=== PATIENT | female | born 1950 | race Caucasian/White ===

== ENCOUNTER 2017-07-28 16:04 | Emergency (ER) | payer MEDICARE, SELFPAY ==
[2017-07-28 16:05] VITALS: BP 119/74; PULSE 89; RESP 16; TEMP 36.1; O2SAT 98; BMI 23.3
--- NOTE | 2017-07-28 16:35 | RAD_ITS ---
STUDY: X-RAY - RIGHT SHOULDER REASON FOR EXAM: Female, 66 years old. Right shoulder pain. TECHNIQUE: 2 view(s) of the shoulder. COMPARISON: None. FINDINGS: Fracture of the humeral neck, partially extending into the base of the greater tubercle. No significant impaction or displacement. No dislocation. RAD/Shoulder min 2 Views IMPRESSION: Humeral neck fracture. Electronically Signed: Fernando Matute, at 16:55 EDT Tel , Service support ,
--- NOTE | 2017-07-28 17:36 | ED.VISSUMM ---
- ER Visit Summary Date of Service: 07/28/17 Chief Complaint: Right shoulder pain History of Present Illness: The patient is a 66 F who presents with right shoulder pain that began today after a fall. Patient states she was playing pickle ball when she dove for the ball and landed on her right upper extremity. Patient states her pain is worse with any movement. Patient admits to some abrasions over her right wrist and right elbow. Patient states the pain is worse over the right shoulder. Patient denies any paresthesias or weakness. Patient denies any head injury or loss of consciousness. Patient denies any other injuries. Physical Examination: Vital signs are stable. Patient is afebrile. Patient is in no acute distress. Musculoskeletal exam reveals tenderness over the right proximal humerus and right shoulder area. Range of motion was limited in all motions of the right shoulder secondary to pain. There are superficial abrasions over the right wrist and right elbow. There is no active bleeding. There is good range of motion of the elbow and wrist. Strength is 5/5 bilaterally. There are no sensory deficits noted. The remaining physical exam is within normal limits. Test Results: X-rays of the right shoulder were obtained. There is a nondisplaced right proximal humerus fracture. Emergency Department Course and Treatment: Patient was given a dose of [place] here. Patient was placed in a sling and swath. Patient was given a prescription for [place]. Patient made an appointment with Dr. Berry for tomorrow. Patient was instructed to follow-up with Dr. Berry tomorrow as scheduled. Patient understood and was agreeable with the plan. All questions were answered. Disposition: Discharge home Impression: Right proximal humerus fracture This note was generated with [employer] dictation software. It may contain incorrect words, spelling, and punctuation that were not noted in review of the chart prior to signing ED Disposition - Plan for ED Patient: Disposition: Home or Assisted Living Chief Complaint: Upper Extremity Injury Diagnosis: Closed fracture of right proximal humerus Instructions: ED Fx Shoulder Prescriptions: Hydrocodone/Acetaminophen [[place] 5-325 Tablet] 1 ea PO Q6H PRN PRN 5 Days #20 tab PRN Reason: Pain Referrals: Alfredito Engel DO [Primary Care Provider] -
--- NOTE | 2017-07-28 17:42 | ED.DCSUM_ITS ---
- ER Visit Summary Date of Service: 07/28/17 Chief Complaint: Right shoulder pain History of Present Illness: The patient is a 66 F who presents with right shoulder pain that began today after a fall. Patient states she was playing pickle ball when she dove for the ball and landed on her right upper extremity. Patient states her pain is worse with any movement. Patient admits to some abrasions over her right wrist and right elbow. Patient states the pain is worse over the right shoulder. Patient denies any paresthesias or weakness. Patient denies any head injury or loss of consciousness. Patient denies any other injuries. Physical Examination: Vital signs are stable. Patient is afebrile. Patient is in no acute distress. Musculoskeletal exam reveals tenderness over the right proximal humerus and right shoulder area. Range of motion was limited in all motions of the right shoulder secondary to pain. There are superficial abrasions over the right wrist and right elbow. There is no active bleeding. There is good range of motion of the elbow and wrist. Strength is 5/5 bilaterally. There are no sensory deficits noted. The remaining physical exam is within normal limits. Test Results: X-rays of the right shoulder were obtained. There is a nondisplaced right proximal humerus fracture. Emergency Department Course and Treatment: Patient was given a dose of [place] here. Patient was placed in a sling and swath. Patient was given a prescription for [place]. Patient made an appointment with Dr. eBrry for tomorrow. Patient was instructed to follow-up with Dr. Berry tomorrow as scheduled. Patient understood and was agreeable with the plan. All questions were answered. Disposition: Discharge home Impression: Right proximal humerus fracture This note was generated with [employer] dictation software. It may contain incorrect words, spelling, and punctuation that were not noted in review of the chart prior to signing ED Disposition - Plan for ED Patient: Disposition: Home or Assisted Living Chief Complaint: Upper Extremity Injury Diagnosis: Closed fracture of right proximal humerus Instructions: ED Fx Shoulder Prescriptions: Hydrocodone/Acetaminophen [[place] 5-325 Tablet] 1 ea PO Q6H PRN PRN 5 Days #20 tab PRN Reason: Pain Referrals: Alfredito Engel DO [Primary Care Provider] -
[2017-07-28] MEDS: HYDROcodone Bitartrate/Apap 5/325 Tablet PO (17:50)
[2017-07-28 17:51] VITALS: RESP 18
== END 2017-07-28 17:54 | disposition home or self-care (01) ==
PROVIDERS: Emergency Provider Emergency Medicine; Family Provider Student in an Organized Health Care Education/Training Program; PCP Student in an Organized Health Care Education/Training Program
DX: S42.201A Unspecified fracture of upper end of right humerus, initial encounter for closed fracture (principal); W18.39XA Other fall on same level, initial encounter; Y93.69 Activity, other involving other sports and athletics played as a team or group; Y92.9 Unspecified place or not applicable; Y99.9 Unspecified external cause status; Z85.3 Personal history of malignant neoplasm of breast
CPT/HCPCS: 73030; 99283

== ENCOUNTER → 2017-12-05 15:54 | Outpatient (CLI) | payer MEDICARE, SELFPAY | PROVIDERS: Family Provider Student in an Organized Health Care Education/Training Program; PCP Student in an Organized Health Care Education/Training Program | DX: J02.9 Acute pharyngitis, unspecified (principal) | CPT/HCPCS: 87070; 87077; 87186 ==

== ENCOUNTER → 2018-02-14 07:26 | Outpatient (CLI) | payer MEDICARE, SELFPAY ==
[2018-02-14 11:38] LABS: Hematocrit 42.2 % (37-47); Hemoglobin 14.3 g/dl (12.0-15.0); Mean Corp Hgb Conc 33.9 g/gl (32-36); Mean Corpuscular Hgb 31.8 pg (27.0-32.0); Mean Corpuscular Volume 93.8 fL (81-99); Mean Platelet Vol. 10.6 fl (6.2-12.0); Platelet Count 259 K/mm3 (150-450); RBC Distribution Width CV 13.5 % (11.6-14.6); RBC Distribution Width SD 44.8 fl (35.1-43.9); White Blood Count 4.4 K/mm3 (4.4-11.0)
[2018-02-14 11:40] LABS: Scan Indicated on CBC? Y/N NO
[2018-02-14 11:56] LABS: AST(SGOT) 22 U/L (15-37); Alanine Aminotransfer ALT/SGPT 32 U/L (13-56); Albumin, Serum 3.8 g/dL (3.2-5.0); Alkaline Phosphatase 83 U/L (45-117); Anion Gap 5 (5-15); BUN 14 mg/dL (7-18); BUN/Creat Ratio 15.4 RATIO (10-20); Calcium,Total 8.7 mg/dL (8.5-10.1); Chloride 103 mmol/L (98-107); Cholesterol 181 mg/dL (200); Creatinine, Serum 0.91 mg/dL (0.55-1.02); EST Glomerular Filtration Rate 65 mL/min (>60); Est Glom Filt Rate - Afr Amer 79 mL/min (>60); Globulin 3.7 g/dL (2.2-4.2); Glucose 79 mg/dL (74-106); High Density Lipoprotein 69 mg/dL; Protein, Total 7.5 g/dL (6.4-8.2); Sodium Level 140 mmol/L (136-145); Thyroid Stim Hormone (TSH) 2.94 uIU/mL (0.358-3.74); Triglycerides 49 mg/dL; Very Low Density Lipoprotein 10 mg/dL (5-40)
--- OUTSIDE RECORDS SUMMARY | 2018-04-02 11:53 | XMS RPT_ITS ---
:1950 Author Organization OH[facility] Care Team Providers Name Role Phone Alfredito Granados Attending Unavailable Granados, Alfredito Referring Unavailable Granados, Alfredito Primary Care Unavailable Granados, Alfredito Primary Care Unavailable Shahzad Martinez Attending Unavailable DEAN WANG Attending Unavailable Granados, Alfredito Primary Care Unavailable GRANADOS, ALFREDITO L Attending Unavailable GRANADOS, ALFREDITO L Referring Unavailable GRANADOS, ALFREDITO L Attending Unavailable GRANADOS, ALFREDITO L Referring Unavailable GRANADOS, ALFREDITO L Referring Unavailable GRANADOS, ALFREDITO L Attending Unavailable AISLINN MAYES Attending Unavailable PROBLEMS PROBLEMS DATE TYPE CONDITION / CODE ATTENDING STATUS SOURCE 02/13/2018 Active Encounter for NA Active [facility] medical Repository examination without abnormal findings / Z00.00(ICD-10) 02/14/2018 Unknown Z00.00 - Granados, Active [place] Encounter for [facility] medical Repository examination without abnormal findings / Z00.00(ICD-10) 12/05/2017 Unknown J02.9 - Acute DEAN WANG Active [facility] pharyngitis, Community unspecified / Hospital J02.9(ICD-10) Repository 07/28/2017 Unknown S42.201A - Shahzad Martinez Active [place] Unspecified Community fracture of upper Hospital end of right Repository humerus, initial encounter for closed fracture / S42.201A(ICD-10) PROCEDURES PROCEDURES No Procedure Records FoundRESULTS RESULTS CBC-COMPLETE BLOOD CNT Collected: 02/14/2018 Status: F Source: RADHA NO DIFF 7:36 AM [facility] REPOSITORY TYPE CODE TESTS RESULT OUT OF RANGE REFERENCE UNITS LAB L100.1000 4.4-11.0 K/mm3 Normal WBC 4.4 LAB L100.1200 4.2-5.4 M/mm3 Normal RBC 4.50 LAB L100.1300 12.0-15.0 g/dl Normal HGB 14.3 LAB L100.1400 37-47 % Normal HCT 42.2 LAB L100.1500 81-99 fL Normal MCV 93.8 LAB L100.1600 27.0-32.0 pg Normal MCH 31.8 LAB L100.1700 32-36 g/gl Normal MCHC 33.9 LAB L100.1810 11.6-14.6 % Normal RDW CV 13.5 LAB L100.1820 35.1-43.9 fl High RDW SD 44.8 LAB L100.1900 150-450 K/mm3 Normal PLT 259 LAB L100.2000 6.2-12.0 fl Normal MPV 10.6 Performed By: #### L100.0500 #### [facility] [address] [place], [address] COMPREHENSIVE METABOLIC Collected: 02/14/2018 Status: F Source: RADHA GAITAN 7:36 AM [facility] REPOSITORY TYPE CODE TESTS RESULT OUT OF RANGE REFERENCE UNITS LAB L501.0100 74-106 mg/dL Normal GLU 79 Result Comment: Please note revised GLUCOSE reference range effective 2017. LAB L501.1000 7-18 mg/dL Normal BUN 14 LAB L501.1100 0.55-1.02 mg/dL Normal CREAT,SERUM 0.91 Result Comment: The validity of the calculated GFR AND GFRAA in patients over 70 years has not been determined. Clinical correlation is essential. LAB L501.1110 >60 mL/min Normal EST GFR 65 Result Comment: Non- GFR Calc LAB L501.1115 >60 mL/min Normal EST GFR - AA 79 Result Comment: GFR Calc LAB L501.1300 10-20 RATIO Normal BUN/CRE 15.4 LAB L501.1500 6.4-8.2 g/dL T Normal PROT 7.5 LAB L501.1800 3.2-5.0 g/dL Normal ALB 3.8 LAB L501.1950 2.2-4.2 g/dL Normal GLOB 3.7 LAB L501.2000 0.9-2.4 RATIO Normal A/G 1.0 LAB L501.2200 8.5-10.1 mg/dL CA Normal 8.7 LAB L501.4100 15-37 U/L Normal AST 22 LAB L501.4305 45-117 U/L Normal ALK P 83 LAB L501.4405 13-56 U/L Normal ALT 32 LAB L501.4600 0.20-1.00 mg/dL T Normal BILI 0.40 LAB L501.5300 136-145 mmol/L NA Normal 140 LAB L501.5600 3.5-5.1 mmol/L K Normal 4.0 LAB L501.5900 98-107 mmol/L CL Normal 103 LAB L501.6100 21.0-32.0 mmol/L Normal CO2 32.0 LAB L501.6200 5-15 Normal GAP 5 Performed By: #### L500.4050, L500.4100, L501.9520, L506.0400 #### [facility] [address] [place], [address] LIPID PROFILE Collected: 02/14/2018 Status: F Source: [place] 7:36 AM [facility] REPOSITORY TYPE CODE TESTS RESULT OUT OF RANGE REFERENCE UNITS LAB L501.4900 200 mg/dL Normal CHOL 181 Result Comment: <200 mg/dL Desirable 200-240 mg/dL Borderline >240 mg/dL High Risk LAB L501.5000 mg/dL Normal TRIG 49 Result Comment: The drugs N-Acetylcysteine and Metamizole may falsely depress this assay. Serum Triglycerides Reference Interval Normal <150 mg/dL Borderline high 150 - 199 mg/dL High 200 - 499 mg/dL Very High > or = 500 mg/dL LAB L501.6400 mg/dL Normal HDL 69 Result Comment: The drugs N-Acetylcysteine and Metamizole may falsely depress this assay. Reference Range HDL <40 mg/dL Low HDL Cholesterol HDL >or= 60 mg/dL High HDL Cholesterol LAB L501.6500 0-130 mg/dL Normal LDL 102 LAB L501.6600 5-40 mg/dL Normal VLDL 10 Performed By: #### L500.4050, L500.4100, L501.9520, L506.0400 #### [facility] [address] [place], [address] THYROID STIM HORMONE Collected: 02/14/2018 Status: F Source: [place] (TSH) 7:36 AM [facility] REPOSITORY TYPE CODE TESTS RESULT OUT OF RANGE REFERENCE UNITS LAB L501.9520 0.358-3.74 uIU/mL Normal TSH 2.94 Performed By: #### L500.4050, L500.4100, L501.9520, L506.0400 #### [facility] [address] [facility] [address] [place], [place], [address] T4 FREE DIRECT Collected: 02/14/2018 Status: F Source: [place] 7:36 AM [facility] REPOSITORY TYPE CODE TESTS RESULT OUT OF RANGE REFERENCE UNITS LAB L506.0400 0.76-1.46 ng/dL Normal T4 FREE 0.90 DIRECT Performed By: #### L500.4050, L500.4100, L501.9520, L506.0400 #### [facility] [address] [facility] [address] [place], [place], [address] CBC Collected: 02/14/2018 Status: F Source: [place] 7:[address] [facility] REPOSITORY TYPE CODE TESTS RESULT OUT OF REFERENCE UNITS RANGE LAB WBC 3.70-11.00 k/uL Test WBC sent to [facility]. Result Comment: Account Credited [facility] RBC 3.90-5.20 m/uL Test sent RBC to [facility]. Result Comment: Account Credited [facility] HGB 11.5-15.5 g/dL Hemoglobin Test sent to [facility]. Result Comment: Account Credited [facility] HCT 36.0-46.0 % Hematocrit Test sent to [facility]. Result Comment: Account Credited [facility] MCV 80.0-100.0 fL Test sent MCV to [facility]. Result Comment: Account Credited [facility] MCH 26.0-34.0 pG Test sent MCH to [facility]. Result Comment: Account Credited [facility] MCHC 30.5-36.0 g/dL Test MCHC sent to [facility]. Result Comment: Account Credited [facility] RDWCV 11.5-15.0 % Test RDW-CV sent to [facility]. Result Comment: Account Credited [facility] PLTCT 150-400 k/uL Test Platelet Count sent to [facility]. Result Comment: Account Credited [facility] MPV 9.0-12.7 fL Test sent MPV to [facility]. Result Comment: Account Credited [facility] MADDY Recheck Test sent to [facility]. Result Comment: Account Credited [facility] REVW Test sent to [facility]. Result Comment: Account Credited [facility] CBCCOM Comment Test sent to [facility]. Result Comment: Account Credited [facility] ABSNUC <0.01 k/uL Test Absolute nRBC sent to [facility]. Result Comment: Account Credited [facility] COMP METABOLIC PANEL Collected: 02/14/2018 Status: F Source: [place] 7:36 AM [facility] REPOSITORY TYPE CODE TESTS RESULT OUT OF REFERENCE UNITS RANGE LAB TP 6.3-8.0 g/dL Test sent to [facility]. Result Comment: Account Credited [facility] ALB 3.9-4.9 g/dL Test Albumin sent to [facility]. Result Comment: Account Credited [facility] CA 8.5-10.2 mg/dL Test Calcium, Total sent to [facility]. Result Comment: Account Credited [facility] TBIL 0.2-1.3 mg/dL Bilirubin, Test Total sent to [facility]. Result Comment: Account Credited [facility] ALKP 34-123 U/L Alkaline Test Phosphatase sent to [facility]. Result Comment: Account Credited [facility] AST 13-35 U/L Test sent AST to [facility]. Result Comment: Account Credited [facility] GLU 74-99 mg/dL Test sent Glucose to [facility]. Result Comment: Account Credited [facility] BUN 7-21 mg/dL Test sent BUN to [facility]. Result Comment: Account Credited [facility] CRET 0.58-0.96 mg/dL Creatinine Test sent to [facility]. Result Comment: Account Credited [facility] NA 136-144 mmol/L Test Sodium sent to [facility]. Result Comment: Account Credited [facility] K 3.7-5.1 mmol/L Test Potassium sent to [facility]. Result Comment: Account Credited [facility] CL 97-105 mmol/L Test Chloride sent to [facility]. Result Comment: Account Credited [facility] CO2 22-30 mmol/L Test sent CO2 to [facility]. Result Comment: Account Credited [facility] AGAP 9-18 mmol/L Test sent Anion Gap to [facility]. Result Comment: Account Credited [facility] ALT 7-38 U/L Test sent to ALT [facility]. Result Comment: Account Credited [facility] GFRAA eGFR- Amer. Test sent to [facility]. Result Comment: Account Credited [facility] GFRNAA . eGFR-All Test sent Other Races to [facility]. Result Comment: Account Credited [facility] GFRPED eGFR-Ped. Test sent Factor to [facility]. Result Comment: Account Credited [facility] FREE T4 Collected: 02/14/2018 Status: F Source: [place] 7:36 AM [facility] REPOSITORY TYPE CODE TESTS RESULT OUT OF REFERENCE UNITS RANGE LAB FT4 0.9-1.7 ng/dL Test Free sent to [address] Result Comment: Account Credited [facility] LIPID PANEL, BASIC Collected: 02/14/2018 Status: F Source: [place] 7:36 AM [facility] REPOSITORY TYPE CODE TESTS RESULT OUT OF REFERENCE UNITS RANGE LAB CHOL <200 mg/dL Cholesterol Test sent to [facility]. Result Comment: Account Credited [facility] TRIGLY <150 mg/dL Triglyceride Test sent to [facility]. Result Comment: Account Credited [facility] HDL >39 mg/dL HDL-Cholesterol Test sent to [facility]. Result Comment: Account Credited [facility] LDL <100 mg/dL LDL-Cholesterol Test sent to [facility]. Result Comment: Account Credited [facility] NONHDL 90-159 mg/dL Non HDL Test Cholesterol sent to [facility]. Result Comment: Account Credited [facility] FT hrs Fasting Time 12 LAB VLDL <30 mg/dL VLDL Cholesterol Test sent to [facility]. Result Comment: Account Credited [facility] TCHDL <5.10 Test sent TC:HDL Ratio to [facility]. Result Comment: Account Credited [facility] LDLHDL <2.54 Test sent LDL:HDL Ratio to [facility]. Result Comment: Account Credited [facility] TSH Collected: 02/14/2018 Status: F Source: [place] 7:[address] [facility] [place] REPOSITORY TYPE CODE TESTS RESULT OUT OF REFERENCE UNITS RANGE LAB TSH 0.400-5.500 uU/mL Test TSH sent to [facility]. Result Comment: Account Credited [facility] PROGRESS Observed: 02/13/2018 Status: COMPLETED Source: [place] 12:47 PM [facility] REPOSITORY HNO ID: [id number] Author: Alfredito Granados Service: (none) Author Type: Physician Type: Progress Notes Filed: 02/13/2018 1:50 PM Note Text: CC:Corry Gonzalez is a 67 year old female who presents to the office for 6 months follow up HPI: At Last OV Urinary incontinence, overall stable, use of Vesicare as prescribed without significant SE ? Osteopenia, use of calcium and vitamin D supplements, regular exercise ? Recently suffered fall, was attempting to play/learn pickle ball and tripped and landed with right arm extended, had a right humeral neck fracture, seen at [facility] day of injury on 07/28 and treated by [employer] specialist Dr. Berry, She is in a sling, immobilized for another 3-5 weeks, has an upcoming follow up. Pain is stable, no concerns. ? Hx of breast cancer. Currently Right humeral fracture, has been to PHYSICAL THERAPY and gone to different ones for opinions, has regained ROM but is still not feeling as strong with shoudler strength as prior to fracture, continues to do exercise Skin lesion right base of foot, sore when walking, present for months Hx of breast cancer, recently had her left breast mammogram and then diagnostic mammo and US completed, asking for clinical breast exam, no new changes she has noticed- denies any nipple d/c or skin changes or new lumps. Urinary incontinence, stable with Vesicare. PAST MEDICAL HISTORY Diagnosis Date - Allergic rhinitis - Antibiotic reaction allergy- Amoxicillin, Ampicillin - Ductal carcinoma in situ (DCIS) of right breast 1997 - Lobular carcinoma of breast, stage 1 (HCC) 1997 right sided - Osteopenia stable in past - PMH - PAST MEDICAL HISTORY OF hot flashes on Tamoxifen secondary to breast cancer - Urge incontinence PAST SURGICAL HISTORY Procedure Laterality Date - CATARACT EXTRACTION HX ? 2009 bilateral - COLONOSCOP W/ OR W/O [facility] SPEC 03/29/13 Colonoscopy - DANSILVA, DIAG AND/OR THERAPEUTIC 2014 due to pelvic pain- as on Tamoxifen - PAST SURGICAL HISTORY OF 1997 mastectomy right breast Current Outpatient Prescriptions: solifenacin (VESICARE) 5 mg tablet Take 1 tablet by mouth once daily. venlafaxine (EFFEXOR) 50 mg tablet Take 3 tablets by mouth as directed. TAKE 2 TABLETS BY MOUTH IN THE MORNING, AND 1 TABLET IN THE EVENING mupirocin (BACTROBAN) 2 % ointment Apply 1 application to affected area twice daily as needed. cetirizine 10 mg tablet Take 10 mg by mouth once daily. aspirin 81 mg chewable tablet Take 81 mg by mouth once daily. zoster vaccine, recombinant, adjuvanted, (SHINGRIX) 50 mcg/0.5 mL injection Inject 0.5 mL intramuscularly one time only for 1 dose. No current facility-administered medications for this visit. ALLERGIES Allergen Reactions - Ampicillin Hives - [place] Fruits Intolerance - Dairy [Homeopathic * Intolerance - Dust Mites Intolerance - Molds [Other] Hives - Penicillins Hives - Wheat Bran Intolerance congestion Social History Marital status: Spouse name: Years of education: Number of children: Social History Main Topics Smoking status: Never Smoker Smokeless tobacco: Never Used Alcohol use: No ROS: See HPI PE: BP 100/56 Pulse 68 Temp (Src) 97.5 (Left Tympanic) Resp 16 Wt 152 lb (68.9kg) Gen: AANDOX3, NAD, non-toxic appearing HEENT: PERRLA, EOMs intact b/l, nares without drainage, pharynx without erythema, exudate, lesions, or drainage. Uvula midline. Neck: No LAD, no thyromegaly, no meningismus. CV: RRR, no murmur Lungs: CTA b/l, no wheezing Skin: No rashes, lesions, or wounds on exposed skin. Wart on right lateral foot plantar surface Breast exam- right breast with surgical removal and implant present, Left breast with dense lumps without obvious concerns, skin without changes, no nipple d/c, no axillary LAD No edema legs Normal pulses ASSESSMENT/PLAN: 1. Medicare annual wellness visit, subsequent - ICD9: V70.0, ICD10: Z00.00 (primary diagnosis) - Encouraged monthly Breast Self Exam - Recommended calcium intake with supplements or by diet (goal of 3922-9087 mg/day - Follow up for annual exam in one year. - COMP METABOLIC PANEL - CBC - LIPID PANEL BASIC - TSH BLD - T4 FREE/FREE THYROX 2. Need for vaccination - ICD9: V05.9, ICD10: Z23 - INFLUENZA SEASONAL HIGH DOSE AGE 65+ 3. Need for shingles vaccine - ICD9: V04.89, ICD10: Z23 - VARICELLA-ZOSTER GLYCOE VACC-AS01B ADJ(PF) 50 MCG/0.5 ML IM SUSP, KIT 4. Urge incontinence - ICD9: 788.31, ICD10: N39.41 - SOLIFENACIN 5 MG TABLET 5. Osteopenia, senile - ICD9: 733.90, ICD10: M85.80 - Reviewed the need for Calcium and Vitamin D supplements and weight bearing exercise as tolerated 6. Plantar wart, right foot - ICD9: 078.12, ICD10: B07.0 - treated in office today with cryotherapy, tolerated well Alfredito Granados DO Return if no improvement. Follow up with Alfredito Granados DO. Discussed risks, benefits, alternatives, and potential side effects of medications. Patient/Guardian expressed understanding and agreed with the plan. See patient instructions. Alfredito Granados DO [address] [place] [address] PROGRESS Observed: 02/13/2018 Status: COMPLETED Source: [place] 10:[address] [facility] [place] REPOSITORY HNO ID: [id number] Author: Elyssa Pickett LPN Service: (none) Author Type: (none) Type: Progress Notes Filed: 02/13/2018 1:50 PM Note Text: 67 year old female here for INACTIVATED INFLUENZA VACCINE. 6184-8535 Season Patient is identified by name and date of : Yes [] CONTRAINDICATIONS color enhanced section Age less than 6 months? No Allergy to eggs, chicken, chicken feathers, or chicken dander? No Allergy to thimerosal (a preservative) or formaldehyde, gelatin? No History of severe reaction to any vaccine component or a previous dose of influenza vaccination? No History of Guillain-Hudson Syndrome within 6 weeks after a previous influenza vaccine? No Patient is not moderately or severely ill? No Current temperature greater or equal to 100.4F? No History of Bone Marrow Transplant prior 6 months or solid organ transplant in the past 3 months ? No History of fainting after a prior injection or medical procedure? No- ? If patient has fainted in the past, the CDC recommends sitting or lying down for 15 minutes after the vaccination. [] VERIFICATION color enhanced section Was the answer Yes for any of the above contraindications? No contraindications present. Acceptable to proceed with vaccine. Patient/guardian agrees the above answers are true to the best of their knowledge? Yes Flu vaccine information sheet given? Yes See immunization activity in [facility] for details of immunizations adminstered today. Patient age: [age] year old For The 1685-8871 Flu Season 6-35 months old: Fluzone 0.25 ml - IM (Preservative Free) 3 years of age: Fluzone 0.5 ml - IM (Preservative Free) 3 years and older: Fluzone 0.5 ml- IM-(with Preservatives) 65+ years old: 2-49 years old Fluzone High-Dose 0.5 ml - IM (Preservative Free) FLUMIST- intranasal REMEMBER: If patient is less than 9 years of age and this is the first vaccine of Influenza to be received in any flu season, they should receive a second dose in one months time. CNOV Observed: 02/13/2018 Status: COMPLETED Source: [place] 10:40 AM [facility] REPOSITORY [facility] CORRY GONZALEZ ([id number]) 1950 F Date Time Provider Department 02/13/18 10:40 AM ALFREDITO GRANADOS During your visit today, we recorded the following information about you: Temperature Pulse Respiration Blood pressure 97.5 degrees 68/minute 16/minute 100/56 Weight 68.9 kg Elyssa Madhu FINCH 02/13/2018 1:50 PM Signed 67 year old female here for INACTIVATED INFLUENZA VACCINE. 5491-8771 Season Patient is identified by name and date of : Yes [] CONTRAINDICATIONS color enhanced section Age less than 6 months? No Allergy to eggs, chicken, chicken feathers, or chicken dander? No Allergy to thimerosal (a preservative) or formaldehyde, gelatin? No History of severe reaction to any vaccine component or a previous dose of influenza vaccination? No History of Guillain-Hudson Syndrome within 6 weeks after a previous influenza vaccine? No Patient is not moderately or severely ill? No Current temperature greater or equal to 100.4F? No History of Bone Marrow Transplant prior 6 months or solid organ transplant in the past 3 months ? No History of fainting after a prior injection or medical procedure? No- ? If patient has fainted in the past, the CDC recommends sitting or lying down for 15 minutes after the vaccination. [] VERIFICATION color enhanced section Was the answer Yes for any of the above contraindications? No contraindications present. Acceptable to proceed with vaccine. Patient/guardian agrees the above answers are true to the best of their knowledge? Yes Flu vaccine information sheet given? Yes See immunization activity in [facility] for details of immunizations adminstered today. Patient age: [age] year old For The 6162-3219 Flu Season 6-35 months old: Fluzone 0.25 ml - IM (Preservative Free) 3 years of age: Fluzone 0.5 ml - IM (Preservative Free) 3 years and older: Fluzone 0.5 ml- IM-(with Preservatives) 65+ years old: 2-49 years old Fluzone High-Dose 0.5 ml - IM (Preservative Free) FLUMIST- intranasal REMEMBER: If patient is less than 9 years of age and this is the first vaccine of Influenza to be received in any flu season, they should receive a second dose in one months time. Alfredito Granados DO 02/13/2018 1:50 PM Signed CC:Corry Gonzalez is a 67 year old female who presents to the office for 6 months follow up HPI: At Last OV Urinary incontinence, overall stable, use of Vesicare as prescribed without significant SE ? Osteopenia, use of calcium and vitamin D supplements, regular exercise ? Recently suffered fall, was attempting to play/learn pickle ball and tripped and landed with right arm extended, had a right humeral neck fracture, seen at [facility] day of injury on 07/28 and treated by [employer] specialist Dr. Berry, She is in a sling, immobilized for another 3-5 weeks, has an upcoming follow up. Pain is stable, no concerns. ? Hx of breast cancer. Currently Right humeral fracture, has been to PHYSICAL THERAPY and gone to different ones for opinions, has regained ROM but is still not feeling as strong with shoudler strength as prior to fracture, continues to do exercise Skin lesion right base of foot, sore when walking, present for months Hx of breast cancer, recently had her left breast mammogram and then diagnostic mammo and US completed, asking for clinical breast exam, no new changes she has noticed- denies any nipple d/c or skin changes or new lumps. Urinary incontinence, stable with Vesicare. PAST MEDICAL HISTORY Diagnosis Date - Allergic rhinitis - Antibiotic reaction allergy- Amoxicillin, Ampicillin - Ductal carcinoma in situ (DCIS) of right breast 1997 - Lobular carcinoma of breast, stage 1 (HCC) 1997 right sided - Osteopenia stable in past - PMH - PAST MEDICAL HISTORY OF hot flashes on Tamoxifen secondary to breast cancer - Urge incontinence PAST SURGICAL HISTORY Procedure Laterality Date - CATARACT EXTRACTION HX ? 2009 bilateral - COLONOSCOP W/ OR W/O [facility] SPEC 03/29/13 Colonoscopy - AMAIRANI, DIAG AND/OR THERAPEUTIC 2014 due to pelvic pain- as on Tamoxifen - PAST SURGICAL HISTORY OF 1997 mastectomy right breast Current Outpatient Prescriptions: solifenacin (VESICARE) 5 mg tablet Take 1 tablet by mouth once daily. venlafaxine (EFFEXOR) 50 mg tablet Take 3 tablets by mouth as directed. TAKE 2 TABLETS BY MOUTH IN THE MORNING, AND 1 TABLET IN THE EVENING mupirocin (BACTROBAN) 2 % ointment Apply 1 application to affected area twice daily as needed. cetirizine 10 mg tablet Take 10 mg by mouth once daily. aspirin 81 mg chewable tablet Take 81 mg by mouth once daily. zoster vaccine, recombinant, adjuvanted, (SHINGRIX) 50 mcg/0.5 mL injection Inject 0.5 mL intramuscularly one time only for 1 dose. No current facility-administered medications for this visit. ALLERGIES Allergen Reactions - Ampicillin Hives - [place] Fruits Intolerance - Dairy [Homeopathic * Intolerance - Dust Mites Intolerance - Molds [Other] Hives - Penicillins Hives - Wheat Bran Intolerance congestion Social History Marital status: Spouse name: Years of education: Number of children: Social History Main Topics Smoking status: Never Smoker Smokeless tobacco: Never Used Alcohol use: No ROS: See HPI PE: BP 100/56 Pulse 68 Temp (Src) 97.5 (Left Tympanic) Resp 16 Wt 152 lb (68.9kg) Gen: AANDOX3, NAD, non-toxic appearing HEENT: PERRLA, EOMs intact b/l, nares without drainage, pharynx without erythema, exudate, lesions, or drainage. Uvula midline. Neck: No LAD, no thyromegaly, no meningismus. CV: RRR, no murmur Lungs: CTA b/l, no wheezing Skin: No rashes, lesions, or wounds on exposed skin. Wart on right lateral foot plantar surface Breast exam- right breast with surgical removal and implant present, Left breast with dense lumps without obvious concerns, skin without changes, no nipple d/c, no axillary LAD No edema legs Normal pulses ASSESSMENT/PLAN: 1. Medicare annual wellness visit, subsequent - ICD9: V70.0, ICD10: Z00.00 (primary diagnosis) - Encouraged monthly Breast Self Exam - Recommended calcium intake with supplements or by diet (goal of 7539-1441 mg/day - Follow up for annual exam in one year. - COMP METABOLIC PANEL - CBC - LIPID PANEL BASIC - TSH BLD - T4 FREE/FREE THYROX 2. Need for vaccination - ICD9: V05.9, ICD10: Z23 - INFLUENZA SEASONAL HIGH DOSE AGE 65+ 3. Need for shingles vaccine - ICD9: V04.89, ICD10: Z23 - VARICELLA-ZOSTER GLYCOE VACC-AS01B ADJ(PF) 50 MCG/0.5 ML IM SUSP, KIT 4. Urge incontinence - ICD9: 788.31, ICD10: N39.41 - SOLIFENACIN 5 MG TABLET 5. Osteopenia, senile - ICD9: 733.90, ICD10: M85.80 - Reviewed the need for Calcium and Vitamin D supplements and weight bearing exercise as tolerated 6. Plantar wart, right foot - ICD9: 078.12, ICD10: B07.0 - treated in office today with cryotherapy, tolerated well Alfredito Granados DO Return if no improvement. Follow up with Alfredito Granados DO. Discussed risks, benefits, alternatives, and potential side effects of medications. Patient/Guardian expressed understanding and agreed with the plan. See patient instructions. Alfredito Granados DO [address] [place] [address] Referring Provider: ALFREDITO GRANADOS [[id number]] Allergies As of Date: 02/13/2018 Noted Allergy Reaction AMPICILLIN 05/09/2006 4 - Hives CITRUS FRUITS 05/09/2006 5 - Intolerance DAIRY (HOMEOPATHIC PRODUCTS) 05/09/2006 5 - Intolerance DUST MITES 05/09/2006 5 - Intolerance molds [Other] 05/09/2006 4 - Hives PENICILLINS 05/09/2006 4 - Hives WHEAT BRAN 05/09/2006 5 - Intolerance Comments: congestion Date Reviewed: 12/05/2017 Reviewed by: Martha Merritt LPN - Fully Assessed Reason for Visit: Follow Up [171] Cmt: 6 months Imm/Inj [58] Cmt: Flu Vaccine Reason For Visit History Recorded Primary Visit Diagnosis:Medicare annual wellness visit, subsequent [Z00.00] Other Visit Diagnoses:Need for vaccination [Z23] Need for shingles vaccine [Z23] Urge incontinence [N39.41] Osteopenia, senile [M85.80] Plantar wart, right foot [B07.0] Order(s):INFLUENZA SEASONAL HIGH DOSE AGE 65+ [55204SNA] Order #: [id number] zoster vaccine, recombinant, adjuvanted, (SHINGRIX) 50 mcg/0.5 mL injectionInject 0.5 mL intramuscularly one time only for 1 dose.Disp: 0.5 mLRfl: 0 solifenacin (VESICARE) 5 mg tabletTake 1 tablet by mouth once daily.Disp: 90 tabletRfl: 3 COMP METABOLIC PANEL [SQCMP] Order #: [id number] FUTURE CBC [SQCBC] Order #: [id number] FUTURE LIPID PANEL BASIC [SQLIPB] Order #: [id number] FUTURE TSH BLD [SQTSH] Order #: [id number] FUTURE T4 FREE/FREE THYROX [SQFT4] Order #: [id number] FUTURE Prescriptions as of 02/13/2018 Sig: SOLIFENACIN 5 MG TABLET Take 1 tablet by mouth once d* VENLAFAXINE 50 MG TABLET Take 3 tablets by mouth as di* MUPIROCIN 2 % TOPICAL OINTMENT Apply 1 application to affect* CETIRIZINE 10 MG TABLET Take 10 mg by mouth once tanisha* ASPIRIN 81 MG CHEWABLE TABLET Take 81 mg by mouth once tanisha* VARICELLA-ZOSTER GLYCOE VACC-* Inject 0.5 mL intramuscularly* Problem List As Of Date 02/13/2018 Noted Resolved ACTINIC KERATOSIS [L57.0] INVALID FOR* SEBORRHEIC KERATOSIS INFLAMED [L82.0] INVALID FOR* BENIGN DANUTA SKIN FACE NEC [D23.30] INVALID FOR* BENIGN DANUTA SKIN TRUNK [D23.5] INVALID FOR* BENIGN DANUTA SCALP/SKIN NECK [D23.4] INVALID FOR* NAIL DYSTROPHY///DISEASES OF NAIL NEC [L60.8] INVALID FOR* XEROSIS///SEBACEOUS GLAND DIS NEC [L73.8] INVALID FOR* CHR SOLAR SKIN DAMAGE NOS [L57.8] INVALID FOR* SEBORRHEIC KERATOSIS NOS [L82.1] INVALID FOR* Fx humeral neck, right, closed, initial encount*INVALID FOR* Acute pain of right shoulder [M25.511] INVALID FOR* Dysthymia [F34.1] INVALID FOR* Osteopenia, senile [M85.80] INVALID FOR* Celiac disease [K90.0] INVALID FOR* Urge incontinence [N39.41] INVALID FOR* Medicare annual wellness visit, subsequent [Z00*INVALID FOR* Prescriptions ordered this encounter Disp Refills Start End VARICELLA-ZOSTER GLYCOE VACC-AS01B A* 0.5 * 0 02/13/2018 02/13/2018 Class: Print RX Route: INTRAMUSCULA Sig: Inject 0.5 mL intramuscularly one time only for 1 dose. SOLIFENACIN 5 MG TABLET 90 t* 3 02/13/2018 Class: Print RX Route: ORAL Sig: Take 1 tablet by mouth once daily. Medications Discontinued During This Encounter VESICARE 5 mg tablet 30 t* 11 10/03/2017 02/13/2018 Cmt: This prescription was filled on 09/29/2017. Any refills authorized will be placed on file. Route: ORAL Sig: Take 1 tablet by mouth once daily. Disc: Reason for discontinue is not on file. Encounter Status:Closed by ALFREDITO GRANADOS DO on 02/13/18 MAMM DIG DIAG UNI Observed: 01/27/2018 Status: F Source: [facility] 2:30 PM [facility] REPOSITORY BILATERAL DIGITAL DIAGNOSTIC MAMMOGRAM TECHNIQUE: Bilateral CC and MLO views of the breasts were obtained with digital mammography. INDICATION: History of breast carcinoma, left FINDINGS: Compared to 02/22/2017, 02/16/2016 and 02/12/2015. Scattered fibroglandular densities in both breasts. Benign postoperative and posttherapeutic findings left breast. Benign biopsy clip left breast. No mass lesion, architectural distortion or suspicious calcifications. IMPRESSION: BI-RADS 2 - BENIGN FINDINGS. No mammographic evidence of malignancy. Annual mammogram is recommended. False negative rate of mammography is approximately 10 to 20%. Management of a palpable abnormality must be based upon clinical grounds. Technologist: CG Dictated By: DEYANIRA ROSS MD Signed By: DEYANIRA ROSS MD Signed Out: 01/27/18 14:30:26 US BREAST LEFT Observed: 01/27/2018 Status: F Source: [facility] 2:17 PM [facility] REPOSITORY LEFT DIGITAL DIAGNOSTIC MAMMOGRAM TECHNIQUE: Additional views of the left breast were obtained with digital mammography. INDICATION: History of breast carcinoma, abnormal mammogram FINDINGS: Compared to 01/14/2018 and 01/13/2017. The left breast is heterogeneously dense. Benign calcifications left breast. The new area of architectural distortion in the upper outer quadrant of the left breast significantly improves with compression images but is not completely resolved. Subsequent ultrasound demonstrates no significant abnormality. IMPRESSION: BI-RADS 3 - PROBABLE BENIGN FINDINGS. Recommend a follow-up diagnostic left mammogram in 6 months as the mammographic abnormality does not completely resolve on the compression images. False negative rate of mammography is approximately 10 to 20%. Management of a palpable abnormality must be based upon clinical grounds. YOUR MAMMOGRAM DEMONSTRATES THAT YOU HAVE DENSE BREAST TISSUE, WHICH COULD HIDE ABNORMALITIES. DENSE BREAST TISSUE, IN AND OF ITSELF, IS A RELATIVELY COMMON CONDITION. THEREFORE, THIS INFORMATION IS NOT PROVIDED TO CAUSE UNDUE CONCERN; RATHER, IT IS TO RAISE YOUR AWARENESS AND PROMOTE DISCUSSION WITH YOUR HEALTHCARE PROVIDER REGARDING THE PRESENCE OF DENSE BREAST TISSUE IN ADDITION TO OTHER RISK FACTORS. LEFT BREAST ULTRASOUND INDICATION: Abnormal screening mammogram, history of breast carcinoma TECHNIQUE: Targeted high-resolution sonographic evaluation of the upper outer quadrant and retroareolar area of the left breast performed. FINDINGS: Normal dense fibroglandular tissue is seen throughout. No mass lesion or fluid collection. IMPRESSION: BI-RADS 3 - PROBABLE BENIGN FINDINGS. Recommend a follow-up diagnostic left mammogram in 6 months as the mammographic abnormality does not completely resolve on the compression images. Technologist: ALBA Dictated By: DEYANIRA ROSS MD Signed By: DEYANIRA ROSS MD Signed Out: 01/27/18 14:14:56 MAMM DIG SCRN UNI Observed: 01/18/2018 Status: F Source: [facility] 1:30 PM [facility] REPOSITORY SCREENING LEFT DIGITAL MAMMOGRAM WITH TOMOSYNTHESIS. Clinical Data: Screening. Right mastectomy. Comparison: 01/13/2017. Mammographic findings: Standard 2D and tomosynthesis images were reviewed at 1 mm slice thickness. The left breast is heterogeneously dense, which may obscure small masses. There is a focal asymmetry and/or subtle possible architectural distortion the upper-outer quadrant at posterior depth. The digital mammogram has been reviewed with the aid of CAD. IMPRESSION AND RECOMMENDATION: Left breast focal asymmetry. Additional spot compression, XCCL, and true lateral views and targeted ultrasound are recommended. Category 0 : Need Additional Imaging Evaluation and/or Prior Mammograms For Comparison YOUR MAMMOGRAM DEMONSTRATES THAT YOU HAVE DENSE BREAST TISSUE, WHICH COULD HIDE ABNORMALITIES. DENSE BREAST TISSUE, IN AND OF ITSELF, IS A RELATIVELY COMMON CONDITION. THEREFORE, THIS INFORMATION IS NOT PROVIDED TO CAUSE UNDUE CONCERN; RATHER, IT IS TO RAISE YOUR AWARENESS AND PROMOTE DISCUSSION WITH YOUR HEALTHCARE PROVIDER REGARDING THE PRESENCE OF DENSE BREAST TISSUE IN ADDITION TO OTHER RISK FACTORS. False negative rate of mammography is approximately 10 to 20%. Management of a palpable abnormality must be based upon clinical grounds. Technologist: DERRICK Dictated By: MARCIO MCKEON MD Signed By: MARCIO MCKEON MD Signed Out: 01/18/18 13:28:45 Observed: 12/05/2017 Status: F Source: [facility] THROAT 11:30 AM [facility] REPOSITORY Culture, Throat Copy of report sent to Infection Control Printer [id number] 12/07/17 0809 [address]UC[address]. No Haemophilus, Streptococcus pneumoniae, beta-hemolytic Streptococcus isolated. ORGANISM 1: Meth. resistant Staph. aureus Amount Growth 3+ Meth. resistant Staph. aureus: REACTION Benzylpenicillin NF >=0.5 R Cefoxitin *NF + Clindamycin $$ <=0.25 S Inducable Clindamycin Resistan - Erythromycin $ 0.5 S Gentamicin $ <=0.5 S Levofloxacin $ <=0.12 S Linezolid $$$$ 2 S Oxacillin NF 0.5 R Tigecycline $$$$ <=0.12 S Rifampin $$ <=0.5 S Tetracycline NF <=1 S Trimethoprim/Sulfametho $ <=10 S Vancomycin $ 1 S (NF) indicates non-formulary drug at [facility]. Approval by Infectious Disease Specialist required before non-formulary drugs may be ordered and/or dispensed. * CLSI guidelines does not recommend testing of cephalosporins. This interpretation is deduced from Beta-lactam/penicillin results. Performed By: #### M100.1000 #### [facility] [address] 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 She has been using Ricola drops and tea with honey which seemed to be helping minimally. No fever or chills. She denies significant nasal congestion or cough. No sick contacts. No nvd or abdominal pain. Review of Systems Constitutional: Negative. Negative for fever. HENT: Positive for sore throat. Negative for congestion and ear pain. Eyes: Negative. Respiratory: Negative for cough. Cardiovascular: Negative. Gastrointestinal: Negative. Genitourinary: Negative. Skin: Negative. All other systems reviewed and are negative. PAST MEDICAL HISTORY Diagnosis Date - Allergic rhinitis - Antibiotic reaction allergy- Amoxicillin, Ampicillin - Ductal carcinoma in situ (DCIS) of right breast 1997 - Lobular carcinoma of breast, stage 1 (HCC) 1997 right sided - Osteopenia stable in past - PMH - PAST MEDICAL HISTORY OF hot flashes on Tamoxifen secondary to breast cancer - Urge incontinence Current Outpatient Prescriptions: VESICARE 5 mg tablet Take 1 tablet by mouth once daily. Disp: 30 tablet Rfl: 11 venlafaxine (EFFEXOR) 50 mg tablet Take 3 tablets by mouth as directed. TAKE 2 TABLETS BY MOUTH IN THE MORNING, AND 1 TABLET IN THE EVENING Disp: 90 tablet Rfl: 5 mupirocin (BACTROBAN) 2 % ointment Apply 1 application to affected area twice daily as needed. Disp: 15 g Rfl: 1 cetirizine 10 mg tablet Take 10 mg by mouth once daily. Disp: Rfl: aspirin 81 mg chewable tablet Take 81 mg by mouth once daily. Disp: Rfl: No current facility-administered medications for this visit. PAST SURGICAL HISTORY Procedure Laterality Date - CATARACT EXTRACTION HX ? 2009 bilateral - COLONOSCOP W/ OR W/O [facility] SPEC 03/29/13 Colonoscopy - DANDC, DIAG AND/OR THERAPEUTIC 2014 due to pelvic pain- as on Tamoxifen - PAST SURGICAL HISTORY OF 1997 mastectomy right breast FAMILY HISTORY Problem Relation Age of Onset - Heart Mother CHF, 86 - Breast Cancer Mother 72 - Heart Father CAD, [place] - Cancer Father Lung 53 - Diabetes Sister - Diabetes Brother - other (Liver Cirhosis [Other]) Maternal Grandfather Alcoholic - Alcohol/Drug Paternal Grandfather - Stroke Paternal Grandmother - Heart Paternal Aunt - Heart Paternal Grandfather Social History Substance Use Topics - Smoking status: Never Smoker - Smokeless tobacco: Never Used - Alcohol use No BP 118/74 Pulse 96 Temp 36.7 ?C (98.1 ?F) (Tympanic) Resp 16 Wt 68.5 kg (151 lb) SpO2 97% BMI 22.96 kg/m? Objective Physical Exam Constitutional: She is oriented to person, place, and time and well-developed, well-nourished, and in no distress. HENT: Head: Normocephalic and atraumatic. Right Ear: Tympanic membrane, external ear and ear canal normal. Left Ear: Tympanic membrane, external ear and ear canal normal. Nose: Nose normal. Mouth/Throat: Uvula is midline and mucous membranes are normal. Posterior oropharyngeal edema and posterior oropharyngeal erythema present. No oropharyngeal exudate or tonsillar abscesses. Neck: Normal range of motion. Neck supple. No tracheal deviation present. No thyromegaly present. Cardiovascular: Normal rate, regular rhythm and normal heart sounds. Pulmonary/Chest: Effort normal and breath sounds normal. Lymphadenopathy: She has no cervical adenopathy. Neurological: She is alert and oriented to person, place, and time. Skin: Skin is warm and dry. No rash noted. Psychiatric: Affect and judgment normal. Nursing note and vitals reviewed. ASSESSMENT/PLAN: 1. Sore throat - ICD9: 462, ICD10: J02.9 - Rapid Strep negative in the office today and Throat culture pending - Discussed supportive care treatment with fluids, rest and analgesia. - RAPID STREP TEST B/O - GROUP A STREPTOCOCCUS BY PCR TABBY Rahman Observed: 12/05/2017 Status: COMPLETED Source: [place] 10:15 AM [facility] REPOSITORY [facility] CORRY GONZALEZ ([id number]) 1950 F Date Time Provider Department 12/05/17 10:15 AM TAMICA VALE (ML) [facility] During your visit today, we recorded the following information about you: Temperature Pulse Respiration Blood pressure 98.1 degrees 96/minute 16/minute 118/74 Weight 68.5 kg Tamica Vale PA-C 12/05/2017 11:04 AM Signed Subjective HPI Pt presents with sore throat x 4 days. She has been using Ricola drops and tea with honey which seemed to be helping minimally. No fever or chills. She denies significant nasal congestion or cough. No sick contacts. No nvd or abdominal pain. Review of Systems Constitutional: Negative. Negative for fever. HENT: Positive for sore throat. Negative for congestion and ear pain. Eyes: Negative. Respiratory: Negative for cough. Cardiovascular: Negative. Gastrointestinal: Negative. Genitourinary: Negative. Skin: Negative. All other systems reviewed and are negative. PAST MEDICAL HISTORY Diagnosis Date - Allergic rhinitis - Antibiotic reaction allergy- Amoxicillin, Ampicillin - Ductal carcinoma in situ (DCIS) of right breast 1997 - Lobular carcinoma of breast, stage 1 (HCC) 1997 right sided - Osteopenia stable in past - PMH - PAST MEDICAL HISTORY OF hot flashes on Tamoxifen secondary to breast cancer - Urge incontinence Current Outpatient Prescriptions: VESICARE 5 mg tablet Take 1 tablet by mouth once daily. Disp: 30 tablet Rfl: 11 venlafaxine (EFFEXOR) 50 mg tablet Take 3 tablets by mouth as directed. TAKE 2 TABLETS BY MOUTH IN THE MORNING, AND 1 TABLET IN THE EVENING Disp: 90 tablet Rfl: 5 mupirocin (BACTROBAN) 2 % ointment Apply 1 application to affected area twice daily as needed. Disp: 15 g Rfl: 1 cetirizine 10 mg tablet Take 10 mg by mouth once daily. Disp: Rfl: aspirin 81 mg chewable tablet Take 81 mg by mouth once daily. Disp: Rfl: No current facility-administered medications for this visit. PAST SURGICAL HISTORY Procedure Laterality Date - CATARACT EXTRACTION HX ? 2009 bilateral - COLONOSCOP W/ OR W/O [facility] SPEC 03/29/13 Colonoscopy - DANDC, DIAG AND/OR THERAPEUTIC 2014 due to pelvic pain- as on Tamoxifen - PAST SURGICAL HISTORY OF 1997 mastectomy right breast FAMILY HISTORY Problem Relation Age of Onset - Heart Mother CHF, 86 - Breast Cancer Mother 72 - Heart Father CAD, [place] - Cancer Father Lung 53 - Diabetes Sister - Diabetes Brother - other (Liver Cirhosis [Other]) Maternal Grandfather Alcoholic - Alcohol/Drug Paternal Grandfather - Stroke Paternal Grandmother - Heart Paternal Aunt - Heart Paternal Grandfather Social History Substance Use Topics - Smoking status: Never Smoker - Smokeless tobacco: Never Used - Alcohol use No BP 118/74 Pulse 96 Temp 36.7 ?C (98.1 ?F) (Tympanic) Resp 16 Wt 68.5 kg (151 lb) SpO2 97% BMI 22.96 kg/m? Objective Physical Exam Constitutional: She is oriented to person, place, and time and well-developed, well-nourished, and in no distress. HENT: Head: Normocephalic and atraumatic. Right Ear: Tympanic membrane, external ear and ear canal normal. Left Ear: Tympanic membrane, external ear and ear canal normal. Nose: Nose normal. Mouth/Throat: Uvula is midline and mucous membranes are normal. Posterior oropharyngeal edema and posterior oropharyngeal erythema present. No oropharyngeal exudate or tonsillar abscesses. Neck: Normal range of motion. Neck supple. No tracheal deviation present. No thyromegaly present. Cardiovascular: Normal rate, regular rhythm and normal heart sounds. Pulmonary/Chest: Effort normal and breath sounds normal. Lymphadenopathy: She has no cervical adenopathy. Neurological: She is alert and oriented to person, place, and time. Skin: Skin is warm and dry. No rash noted. Psychiatric: Affect and judgment normal. Nursing note and vitals reviewed. ASSESSMENT/PLAN: 1. Sore throat - ICD9: 462, ICD10: J02.9 - Rapid Strep negative in the office today and Throat culture pending - Discussed supportive care treatment with fluids, rest and analgesia. - RAPID STREP TEST B/O - GROUP A STREPTOCOCCUS BY PCR Tamica Vale PA-C Referring Provider: SELF [200] Allergies As of Date: 12/05/2017 Noted Allergy Reaction AMPICILLIN 05/09/2006 4 - Hives CITRUS FRUITS 05/09/2006 5 - Intolerance DAIRY (HOMEOPATHIC PRODUCTS) 05/09/2006 5 - Intolerance DUST MITES 05/09/2006 5 - Intolerance molds [Other] 05/09/2006 4 - Hives PENICILLINS 05/09/2006 4 - Hives WHEAT BRAN 05/09/2006 5 - Intolerance Comments: congestion Date Reviewed: 12/05/2017 Reviewed by: Martha Merritt LPN - Fully Assessed Reason for Visit: Sore Throat [200] Cmt: x 4 days Primary Visit Diagnosis:Sore throat [J02.9] Order(s):RAPID STREP TEST B/O [[id number]] Order #: [id number] GROUP A STREPTOCOCCUS BY PCR [SQGASPCR] Order #: [id number] Prescriptions as of 12/05/2017 Sig: VESICARE 5 MG TABLET Take 1 tablet by mouth once d* VENLAFAXINE 50 MG TABLET Take 3 tablets by mouth as di* MUPIROCIN 2 % TOPICAL OINTMENT Apply 1 application to affect* CETIRIZINE 10 MG TABLET Take 10 mg by mouth once tanisha* ASPIRIN 81 MG CHEWABLE TABLET Take 81 mg by mouth once tanisha* Problem List As Of Date 12/05/2017 Noted Resolved ACTINIC KERATOSIS [L57.0] INVALID FOR* SEBORRHEIC KERATOSIS INFLAMED [L82.0] INVALID FOR* BENIGN DANUTA SKIN FACE NEC [D23.30] INVALID FOR* BENIGN DANUTA SKIN TRUNK [D23.5] INVALID FOR* BENIGN DANUTA SCALP/SKIN NECK [D23.4] INVALID FOR* NAIL DYSTROPHY///DISEASES OF NAIL NEC [L60.8] INVALID FOR* XEROSIS///SEBACEOUS GLAND DIS NEC [L73.8] INVALID FOR* CHR SOLAR SKIN DAMAGE NOS [L57.8] INVALID FOR* SEBORRHEIC KERATOSIS NOS [L82.1] INVALID FOR* Fx humeral neck, right, closed, initial encount*INVALID FOR* Acute pain of right shoulder [M25.511] INVALID FOR* Dysthymia [F34.1] INVALID FOR* Osteopenia, senile [M85.80] INVALID FOR* Celiac disease [K90.0] INVALID FOR* Urge incontinence [N39.41] INVALID FOR* Encounter Status:Closed by TAMICA VALE PA-C on 12/05/17 PROGRESS Observed: 08/16/2017 Status: COMPLETED Source: [place] 7:[address] [facility] [place] REPOSITORY HNO ID: [id number] Author: Alfredito Granados Service: (none) Author Type: Physician Type: Progress Notes Filed: 08/16/2017 7:40 AM Note Text: CC: Corry Gonzalez is a 66 year old female who presents to the office for 6 months follow up HPI: Urinary incontinence, overall stable, use of Vesicare as prescribed without significant SE Osteopenia, use of calcium and vitamin D supplements, regular exercise Recently suffered fall, was attempting to play/learn pickle ball and tripped and landed with right arm extended, had a right humeral neck fracture, seen at [facility] day of injury on 07/28 and treated by [employer] specialist Dr. Berry, She is in a sling, immobilized for another 3-5 weeks, has an upcoming follow up. Pain is stable, no concerns. Hx of breast cancer. PAST MEDICAL HISTORY Diagnosis Date - Allergic rhinitis - Antibiotic reaction allergy- Amoxicillin, Ampicillin - Ductal carcinoma in situ (DCIS) of right breast 1997 - Lobular carcinoma of breast, stage 1 (HCC) 1997 right sided - Osteopenia stable in past - PMH - PAST MEDICAL HISTORY OF hot flashes on Tamoxifen secondary to breast cancer - Urge incontinence PAST SURGICAL HISTORY Procedure Laterality Date - CATARACT EXTRACTION HX ? 2008 bilateral - COLONOSCOP W/ OR W/O [facility] SPEC 03/29/13 Colonoscopy - DANDC, DIAG AND/OR THERAPEUTIC 2014 due to pelvic pain- as on Tamoxifen - PAST SURGICAL HISTORY OF 1997 mastectomy right breast Current Outpatient Prescriptions: venlafaxine (EFFEXOR) 50 mg tablet Take 3 tablets by mouth as directed. TAKE 2 TABLETS BY MOUTH IN THE MORNING, AND 1 TABLET IN THE EVENING solifenacin (VESICARE) 5 mg tablet Take 1 tablet by mouth once daily. mupirocin (BACTROBAN) 2 % ointment Apply 1 application to affected area twice daily as needed. cetirizine 10 mg tablet Take 10 mg by mouth once daily. aspirin 81 mg chewable tablet Take 81 mg by mouth once daily. No current facility-administered medications for this visit. ALLERGIES Allergen Reactions - Ampicillin Hives - [place] Fruits Intolerance - Dairy [Homeopathic * Intolerance - Dust Mites Intolerance - Molds [Other] Hives - Penicillins Hives - Wheat Bran Intolerance congestion Social History Marital status: Spouse name: Years of education: Number of children: Social History Main Topics Smoking status: Never Smoker Smokeless tobacco: Never Used Alcohol use: No ROS: See HPI PE: BP 100/60 Pulse 80 Temp (Src) 98.4 (Left Tympanic) Resp 16 Wt 150 lb (68.0kg) Gen: AANDOX3, NAD, non-toxic appearing HEENT: PERRLA, EOMs intact b/l, nares without drainage, pharynx without erythema, exudate, lesions, or drainage. Uvula midline. Neck: No LAD, no thyromegaly, no meningismus. CV: RRR, no murmur Lungs: CTA b/l, no wheezing Skin: No rashes, lesions, or wounds on exposed skin. ASSESSMENT/PLAN: 1. Urge incontinence - ICD9: 788.31, ICD10: N39.41 (primary diagnosis) - continue Vesicare, chronic, stable 2. Fx humeral neck, right, closed, initial encounter - ICD9: 812.01, ICD10: S42.211A - f/u with camilla Simmons 3. Acute pain of right shoulder - ICD9: 719.41, ICD10: M25.511 - see above, recovering 4. Celiac disease - ICD9: 579.0, ICD10: K90.0 - stable, diet managed 5. Osteopenia, senile - ICD9: 733.90, ICD10: M85.80 - Reviewed the need for Calcium and Vitamin D supplements and weight bearing exercise as tolerated 6. Dysthymia - ICD9: 300.4, ICD10: F34.1 - stable, continue Effexor Alfredito Granados DO Return if no improvement. Follow up with Alfredito Granados DO. Discussed risks, benefits, alternatives, and potential side effects of medications. Patient/Guardian expressed understanding and agreed with the plan. See patient instructions. Alfredito Granados DO [address] [place] [address] CNOV Observed: 08/15/2017 Status: COMPLETED Source: [place] 10:40 AM [facility] REPOSITORY [facility] CORRY GONZALEZ ([id number]) 1950 F Date Time Provider Department 08/15/17 10:40 AM ALFREDITO GRANADOS During your visit today, we recorded the following information about you: Temperature Pulse Respiration Blood pressure 98.4 degrees 80/minute 16/minute 100/60 Weight 68 kg Alfredito Granados DO 08/16/2017 7:40 AM Signed CC: Corry Gonzalez is a 66 year old female who presents to the office for 6 months follow up HPI: Urinary incontinence, overall stable, use of Vesicare as prescribed without significant SE Osteopenia, use of calcium and vitamin D supplements, regular exercise Recently suffered fall, was attempting to play/learn pickle ball and tripped and landed with right arm extended, had a right humeral neck fracture, seen at [facility] day of injury on 07/28 and treated by [employer] specialist Dr. Berry, She is in a sling, immobilized for another 3-5 weeks, has an upcoming follow up. Pain is stable, no concerns. Hx of breast cancer. PAST MEDICAL HISTORY Diagnosis Date - Allergic rhinitis - Antibiotic reaction allergy- Amoxicillin, Ampicillin - Ductal carcinoma in situ (DCIS) of right breast 1997 - Lobular carcinoma of breast, stage 1 (HCC) 1997 right sided - Osteopenia stable in past - PMH - PAST MEDICAL HISTORY OF hot flashes on Tamoxifen secondary to breast cancer - Urge incontinence PAST SURGICAL HISTORY Procedure Laterality Date - CATARACT EXTRACTION HX ? 2008 bilateral - COLONOSCOP W/ OR W/O [facility] SPEC 03/29/13 Colonoscopy - DANSILVA, DIAG AND/OR THERAPEUTIC 2014 due to pelvic pain- as on Tamoxifen - PAST SURGICAL HISTORY OF 1997 mastectomy right breast Current Outpatient Prescriptions: venlafaxine (EFFEXOR) 50 mg tablet Take 3 tablets by mouth as directed. TAKE 2 TABLETS BY MOUTH IN THE MORNING, AND 1 TABLET IN THE EVENING solifenacin (VESICARE) 5 mg tablet Take 1 tablet by mouth once daily. mupirocin (BACTROBAN) 2 % ointment Apply 1 application to affected area twice daily as needed. cetirizine 10 mg tablet Take 10 mg by mouth once daily. aspirin 81 mg chewable tablet Take 81 mg by mouth once daily. No current facility-administered medications for this visit. ALLERGIES Allergen Reactions - Ampicillin Hives - [place] Fruits Intolerance - Dairy [Homeopathic * Intolerance - Dust Mites Intolerance - Molds [Other] Hives - Penicillins Hives - Wheat Bran Intolerance congestion Social History Marital status: Spouse name: Years of education: Number of children: Social History Main Topics Smoking status: Never Smoker Smokeless tobacco: Never Used Alcohol use: No ROS: See HPI PE: BP 100/60 Pulse 80 Temp (Src) 98.4 (Left Tympanic) Resp 16 Wt 150 lb (68.0kg) Gen: AANDOX3, NAD, non-toxic appearing HEENT: PERRLA, EOMs intact b/l, nares without drainage, pharynx without erythema, exudate, lesions, or drainage. Uvula midline. Neck: No LAD, no thyromegaly, no meningismus. CV: RRR, no murmur Lungs: CTA b/l, no wheezing Skin: No rashes, lesions, or wounds on exposed skin. ASSESSMENT/PLAN: 1. Urge incontinence - ICD9: 788.31, ICD10: N39.41 (primary diagnosis) - continue Vesicare, chronic, stable 2. Fx humeral neck, right, closed, initial encounter - ICD9: 812.01, ICD10: S42.211A - f/u with camilla Simmons 3. Acute pain of right shoulder - ICD9: 719.41, ICD10: M25.511 - see above, recovering 4. Celiac disease - ICD9: 579.0, ICD10: K90.0 - stable, diet managed 5. Osteopenia, senile - ICD9: 733.90, ICD10: M85.80 - Reviewed the need for Calcium and Vitamin D supplements and weight bearing exercise as tolerated 6. Dysthymia - ICD9: 300.4, ICD10: F34.1 - stable, continue Effexor Alfredito Granados DO Return if no improvement. Follow up with Alfredito Granados DO. Discussed risks, benefits, alternatives, and potential side effects of medications. Patient/Guardian expressed understanding and agreed with the plan. See patient instructions. Alfredito Granados DO [address] [place] [address] Referring Provider: ALFREDITO GRANADOS [[id number]] Allergies As of Date: 08/15/2017 Noted Allergy Reaction AMPICILLIN 05/09/2006 4 - Hives CITRUS FRUITS 05/09/2006 5 - Intolerance DAIRY (HOMEOPATHIC PRODUCTS) 05/09/2006 5 - Intolerance DUST MITES 05/09/2006 5 - Intolerance molds [Other] 05/09/2006 4 - Hives PENICILLINS 05/09/2006 4 - Hives WHEAT BRAN 05/09/2006 5 - Intolerance Comments: congestion Date Reviewed: 08/15/2017 Reviewed by: Elyssa Pickett LPN - Fully Assessed Reason for Visit: Follow Up [171] Cmt: 6 months Primary Visit Diagnosis:Urge incontinence [N39.41] Other Visit Diagnoses:Fx humeral neck, right, closed, initial encounter [S42.211A] Acute pain of right shoulder [M25.511] Celiac disease [K90.0] Osteopenia, senile [M85.80] Dysthymia [F34.1] Prescriptions as of 08/15/2017 Sig: VENLAFAXINE 50 MG TABLET Take 3 tablets by mouth as di* SOLIFENACIN 5 MG TABLET Take 1 tablet by mouth once d* MUPIROCIN 2 % TOPICAL OINTMENT Apply 1 application to affect* CETIRIZINE 10 MG TABLET Take 10 mg by mouth once tanisha* ASPIRIN 81 MG CHEWABLE TABLET Take 81 mg by mouth once tanisha* Medication notes this encounter FOLIC ACID 1 MG TABLET >> Elyssa Pickett LPN 08/15/2017 10:45 AM >> ELYSSA PICKETT LPN TueAug 15, 2017 10:45 AM finished Problem List As Of Date 08/15/2017 Noted Resolved ACTINIC KERATOSIS [L57.0] INVALID FOR* SEBORRHEIC KERATOSIS INFLAMED [L82.0] INVALID FOR* BENIGN DANUTA SKIN FACE NEC [D23.30] INVALID FOR* BENIGN DANUTA SKIN TRUNK [D23.5] INVALID FOR* BENIGN DANUTA SCALP/SKIN NECK [D23.4] INVALID FOR* NAIL DYSTROPHY///DISEASES OF NAIL NEC [L60.8] INVALID FOR* XEROSIS///SEBACEOUS GLAND DIS NEC [L73.8] INVALID FOR* CHR SOLAR SKIN DAMAGE NOS [L57.8] INVALID FOR* SEBORRHEIC KERATOSIS NOS [L82.1] INVALID FOR* Medications Discontinued During This Encounter folic acid 1 mg tablet 30 t* 5 01/07/2017 08/15/2017 Cmt: This prescription was filled on 01/05/2017. Any refills authorized will be placed on file. Sig: Take 1 tablet by mouth once daily. Disc: Reason for discontinue is not on file. meloxicam (MOBIC) 15 mg tablet 08/15/2017 Class: Historical Med Route: ORAL Sig: Take 15 mg by mouth once daily. Disc: Reason for discontinue is not on file. Encounter Status:Closed by ALFREDITO GRANADOS DO on 08/16/17 EMERGENCY DEPARTMENT Observed: 07/28/2017 Status: F Source: BLACKSHEAR SUMMARY 5:42 PM [facility] REPOSITORY [facility] Medical Records Department [address] [place] [address] Emergency Department Summary 07/28/17 1736 MR#: [id number] Acct: [id number] Name: CORRY GONZALEZ Rep #: [id number] : 1950 66 From: Shahzad Martinez DO PCP: Alfredito Zheng DO Status: REG ER - ER Visit Summary Date of Service: 07/28/17 Chief Complaint: Right shoulder pain History of Present Illness: The patient is a 66 F who presents with right shoulder pain that began today after a fall. Patient states she was playing pickle ball when she dove for the ball and landed on her right upper extremity. Patient states her pain is worse with any movement. Patient admits to some abrasions over her right wrist and right elbow. Patient states the pain is worse over the right shoulder. Patient denies any paresthesias or weakness. Patient denies any head injury or loss of consciousness. Patient denies any other injuries. Physical Examination: Vital signs are stable. Patient is afebrile. Patient is in no acute distress. Musculoskeletal exam reveals tenderness over the right proximal humerus and right shoulder area. Range of motion was limited in all motions of the right shoulder secondary to pain. There are superficial abrasions over the right wrist and right elbow. There is no active bleeding. There is good range of motion of the elbow and wrist. Strength is 5/5 bilaterally. There are no sensory deficits noted. The remaining physical exam is within normal limits. Test Results: X-rays of the right shoulder were obtained. There is a nondisplaced right proximal humerus fracture. Emergency Department Course and Treatment: Patient was given a dose of Holliston here. Patient was placed in a sling and swath. Patient was given a prescription for Holliston. Patient made an appointment with Dr. Berry for tomorrow. Patient was instructed to follow-up with Dr. Berry tomorrow as scheduled. Patient understood and was agreeable with the plan. All questions were answered. Disposition: Discharge home Impression: Right proximal humerus fracture This note was generated with [employer] dictation software. It may contain incorrect words, spelling, and punctuation that were not noted in review of the chart prior to signing ED Disposition - Plan for ED Patient: Disposition: Home or Assisted Living Chief Complaint: Upper Extremity Injury Diagnosis: Closed fracture of right proximal humerus Instructions: ED Fx Shoulder Prescriptions: Hydrocodone/Acetaminophen [Holliston 5-325 Tablet] 1 ea PO Q6H PRN PRN 5 Days #20 tab PRN Reason: Pain Referrals: Alfredito Granados DO [Primary Care Provider] - What to do if you have Problems For any increased pain, shortness of breath, bleeding, nausea or vomiting, chest pain, or any unexpected problems, contact your Primary Care Provider. Call [facility] ([phone]) or report to the closest Emergency Room. Call 911 if necessary. 07/28/17 1742 <Electronically signed by Shahzad Martinez DO> Date Shahzad Martinez DO Cosigner Signature (If Indicated): Date CC: Alfredito Zheng DO SHOULDER MIN 2 VIEWS Observed: 07/28/2017 Status: F Source: RADHA 4:30 PM [facility] REPOSITORY [facility] Imaging Services [address] [place] [address] Shoulder min 2 Views MR#: [id number] Acct: [id number] Name: CORRY GONZALEZ Rep #: [id number] : 1950 F 66 From: Fernando Matute MD PCP: Alfredito Zheng DO Status: PRE ER Study: Shoulder min 2 Views Date of Exam: 07/28/17 Exam# [id number] Ordering Dr: Shahzad Martinez DO STUDY: X-RAY - RIGHT SHOULDER REASON FOR EXAM: Female, 66 years old. Right shoulder pain. TECHNIQUE: 2 view(s) of the shoulder. COMPARISON: None. FINDINGS: Fracture of the humeral neck, partially extending into the base of the greater tubercle. No significant impaction or displacement. No dislocation. RAD/Shoulder min 2 Views IMPRESSION: Humeral neck fracture. Electronically Signed: Fernando Matute, at 16:55 EDT Tel , Service support , CC: Shahzad Martinez DO; Alfredito Zheng DO [employer] Programmer: Signed ALLERGIES ALLERGIES DATE TYPE / CODE NAME / CODE REACTION SEVERITY SOURCE Drug Penicillins/F001 Hives Unknown [place] 8 Allergy/204984128( 460621(RXNORM) Community SNOMED CT) Hospital Repository Drug ampicillin/F0060 Hives Unknown [place] 8 Allergy/437062397( 01127(RXNORM) [facility] SNOMED CT) Hospital Repository DRUG AMPICILLIN HIVES [place] 7 INGREDI/321396214( [facility] SNOMED CT) [place] Repository Food/269900837(SNO CITRUS FRUITS INTOLERANCE [place] [address]) Clinic Main [place] Repository DRUG/669729425(SNO HOMEOPATHIC INTOLERANCE [address]) PRODUCTS Clinic Main [place] Repository Environ/734730686( DUST MITES INTOLERANCE [place] [address]) Clinic Main [place] Repository Miscellaneous OTHER HIVES [place] 7 Allergy/696482045( Clinic Main SNOMED CT) [place] Repository Drug PENICILLINS HIVES [place] 7 Class/742821059( Clinic Main OMED CT) [place] Repository DRUG WHEAT BRAN INTOLERANCE [place] 7 INGREDI/430376858( [facility] SNOMED CT) [place] Repository ENCOUNTERS ENCOUNTERS ADMIT/DISCHARGE ACCOUNT NUMBER ADMITTING ENCOUNTER LOCATION SOURCE CLASS 02/14/2018/02/15/20 [id number] Ambulatory [address] Repository 02/14/[id number] [facility] ding:[facility] Repository 02/13/2018/02/15/20 [id number] Ambulatory [address] Repository 01/27/2018/01/28/20 [id number] [place] [address] [place]:[facility] Repository 01/14/2018/01/15/20 [id number] [place]ulatory [place] [address] g:[facility] Repository 12/05/2017 [id number] [facility] ding:[facility] Repository 12/05/2017/12/08/19 [id number] Ambulatory [address] Repository 08/15/2017/08/17/19 [id number] Ambulatory [address] Repository 07/28/2017/07/29/19 [id number] Emergency [address] ding:ED Repository PAYERS PAYERS ENCOUNTER GUARANTOR PAYER SUBSCRIBER SOURCE 02/14/2018 CORRY Arnold Primary CORRY Juarezoster [id number] Insurance:[facility] NANCY: Community SETTLERS MEDICAREPolicy [id number] Number: Repository [address]Tmz: [phone] [id number] [phone] () Date:[id number] [address]SH: 02/14/2018 Secondary NOT GIVENUNK [place] Insurance:SELF PAY [facility] [place] [facility] Number: Effective Repository Date:2018-02-14 01/27/2018 CORRY AGUILAROB: Primary CORRYLeonarda AGUILAROB: [facility] [id number] Insurance[facility] [id number] General Health SETTLERS INS COPolicy Number: 7 SETTL[address] [place], [place] [id number] [place], [place] Repository [address]Bba: ([phone]) Date:2008-03-07~[id number] [phone] () [id number] MAIL.COMTel: Name:CP [address] [place] [address] ()Tel: [phone]: [phone] 01/14/2018 CORRY BARBUDOB: Primary CORRY BARBUDOB: [facility] Insurance[facility] [id number] General Health SETTLERS INS COPolicy Number: [facility] [place], [place] [id number] [place], [place] Repository [address]Uwl: [phone]) Date:2008-03-07~[id number]@G [phone] () [id number] MAIL.COMTel: Name:CP [address] [place] [address] ()Tel: [phone]: [phone] 12/05/2017 Corry S Primary Corry S Radha [id number] Insurance:[employer] CARE BarbuDOB: Community [facility] [id number] Number: Repository [address]Lhy: 330 [id number] [phone] () Date:[id number] [address]XF: 12/05/2017 Secondary NOT GIVENUNK [place] Insurance:SELF PAY [facility] [place] Number: Effective Repository Date:2017-12-05 07/28/2017 Corry S Primary Corry S [place] [id number] Insurance[facility] BarbuDOB: Community SETTLERS MEDICAREPolicy [id number] Number: Repository [address]Jpz: [phone]) [id number] [phone] () Date:[id number] [place] [address]GL: 07/28/2017 Secondary NOT GIVENUNK [place] Insurance:SELF PAY [facility]: Effective Repository Date:2017-07-28
== END ==
PROVIDERS: Family Provider Student in an Organized Health Care Education/Training Program; PCP Student in an Organized Health Care Education/Training Program; Referring Provider Student in an Organized Health Care Education/Training Program; Visit Provider Student in an Organized Health Care Education/Training Program
DX: Z00.00 Encounter for general adult medical examination without abnormal findings (principal)
CPT/HCPCS: 80053; 80061; 84439; 84443; 85027

== ENCOUNTER 2019-11-07 10:21 | Emergency (ER) | payer MEDICARE, SELFPAY ==
[2019-11-07 10:22] VITALS: BP 137/86; PULSE 81; RESP 17; TEMP 36.4; O2SAT 98; BMI 23.1
--- NOTE | 2019-11-07 10:30 | RAD_ITS ---
STUDY: X-RAY - RIGHT KNEE REASON FOR EXAM: Female, 68 years old. PAIN AND SWELLING, FOLLOWING FALL LAST NIGHT TECHNIQUE: 4 view(s) of the knee. COMPARISON: None. FINDINGS: Normal visualized distal femur. Normal visualized proximal tibia and fibula. Normal proximal tibiofibular articulation. Normal medial femorotibial compartment. Normal lateral femorotibial compartment. Normal patellofemoral articulation. Diffuse soft tissue swelling. Tiny joint effusion. RAD/Knee 4 or More Views IMPRESSION: Soft tissue swelling. Small joint effusion. Electronically Signed: Paxton Powers, at 12:31 EDT , Service support ,
--- NOTE | 2019-11-07 10:30 | CT_ITS ---
STUDY: CT BRAIN WITHOUT CONTRAST REASON FOR EXAM: Female, 68 years old. PT STATED FALL YESTERDAY RADIATION DOSAGE (If Supplied By Facility): CTDIvol = ( 44.99 ) mGy, DLP = ( 748.30 ) mGycm TECHNIQUE: Transaxial CT imaging of the brain was performed without administration of intravenous contrast material. Individualized dose optimization techniques were used for this CT. COMPARISON: No relevant priors. FINDINGS: Normal soft tissue structures. Normal calvarium. There is mild cerebral atrophy with widening of the extra-axial spaces and ventricular dilatation. Normal white matter tracts of the cerebral hemispheres. Normal basal ganglia and thalami. Normal brainstem. Normal cerebellum. There is no intracranial hemorrhage. There are no findings of an acute ischemic infarction. Normal visualized paranasal sinuses. CT/Brain/Head without Contrast IMPRESSION: Chronic involutional changes of the brain. Electronically Signed: Paxton Powers, at 11:19 EDT , Service support ,
--- NOTE | 2019-11-07 10:32 | ED.VIS.GEN ---
History of Present Illness Chief Complaint: Fall Informant: Patient Onset: Yesterday Context: Sudden Onset Timing: Continuous Current Severity: Mild Maximum Severity: Moderate Narrative: Patient is a 68-year-old female that presents to the emergency department status post mechanical fall. Patient states last evening, she was walking her dog. The dog had run after a cat and she tripped on uneven sidewalk. She fell to the ground. She struck her left hand, right knee, and left face. She did not lose consciousness. Throughout the evening and today, she has had headache and mild nausea. Prior similar symptoms: No Recent Illness/Hospitalization: No Past Medical History - Allergies and Home Meds Allergies/Adverse Reactions: Allergies ampicillin Allergy (Verified 11/07/19 10:21) Hives Penicillins Allergy (Verified 11/07/19 10:21) Hives Primary Care Physician: Emerson Berry MD [STAFF PHYSICIAN] - 2 Days Smoking Status: Never smoker Physical Exam Vital Signs/Narrative: Vital Signs Temp Pulse Resp BP Pulse Ox 11/07/19 10:22 97.6 F L 81 17 137/86 H 98 Diagnostic/Tx/Re-eval Clinical Impression(s) from Imaging Studies Brain CT 11/07/19 10:30 IMPRESSION: Chronic involutional changes of the brain. Electronically Signed: Paxton Powers, at 11:19 EDT , Service support , - Medical Decision Making The patient presents after mechanical fall yesterday. She does have some slight ecchymosis of the right knee, left hand, and did strike her face. There was no loss of consciousness. She has a GCS of 15. Noncontrast head CT was obtained. This was unremarkable for acute process. The patient had plain films done of the knee and hand. She does appear to have a nondisplaced fracture at the base of the fifth metacarpal. Knee shows effusion without acute fracture. The patient was placed in a custom fabricated Ortho-Glass ulnar gutter splint. She will be given a short course of analgesics and outpatient orthopedic follow-up. She is comfortable with this plan of care. Impression 1. Facial contusion 2. Nondisplaced fracture left fifth metacarpal 3. Splint by ED physician ED Disposition - Plan for ED Patient: Instructions: ED Fx Boxer, ED Mechanical Fall Prescriptions: Mupirocin [Bactroban] 1 applic TOPICAL TID #1 tube Prescription Printed Oxycodone HCl/Acetaminophen [Percocet 5/325] 1 tab PO Q6H PRN PRN 3 Days #12 tab PRN Reason: Pain Prescription Printed Referrals: Emerson Berry MD [STAFF PHYSICIAN] - 2 Days
--- NOTE | 2019-11-07 11:10 | RAD_ITS ---
STUDY: X-RAY - LEFT HAND REASON FOR EXAM: Female, 68 years old. FALL, PAIN 4TH AND 5TH AREA TECHNIQUE: 3 view(s) of the hand. COMPARISON: None. FINDINGS: Normal radiocarpal articulation. Normal distal radioulnar joint. Normal visualized carpal bones. Normal carpal articulations Normal carpometacarpal articulation of the thumb. Normal second through fifth carpometacarpal joints. There is a nondisplaced fracture at the base of the fifth metacarpal. Normal metacarpophalangeal joint of the thumb. Normal interphalangeal joint of the thumb. Normal proximal and distal phalanges of the thumb. Normal metacarpophalangeal joints of the second through fifth fingers. Normal proximal and distal interphalangeal joints of the second through fifth fingers. Normal phalanges of the second through fifth fingers. Soft tissue swelling. RAD/Hand Min 3 Views IMPRESSION: Nondisplaced transverse fracture at the base of the fifth metacarpal with overlying soft tissue swelling. Electronically Signed: Paxton Powers, at 12:30 EDT , Service support ,
== END 2019-11-07 12:28 | disposition home or self-care (01) ==
LOC: ED 11:50
PROVIDERS: Emergency Provider Emergency Medicine; PCP Student in an Organized Health Care Education/Training Program
DX: S62.307A Unspecified fracture of fifth metacarpal bone, left hand, initial encounter for closed fracture (principal); S00.83XA Contusion of other part of head, initial encounter; S80.01XA Contusion of right knee, initial encounter; W01.0XXA Fall on same level from slipping, tripping and stumbling without subsequent striking against object, initial encounter; Y93.K1 Activity, walking an animal
CPT/HCPCS: 29126; 29125; 70450; 73130; 73564; 99282

== ENCOUNTER → 2024-09-25 | Outpatient (CLI) | payer MEDICARE, BC, SELFPAY ==
--- NOTE | 2024-09-25 11:07 | ECHOD_ITS ---
Reason For Study Reason For Study: Abn EKG Procedure This was a 2D Doppler, Color Flow transthoracic echocardiogram. Exam performed in department. Left Ventricle Normal size and thickness. The LV ejection fraction is 65 %. Normal diastology for age. Right Ventricle Normal right ventricle. Atria Normal left atrium. Normal right atrium. Mitral Valve Redundant mitral valve cords with mild systolic anterior motion. No significant LVOT gradient. Tricuspid Valve Trivial tricuspid valve insufficiency. Normal pulmonary artery pressure. Aortic Valve Trisinus/trileaflet aortic valve. Pulmonic Valve The pulmonic valve is not well visualized. Great Vessels Normal aortic root. Pericardium/Pleural No pericardial effusion. MMode/2D Measurements & Calculations LVIDd: 3.7 cm IVSd: 0.99 cm Ao root diam: 2.5 cm LVIDs: 2.4 cm LVPWd: 0.92 cm RVDd: 3.9 cm FS: 33.8 % LAV(MOD-bp): 23.4 ml LVAd ap4: 21.5 cm2 SV(MOD-sp4): 37.0 ml LAV(MOD-bp) Indexed: 13.6 ml/m2 LVLd ap4: 6.9 cm SI(MOD-sp4): 21.5 ml/m2 LAV(MOD-sp2): 24.3 ml EDV(MOD-sp4): 54.4 ml LAV(MOD-sp4): 22.1 ml EDV(sp4-el): 56.6 ml LVAs ap4: 10.8 cm2 LVLs ap4: 5.7 cm ESV(MOD-sp4): 17.4 ml ESV(sp4-el): 17.6 ml EF(MOD-sp4): 68.0 % EF(sp4-el): 68.8 % SV(sp4-el): 39.0 ml LA A4 area: 10.5 cm2 LA dimension(2D): 2.9 cm RA A4 area: 11.4 cm2 TAPSE: 2.3 cm Time Measurements MV dec time: 0.24 sec Doppler Measurements & Calculations MV E max timothy: 65.7 cm/sec Lat Peak E' Timothy: 9.9 cm/sec Med Peak E' Timothy: 7.4 cm/sec MV A max timothy: 86.1 cm/sec E/E' lat: 6.7 E/E' med: 8.9 MV E/A: 0.76 Ao V2 max: 106.8 cm/sec LV V1 max: 101.1 cm/sec MV dec slope: 275.5 cm/sec2 Ao max P.6 mmHg LV V1 max P.1 mmHg Ao V2 mean: 76.3 cm/sec LV V1 mean P.1 mmHg Ao mean P.7 mmHg LV V1 mean: 67.7 cm/sec Ao V2 VTI: 24.6 cm LV V1 VTI: 24.5 cm AV (velocity ratio): 0.99 PA V2 max: 64.2 cm/sec TR max timothy: 199.0 cm/sec TR max P.8 mmHg ECHO/Echo Complete Interpretation Summary The LV ejection fraction is 65 %. Ordering Physician: IZABELLA POLANCO Referring Physician: Alfredito Engel Performed By: April Altson, KAIT, RVT
== END | disposition home or self-care (01) ==
LOC: CVS 10:57
PROVIDERS: PCP Student in an Organized Health Care Education/Training Program
DX: I48.92 Unspecified atrial flutter (principal); R00.2 Palpitations; R94.31 Abnormal electrocardiogram [ECG] [EKG]; I49.3 Ventricular premature depolarization
CPT/HCPCS: 93306

== ENCOUNTER → 2024-10-02 | Outpatient (CLI) | payer MEDICARE, BC, SELFPAY ==
--- OUTSIDE RECORDS SUMMARY | 2024-10-02 07:11 | XMS RPT_ITS | CCD ---
Author Organization [facility] Care Team Providers Care Reacher Name Role Phone Alfredito Engel DO Primary Care Provider Alfredito Engel DO Primary Care Provider Claude STITCHER STANDARD MACHINE.ENGINEERING LIBRARIANJuanita Unavailable Valorie STITCHER STANDARD MACHINE.ENGINEERING LIBRARIANAnnamarie Unavailable Stewart STITCHER STANDARD MACHINE.Ema WHITE Unavailable JUANITA ARCE Referring Unavailable ALFREDITO ENGEL Primary Care Unavailable RADHA CROCKETT Attending Unavailable GRACY CALVILLO Referring Unavailable ALFREDITO ENGEL Primary Care Unavailable ALFREDITO ENGEL Primary Care Unavailable GRACY CALVILLO Referring Unavailable ALFREDITO ENGEL Referring Unavailable ALFREDITO ENGEL Primary Care Unavailable ENGELALFREDITO SNYDER Primary Care Unavailable MY MARTINEZ Attending Unavailable ALFREDITO ENGEL Primary Care Unavailable JOSH DEE Attending Unavailable JAMESON STEWART Referring Unavailable ALFREDITO ENGEL Primary Care Unavailable MY MARTINEZ Referring Unavailable ENGEL, ALFREDITO Reyna Primary Care Unavailable GRACY CALVILLO Attending Unavailable Lance Torres Attending Unavailable Alfredito Engel Primary Care Unavailable EDMUND TOMAS Attending Unavailable EDMUND TOMAS Referring Unavailable Alfredito Engel Primary Care Unavailable EDMUND TOMAS Attending Unavailable THOM EDMUND Referring Unavailable EngelAlfredito Primary Care Unavailable Dr. Alfredito Engel DO Primary Care Provider RADHA CROCKETT Attending Provider RADHA CROCKETT Referring Provider [phone] Brian BARROSO, Dr. uLcas Attending Provider Allergies Allergy Classification Reported Allergen(s) Allergy Type Date of Onset Reaction(s) Facility (20 sources) Ampicillin; Translations: [AMPICILLIN] Drug Allergy 7 [facility] (20 sources) [place] fruit; Translations: [CITRUS FRUITS] Food Intolerance 7 Intolerance [facility] (20 sources) House dust mite; Translations: [DUST MITES] Propensity to adverse reactions 7 Intolerance [facility] (3 sources) Penicillins; Translations: [PENICILLINS] Drug Allergy 7 [facility] (20 sources) Wheat bran; Translations: [WHEAT BRAN] Drug Intolerance 7 Intolerance [facility] (20 sources) Homeopathic Products Drug Intolerance 7 Intolerance [facility] (20 sources) molds [Other] Propensity to adverse reactions 7 [facility] Work Phone: (20 sources) Penicillins Drug Allergy 7 [facility] (12 sources) Penicillins Drug Allergy 7 [facility] (7 sources) Milk; Translations: [MILK CONTAINING PRODUCTS (DAIRY)] Drug Intolerance 5 Other: See Comments [facility] Work Phone: (1 source) Ampicillin Drug Allergy 0 [facility] (1 source) Penicillins Drug allergy (disorder) 0 [facility] (1 source) Penicillins Allergy to substance 0 [facility] Medications Current Medications Medication Drug Class(es) Dates Sig (Normalized) Sig (Original) acetaminophen 325 mg / HYDROcodone bitartrate 5 mg oral tablet (1 source) Opioid Agonist Start: 07-28-2017 Hydrocodone-Acetam inophen 1 EACH tablet Active 1 NMA PO EVERY 6 HOURS NEEDED as needed for Pain 20 5 0 July 28, 2017 5:36pm Closed fracture of proximal end of right humerus ascorbic acid 1000 mg oral tablet (20 sources) Vitamin C take 1 tablet by mouth once daily Ascorbic Acid (VITAMIN C) 1,000 mg tablet Take 1,000 mg by mouth once daily. Active Comment on above: Take 1,000 mg by dannie once daily. azithromycin 250 mg oral tablet (2 sources) Macrolide Antimicrobial Start: 11-05-2022 End: 11-10-2022 azithromycin (ZITHROMAX Z-ANU) 250 mg tablet Take 2 tablets day one, then, 1 tablet daily until gone. 6 tablet 0 11/05/2022 11/10/2022 Active Start: 10-28-2021 End: 11-02-2021 azithromycin (ZITHROMAX Z-PA K) 250 mg tablet Take 2 tablets day one, then, 1 tablet daily until gone. 6 tablet 0 10/28/2021 11/02/2021 Active Comment on above: Take 2 tablets day o ne, then, 1 tablet daily until gone. B-complex with vitamin C (VITAMIN B COMPLEX-C ORAL) (20 sources) take 50 mg by mouth once daily B-complex with vitamin C (VITAMIN B COMPLEX-C ORAL) Take 50 mg by mouth once daily. Active take 50 mg by mouth once daily B -complex with vitamin C (VITAMIN B COMPLEX-C ORAL) Take 50 mg by mouth once daily. 0 Active Comment on above: Take 50 mg by mouth once daily. biotin 5 mg oral tablet (20 sources) take 1 tablet by mouth once daily biotin 5 mg tab Take 5 mg by mouth once daily. Active Comment on above: Take 5 mg by mouth o nce daily. 120 actuat budesonide 0.18 mg/actuat dry powder inhaler (17 sources) Corticosteroid Start: take 1 puff(s) by mouth twice daily PULMICORT FLEXHALER 180 mcg/actuation aepb INHALE 1 puff twice daily with good oral care 01/06/2024 Active cetirizine hydrochloride 10 mg oral tablet (20 sources) Histamine-1 Receptor Antagonist take 1 tablet by mouth once daily cetirizine 10 mg tablet Take 10 mg by mouth once daily. Active Comment on above: Take 10 mg by mouth once daily. chromium picolinate 0.2 mg oral tablet (20 sources) take 1 tablet by mouth once daily Chromium Picolinate 200 mcg tab Take 200 mcg by mouth once daily. Active Comment on above: Take 200 mcg by mout h once daily. CPAP (5 sources) CPAP daily at [facility]. Active cyclobenzaprine hydrochloride 10 mg oral tablet (20 sources) Muscle Relaxant Start: End: take 1 tablet by mouth three times daily as needed for muscle spasms cyclobenzaprine (FLEXERIL) 10 mg tablet Indications: Acute midline low back pain with right-sided sciatica Take 1 tablet by mouth three times daily as needed for muscle spasm. 20 tablet 11/17/2022 07/03/2024 Discontinued Comment on above: Take 1 tablet by dannie th three times daily as needed for muscle spasm. docusate sodium 100 mg oral tablet (20 sources) End: take 1 tablet by mouth once daily Docusate Sodium 100 mg tab Take 100 mg by mouth once daily. 07/03/2024 Discontinued Comment on above: Take 100 mg by mouth once daily. enteric contrast (will be provided with radiology test) (1 source) Start: End: enteric contrast (will be provided with radiology test) For CT CHESTABD/PEL W IVCON Routine order Administer, As Directed One Time Only, via Oral, Rectal, both Oral and Rectal, Enteric Tube, Stoma or Indwelling Catheter, Enteric Contrast as designated per enteric contrast guidelines 1 Each 0 05/18/2023 05/19/2023 Active Comment on above: For CT CHESTABD/PEL W IVCON Routine order Administer, As Directed One Time Only, via Oral, Rectal, both Oral and Rectal, Enteric Tube, Stoma or Indwelling Catheter, Enteric Contrast as designated per enteric contrast guidelines folic acid 0.8 mg oral tablet (1 source) Start: 014 take 0.5 mg by mouth once daily Folic Acid 0.8 MG tablet Active 0.5 mg PO DAILY@0800 September 15, 2013 12:00am magnesium oxide 240 mg magnesium pwpk (20 sources) take 163 mg by mouth once daily magnesium oxide 240 mg magnesium pwpk Take 163 mg by mouth once daily. Active take 163 mg by mouth once daily magnesium oxide 240 mg magnesium pwpk Take 163 mg by mouth once daily. 0 Active Comment on above: Take 163 mg by mouth once daily. montelukast 10 mg oral tablet (20 sources) Leukotriene Receptor Antagonist take 1 tablet by mouth once daily at bedtime montelukast (SINGULAIR) 10 mg tablet Take 10 mg by mouth daily at bedtime. Active Comment on above: Take 10 mg by mouth daily at bedtime. multivit-minerals/foli c acid (CENTRUM ADULT 50 PLUS ORAL) (20 sources) multivit-mineral s/fol ic acid (CENTRUM ADULT 50 PLUS ORAL) Take by mouth. Active multivit-mineral s/folic acid (CENTRUM ADULT 50 PLUS ORAL) Take by mouth. 0 Active Comment on above: Take by mouth. Multivitamin With Folic Acid (Thera) 1 TABLET tablet (1 source) Start: 09-16-19 14 take 1 tablet by mouth once daily Multivitamin With Folic Acid (Thera) 1 TABLET tablet Active 1 {tbl} PO DAILY September 15, 2013 12:00am mupirocin 0.02 mg/mg topical ointment (20 sources) RNA Synthetase Inhibitor Antibacterial Start: 11-07-19 Mupirocin 1 APPLIC ointment Active 1 NMA TOPICAL THREE TIMES A DAY November 07, 2019 12:00am Start: 08-24-2016 mupirocin (MELANIE TROBAN) 2 % ointment Indications: Nasal sore Apply 1 application to affected area twice daily as needed. 15 g 1 08/24/2016 Active Comment on above: Apply 1 application to affected area twice daily as needed. omega-3 fatty acids 1,000 mg cap (20 sources) take 1 capsule by mouth once daily omega-3 fatty acids 1,000 mg cap Take 2 g by mouth once daily. Active take 1 capsule by mouth twice da polo omega-3 fatty acids 1,000 mg cap Take 2 g by mouth two times a day. Active take 1 capsule by mouth twice da polo omega-3 fatty acids 1,000 mg cap Take 2 g by mouth two times a day. 0 Active Comment on above: Take 2 g by mouth tw o times a day. polyethylene glycol 3350 45582 mg powder for oral solution (20 sources) Osmotic Laxative Start: 3 polyethylene glycol 3350 (MIRALAX) 17 gram/dose powder Indications: Acute constipation , Hard stool Take 17 g by mouth once daily. Dissolve dose in 4 - 8 ounces of liquid and take as directed. 595 g 1 02/02/2023 Active Comment on above: Take 17 g by mouth o nce daily. Dissolve dose in 4 - 8 ounces of liquid and take as directed. solifenacin succinate 5 mg oral tablet (20 sources) Cholinergic Muscarinic Antagonist Start: 5 take 1 tablet by mouth once daily solifenacin (VESICARE) 5 mg tablet Indications: Urge incontinence Take 1 tablet by mouth once daily. 90 tablet 3 06/05/2024 Active Start: 09-15-2013 End: 04-05-2023 take 1 tablet by mouth once daily solifenacin (VESICARE) 5 mg tablet Indications: Urge incontinence Take 1 tablet by mouth once daily. 90 tablet 3 04/06/2023 Active Comment on above: Take 1 tablet by [facility] once daily. triamcinolone acetonide 0.055 mg/actuat metered dose nasal spray (5 sources) Corticosteroid take 2 spray(s) by inhalation once daily at bedtime triamcinolone acetonide (NASACORT) 55 mcg nasal inhaler Use 2 sprays in the nose daily at bedtime. Active pxksrzw-rkzs-txpog-ore g-capryl 100 mg-150 mg- 50 mg-150 mg cap (20 sources) take 1 capsule by mouth once daily jjqgafa-jnay-rflzo-or eg-capryl 100 mg-150 mg- 50 mg-150 mg cap Take 3,900 mg by mouth once daily. Active take 1 capsule by mo [facility] once daily spfjznf-dtet-zyins-oreg-capryl 100 mg-15 0 mg- 50 mg-150 mg cap Take 3,900 mg by mouth once daily. 0 Active Comment on above: Take 3,900 mg by [facility] once daily. venlafaxine 50 mg oral tablet (20 sources) Serotonin and Norepinephrine Reuptake Inhibitor Start: 09-09-19 End: 07-14-19 25 take 2 tablets by mouth in the morning, then take 1 tablet by mouth in the evening venlafaxine (EFFEXOR) 50 mg tablet TAKE 2 (TWO) TABLETS BY MOUTH IN THE MORNING, AND 1 (ONE) TABLET IN THE EVENING as directed] 90 tablet 11 07/13/2024 Active Start: 09-04-2021 End: 09-06-2022 take 2 tablets by mouth in the morning, then take 1 tablet by mouth in the evening venlafaxine (EFFEXOR) 50 mg tablet TAKE 2 (TWO) TABLETS BY MOUTH IN THE MORNING, AND 1 (ONE) TABLET IN THE EVENING as directed] 90 tablet 09/04/2021 09/06/2022 Discontinued Start: 09-15-2013 [facility] Venlafaxine 100 MG tablet Active 100 mg PO WITH BREAKFAST September 15, 2013 12:00am Start: 09-15-2013 End: 09-04-2021 take 1 tablet by mouth twice daily, then take 2 tablets by mouth in the morning, then take 1 tablet by mouth in the evening venlafaxine (EFFEXOR) 50 mg tablet Take 1 tablet by mouth twice daily. TAKE 2 TABLETS BY MOUTH IN THE MORNING, AND 1 TABLET IN THE EVENING as directed 90 tablet 5 02/19/2021 09/04/2021 Discontinued Comment on above: Take 1 tablet by dannie twice daily. TAKE 2 TABLETS BY MOUTH IN THE MORNING, AND 1 TABLET IN THE EVENING as directed TAKE 2 (TWO) TABLETS BY MOUTH IN THE MORNING, AND 1 (ONE) TABLET IN THE EVENING as directed] vitamin e 90 mg oral capsule (20 sources) take 1 capsule by mouth once daily Vitamin E, dl, acetate, (VITAMIN E) 200 unit capsule Take 200 Units by mouth once daily. Active Comment on above: Take 200 Units by [facility] once daily. Completed/Discontinued Medications Medication Drug Class(es) Dates Sig (Normalized) Sig (Original) acetaminophen 325 mg / oxyCODONE hydrochloride 5 mg oral tablet (1 source) Opioid Agonist Start: 11-07-2019 End: 11-10-2019 Oxycodone-Acetamin ophen 1 TABLET tablet Discontinued 1 {tbl} PO EVERY 6 HOURS NEEDED as needed for Pain 12 3 0 November 07, 2019 November 09, 2019 12:00am November 10, 2019 12:02am Boxer's fracture aspirin 81 mg chewable tablet (10 sources) Platelet Aggregation Inhibitor, Nonsteroidal Anti-inflammatory Drug End: 01-06-2022 take 3 tablets by mouth every week aspirin 81 mg chewable tablet Take 81 mg by mouth once daily. Three x weekly 01/06/2022 Discontinued Comment on above: Take 81 mg by mouth once daily. Three x weekly doxycycline hyclate 100 mg oral tablet (5 sources) Tetracycline-class Drug Start: 06-13-2023 End: 06-23-2023 take 1 tablet by mouth twice daily doxycycline (VIBRA-TABS) 100 mg tablet Indications: Chronic cough Take 1 tablet by mouth two times a day for 10 days. 20 tablet 06/13/2023 06/23/2023 Start: 07-08-2022 End: 07-13-2022 take 1 tablet by mouth twice daily doxycycline monohydrate 100 mg tablet Take 1 tablet by mouth twice daily for 5 days. 10 tablet 0 07/08/2022 07/13/2022 Active Comment on above: Take 1 tablet by dannie twice daily for 5 days. Take 1 tablet by dannie two times a day for 10 days. iv contrast (will be provided with radiology test) (2 sources) Start: 05-26-2023 End: 05-27-2023 iv contrast (will be provided with radiology test) Indications: Abdominal distension (gaseous) , Generalized abdominal pain , Liver lesion MRI Liver Inject, intravenously, once for 1 dose. No IV access, insert saline lock prior to the beginning of sedation, infusion, injection of imaging exam. Discontinue saline lock post exam. If Pt. has a central line or IVAD, may access for administration according to line specific nursing protocol. Once exam is complete flush line and de-access according to line specific nursing protocol in the MR contrast administration guidelines link. 1 Each 0 05/26/2023 05/27/2023 Start: 05-18-2023 End: 05-19-2023 iv contrast (will be provide d with radiology test) CT Chest ABD/PEL-Inject, intravenously, once for 1 dose.No IV access, insert saline lock prior to the beginning of sedation, infusion, injection of imaging exam. Discontinue saline lock post exam. If Pt. has a central line or IVAD, may access for administration according to line specific nursing protocol. Once exam is complete flush line and de-access according to line specific nursing protocol in the CT contrast administration guidelines link. 1 Each 0 05/18/2023 05/19/2023 Active Comment on above: CT Chest ABD/PEL-Inj ect, intravenously, once for 1 dose.No IV access, insert saline lock prior to the beginning of sedation, infusion, injection of imaging exam. Discontinue saline lock post exam. If Pt. has a central line or IVAD, may access for administration according to line specific nursing protocol. Once exam is complete flush line and de-access according to line specific nursing protocol in the CT contrast administration guidelines link. MRI Liver Inject, in travenously, once for 1 dose. No IV access, insert saline lock prior to the beginning of sedation, infusion, injection of imaging exam. Discontinue saline lock post exam. If Pt. has a central line or IVAD, may access for administration according to line specific nursing protocol. Once exam is complete flush line and de-access according to line specific nursing protocol in the MR contrast administration guidelines link. naproxen 500 mg oral tablet (3 sources) Nonsteroidal Anti-inflammatory Drug Start: 01-07-20 End: 02-06-20 take 1 tablet by mouth twice daily as needed for pain naproxen (NAPROSYN) 500 mg tablet Indications: Acute midline low back pain with right-sided sciatica Take 1 tablet by mouth twice daily as needed (for pain/inflammation). Take with food. 30 tablet 01/06/2022 02/05/2022 Comment on above: Take 1 tablet by dannie th twice daily as needed (for pain/inflammation). Take with food. perflutren lipid microspheres 1.3 mL in NaCl (PF) 0.9% 10 mL injection (DEFINITY) (20 sources) Start: 10-07-19 End: 01-06-20 perflutren lipid microspheres 1.3 mL in NaCl (PF) 0.9% 10 mL injection (DEFINITY) polyethylene glycol 3350 004388 mg / potassium chloride 2970 mg / sodium bicarbonate 6740 mg / sodium chloride 5860 mg / sodium sulfate 88144 mg powder for oral solution (1 source) Osmotic Laxative Start: 03-22-19 End: 03-22-19 24 peg 3350-Electrolytes (GOLYTELY) 236-22.74-6.74 -5.86 gram suspension Take 4,000 mL by mouth one time only for 1 dose. 1 Each 03/22/2023 03/22/2023 125 ml sodium chloride 9 mg/ml prefilled syringe (20 sources) Start: 10-07-19 End: 01-06-20 23 sodium chloride 0.9 % (flush) 10 mL (BD POSIFLUSH) Problems Active Problems Problem Classification Problem Date Documented Da te Episodic/Chronic Abdominal pain (4 sources) Generalized abdominal pain; Translations: [Generalized abdominal pain] 05-18-2023 Episodic Cancer of breast (6 sources) History of malignant neoplasm of breast; Translations: [Personal history of malignant neoplasm of breast] Onset: 06-13-2025 11-21-2023 Episodic Cardiac dysrhythmias (9 sources) Atrial flutter; Translations: [Multiple premature ventricular complexes] Onset: 08-17-2024 08-19-2024 Chronic Cardiac dysrhythmias (15 sources) Palpitations; Translations: [Palpitations] Onset: 07-03-2024 07-03-2024 Episodic Disorders of lipid metabolism (20 sources) Dyslipidemia; Translations: [Hyperlipidemia, unspecified] Onset: 04-30-2019 04-30-2019 Chronic Genitourinary symptoms and ill-defined conditions (20 sources) Urge incontinence of urine; Translations: [Urge incontinence] Onset: 08-16-2017 08-16-2017 Chronic Genitourinary symptoms and ill-defined conditions (1 source) Increased frequency of urination; Translations: [Frequency of micturition] Episodic Immunizations and screening for infectious disease (2 sources) Patient encounter status; Translations: [Encounter for immunization] Episodic Mood disorders (20 sources) Dysthymia; Translations: [Dysthymic disorder] Onset: 08-16-2017 08-16-2017 Chronic Nausea and vomiting (2 sources) Nausea; Translations: [Nausea] 05-18-2023 Episodic Nonmalignant breast conditions (5 sources) Lump in upper outer quadrant of left breast; Translations: [Unspecified lump in the left breast, upper outer quadrant] Onset: 08-17-2024 08-17-2024 Episodic Nutritional deficiencies (20 sources) Vitamin D deficiency; Translations: [Vitamin D deficiency, unspecified] Onset: 05-18-2023 05-09-2023 Chronic Open wounds of extremities (1 source) Laceration of finger; Translations: [Laceration without foreign body of unspecified finger without damage to nail, initial encounter] 05-23-2023 Episodic Osteoarthritis (20 sources) Primary coxarthrosis, bilateral; 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] Onset: 03-07-2014 Chronic Other bone disease and musculoskeletal deformities (2 sources) Disorder of bone and articular cartilage; Translations: [Disorder of bone, unspecified] Episodic Other bone disease and musculoskeletal deformities (2 sources) Disorder of bone development; Translations: [Other disorders of bone development and growth, multiple sites] Episodic Other bone disease and musculoskeletal deformities (2 sources) Disorder of bone; Translations: [Other specified disorders of bone density and structure, other site] Episodic Other connective tissue disease (2 sources) Pain in left foot; Translations: [Pain in left foot] Episodic Other gastrointestinal disorders (20 sources) Celiac disease; Translations: [Celiac disease] Onset: 08-16-2017 08-16-2017 Chronic Other gastrointestinal disorders (4 sources) Abdominal distension, gaseous; Translations: [Abdominal distension (gaseous)] 05-18-2023 Episodic Other injuries and conditions due to external causes (2 sources) Injury of left foot; Translations: [Unspecified injury of left foot, initial encounter] Episodic Other liver diseases (2 sources) Lesion of liver; Translations: [Liver disease, unspecified] 05-26-2023 Chronic Other lower respiratory disease (1 source) Dyspnea; Translations: [Shortness of breath] Episodic Other lower respiratory disease (1 source) Cough; Translations: [Acute cough] Episodic Other lower respiratory disease (2 sources) Chronic cough; Translations: [Chronic cough] 06-13-2023 Episodic Other lower respiratory disease (1 source) Cough; Translations: [Acute cough] 07-08-2022 Episodic Other screening for suspected conditions (not mental disorders or infectious disease) (12 sources) Mammography abnormal; Translations: [Other abnormal and inconclusive findings on diagnostic imaging of breast] Onset: 08-17-2024 Episodic Other upper respiratory infections (1 source) Chronic sinusitis; Translations: [Chronic sinusitis, unspecified] Chronic Residual codes; unclassified (1 source) Obstructive sleep apnea syndrome; Translations: [Obstructive sleep apnea (adult) (pediatric)] 08-19-2024 Chronic Residual codes; unclassified (1 source) Obstructive sleep apnea (adult) (pediatric); Translations: [Obstructive sleep apnea] Onset: 08-17-2024 Chronic Residual codes; unclassified (1 source) Procedure not done; Translations: [Procedure and treatment not carried out due to patient leaving prior to being seen by health care provider] 05-13-2023 Episodic Residual codes; unclassified (1 source) Increased libido; Translations: [Other general symptoms and signs] 01-24-2024 Episodic Spondylosis; intervertebral disc disorders; other back problems (1 source) Degeneration of lumbosacral intervertebral disc; Translations: [Degeneration of intervertebral disc of lumbosacral region] 11-22-2016 Chronic Viral infection (1 source) Disease caused by 2019-nCoV; Translations: [COVID-19] 12-18-2022 Episodic Past or Other Problems Problem Classification Problem Date Documented Da te Episodic/Chronic Allergic reactions (20 sources) Radiation-induced dermatosis; Translations: [Other skin changes due to chronic exposure to nonionizing radiation] Onset: 05-09-2006 05-09-2006 Episodic Diabetes mellitus without complication (20 sources) Hyperglycemia; Translations: [Hyperglycemia, unspecified] Onset: 05-18-2023 Episodic Fracture of upper limb (20 sources) Closed fracture proximal humerus, neck; Translations: [Unspecified displaced fracture of surgical neck of right humerus, initial encounter for closed fracture] Onset: 08-16-2017 08-16-2017 Episodic Malaise and fatigue (20 sources) Fatigue; Translations: [Other fatigue] Onset: 10-09-2021 Episodic Other acquired deformities (20 sources) Leg length inequality; Translations: [Unequal limb length (acquired), unspecified site] Onset: 09-11-2020 09-11-2020 Episodic Other acquired deformities (1 source) Unequal limb length (acquired), unspecified site; Translations: [Leg length discrepancy] Onset: 09-11-2020 Episodic Other and unspecified benign neoplasm (20 sources) Benign neoplasm of skin of face; Translations: [Other benign neoplasm of skin of unspecified part of face] Onset: 05-09-2006 05-09-2006 Episodic Other and unspecified benign neoplasm (20 sources) Benign neoplasm of skin of trunk; Translations: [Other benign neoplasm of skin of trunk] Onset: 05-09-2006 05-09-2006 Episodic Other and unspecified benign neoplasm (20 sources) Benign tumor of head and neck; Translations: [Other benign neoplasm of skin of scalp and neck] Onset: 05-09-2006 05-09-2006 Episodic Other bone disease and musculoskeletal deformities (20 sources) Senile osteopenia; Translations: [Other specified disorders of bone density and structure, unspecified site] Onset: 08-16-2017 08-16-2017 Episodic Other gastrointestinal disorders (20 sources) Acute constipation; Translations: [Constipation, unspecified] Onset: 04-08-2023 Resolved: 08-17-2024 02-02-2023 Episodic Other gastrointestinal disorders (20 sources) Hard stool; Translations: [Other fecal abnormalities] Onset: 04-08-2023 02-02-2023 Episodic Other non-traumatic joint disorders (20 sources) Shoulder pain; Translations: [Pain in right shoulder] Onset: 08-16-2017 08-16-2017 Episodic Other non-traumatic joint disorders (20 sources) Hip pain; Translations: [Pain in right hip] Onset: 04-30-2019 04-30-2019 Episodic Other non-traumatic joint disorders (20 sources) Pain in right shoulder; Translations: [Pain in joint, shoulder region] Onset: 08-16-2017 Resolved: 08-17-2024 08-16-2017 Episodic Other non-traumatic joint disorders (20 sources) Pain in left shoulder; Translations: [Pain in joint, shoulder region] Onset: 10-09-2019 10-09-2019 Episodic Other skin disorders (20 sources) Actinic keratosis; Translations: [Actinic keratosis] Onset: 05-09-2006 05-09-2006 Episodic Other skin disorders (20 sources) Inflamed seborrheic keratosis; Translations: [Inflamed seborrheic keratosis] Onset: 05-09-2006 05-09-2006 Episodic Other skin disorders (20 sources) Disorder of nail; Translations: [Other nail disorders] Onset: 05-09-2006 05-09-2006 Episodic Other skin disorders (20 sources) Disorder of sebaceous gland; Translations: [Other specified follicular disorders] Onset: 05-09-2006 05-09-2006 Episodic Other skin disorders (20 sources) Seborrheic keratosis; Translations: [Other seborrheic keratosis] Onset: 05-09-2006 05-09-2006 Episodic Other skin disorders (20 sources) Callosity; Translations: [Corns and callosities] Onset: 09-11-2020 09-11-2020 Episodic Other skin disorders (1 source) Corns and callosities; Translations: [Corns and callosities] Onset: 09-11-2020 Episodic Residual codes; unclassified (1 source) Other general symptoms and signs; Translations: [Increased libido] Onset: 01-24-2024 Episodic Spondylosis; intervertebral disc disorders; other back problems (20 sources) Chronic neck pain; Translations: [Cervicalgia] Onset: 04-08-2021 05-04-2021 Episodic Unclassified (1 source) Patient encounter status 07-13-2024 Unclassified (1 source) Cardiovascular measurement - finding 08-19-2024 Results Test Name Value Interpretation Reference Range Facility Echocardiogram study reportO rdered By: Lance Torres on 10-01-2024 Study report [facility] [place] [address] Echo Complete 09/25/24 1110 MR#: [id number] Acct: [id number] Name: CORRY JEROME Rep #:[id number] : 1950 73 From: Lance Torres MD Attending Dr: Status: REG C ANDREE Ordering Dr: RADHA CROCKETT Date: 09/25 Location: [facility] Sex: F C Admitted: Reason For Study Reason For Study: Abn EKG Procedure This was a 2D Doppler, Color Flow transthoracic echocardiogram. Exam performed in department. Left Ventricle Normal size and thickness. The LV ejection fraction is 65 %. Normal diastology for age. Right Ventricle Normal right ventricle. Atria Normal left atrium. Normal right atrium. Mitral Valve Redundant mitral valve cords with mild systolic anterior motion. No significant LVOT gradient. Tricuspid Valve Trivial tricuspid valve insufficiency. Normal pulmonary artery pressure. Aortic Valve Trisinus/trileaflet aortic valve. Pulmonic Valve The pulmonic valve is not well visualized. Great Vessels Normal aortic root. Pericardium/Pleural No pericardial effusion. MMode/2D Measurements & Calculations LVIDd: 3.7 cm IVSd: 0.99 cm Ao root diam: 2.5 cm LVIDs: 2.4 cm LVPWd: 0.92 cm RVDd: 3.9 cm FS: 33.8 % LAV(MOD-bp): 23.4 ml LVAd ap4: 21.5 cm2 SV(MOD-sp4): 37.0 ml LAV(MOD-bp) Indexed: 13.6 ml/m2 LVLd ap4: 6.9 cm SI(MOD-sp4): 21.5 ml/m2 LAV(MOD-sp2): 24.3 ml EDV(MOD-sp4): 54.4 ml LAV(MOD-sp4): 22.1 ml EDV(sp4-el): 56.6 ml LVAs ap4: 10.8 cm2 LVLs ap4: 5.7 cm ESV(MOD-sp4): 17.4 ml ESV(sp4-el): 17.6 ml EF(MOD-sp4): 68.0 % EF(sp4-el): 68.8 % SV(sp4-el): 39.0 ml LA A4 area: 10.5 cm2 LA dimension(2D): 2.9 cm ___ RA A4 area: 11.4 cm2 TAPSE: 2.3 cm Time Measurements MV dec time: 0.24 sec Doppler Measurements & Calculations MV E max vangie: 65.7 cm/sec Lat Peak E' Vangie: 9.9 cm/sec Med Peak E' Vangie: 7.4 cm/sec MV A max vangie: 86.1 cm/sec E/E' lat: 6.7 E/E' med: 8.9 MV E/A: 0.76 Ao V2 max: 106.8 cm/sec LV V1 max: 101.1 cm/sec MV dec slope: 275.5 cm/sec2 Ao max P.6 mmHg LV V1 max P.1 mmHg Ao V2 mean: 76.3 cm/sec LV V1 mean P.1 mmHg Ao mean P.7 mmHg LV V1 mean: 67.7 cm/sec Ao V2 VTI: 24.6 cm LV V1 VTI: 24.5 cm AV (velocity ratio): 0.99 PA V2 max: 64.2 cm/sec TR max vangie: 199.0 cm/sec TR max P.8 mmHg ECHO/Echo Complete Interpretation Summary The LV ejection fraction is 65 %. Ordering Physician: RADHA CROCKETT Referring Physician: Alfredito Engel Performed By: April Alston RDCS, RVT 10/01/24 0851 Date _ Lance Torres MD CC: RADHA CROCKETT; Dr. 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 Reason for Visit: PT Discharge [752] Physical Therapy [503] Primary Visit Diagnosis:Leg length discrepancy [M21.70] Other Visit Diagnosis:Corns and callosities [L84] Allergies As of Date: 09/27/2024 Noted Allergy Reaction AMPICILLIN 05/09/2006 4 - Hives CITRUS FRUITS 05/09/2006 5 - Intolerance DUST MITES 05/09/2006 5 - Intolerance PENICILLINS 05/09/2006 4 - Hives WHEAT BRAN 05/09/2006 5 - Intolerance Comments: congestion MILK CONTAINING PRODUCTS (DAIRY) 08/17/2024 14 - Other: See Comments Comments: vertigo Date Reviewed: 08/17/2024 Reviewed by: Radha Crockett PA-C - Fully Assessed Prescriptions as of 09/27/2024 - triamcinolone acetonide (NASACORT) 55 mcg nasal inhaler Use 2 sprays in the nose daily at bedtime. - CPAP daily at bedtime. - venlafaxine (EFFEXOR) 50 mg tablet TAKE 2 (TWO) TABLETS BY MOUTH IN THE MORNING, AND 1 (ONE) TABLET IN THE EVENING as directed] - solifenacin (VESICARE) 5 mg tablet Take 1 tablet by mouth once daily. - PULMICORT FLEXHALER 180 mcg/actuation aepb INHALE 1 puff twice daily with good oral care - multivit-minerals/foli c acid (CENTRUM ADULT 50 PLUS ORAL) Take by mouth. - magnesium oxide 240 mg magnesium pwpk Take 163 mg by mouth once daily. - omega-3 fatty acids 1,000 mg cap Take 2 g by mouth once daily. - B-complex with vitamin C (VITAMIN B COMPLEX-C ORAL) Take 50 mg by mouth once daily. - Chromium Picolinate 200 mcg tab Take 200 mcg by mouth once daily. - Ascorbic Acid (VITAMIN C) 1,000 mg tablet Take 1,000 mg by mouth once daily. - Vitamin E, dl, acetate, (VITAMIN E) 200 unit capsule Take 200 Units by mouth once daily. - biotin 5 mg tab Take 5 mg by mouth once daily. - mqwqueb-zfic-vevpv-ore g-capryl 100 mg-150 mg- 50 mg-150 mg cap Take 3,900 mg by mouth once daily. - polyethylene glycol 3350 (MIRALAX) 17 gram/dose powder Take 17 g by mouth once daily. Dissolve dose in 4 - 8 ounces of liquid and take as directed. - montelukast (SINGULAIR) 10 mg tablet Take 10 mg by mouth daily at bedtime. - mupirocin (BACTROBAN) 2 % ointment Apply 1 application to affected area twice daily as needed. - cetirizine 10 mg tablet Take 10 mg by mouth once daily. Meds Comments as of 02/02/2023: Vitamin B complex once a day, Probiotic, Chrom and magnesium (vitamin D with K in the winter) Takes a stool softener daily-generic from pharmacy-unsure of name-has been doing this for 20 years, as of 02/02/2023 Letter Text Normal [facility] Echo Completeon 09-25-2024 Echo Complete [facility] [address] [place] [address] Echo Complete 09/25/24 1110 MR#: [id number] Acct: [id number] Name: CORRY JEROME Rep #: [id number] : 1950 73 From: Lance Torres MD Attending Dr: Status: REG CLI Ordering Dr: RADHA CROCKETT Date: 07/22/25 Location: [facility] Sex: F C Admitted: Reason For Study Reason For Study: Abn EKG Procedure This was a 2D Doppler, Color Flow transthoracic echocardiogram. Exam performed in department. Left Ventricle Normal size and thickness. The LV ejection fraction is 65 %. Normal diastology for age. Right Ventricle Normal right ventricle. Atria Normal left atrium. Normal right atrium. Mitral Valve Redundant mitral valve cords with mild systolic anterior motion. No significant LVOT gradient. Tricuspid Valve Trivial tricuspid valve insufficiency. Normal pulmonary artery pressure. Aortic Valve Trisinus/trileaflet aortic valve. Pulmonic Valve The pulmonic valve is not well visualized. Great Vessels Normal aortic root. Pericardium/Pleural No pericardial effusion. MMode/2D Measurements Calculations LVIDd: 3.7 cm IVSd: 0.99 cm Ao root diam: 2.5 cm LVIDs: 2.4 cm LVPWd: 0.92 cm RVDd: 3.9 cm FS: 33.8 % LAV(MOD-bp): 23.4 ml LVAd ap4: 21.5 cm2 SV(MOD-sp4): 37.0 ml LAV(MOD-bp) Indexed: 13.6 ml/m2 LVLd ap4: 6.9 cm SI(MOD-sp4): 21.5 ml/m2 LAV(MOD-sp2): 24.3 ml EDV(MOD-sp4): 54.4 ml LAV(MOD-sp4): 22.1 ml EDV(sp4-el): 56.6 ml LVAs ap4: 10.8 cm2 LVLs ap4: 5.7 cm ESV(MOD-sp4): 17.4 ml ESV(sp4-el): 17.6 ml EF(MOD-sp4): 68.0 % EF(sp4-el): 68.8 % SV(sp4-el): 39.0 ml LA A4 area: 10.5 cm2 LA dimension(2D): 2.9 cm RA A4 area: 11.4 cm2 TAPSE: 2.3 cm Time Measurements MV dec time: 0.24 sec Doppler Measurements Calculations MV E max vangie: 65.7 cm/sec Lat Peak E' Vangie: 9.9 cm/sec Med Peak E' Vangie: 7.4 cm/sec MV A max vangie: 86.1 cm/sec E/E' lat: 6.7 E/E' med: 8.9 MV E/A: 0.76 Ao V2 max: 106.8 cm/sec LV V1 max: 101.1 cm/sec MV dec slope: 275.5 cm/sec2 Ao max P.6 mmHg LV V1 max P.1 mmHg Ao V2 mean: 76.3 cm/sec LV V1 mean P.1 mmHg Ao mean P.7 mmHg LV V1 mean: 67.7 cm/sec Ao V2 VTI: 24.6 cm LV V1 VTI: 24.5 cm AV (velocity ratio): 0.99 PA V2 max: 64.2 cm/sec TR max vangie: 199.0 cm/sec TR max P.8 mmHg ECHO/Echo Complete Interpretation Summary The LV ejection fraction is 65 %. Ordering Physician: RADHA CROCKETT Referring Physician: Alfredito Engel Performed By: April Alston, KAIT, RVT 10/01/24850 Date Lance Torres MD CC: RADHA CROCKETT; Dr. 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 Ayalogict message sent to patient as well. Agnes Morris MA September 21, 2024 4:36 PM Sonam Padgett 09/26/2024 8:25 AM Signed Agnes Morris MA Nicholas, Dawn M Please request Echo and Stress from [facility] completed 09/25/2024 Agnes Morris MA September 25, 2024 5:00 PM Previous Messages ----- Message ----- From: Agnes Morris MA Sent: 09/24/2024 8:07 AM EDT To: Agnes Morris MA Subject: FW: Stress/Echo Testing ----- Message ----- From: Corry Jerome Sent: 09/21/2024 7:26 PM EDT To: Agnes Morris MA Subject: Stress/Echo Testing Agnes Felipe. I am scheduled for both tests this coming Tuesday at [facility]. If you need more information, please let me know. With thanks, Corry Jerome Allergies As of Date: 09/21/2024 Noted Allergy Reaction AMPICILLIN 05/09/2006 4 - Hives CITRUS FRUITS 05/09/2006 5 - Intolerance DUST MITES 05/09/2006 5 - Intolerance PENICILLINS 05/09/2006 4 - Hives WHEAT BRAN 05/09/2006 5 - Intolerance Comments: congestion MILK CONTAINING PRODUCTS (DAIRY) 08/17/2024 14 - Other: See Comments Comments: vertigo Date Reviewed: 08/17/2024 Reviewed by: Radha Crockett PA-C - Fully Assessed Reason for Visit: Request Outside Medical Records [6780] Prescriptions as of 09/27/2024 - triamcinolone acetonide (NASACORT) 55 mcg nasal inhaler Use 2 sprays in the nose daily at bedtime. - CPAP daily at bedtime. - venlafaxine (EFFEXOR) 50 mg tablet TAKE 2 (TWO) TABLETS BY MOUTH IN THE MORNING, AND 1 (ONE) TABLET IN THE EVENING as directed] - solifenacin (VESICARE) 5 mg tablet Take 1 tablet by mouth once daily. - PULMICORT FLEXHALER 180 mcg/actuation aepb INHALE 1 puff twice daily with good oral care - multivit-minerals/foli c acid (CENTRUM ADULT 50 PLUS ORAL) Take by mouth. - magnesium oxide 240 mg magnesium pwpk Take 163 mg by mouth once daily. - omega-3 fatty acids 1,000 mg cap Take 2 g by mouth once daily. - B-complex with vitamin C (VITAMIN B COMPLEX-C ORAL) Take 50 mg by mouth once daily. - Chromium Picolinate 200 mcg tab Take 200 mcg by mouth once daily. - Ascorbic Acid (VITAMIN C) 1,000 mg tablet Take 1,000 mg by mouth once daily. - Vitamin E, dl, acetate, (VITAMIN E) 200 unit capsule Take 200 Units by mouth once daily. - biotin 5 mg tab Take 5 mg by mouth once daily. - kpotduo-fjuq-yqugq-ore g-capryl 100 mg-150 mg- 50 mg-150 mg cap Take 3,900 mg by mouth once daily. - polyethylene glycol 3350 (MIRALAX) 17 gram/dose powder Take 17 g by mouth once daily. Dissolve dose in 4 - 8 ounces of liquid and take as directed. - montelukast (SINGULAIR) 10 mg tablet Take 10 mg by mouth daily at bedtime. - mupirocin (BACTROBAN) 2 % ointment Apply 1 application to affected area twice daily as needed. - cetirizine 10 mg tablet Take 10 mg by mouth once daily. Meds Comments as of 02/02/2023: Vitamin B complex once a day, Probiotic, Chrom and magnesium (vitamin D with K in the winter) Takes a stool softener daily-generic from pharmacy-unsure of name-has been doing this for 20 years, as of 02/02/2023 Problem List As Of Date 09/21/2024 Noted Resolved ACTINIC KERATOSIS [L57.0] 05/09/2006 SEBORRHEIC KERATOSIS INFLAMED [L82.0] 05/09/2006 BENIGN DANUTA SKIN FACE NEC [D23.30] 05/09/2006 BENIGN DANUTA SKIN TRUNK [D23.5] 05/09/2006 BENIGN DANUTA SCALP/SKIN NECK [D23.4] 05/09/2006 NAIL DYSTROPHY///DISEASES OF NAIL NEC [L60.8] 05/09/2006 XEROSIS///SEBACEOUS GLAND DIS NEC [L73.8] 05/09/2006 CHR SOLAR SKIN DAMAGE NOS [L57.8] 05/09/2006 SEBORRHEIC KERATOSIS NOS [L82.1] 05/09/2006 Fx humeral neck, right, closed, initial encount*08/16/2017 Acute pain of right shoulder [M25.511] 08/16/2017 08/17/2024 Dysthymia [F34.1] 08/16/2017 Osteopenia, senile [M85.80] 08/16/2017 Celiac disease [K90.0] 08/16/2017 Urge incontinence [N39.41] 08/16/2017 Medicare annual wellness visit, subsequent [Z00*02/13/2018 Bilateral hip pain [M25.551, M25.552] 04/30/2019 Dyslipidemia [E78.5] 04/30/2019 Left shoulder pain [M25.512] 10/09/2019 Leg length discrepancy [M21.70] 09/11/2020 Corns and callosities [L84] 09/11/2020 Chronic neck pain [M54.2, G89.29] 04/08/2021 Primary osteoarthritis of both hips [M16.0] 10/09/2021 Fatigue [R53.83] 10/09/2021 Acute constipation [K59.00] 04/08/2023 08/17/2024 Hard stool [R19.5] 04/08/2023 Vitamin D deficiency [E55.9] 05/18/2023 Hyperglycemia [R73.9] 05/18/2023 Arthritis [M19.90] 03/07/2014 History of b (more content not included)... Normal [facility] 25(OH)D3 [facility] 25-hydroxyvitamin D3 [Mass/Vol] 70.7 ng/mL Normal 31.0-80.0 [facility] Comment on above: Order Comment: Speci men Type: BLOOD SPECIMENOrdering Facility: [facility] Address: [address] [place] [address] Result Comment: Clas sification of 25 [place] Vitamin D status: Deficiency/Insufficiency: < or = 30 ng/ml. Sufficiency/Optimal Levels: 31-80 ng/mL Toxicity: > 100 ng/mL. Test performed by chemiluminescent immunoassay. Performed By: #### 1 989-3 ####[facility] LABCLIA [id number] [place] [address] [place] CBC W Auto Differential pane l (Bld)on 09-10-2024 Basophils (Bld) [#/Vol] 0.04 10*3/uL Normal <0.11 [facility] Comment on above: Order Comment: Speci men Type: BLOOD SPECIMENOrdering Facility: [facility] Address: [address] [place] [address] Performed By: #### 5 7021-8 ####[facility] [id number] [place] [address] [place] Basophils/100 WBC (Bld) 1.0 % Normal [facility] Comment on above: Order Comment: Speci men Type: BLOOD SPECIMENOrdering Facility: [facility] Address: [address] [place] [address] Performed By: #### 5 7021-8 ####[facility] HOSPITALMALATHIA [id number] [place] [address] [place] Differential cell count method Nom (Bld) Auto Normal [facility] Comment on above: Order Comment: Speci men Type: BLOOD SPECIMENOrdering Facility: [facility] Address: [address] [place] [address] Performed By: #### 5 7021-8 ####[facility] H[facility]ITALNCLIA [id number] [place] [address] [place] Eosinophils (Bld) [#/Vol] 0.16 10*3/uL Normal <0.46 [facility] Comment on above: Order Comment: Speci men Type: BLOOD SPECIMENOrdering Facility: [facility] Address: [address] [place] [address] Performed By: #### 5 7021-8 ####[facility] ZULEYKANCANDREEA [id number] [place] [address] [place] Eosinophils/100 WBC (Bld) 4.0 % Normal [facility] Comment on above: Order Comment: Speci men Type: BLOOD SPECIMENOrdering Facility: [facility] Address: [address] [place] [address] Performed By: #### 5 7021-8 ####[facility] SARAVANANJACKSONMALATHILIA [id number] [place] [address] [place] Erythrocyte distribution width (RBC) [Ratio] 13.2 % Normal 11.5-15.0 [facility] Comment on above: Order Comment: Speci men Type: BLOOD SPECIMENOrdering Facility: [facility] Address: [address] [place] [address] Performed By: #### 5 7021-8 ####[facility] HOSPITALNCANDREEA [id number] [place] [address] [place] Hematocrit (Bld) [Volume fraction] 39.5 % Normal 36.0-46.0 [facility] Comment on above: Order Comment: Speci men Type: BLOOD SPECIMENOrdering Facility: [facility] Address: [address] [place] [address] Performed By: #### 5 7021-8 ####[facility] HOSPITALMALATHILIA [id number] [place] [address] [place] Hemoglobin (Bld) [Mass/Vol] 13.4 g/dL Normal 11.5-15.5 [facility] Comment on above: Order Comment: Speci men Type: BLOOD SPECIMENOrdering Facility: [facility] Address: [address] [place] [address] Performed By: #### 5 7021-8 ####[facility] MILLWNCLIA [id number] [place] [address] [place] Immature granulocytes (Bld) [#/Vol] 10*3/uL Normal <0.10 [facility] Comment on above: Order Comment: Speci men Type: BLOOD SPECIMENOrdering Facility: [facility] Address: [address] [place] [address] Performed By: #### 5 7021-8 ####[facility] HOS[facility]ITALNCLIA [id number] [place] [address] [place] Immature granulocytes/100 WBC (Bld) 0.0 % Normal [facility] Comment on above: Order Comment: Speci men Type: BLOOD SPECIMENOrdering Facility: [facility] Address: [address] [place] [address] Performed By: #### 5 7021-8 ####[facility] TROYLIA [id number] [place] [address] [place] Lymphocytes (Bld) [#/Vol] 1.18 10*3/uL Normal 1.00-4.00 [facility] Comment on above: Order Comment: Speci men Type: BLOOD SPECIMENOrdering Facility: [facility] Address: [address] [place] [address] Performed By: #### 5 7021-8 ####[facility] MILLWNCLIA [id number] [place] [address] [place] Lymphocytes/100 WBC (Bld) 29.5 % Normal [facility] Comment on above: Order Comment: Speci men Type: BLOOD SPECIMENOrdering Facility: [facility] Address: [address] [place] [address] Performed By: #### 5 7021-8 ####[facility] HOSPITALNCLIA [id number] [place] [address] [place] MCH (RBC) [Entitic mass] 31.5 pg Normal 26.0-34.0 [facility] Comment on above: Order Comment: Speci men Type: BLOOD SPECIMENOrdering Facility: [facility] Address: [address] [place] [address] Performed By: #### 5 7021-8 ####[facility] HOSPITALNCANDREE [id number] [place] [address] [place] MCHC (RBC) [Mass/Vol] 33.9 g/dL Normal 30.5-36.0 [facility] Comment on above: Order Comment: Speci men Type: BLOOD SPECIMENOrdering Facility: [facility] Address: [address] [place] [address] Performed By: #### 5 7021-8 ####[facility] HOSPITALNCSALT [facility] [id number] [place] [address] [place] MCV (RBC) [Entitic vol] 92.9 fL Normal 80.0-100.0 [facility] Comment on above: Order Comment: Speci men Type: BLOOD SPECIMENOrdering Facility: [facility] Address: [address] [place] [address] Performed By: #### 5 7021-8 ####[facility] HOSPITALNCLI [id number] [place] [address] [place] Monocytes (Bld) [#/Vol] 0.41 10*3/uL Normal <0.87 [facility] Comment on above: Order Comment: Speci men Type: BLOOD SPECIMENOrdering Facility: [facility] Address: [address] [place] [address] Performed By: #### 5 7021-8 ####[facility] HOS[facility]ITALNCLIA [id number] [place] [address] [place] Monocytes/100 WBC (Bld) 10.3 % Normal [facility] Comment on above: Order Comment: Speci men Type: BLOOD SPECIMENOrdering Facility: [facility] Address: [address] [place] [address] Performed By: #### 5 7021-8 ####[facility] SARAVANANAMBERLIA [id number] [place] [address] [place] Neutrophils (Bld) [#/Vol] 2.21 10*3/uL Normal 1.45-7.50 [facility] Comment on above: Order Comment: Speci men Type: BLOOD SPECIMENOrdering Facility: [facility] Address: [address] [place] [address] Performed By: #### 5 7021-8 ####[facility] TROYLIA [id number] [place] [address] [place] Neutrophils/100 WBC (Bld) 55.2 % Normal [facility] Comment on above: Order Comment: Speci men Type: BLOOD SPECIMENOrdering Facility: [facility] Address: [address] [place] [address] Performed By: #### 5 7021-8 ####[facility] TROYLIA [id number] [place] [address] [place] Nucleated RBC (Bld) [#/Vol] 10*3/uL Normal <0.01 [facility] Comment on above: Order Comment: Speci men Type: BLOOD SPECIMENOrdering Facility: [facility] Address: [address] [place] [address] Performed By: #### 5 7021-8 ####[facility] TROYLIA [id number] [place] [address] [place] Nucleated RBC/100 WBC (Bld) [Ratio] 0.0 /100 WBC Normal [facility] Comment on above: Order Comment: Speci men Type: BLOOD SPECIMENOrdering Facility: [facility] Address: [address] [place] [address] Performed By: #### 5 7021-8 ####[facility]ATERMANWNCLIA [id number] [place] [address] [place] Platelet mean volume (Bld) [Entitic vol] 9.7 fL Normal 9.0-12.7 [facility] Comment on above: Order Comment: Speci men Type: BLOOD SPECIMENOrdering Facility: [facility] Address: [address] [place] [address] Performed By: #### 5 7021-8 ####[facility] TROYLIA [id number] [place] [address] [place] Platelets (Bld) [#/Vol] 259 10*3/uL Normal 150-400 [facility] Comment on above: Order Comment: Speci men Type: BLOOD SPECIMENOrdering Facility: [facility] Address: [address] [place] [address] Performed By: #### 5 7021-8 ####[facility] [id number] [place] [address] [place] RBC (Bld) [#/Vol] 4.25 10*6/uL Normal 3.90-5.20 [facility] Comment on above: Order Comment: Speci men Type: BLOOD SPECIMENOrdering Facility: [facility] Address: [address] [place] [address] Performed By: #### 5 7021-8 ####[facility]ITAL[facility] [id number] [place] [address] [place] WBC (Bld) [#/Vol] 4.00 10*3/uL Normal 3.70-11.00 [facility] Comment on above: Order Comment: Speci men Type: BLOOD SPECIMENOrdering Facility: [facility] Address: [address] [place] [address] Performed By: #### 5 7021-8 ####[facility] [id number] [place] [address] [place] Comprehensive metabolic 2000 panelon 09-10-2024 Albumin [Mass/Vol] 4.2 g/dL Normal 3.9-4.9 [facility] Comment on above: Order Comment: Speci men Type: BLOOD SPECIMENOrdering Facility: [facility] Address: [address] [place] [address] Result Comment: Slick ected result: Previously reported as 4.3 g/dL on 09/10/2024 at 8:50 AM EDT. Performed By: #### 2 4323-8 ####[facility] LABCLIA [id number] [place] [address] [place] ALP [Catalytic activity/Vol] 67 U/L Normal 34-123 [facility] Comment on above: Order Comment: Speci men Type: BLOOD SPECIMENOrdering Facility: [facility] Address: [address] [place] [address] Performed By: #### 2 4323-8 ####[facility] LABIA [id number] [place] [address] [place] ALT [Catalytic activity/Vol] 24 U/L Normal 7-38 [facility] Comment on above: Order Comment: Speci men Type: BLOOD SPECIMENOrdering Facility: [facility] Address: [address] [place] [address] Result Comment: Slick ected result: Previously reported as 18 U/L on 09/10/2024 at 8:50 AM EDT. Performed By: #### 2 4323-8 ####[facility] LABCLIA [id number] [place] [address] [place] Anion gap [Moles/Vol] 12 mmol/L Normal 8-15 [facility] Comment on above: Order Comment: Speci men Type: BLOOD SPECIMENOrdering Facility: [facility] Address: [address] [place] [address] Performed By: #### 2 4323-8 ####[facility] LABCLIA [id number] [place] [id number] [place] AST [Catalytic activity/Vol] 41 U/L High 13-35 [facility] Comment on above: Order Comment: Speci men Type: BLOOD SPECIMENOrdering Facility: [facility] Address: [address] [place] [address] Result Comment: Slick ected result: Previously reported as 31 U/L on 09/10/2024 at 8:50 AM EDT. Performed By: #### 2 4323-8 ####[facility] LABIA [id number] [place] [address] [place] Bilirubin [Mass/Vol] 0.4 mg/dL Normal 0.2-1.3 [facility] Comment on above: Order Comment: Speci men Type: BLOOD SPECIMENOrdering Facility: [facility] Address: [address] [place] [address] Performed By: #### 2 4323-8 ####[facility] H[facility]ITAL[facility] [id number] [place] [address] [place] Calcium [Mass/Vol] 9.7 mg/dL Normal 8.5-10.2 [facility] Comment on above: Order Comment: Speci men Type: BLOOD SPECIMENOrdering Facility: [facility] Address: [address] [place] [address] Result Comment: Slick ected result: Previously reported as 9.5 mg/dL on 09/10/2024 at 8:50 AM EDT. Performed By: #### 2 4323-8 ####[facility] LABIA [id number] [place] [address] [place] Chloride [Moles/Vol] 101 mmol/L Normal 98-107 [facility] Comment on above: Order Comment: Speci men Type: BLOOD SPECIMENOrdering Facility: [facility] Address: [address] [place] [address] Performed By: #### 2 4323-8 ####[facility] LABCLIA [id number] [place] [address] [place] CO2 [Moles/Vol] 27 mmol/L Normal 22-30 [facility] Comment on above: Order Comment: Speci men Type: BLOOD SPECIMENOrdering Facility: [facility] Address: [address] [place] [address] Performed By: #### 2 4323-8 ####[facility] LABIA [id number] [place] [id number] [place] [facility] Creatinine [Mass/Vol] 0.77 mg/dL Normal 0.58-0.96 [facility] Comment on above: Order Comment: Speci men Type: BLOOD SPECIMENOrdering Facility: [facility] Address: [address] [place] [address] Result Comment: Slick ected result: Previously reported as 0.75 mg/dL on 09/10/2024 at 8:50 AM EDT. Performed By: #### 2 4323-8 ####[facility] [id number] [address] Creatinine and Glomerular filtration rate.predicted panel (S/P/Bld) 81 mL/min/1.73m??? Normal >=60 [facility] Comment on above: Order Comment: Speci men Type: BLOOD SPECIMENOrdering Facility: [facility] Address: [address] [place] [address] Result Comment: Khushboo mated Glomerular Filtration Rate (eGFR) is calculated using the 2020 CKD-EPI creatinine equation. This equation utilizes serum creatinine, sex, and age as parameters. The creatinine assay has traceable calibration to isotope dilution-mass spectrometry. Refer to KDIGO guidelines for clinical interpretation. In patients with unstable renal function, e.g. those with acute kidney injury, the eGFR may not accurately reflect actual GFR. Corrected result: Previously reported as 83 mL/min/1.73m??? on 09/10/2024 at 8:50 AM EDT. Performed By: #### 2 4323-8 ####[facility] LABCLIA [id number] [address] [address] [place] Glucose [Mass/Vol] 83 mg/dL Normal 74-99 [facility] Comment on above: Order Comment: Speci men Type: BLOOD SPECIMENOrdering Facility: [facility] Address: [address] [place] [address] Result Comment: The [place] Diabetes Association (ADA) provides guidance for cutoff values for fasting glucose and random glucose. The ADA defines fasting as no caloric intake for at least 8 hours. Fasting plasma glucose results between 100 to 125 mg/dL indicate increased risk for diabetes (prediabetes). Fasting plasma glucose results greater than or equal to 126 mg/dL meet the criteria for diagnosis of diabetes. In the absence of unequivocal hyperglycemia, results should be confirmed by repeat testing. In a patient with classic symptoms of hyperglycemia or hyperglycemic crisis, random plasma glucose results greater than or equal to 200 mg/dL meet the criteria for diagnosis of diabetes. Reference: Standards of Medical Care in Diabetes 2016, [place] Diabetes Association. Diabetes Care. 2016.39(Suppl 1). Corrected result: Previously reported as 90 mg/dL on 09/10/2024 at 8:50 AM EDT. Performed By: #### 2 4323-8 ####[facility] LABCLIA [id number] [place] [address] [place] Potassium [Moles/Vol] 4.9 mmol/L Normal 3.7-5.1 [facility] Comment on above: Order Comment: Speci men Type: BLOOD SPECIMENOrdering Facility: [facility] Address: [address] [place] [id number] Performed By: #### 2 4323-8 ####[facility] LABIA [id number] [place] [address] [place] Protein [Mass/Vol] 6.6 g/dL Normal 6.3-8.0 [facility] Comment on above: Order Comment: Speci men Type: BLOOD SPECIMENOrdering Facility: [facility] Address: [address] [place] [address] Result Comment: Slick ected result: Previously reported as 6.8 g/dL on 09/10/2024 at 8:50 AM EDT. Performed By: #### 2 4323-8 ####[facility] LABCLIA [id number] [address] [address] [place] Sodium [Moles/Vol] 140 mmol/L Normal 136-144 [facility] Comment on above: Order Comment: Speci men Type: BLOOD SPECIMENOrdering Facility: [facility] Address: [address] [place] [address] Performed By: #### 2 4323-8 ####[facility] LABIA [id number] [address] [place] Urea nitrogen [Mass/Vol] 13 mg/dL Normal 7-21 [facility] Comment on above: Order Comment: Speci men Type: BLOOD SPECIMENOrdering Facility: [facility] Address: [address] [place] [address] Result Comment: Slick ected result: Previously reported as 12 mg/dL on 09/10/2024 at 8:50 AM EDT. Performed By: #### 2 4323-8 ####[facility] LABIA [id number] [address] [place] HbA1c (Bld)on 09-10-2024 Average glucose Estimated from glycated hemoglobin (Bld) [Mass/Vol] 111 mg/dL Normal [facility] Comment on above: Order Comment: Speci men Type: BLOOD SPECIMENOrdering Facility: [facility] Address: [address] [place] [address] Result Comment: eAG: (Estimated average glucose) is a calculated value from HgbA1c and is maintenance representative of the average blood glucose level in the last 2-3 month period. Performed By: #### 5 5454-3 ####[facility] LABCLIA [id number] [address] [address] [place] HbA1c (Bld) [Mass fraction] 5.5 % Normal 4.3-5.6 [facility] Comment on above: Order Comment: Dilan marlow Type: BLOOD SPECIMENOrdering Facility: [facility] Address: [address] [place] [address] Result Comment: [place] Diabetes Association guidelines indicate that patients with HgbA1c in the range 5.7-6.4% are at increased risk for development of diabetes, and intervention by lifestyle modification may be beneficial. HgbA1c greater or equal to 6.5% is considered diagnostic of diabetes. Performed By: #### 5 5454-3 ####[facility] LABCLIA [id number] [place] [address] [facility] Lipid 1996 panelon 5 Cholesterol [Mass/Vol] 153 mg/dL Normal <200 [facility] Comment on above: Order Comment: Dilan ele Type: BLOOD SPECIMENOrdering Facility: [facility] Address: [address] [place] [address] Result Comment: <200 mg/dL, Desirable 200-239 mg/dL, Borderline high >239 mg/dL, High Performed By: #### 2 4331-1 ####[facility] LABCLIA [id number] [address] [address] [place] [facility] [id number] [address] [place]#### 3016-3 ####[facility] LABCLIA [id number] [place] [address] [place] [facility] Cholesterol in HDL [Mass/Vol] 68 mg/dL Normal >39 [facility] Comment on above: Order Comment: Maxikatey marlow Type: BLOOD SPECIMENOrdering Facility: [facility] Address: [address] [place] [address] Result Comment: 40-5 9 mg/dL, Acceptable >59 mg/dL, High: Negative risk factor for coronary heart disease <40 mg/dL, Low: Positive risk factor for coronary heart disease Performed By: #### 2 4331-1 ####[facility] LABIA [id number] [place] [address] [facility] [id number] [address]#### 3016-3 ####[facility] [id number] [address] Cholesterol in LDL [Mass/Vol] 77 mg/dL Normal <100 [facility] Comment on above: Order Comment: Speci men Type: BLOOD SPECIMENOrdering Facility: [facility] Address: [address] [place] [address] Result Comment: <100 mg/dL, Optimal 100-129 mg/dL, Near optimal/above optimal 130-159 mg/dL, Borderline high 160-189 mg/dL, High >189 mg/dL, Very high Secondary prevention optimal LDL Cholesterol levels are recommended to be <70 mg/dL LDL cholesterol is calculated using the Trujillo-NIH equation. Performed By: #### 2 4331-1 ####[facility] [id number] [address] [id number] [address]#### 3016-3 ####[facility] [id number] [address] Cholesterol in LDL/Cholesterol in HDL [Mass ratio] 1.13 {ratio} Normal <2.54 [facility] Comment on above: Order Comment: Speci men Type: BLOOD SPECIMENOrdering Facility: [facility] Address: [address] [place] [address] Result Comment: Lucina gaytan: 1. National Cholesterol Education Program ATP III Guideline At-A-Glance Quick Desk Reference: National Heart, Lung, and Blood Girdler. National Institutes of Health. 2001: NIH Publication No. 01-3305. 2. An International Atherosclerosis Society position paper: global recommendations for the management of dyslipidemia: executive summary, Atherosclerosis. 2014: 232(2):410-413. Performed By: #### 2 4331-1 ####[facility] LABCLIA [id number] [address] [place] [address] [facility] [id number] [place] [address] [place]#### 3016-3 ####[facility] LABCLIA [id number] [facility] [address] [place] [address] [place] Cholesterol in VLDL [Mass/Vol] 5 mg/dL Normal <30 [facility] Comment on above: Order Comment: Speci men Type: BLOOD SPECIMENOrdering Facility: [facility] Address: [address] [place] [address] Performed By: #### 2 4331-1 ####[facility] LABCLIA [id number] [facility] [address] [place] [address] [place] [facility] [id number] [place] [address] [place]#### 3016-3 ####[facility] LABCLIA [id number] [facility] [address] [place] [address] [place] Cholesterol non HDL [Mass/Vol] 85 mg/dL Normal <130 [facility] Comment on above: Order Comment: Speci men Type: BLOOD SPECIMENOrdering Facility: [facility] Address: [address] [place] [address] Result Comment: <130 mg/dL, Optimal 130-159 mg/dL, Near optimal/above optimal 160-189 mg/dL, Borderline high 190-219 mg/dL, High >219 mg/dL, Very high Secondary prevention optimal non HDL Cholesterol levels are recommended to be <100 mg/dL Performed By: #### 2 4331-1 ####[facility] LABCLIA [id number] [address] [place] [address] [place] [facility] [id number] [place] [address] [place]#### 3016-3 ####[facility] LABCLIA [id number] [address] [place] [address] [place] Cholesterol.total/Ch olesterol in HDL [Mass ratio] 2.25 {ratio} Normal <5.10 [facility] Comment on above: Order Comment: Speci men Type: BLOOD SPECIMENOrdering Facility: [facility] Address: [address] [place], [place] [address] Performed By: #### 2 4331-1 ####[facility] LABCLIA [id number] [address] [place] [address] [place] [facility] [id number] [place] [address] [place]#### 3016-3 ####[facility] LABCLIA [id number] [address] [address] [place] FASTING TIME 24 hrs Normal [facility] Comment on above: Order Comment: Speci men Type: BLOOD SPECIMENOrdering Facility: [facility] Address: [address] [place] [address] Performed By: #### 2 4331-1 ####[facility] LABCLIA [id number] [address] [place] [address] [place] [facility] [id number] [place] [address] [place]#### 3016-3 ####[facility] LABCLIA [id number] [address] [place] [address] [place] Triglyceride [Mass/Vol] 31 mg/dL Normal <150 [facility] Comment on above: Order Comment: Speci men Type: BLOOD SPECIMENOrdering Facility: [facility] Address: [address] [place] [address] Result Comment: <150 mg/dL, Normal 150-199 mg/dL, Borderline high 200-499 mg/dL, High >499 mg/dL, Very high Performed By: #### 2 4331-1 ####[facility] LABCLIA [id number] [id number] [place] [address] [place]#### 3016-3 ####[facility] LABIA [id number] [place] [address] [place] TSH SerPl-aCncon 09-10-2024 TSH Qn 2.550 m[IU]/L Normal 0.270-4.200 [facility] Comment on above: Order Comment: Speci men Type: BLOOD SPECIMENOrdering Facility: [facility] Address: [address] [place] [address] Performed By: #### 2 4331-1 ####[facility] LABIA [id number] [address] OF [place] [id number] [place] [address] [place]#### 3016-3 ####[facility] LABIA [id number] [place] [address] [place] MAMM SCRN UNI TOMOon 06-30-2 025 MAMM SCRN UNI JAXSON SCREENING LEFT DIGIT AL MAMMOGRAM WITH TOMOSYNTHESIS Clinical History : Screening. Remote right mastectomy. Comparison Studies: 08/23/2023, 08/20/2022, 08/19/2021. Mammographic findings: 2D and tomosynthesis images were reviewed at 1 mm slice thickness. The left breast is heterogeneously dense, which may obscure small masses. No suspicious masses or suspicious calcifications are identified. There is a stable biopsy clip in the upper outer quadrant. There are stable scattered benign-appearing calcifications. The digital mammogram has been reviewed with the aid of CAD. IMPRESSION AND RECOMMENDATION: No mammographic evidence of malignancy. Recommendation is for the patient to return in one year for annual mammogram with tomosynthesis. BI-RADS Category 2: Benign BREAST TISSUE CAN BE EITHER DENSE OR NOT DENSE. DENSE TISSUE MAKES IT HARDER TO FIND BREAST CANCER ON A MAMMOGRAM AND ALSO RAISES THE RISK OF DEVELOPING BREAST CANCER. YOUR BREAST TISSUE IS DENSE. IN SOME PEOPLE WITH DENSE TISSUE, OTHER IMAGING TESTS IN ADDITION TO A MAMMOGRAM MAY HELP FIND CANCERS. TALK YOUR HEALTHCARE PROVIDER ABOUT BREAST DENSITY, RISKS FOR BREAST CANCER, AND YOUR INDIVIDUAL SITUATION. Electronically signed by: Ernie Mckeon MD 09/03/2024 12:42 PM EDT RP Technologist: ELIAS Dictated By: ERNIE MCKEON MD Signed By: ERNIE MCKEON MD Signed Out: 09/03/24 14:18:43 Normal [facility] CNPNon 08-21-2024 CNPN Telephone (CEMMOB) CORRY JEROME ([id number]) 1950 F Date Time Provider Department 08/21/24 RADHA CROCKETT CEMMOB During your visit today, we recorded the following information about you: Cassie Merrill 08/21/2024 1:47 PM Signed I called to notify the patient that her stress test and echo are scheduled 09/25/24 @ 7:00 at [facility]. Cassie Merrill Allergies As of Date: 08/21/2024 Noted Allergy Reaction AMPICILLIN 05/09/2006 4 - Hives CITRUS FRUITS 05/09/2006 5 - Intolerance DUST MITES 05/09/2006 5 - Intolerance PENICILLINS 05/09/2006 4 - Hives WHEAT BRAN 05/09/2006 5 - Intolerance Comments: congestion MILK CONTAINING PRODUCTS (DAIRY) 08/17/2024 14 - Other: See Comments Comments: vertigo Date Reviewed: 08/17/2024 Reviewed by: Radha Crockett PA-C - Fully Assessed Prescriptions as of 08/21/2024 - triamcinolone acetonide (NASACORT) 55 mcg nasal inhaler Use 2 sprays in the nose daily at bedtime. - CPAP daily at bedtime. - venlafaxine (EFFEXOR) 50 mg tablet TAKE 2 (TWO) TABLETS BY MOUTH IN THE MORNING, AND 1 (ONE) TABLET IN THE EVENING as directed] - solifenacin (VESICARE) 5 mg tablet Take 1 tablet by mouth once daily. - PULMICORT FLEXHALER 180 mcg/actuation aepb INHALE 1 puff twice daily with good oral care - multivit-minerals/foli c acid (CENTRUM ADULT 50 PLUS ORAL) Take by mouth. - magnesium oxide 240 mg magnesium pwpk Take 163 mg by mouth once daily. - omega-3 fatty acids 1,000 mg cap Take 2 g by mouth once daily. - B-complex with vitamin C (VITAMIN B COMPLEX-C ORAL) Take 50 mg by mouth once daily. - Chromium Picolinate 200 mcg tab Take 200 mcg by mouth once daily. - Ascorbic Acid (VITAMIN C) 1,000 mg tablet Take 1,000 mg by mouth once daily. - Vitamin E, dl, acetate, (VITAMIN E) 200 unit capsule Take 200 Units by mouth once daily. - biotin 5 mg tab Take 5 mg by mouth once daily. - jdgcovo-kesn-skyrs-ore g-capryl 100 mg-150 mg- 50 mg-150 mg cap Take 3,900 mg by mouth once daily. - polyethylene glycol 3350 (MIRALAX) 17 gram/dose powder Take 17 g by mouth once daily. Dissolve dose in 4 - 8 ounces of liquid and take as directed. - montelukast (SINGULAIR) 10 mg tablet Take 10 mg by mouth daily at bedtime. - mupirocin (BACTROBAN) 2 % ointment Apply 1 application to affected area twice daily as needed. - cetirizine 10 mg tablet Take 10 mg by mouth once daily. Meds Comments as of 02/02/2023: Vitamin B complex once a day, Probiotic, Chrom and magnesium (vitamin D with K in the winter) Takes a stool softener daily-generic from pharmacy-unsure of name-has been doing this for 20 years, as of 02/02/2023 Problem List As Of Date 08/21/2024 Noted Resolved ACTINIC KERATOSIS [L57.0] 05/09/2006 SEBORRHEIC KERATOSIS INFLAMED [L82.0] 05/09/2006 BENIGN DANUTA SKIN FACE NEC [D23.30] 05/09/2006 BENIGN DANUTA SKIN TRUNK [D23.5] 05/09/2006 BENIGN DANUTA SCALP/SKIN NECK [D23.4] 05/09/2006 NAIL DYSTROPHY///DISEASES OF NAIL NEC [L60.8] 05/09/2006 XEROSIS///SEBACEOUS GLAND DIS NEC [L73.8] 05/09/2006 CHR SOLAR SKIN DAMAGE NOS [L57.8] 05/09/2006 SEBORRHEIC KERATOSIS NOS [L82.1] 05/09/2006 Fx humeral neck, right, closed, initial encount*08/16/2017 Acute pain of right shoulder [M25.511] 08/16/2017 08/17/2024 Dysthymia [F34.1] 08/16/2017 Osteopenia, senile [M85.80] 08/16/2017 Celiac disease [K90.0] 08/16/2017 Urge incontinence [N39.41] 08/16/2017 Medicare annual wellness visit, subsequent [Z00*02/13/2018 Bilateral hip pain [M25.551, M25.552] 04/30/2019 Dyslipidemia [E78.5] 04/30/2019 Left shoulder pain [M25.512] 10/09/2019 Leg length discrepancy [M21.70] 09/11/2020 Corns and callosities [L84] 09/11/2020 Chronic neck pain [M54.2, G89.29] 04/08/2021 Primary osteoarthritis of both hips [M16.0] 10/09/2021 Fatigue [R53.83] 10/09/2021 Acute constipation [K59.00] 04/08/2023 08/17/2024 Hard stool [R19.5] 04/08/2023 Vitamin D deficiency [E55.9] 05/18/2023 Hyperglycemia [R73.9] 05/18/2023 Arthritis [M19.90] 03/07/2014 History of breast cancer [Z85.3] 08/17/2024 Mass of upper outer quadrant of left breast [N6*08/17/2024 Sinus bradycardia [R00.1] Encounter Status:Closed by CASSIE MERRILL on 08/21/24 [facility] CNOVon 08-17-2024 CNOV Office Visit (CEMMOB ) CORRY JEROME ([id number]) 1950 F Date Time Provider Department 08/17/24 2:00 PM RADHA CROCKETT CEMMOB During your visit today, we recorded the following information about you: Pulse Blood pressure Weight Height 90/minute 114/64 66.1 kg 1.676 m Radha Crockett, TABBY 08/19/2024 8:21 AM Signed [facility] Trevon Lord Department of Cardiovascular Medicine [facility] SECTION OF ELECTROPHYSIOLOGY OUTPATIENT VISIT DATE 08/17/2024 The patient consented to the use of ambient iovox software for draft documentation of the visit consistent with [facility]?s Notice of Privacy Practices. PRIMARY CARE PHYSICIAN: Alfredito Engel [address] [place] [address] CHIEF COMPLAINT: Referral for palpitations/Aflutter RVR on event monitor HISTORY OF PRESENT ILLNESS: Ms. 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 She was referred by her PCP with reported episodes of palpitations over a 2 week period. She described her palpitations as a fluttering. She has a family history of cardiac disease in her father with an TX at age 48 and passing away before age 55. She also has an older sister with AF managed with medication and ablation. At her acute PCP visit on 07/03/2024, she c/o palpitations and heart rates in the mid-40s for at least 10 minutes per her FitBit smart watch. She denied any dyspnea or decreased exercise tolerance. Typically her heart rates are in the 70s. A 2 week event monitor was ordered and she was referred to EP. Her EKG revealed NSR with HR 80bpm. Her 14 day Zio event monitor in early July revealed: -Min heart rate 48bpm; Max HR 156bpm; avg HR of 77bpm -predominantly underlying rhythm was SR -1 run of Supraventricular Tachycardia lasting 6 beats with a max rate of 152 bpm (avg 124 bpm). -Atrial Flutter occurred (<1% burden) with heart rates ranging from 83-156 bpm (avg of 127 bpm), the longest AF episode lasting 2 mins 45 secs with an avg rate of 128 bpm. -Atrial Flutter was detected within +/- 45 seconds of symptomatic patient reported event(s). -Isolated PACs were occasional (2.9%, 63608) and PAC couplets were rare (<1.0%, 469), and PAC triplets were rare (<1.0%, 73). -Isolated PVCs were rare (<1.0%), and no VE couplets or VE triplets were present. She presents today accompanied by her for evaluation of new onset paroxysmal atrial flutter. She reports experiencing palpitations, described as a consistent flutter lasting about 5-6 seconds, which occurred once and has not recurred. She notes that her palpitations have been pretty quiet recently, though she may have felt one yesterday or earlier today. She denies any specific triggers for these episodes, stating they seem pretty random. She denies chest pain, dyspnea, or significant fatigue. She does experience occasional lightheadedness with positional changes, but denies syncope. She reports no swelling in her feet or ankles. Today's EKG reveals NSR with a heart rate of 88 bpm. A previous TTE performed in 2021 showed normal LVEF of 67% and no significant valvular disease. She has a history of MAUREEN, diagnosed approximately 8-9 years ago, and uses a CPAP machine nightly, which has significantly improved her energy levels and reduced daytime grogginess. She denies any issues with her CPAP machine and reports no snoring or apneic episodes since starting treatment. She also has a history of asthma, which she attributes to a COVID-19 infection in 2022. She denies any significant cough or dyspnea at rest. She has a history of dyslipidemia, with a lipid panel from 05/2023 showing total cholesterol of 163 mg/dL, triglycerides of 60 mg/dL, HDL of 63 mg/dL, and LDL of 88 mg/dL. She is not currently on any lipid-lowering medications. Recent labs from 07/03/2024 showed a glucose level of 71 mg/dL, sodium of 140 mmol/L, potassium of 5.1 mmol/L, chloride of 104 mmol/L, calcium of 9.2 mg/dL, magnesium of 2.2 mg/dL, and TSH of 1.7 mIU/L. She reports a history of arthritis, with significant pain in one knee and one hip, but states that turmeric supplements have effectively managed her pain. She denies any significant bleeding issues, but notes that she can get a bloody nose if she consumes too much wheat, due to a wheat intolerance. She also reports a history of leaky gut and takes chromium picolinate for this condition. 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 [facility] CORRY JEROME ([id number]) 1950 F Date Time Provider Department 08/02/24 AL[facility]EDITO ENGEL [facility] During your visit today, we recorded the following information about you: Debbie Keating 08/02/2024 1:20 PM Signed Patient is scheduled to get her labs done on 09/10/24. She would also like to get her vitamin D drawn that day, her order for this expires on 09/04/24. Can this order be resubmitted? Please review. Debbie Keating August 02, 2024 1:20 PM Kaity Schwarz MA 08/02/2024 3:52 PM Signed See message below, pended order with future date of 09/10/24. GLORIA Fraser Alyson Taylor, APRN.CNP 08/03/2024 1:18 PM Signed Order placed. Thank you, Juanita Arce APRN.ENGINEERING LIBRARIAN Allergies As of Date: 08/02/2024 Noted Allergy Reaction AMPICILLIN 05/09/2006 4 - Hives CITRUS FRUITS 05/09/2006 5 - Intolerance DUST MITES 05/09/2006 5 - Intolerance PENICILLINS 05/09/2006 4 - Hives WHEAT BRAN 05/09/2006 5 - Intolerance Comments: congestion Date Reviewed: 07/03/2024 Reviewed by: Kenny Mcconnell LPN - Fully Assessed Reason for Visit: Orders [681] Primary Visit Diagnosis:Vitamin D deficiency [E55.9] Order(s):VITAMIN D 25 HYDROXY [SQVITD] Order #: [id number] FUTURE Prescriptions as of 08/03/2024 - venlafaxine (EFFEXOR) 50 mg tablet TAKE 2 (TWO) TABLETS BY MOUTH IN THE MORNING, AND 1 (ONE) TABLET IN THE EVENING as directed] - solifenacin (VESICARE) 5 mg tablet Take 1 tablet by mouth once daily. - PULMICORT FLEXHALER 180 mcg/actuation aepb INHALE 1 puff twice daily with good oral care - multivit-minerals/foli c acid (CENTRUM ADULT 50 PLUS ORAL) Take by mouth. - magnesium oxide 240 mg magnesium pwpk Take 163 mg by mouth once daily. - omega-3 fatty acids 1,000 mg cap Take 2 g by mouth two times a day. - B-complex with vitamin C (VITAMIN B COMPLEX-C ORAL) Take 50 mg by mouth once daily. - Chromium Picolinate 200 mcg tab Take 200 mcg by mouth once daily. - Ascorbic Acid (VITAMIN C) 1,000 mg tablet Take 1,000 mg by mouth once daily. - Vitamin E, dl, acetate, (VITAMIN E) 200 unit capsule Take 200 Units by mouth once daily. - biotin 5 mg tab Take 5 mg by mouth once daily. - zbiuhxc-ojkt-czvfs-ore g-capryl 100 mg-150 mg- 50 mg-150 mg cap Take 3,900 mg by mouth once daily. - polyethylene glycol 3350 (MIRALAX) 17 gram/dose powder Take 17 g by mouth once daily. Dissolve dose in 4 - 8 ounces of liquid and take as directed. - montelukast (SINGULAIR) 10 mg tablet Take 10 mg by mouth daily at bedtime. - mupirocin (BACTROBAN) 2 % ointment Apply 1 application to affected area twice daily as needed. - cetirizine 10 mg tablet Take 10 mg by mouth once daily. Meds Comments as of 02/02/2023: Vitamin B complex once a day, Probiotic, Chrom and magnesium (vitamin D with K in the winter) Takes a stool softener daily-generic from pharmacy-unsure of name-has been doing this for 20 years, as of 02/02/2023 Problem List As Of Date 08/02/2024 Noted Resolved ACTINIC KERATOSIS [L57.0] 05/09/2006 SEBORRHEIC KERATOSIS INFLAMED [L82.0] 05/09/2006 BENIGN DANUTA SKIN FACE NEC [D23.30] 05/09/2006 BENIGN DANUTA SKIN TRUNK [D23.5] 05/09/2006 BENIGN DANUTA SCALP/SKIN NECK [D23.4] 05/09/2006 NAIL DYSTROPHY///DISEASES OF NAIL NEC [L60.8] 05/09/2006 XEROSIS///SEBACEOUS GLAND DIS NEC [L73.8] 05/09/2006 CHR SOLAR SKIN DAMAGE NOS [L57.8] 05/09/2006 SEBORRHEIC KERATOSIS NOS [L82.1] 05/09/2006 Fx humeral neck, right, closed, initial encount*08/16/2017 Acute pain of right shoulder [M25.511] 08/16/2017 Dysthymia [F34.1] 08/16/2017 Osteopenia, senile [M85.80] 08/16/2017 Celiac disease [K90.0] 08/16/2017 Urge incontinence [N39.41] 08/16/2017 Medicare annual wellness visit, subsequent [Z00*02/13/2018 Bilateral hip pain [M25.551, M25.552] 04/30/2019 Dyslipidemia [E78.5] 04/30/2019 Left shoulder pain [M25.512] 10/09/2019 Leg length discrepancy [M21.70] 09/11/2020 Corns and callosities [L84] 09/11/2020 Chronic neck pain [M54.2, G89.29] 04/08/2021 Primary osteoarthritis of both hips [M16.0] 10/09/2021 Fatigue [R53.83] 10/09/2021 Acute constipation [K59.00] 04/08/2023 Hard stool [R19.5] 04/08/2023 Vitamin D deficiency [E55.9] 05/18/2023 Hyperglycemia [R73.9] 05/18/2023 Encounter Status:Closed by DAVID PICKETT LPN on 08/03/24 [facility] 07-13-2024 CNPN Telephone (FAMPWS) CORRY JEROME ([id number]) 1950 F Date Time Provider Department 07/13/24 [facility] During your visit today, we recorded the following information about you: Kaity Schwarz MA 07/13/2024 10:07 AM Signed Pt sent in [employer] message requesting Mammogram order to be faxed to [facility], due 08/2024. Pt does jaxson mamm L due to hx of R mastectomy, per previous order. Please view scanning to confirm, pended mamm jaxson. Once ordered fax to [facility]; [facility] at #: [phone] and notify pt. Kaity Schwarz MA Pt message: I need an order for my yearly mammogram, sent to [facility]. All the information needed should be in my records. Thank you for your assistance with this. Juantia Arce APRN.CINDY 07/13/2024 11:50 AM Signed Orders placed. Please fax. Thank you, Juanita Arce APRN.ENGINEERING LIBRARIAN Allergies As of Date: 07/13/2024 Noted Allergy Reaction AMPICILLIN 05/09/2006 4 - Hives CITRUS FRUITS 05/09/2006 5 - Intolerance DUST MITES 05/09/2006 5 - Intolerance PENICILLINS 05/09/2006 4 - Hives WHEAT BRAN 05/09/2006 5 - Intolerance Comments: congestion Date Reviewed: 07/03/2024 Reviewed by: Kenny Mcconnell LPN - Fully Assessed Reason for Visit: Orders [681] Cmt: Mammogram Primary Visit Diagnosis:Encounter for screening mammogram for malignant neoplasm of breast [Z12.31] Order(s):[facility] SCREENING W JAXSON [[id number]] Order #: [id number] FUTURE Prescriptions as of 07/13/2024 - venlafaxine (EFFEXOR) 50 mg tablet TAKE 2 (TWO) TABLETS BY MOUTH IN THE MORNING, AND 1 (ONE) TABLET IN THE EVENING as directed] - solifenacin (VESICARE) 5 mg tablet Take 1 tablet by mouth once daily. - PULMICORT FLEXHALER 180 mcg/actuation aepb INHALE 1 puff twice daily with good oral care - multivit-minerals/foli c acid (CENTRUM ADULT 50 PLUS ORAL) Take by mouth. - magnesium oxide 240 mg magnesium pwpk Take 163 mg by mouth once daily. - omega-3 fatty acids 1,000 mg cap Take 2 g by mouth two times a day. - B-complex with vitamin C (VITAMIN B COMPLEX-C ORAL) Take 50 mg by mouth once daily. - Chromium Picolinate 200 mcg tab Take 200 mcg by mouth once daily. - Ascorbic Acid (VITAMIN C) 1,000 mg tablet Take 1,000 mg by mouth once daily. - Vitamin E, dl, acetate, (VITAMIN E) 200 unit capsule Take 200 Units by mouth once daily. - biotin 5 mg tab Take 5 mg by mouth once daily. - srqexxd-qrlj-xgdbh-ore g-capryl 100 mg-150 mg- 50 mg-150 mg cap Take 3,900 mg by mouth once daily. - polyethylene glycol 3350 (MIRALAX) 17 gram/dose powder Take 17 g by mouth once daily. Dissolve dose in 4 - 8 ounces of liquid and take as directed. - montelukast (SINGULAIR) 10 mg tablet Take 10 mg by mouth daily at bedtime. - mupirocin (BACTROBAN) 2 % ointment Apply 1 application to affected area twice daily as needed. - cetirizine 10 mg tablet Take 10 mg by mouth once daily. Meds Comments as of 02/02/2023: Vitamin B complex once a day, Probiotic, Chrom and magnesium (vitamin D with K in the winter) Takes a stool softener daily-generic from pharmacy-unsure of name-has been doing this for 20 years, as of 02/02/2023 Problem List As Of Date 07/13/2024 Noted Resolved ACTINIC KERATOSIS [L57.0] 05/09/2006 SEBORRHEIC KERATOSIS INFLAMED [L82.0] 05/09/2006 BENIGN DANUTA SKIN FACE NEC [D23.30] 05/09/2006 BENIGN DANUTA SKIN TRUNK [D23.5] 05/09/2006 BENIGN DANUTA SCALP/SKIN NECK [D23.4] 05/09/2006 NAIL DYSTROPHY///DISEASES OF NAIL NEC [L60.8] 05/09/2006 XEROSIS///SEBACEOUS GLAND DIS NEC [L73.8] 05/09/2006 CHR SOLAR SKIN DAMAGE NOS [L57.8] 05/09/2006 SEBORRHEIC KERATOSIS NOS [L82.1] 05/09/2006 Fx humeral neck, right, closed, initial encount*08/16/2017 Acute pain of right shoulder [M25.511] 08/16/2017 Dysthymia [F34.1] 08/16/2017 Osteopenia, senile [M85.80] 08/16/2017 Celiac disease [K90.0] 08/16/2017 Urge incontinence [N39.41] 08/16/2017 Medicare annual wellness visit, subsequent [Z00*02/13/2018 Bilateral hip pain [M25.551, M25.552] 04/30/2019 Dyslipidemia [E78.5] 04/30/2019 Left shoulder pain [M25.512] 10/09/2019 Leg length discrepancy [M21.70] 09/11/2020 Corns and callosities [L84] 09/11/2020 Chronic neck pain [M54.2, G89.29] 04/08/2021 Primary osteoarthritis of both hips [M16.0] 10/09/2021 Fatigue [R53.83] 10/09/2021 Acute constipation [K59.00] 04/08/2023 Hard stool [R19.5] 04/08/2023 Vitamin D deficiency [E55.9] 05/18/2023 Hyperglycemia [R73.9] 05/18/2023 Encounter Status:Closed by DAVID PICKETT LPN on 07/13/24 Normal [facility] Basic metabolic 2000 panelon 07-03-2024 Anion gap [Moles/Vol] 8 mmol/L Normal 8-15 [facility] Comment on above: Order Comment: Speci men Type: BLOOD SPECIMENOrdering Facility: [facility] Address: [address] [place] [address] Performed By: #### 2 4321-2, , 3 ####[facility] LABCLIA [id number] [place] [address] [place] Calcium [Mass/Vol] 9.9 mg/dL Normal 8.5-10.2 [facility] Comment on above: Order Comment: Speci men Type: BLOOD SPECIMENOrdering Facility: [facility] Address: [address] [place] [address] Performed By: #### 2 432-2, , 3 ####[facility] LABCLIA [id number] [address] [address] [place] Chloride [Moles/Vol] 100 mmol/L Normal 98-107 [facility] Comment on above: Order Comment: Speci men Type: BLOOD SPECIMENOrdering Facility: [facility] Address: [address] [place] [address] Performed By: #### 2 4321-2, , 3 ####[facility] LABCLIA [id number] [address] [address] [place] CO2 [Moles/Vol] 32 mmol/L High 22-30 [facility] Comment on above: Order Comment: Speci men Type: BLOOD SPECIMENOrdering Facility: [facility] Address: [address] [place] [address] Performed By: #### 2 4321-2, , 3015-05 ####[facility] [id number] [address] [address] [place] Creatinine [Mass/Vol] 0.77 mg/dL Normal 0.58-0.96 [facility] Comment on above: Order Comment: Speci men Type: BLOOD SPECIMENOrdering Facility: [facility] Address: [address] [place] [address] Performed By: #### 2 4321-2, , 3015-05 ####[facility] [id number] [place] [id number] [place] Creatinine and Glomerular filtration rate.predicted panel (S/P/Bld) 81 mL/min/1.73m??? Normal >=60 [facility] Comment on above: Order Comment: Speci men Type: BLOOD SPECIMENOrdering Facility: [facility] Address: [address] [place] [address] Result Comment: Khushboo mated Glomerular Filtration Rate (eGFR) is calculated using the 2020 CKD-EPI creatinine equation. This equation utilizes serum creatinine, sex, and age as parameters. The creatinine assay has traceable calibration to isotope dilution-mass spectrometry. Refer to KDIGO guidelines for clinical interpretation. In patients with unstable renal function, e.g. those with acute kidney injury, the eGFR may not accurately reflect actual GFR. Performed By: #### 2 4321-2, , 3015-05 ####[facility] LABIA [id number] [address] [address] [place] Glucose [Mass/Vol] 71 mg/dL Low 74-99 [facility] Comment on above: Order Comment: Speci men Type: BLOOD SPECIMENOrdering Facility: [facility] Address: [address] [place] [address] Result Comment: The [place] Diabetes Association (ADA) provides guidance for cutoff values for fasting glucose and random glucose. The ADA defines fasting as no caloric intake for at least 8 hours. Fasting plasma glucose results between 100 to 125 mg/dL indicate increased risk for diabetes (prediabetes). Fasting plasma glucose results greater than or equal to 126 mg/dL meet the criteria for diagnosis of diabetes. In the absence of unequivocal hyperglycemia, results should be confirmed by repeat testing. In a patient with classic symptoms of hyperglycemia or hyperglycemic crisis, random plasma glucose results greater than or equal to 200 mg/dL meet the criteria for diagnosis of diabetes. Reference: Standards of Medical Care in Diabetes 2016, [place] [employer] Association. Diabetes Care. 2016.39(Suppl 1). Performed By: #### 2 4321-2, , 3 ####[facility] LABCLIA [id number] [place] [address] [place] Potassium [Moles/Vol] 5.1 mmol/L Normal 3.7-5.1 [facility] Comment on above: Order Comment: Maxii men Type: BLOOD SPECIMENOrdering Facility: [facility] Address: [address] [place] [address] Performed By: #### 2 4321-2, , 3 ####[facility] LABCLIA [id number] [place] [address] [place] Sodium [Moles/Vol] 140 mmol/L Normal 136-144 [facility] Comment on above: Order Comment: Speci men Type: BLOOD SPECIMENOrdering Facility: [facility] Address: [address] [place] [address] Performed By: #### 2 4321-2, , 3 ####[facility] LABCLIA [id number] [place] [id number] [place] Urea nitrogen [Mass/Vol] 15 mg/dL Normal 7-21 [facility] Comment on above: Order Comment: Speci men Type: BLOOD SPECIMENOrdering Facility: [facility] Address: [address] [place] [address] Performed By: #### 2 4321-2, 55149-0, 3016-3 ####[facility] LABCLIA [id number] [place] [address] CNOVon 07-03-2024 CNOV Office Visit (FAMWS ) CORRY JEROME ([id number]) 1950 F Date Time Provider Department 07/03/24 8:00 AM [facility] During your visit today, we recorded the following information about you: Temperature Pulse Respiration Blood pressure 97.5 degrees 83/minute 16/minute 100/62 Weight 65.3 kg Gracy Calvillo PA-C 07/03/2024 8:24 AM Signed Chief Complaint Patient presents with: Palpitations: Patient states she felt her heart flutter x 1 a couple of weeks ago HPI Corry Jerome is a 73 year old female who presents here today for Above Complaints.. Palpitations: - Reports episode of palpitations in the past two weeks, described as a flutter. - First episode occurred two days before a trip to the ; - FitBit recorded a heart rate of 44 bpm for 10 minutes on a separate time. while sitting on a bus ride. - No previous history of cardiac issues. - No associated symptoms of decreased exercise tolerance or dyspnea. - Resting heart rate typically in the low 70s; increased to 78 bpm during the trip. - Family history of cardiac disease: father had an TX at age 48 and before his 54th birthday; older sister has AFib, managed with medication and ablation. - No history of thyroid disorders; last thyroid function test in January was normal, with another test scheduled for September. Long COVID: - Diagnosed with long COVID after a previous overseas trip. - Currently using Pulmicort inhaler once daily, though prescribed BID. - Reports previous digestive upset believed to be related to COVID, now resolved. Past medical history, appointments, medications, allergies reviewed. 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 2009 bilateral COLONOSCOPY FLX DX W/COLLJ SPEC WHEN PFRMD 03/29/2013 Colonoscopy DILATION AND CURETTAGE DXAND/THER NONOBSTETRIC 03/07/2014 due to pelvic pain- as on Tamoxifen PAST SURGICAL HISTORY OF 03/07/1997 mastectomy right breast REMOVAL OF OVARY(S) Left 1984 SHX COSMETIC SURGERY Family History FAMILY HISTORY Problem Relation Age of Onset Heart Mother CHF, 86 Breast Cancer Mother 72 Heart Father CAD, [place] Cancer Father Lung 53 Diabetes Sister Lymphoma Sister b CELL Diabetes Brother other (Liver Cirhosis) Maternal Grandfather Alcoholic Stroke Paternal Grandmother Alcohol/Drug Paternal Grandfather Heart Paternal Grandfather Heart Paternal Aunt Patient Allergies ALLERGIES Allergen Reactions Ampicillin Hives Urbandale Fruits Intolerance Dust Mites Intolerance Penicillins Hives Wheat Bran Intolerance congestion Current Medications Current Outpatient Medications on File Prior to Visit Medication Sig solifenacin (VESICARE) 5 mg tablet Take 1 tablet by mouth once daily. PULMICORT FLEXHALER 180 mcg/actuation aepb INHALE 1 puff twice daily with good oral care venlafaxine (EFFEXOR) 50 mg tablet TAKE 2 (TWO) TABLETS BY MOUTH IN THE MORNING, AND 1 (ONE) TABLET IN THE EVENING as directed] multivit-minerals/foli c acid (CENTRUM ADULT 50 PLUS ORAL) Take by mouth. magnesium oxide 240 mg magnesium pwpk Take 163 mg by mouth once daily. omega-3 fatty acids 1,000 mg cap Take 2 g by mouth two times a day. B-complex with vitamin C (VITAMIN B COMPLEX-C ORAL) Take 50 mg by mouth once daily. Chromium Picolinate 200 mcg tab Take 200 mcg by mouth once daily. Ascorbic Acid (VITAMIN C) 1,000 mg tablet Take 1,000 mg by mouth once daily. Vitamin E, dl, acetate, (VITAMIN E) 200 unit capsule Take 200 Units by mouth once daily. biotin 5 mg tab Take 5 mg by mouth once daily. dnekjto-eron-jbenl-ore g-capryl 100 mg-150 mg- 50 mg-150 mg cap Take 3,900 mg by mouth once daily. Docusate Sodium 100 mg tab Take 100 mg by mouth once daily. polyethylene glycol 3350 (MIRALAX) 17 gram/dose powder Take 17 g by mouth once daily. Dissolve dose in 4 - 8 ounces of liquid and take as directed. cyclobenzaprine (FLEXERIL) 10 mg tablet Take 1 tablet by mouth three times daily as needed for muscle spasm. montelukast (SINGULAIR) 10 mg tablet Take 10 mg by mouth daily at bedtime. mupirocin (BACTROBAN) 2 % ointment Apply 1 application to affected area twice daily as needed. cetirizine 10 mg tablet Take 10 mg by mouth once daily. No current facility-administered medications on file prior to visit. (more content not included)... Normal [facility] [id number] 07-03-2024 ECG01 Ventricular Rate : 8 0 BPM Atrial Rate : 80 BPM P-R Interval : 144 ms QRS Duration : 82 ms Q-T Interval : 372 ms QTC Calculation(Bazett) : 429 ms Calculated P Ronceverte : 67 degrees Calculated R Ronceverte : 50 degrees Calculated T Ronceverte : 56 degrees NORMAL SINUS RHYTHM NORMAL ECG Confirmed by CHEN GALAN MD ([id number]) on 07/06/2024 6:05:04 PM NAME : CORRY JEROME PID : [id number] : 1950 Gender : Female Race : ORD : Procedure Date : Jul 03 2024 08:14:25 Edit Date : Jul 06 2024 18:05:09 Diagnosis: NORMAL SINUS RHYTHM NORMAL ECG Confirmed by CHEN GALAN MD ([id number]) on 07/06/2024 6:05:04 PM Test Reason : [facility] : [facility] By : CHEN GALAN MD Edited By : CHEN GALAN MD Referred By : Gracy Calvillo Acquired by : bryce mcconnell, Normal [facility] Magnesium SerPl-mCncon 07-03 Magnesium [Mass/Vol] 2.2 mg/dL Normal 1.7-2.3 [facility] Comment on above: Order Comment: Speci men Type: BLOOD SPECIMENOrdering Facility: [facility] Address: [address] [place] [address] Performed By: #### 2 4321-2, 42197-6, 3016-3 ####[facility] LABIA [id number] [place] [id number] [place] TSH SerPl-aCncon 07-03-2024 TSH Qn 1.700 m[IU]/L Normal 0.270-4.200 [facility] Comment on above: Order Comment: Speci men Type: BLOOD SPECIMENOrdering Facility: [facility] Address: [address] [place] [address] Performed By: #### 2 4321-2, 96660-0, 3016-3 ####[facility] LABIA [id number] [address] [place] Ginny [facility] CORRY JEROME ([id number]) 1950 F Date Time Provider Department 02/06/24 [facility] During your visit today, we recorded the following information about you: My Martinez PA-C 02/06/2024 7:13 AM Signed Please let patient know that all of her blood work came back normal. If symptoms are persisting, worsening, or developing new symptoms to follow up. I would consider a consult with SHIP DESIGN TEACHER if she would like to follow up further. My Maritnez PA-C 02/06/2024 Karla Westbrook LPN 02/07/2024 12:48 PM Signed Left message for patient to call office back and speak with triage nurse. STEF Moreno Kathryn, MA 02/27/2024 11:50 AM Signed Message left for pt to call back for results. Nicolasa Cannon MA, RN 02/27/2024 11:59 AM Signed Pt returned call and given provider's message below with verbalized understanding. Allergies As of Date: 02/06/2024 Noted Allergy Reaction AMPICILLIN 05/09/2006 4 - Hives CITRUS FRUITS 05/09/2006 5 - Intolerance DUST MITES 05/09/2006 5 - Intolerance PENICILLINS 05/09/2006 4 - Hives WHEAT BRAN 05/09/2006 5 - Intolerance Comments: congestion Date Reviewed: 01/24/2024 Reviewed by: Karla Westbrook LPN - Fully Assessed Reason for Visit: Results [95] Prescriptions as of 02/27/2024 - PULMICORT FLEXHALER 180 mcg/actuation aepb INHALE 1 puff twice daily with good oral care - venlafaxine (EFFEXOR) 50 mg tablet TAKE 2 (TWO) TABLETS BY MOUTH IN THE MORNING, AND 1 (ONE) TABLET IN THE EVENING as directed] - solifenacin (VESICARE) 5 mg tablet Take 1 tablet by mouth once daily. - multivit-minerals/foli c acid (CENTRUM ADULT 50 PLUS ORAL) Take by mouth. - magnesium oxide 240 mg magnesium pwpk Take 163 mg by mouth once daily. - omega-3 fatty acids 1,000 mg cap Take 2 g by mouth two times a day. - B-complex with vitamin C (VITAMIN B COMPLEX-C ORAL) Take 50 mg by mouth once daily. - Chromium Picolinate 200 mcg tab Take 200 mcg by mouth once daily. - Ascorbic Acid (VITAMIN C) 1,000 mg tablet Take 1,000 mg by mouth once daily. - Vitamin E, dl, acetate, (VITAMIN E) 200 unit capsule Take 200 Units by mouth once daily. - biotin 5 mg tab Take 5 mg by mouth once daily. - bxsamql-hbbg-vsbev-ore g-capryl 100 mg-150 mg- 50 mg-150 mg cap Take 3,900 mg by mouth once daily. - Docusate Sodium 100 mg tab Take 100 mg by mouth once daily. - polyethylene glycol 3350 (MIRALAX) 17 gram/dose powder Take 17 g by mouth once daily. Dissolve dose in 4 - 8 ounces of liquid and take as directed. - cyclobenzaprine (FLEXERIL) 10 mg tablet Take 1 tablet by mouth three times daily as needed for muscle spasm. - montelukast (SINGULAIR) 10 mg tablet Take 10 mg by mouth daily at bedtime. - mupirocin (BACTROBAN) 2 % ointment Apply 1 application to affected area twice daily as needed. - cetirizine 10 mg tablet Take 10 mg by mouth once daily. Meds Comments as of 02/02/2023: Vitamin B complex once a day, Probiotic, Chrom and magnesium (vitamin D with K in the winter) Takes a stool softener daily-generic from pharmacy-unsure of name-has been doing this for 20 years, as of 02/02/2023 Problem List As Of Date 02/06/2024 Noted Resolved ACTINIC KERATOSIS [L57.0] 05/09/2006 SEBORRHEIC KERATOSIS INFLAMED [L82.0] 05/09/2006 BENIGN DANUTA SKIN FACE NEC [D23.30] 05/09/2006 BENIGN DANUTA SKIN TRUNK [D23.5] 05/09/2006 BENIGN DANUTA SCALP/SKIN NECK [D23.4] 05/09/2006 NAIL DYSTROPHY///DISEASES OF NAIL NEC [L60.8] 05/09/2006 XEROSIS///SEBACEOUS GLAND DIS NEC [L73.8] 05/09/2006 CHR SOLAR SKIN DAMAGE NOS [L57.8] 05/09/2006 SEBORRHEIC KERATOSIS NOS [L82.1] 05/09/2006 Fx humeral neck, right, closed, initial encount*08/16/2017 Acute pain of right shoulder [M25.511] 08/16/2017 Dysthymia [F34.1] 08/16/2017 Osteopenia, senile [M85.80] 08/16/2017 Celiac disease [K90.0] 08/16/2017 Urge incontinence [N39.41] 08/16/2017 Medicare annual wellness visit, subsequent [Z00*02/13/2018 Bilateral hip pain [M25.551, M25.552] 04/30/2019 Dyslipidemia [E78.5] 04/30/2019 Left shoulder pain [M25.512] 10/09/2019 Leg length discrepancy [M21.70] 09/11/2020 Corns and callosities [L84] 09/11/2020 Chronic neck pain [M54.2, G89.29] 04/08/2021 Primary osteoarthritis of both hips [M16.0] 10/09/2021 Fatigue [R53.83] 10/09/2021 Acute constipation [K59.00] 04/08/2023 Hard stool [R19.5] 04/08/2023 Vitamin D deficiency [E55.9] 05/18/2023 Hyperglycemia [R73.9] 05/18/2023 Encounter Status:Closed by Nicolasa SUTTON on 02/27/24 [facility] CNOVon 01-24-2024 CNOV Office Visit (FAMLarsWS ) CORRY JEROME ([id number]) 1950 F Date Time Provider Department 01/24/24 9:20 AM MY MARTINEZ During your visit today, we recorded the following information about you: Pulse Respiration Blood pressure Weight 98/minute 12/minute 108/60 65.8 kg Height 1.676 m My Martinez PA-C 01/24/2024 5:44 PM Signed 01/24/2024 Patient presents with: Same Day Appointment: hormonal issues SUBJECTIVE: This is a 73 year old that is here today for Complaint(s) of increased libido the last 2 weeks. Patient states that she all of a sudden started noticing a heightened libido. No new supplements, life events, relationships, medications. Denies abdominal pain, other changes in skin/hair/nails, vaginal discharge. Patient with uterus and right ovary. Left ovary removed. PMH breast CA was on tamoxifen. Monogamous with . 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 multivit-minerals/foli c acid (CENTRUM ADULT 50 PLUS ORAL) Take by mouth. magnesium oxide 240 mg magnesium pwpk Take 163 mg by mouth once daily. omega-3 fatty acids 1,000 mg cap Take 2 g by mouth two times a day. B-complex with vitamin C (VITAMIN B COMPLEX-C ORAL) Take 50 mg by mouth once daily. Chromium Picolinate 200 mcg tab Take 200 mcg by mouth once daily. Ascorbic Acid (VITAMIN C) 1,000 mg tablet Take 1,000 mg by mouth once daily. Vitamin E, dl, acetate, (VITAMIN E) 200 unit capsule Take 200 Units by mouth once daily. biotin 5 mg tab Take 5 mg by mouth once daily. vutzwxp-aotv-aafpq-ore g-capryl 100 mg-150 mg- 50 mg-150 mg cap Take 3,900 mg by mouth once daily. Docusate Sodium 100 mg tab Take 100 mg by mouth once daily. polyethylene glycol 3350 (MIRALAX) 17 gram/dose powder Take 17 g by mouth once daily. Dissolve dose in 4 - 8 ounces of liquid and take as directed. cyclobenzaprine (FLEXERIL) 10 mg tablet Take 1 tablet by mouth three times daily as needed for muscle spasm. montelukast (SINGULAIR) 10 mg tablet Take 10 mg by mouth daily at bedtime. mupirocin (BACTROBAN) 2 % ointment Apply 1 application to affected area twice daily as needed. cetirizine 10 mg tablet Take 10 mg by mouth once daily. No current facility-administered medications for this visit. SOCIAL HISTORY Social History Tobacco Use Smoking status: Never Smokeless tobacco: Never Vaping Use Vaping status: Never Used Substance Use Topics Alcohol use: No Drug use: Never REVIEW OF SYSTEMS See HPI OBJECTIVE: BP 108/60 (BP Site: Left Arm, BP Position: Sitting, BP Cuff Size: Large Adult) Pulse 98 Resp 12 Ht 167.6 cm (5' 6) Wt 65.8 kg (145 lb) SpO2 99% BMI 23.40 kg/m? APPEARANCE Well appearing, alert, in no acute distress, well-hydrated, well nourished. NECK Supple, no adenopathy; thyroid symmetric, normal size, no bruits HEART RRR with normal S1 and S2, no murmurs, no gallops, no JVD appreciated LUNG clear to auscultation ABDOMEN bowel sounds normoactive, no bruits, soft, non-tender, non-distended, without organomegaly or palpable masses, no tenderness to palpation ASSESSMENT/PLAN: 1. Increased libido - ICD9: 780.99, ICD10: R68.89 Check labs Monitor symptoms Consider consult to SHIP DESIGN TEACHER - ESTROGEN FRACTION BL - TESTOSTERONE, FREE AND TOTAL, BY EQUILIBRIUM ULTRAFILTRATION MASS SPECTROMETRY - THYROID STIMULATING HORMONE The patient indicates understanding of these issues and agrees with the plan. Reviewed red flags and when to seek care sooner. My Martinez PA-C Allergies As of Date: 01/24/2024 Noted Allergy Reaction AMPICILLIN 05/09/2006 4 - Hives CITRUS FRUITS 05/09/2006 5 - Intolerance DUST MITES 05/09/2006 5 - Intolerance PENICILLINS 05/09/2006 4 - Hives WHEAT BRAN 05/09/2006 5 - Intolerance Comments: congestion Date Reviewed: 01/24/2024 Reviewed by: Karla Westbrook LPN - Fully Assessed Reason for Visit: Same Day Appointment [255] Cmt: hormonal issues Primary Visit Diagnosis:Increased libido [R68.89] Order(s):ESTROGEN FRACTION BL [SQESTGEN] Order #: [id number] FUTURE TESTOSTERONE, FREE AND TOTAL, BY EQUILIBRIUM ULTRAFILTRATION MASS SPECTROME (more content not included)... Normal [facility] Ginny 01-24-2024 [facility] Telephone ([facility]) CORRY JEROME ([id number]) 1950 F Date Time Provider Department 01/24/24 MY MARTINEZ During your visit today, we recorded the following information about you: My Martinez PA-C 01/24/2024 5:45 PM Signed Please let patient know that I have ordered labs- please have drawn before 10 am at her convenience. My Martinez PA-C 01/24/2024 Karla Westbrook LPN 01/25/2024 2:23 PM Signed left message for patient to call back and speak with triage nurse. STEF Moreno Krystle, RN 01/25/2024 3:51 PM Signed Patient returns call and message reviewed. Patient already had labs completed yesterday. Ysabel Singh RN Allergies As of Date: 01/24/2024 Noted Allergy Reaction AMPICILLIN 05/09/2006 4 - Hives CITRUS FRUITS 05/09/2006 5 - Intolerance DUST MITES 05/09/2006 5 - Intolerance PENICILLINS 05/09/2006 4 - Hives WHEAT BRAN 05/09/2006 5 - Intolerance Comments: congestion Date Reviewed: 01/24/2024 Reviewed by: Karla Westbrook LPN - Fully Assessed Prescriptions as of 01/25/2024 - PULMICORT FLEXHALER 180 mcg/actuation aepb INHALE 1 puff twice daily with good oral care - venlafaxine (EFFEXOR) 50 mg tablet TAKE 2 (TWO) TABLETS BY MOUTH IN THE MORNING, AND 1 (ONE) TABLET IN THE EVENING as directed] - solifenacin (VESICARE) 5 mg tablet Take 1 tablet by mouth once daily. - multivit-minerals/foli c acid (CENTRUM ADULT 50 PLUS ORAL) Take by mouth. - magnesium oxide 240 mg magnesium pwpk Take 163 mg by mouth once daily. - omega-3 fatty acids 1,000 mg cap Take 2 g by mouth two times a day. - B-complex with vitamin C (VITAMIN B COMPLEX-C ORAL) Take 50 mg by mouth once daily. - Chromium Picolinate 200 mcg tab Take 200 mcg by mouth once daily. - Ascorbic Acid (VITAMIN C) 1,000 mg tablet Take 1,000 mg by mouth once daily. - Vitamin E, dl, acetate, (VITAMIN E) 200 unit capsule Take 200 Units by mouth once daily. - biotin 5 mg tab Take 5 mg by mouth once daily. - ejvlgfj-lygl-opvfc-ore g-capryl 100 mg-150 mg- 50 mg-150 mg cap Take 3,900 mg by mouth once daily. - Docusate Sodium 100 mg tab Take 100 mg by mouth once daily. - polyethylene glycol 3350 (MIRALAX) 17 gram/dose powder Take 17 g by mouth once daily. Dissolve dose in 4 - 8 ounces of liquid and take as directed. - cyclobenzaprine (FLEXERIL) 10 mg tablet Take 1 tablet by mouth three times daily as needed for muscle spasm. - montelukast (SINGULAIR) 10 mg tablet Take 10 mg by mouth daily at bedtime. - mupirocin (BACTROBAN) 2 % ointment Apply 1 application to affected area twice daily as needed. - cetirizine 10 mg tablet Take 10 mg by mouth once daily. Meds Comments as of 02/02/2023: Vitamin B complex once a day, Probiotic, Chrom and magnesium (vitamin D with K in the winter) Takes a stool softener daily-generic from pharmacy-unsure of name-has been doing this for 20 years, as of 02/02/2023 Problem List As Of Date 01/24/2024 Noted Resolved ACTINIC KERATOSIS [L57.0] 05/09/2006 SEBORRHEIC KERATOSIS INFLAMED [L82.0] 05/09/2006 BENIGN DANUTA SKIN FACE NEC [D23.30] 05/09/2006 BENIGN DANUTA SKIN TRUNK [D23.5] 05/09/2006 BENIGN DANUTA SCALP/SKIN NECK [D23.4] 05/09/2006 NAIL DYSTROPHY///DISEASES OF NAIL NEC [L60.8] 05/09/2006 XEROSIS///SEBACEOUS GLAND DIS NEC [L73.8] 05/09/2006 CHR SOLAR SKIN DAMAGE NOS [L57.8] 05/09/2006 SEBORRHEIC KERATOSIS NOS [L82.1] 05/09/2006 Fx humeral neck, right, closed, initial encount*08/16/2017 Acute pain of right shoulder [M25.511] 08/16/2017 Dysthymia [F34.1] 08/16/2017 Osteopenia, senile [M85.80] 08/16/2017 Celiac disease [K90.0] 08/16/2017 Urge incontinence [N39.41] 08/16/2017 Medicare annual wellness visit, subsequent [Z00*02/13/2018 Bilateral hip pain [M25.551, M25.552] 04/30/2019 Dyslipidemia [E78.5] 04/30/2019 Left shoulder pain [M25.512] 10/09/2019 Leg length discrepancy [M21.70] 09/11/2020 Corns and callosities [L84] 09/11/2020 Chronic neck pain [M54.2, G89.29] 04/08/2021 Primary osteoarthritis of both hips [M16.0] 10/09/2021 Fatigue [R53.83] 10/09/2021 Acute constipation [K59.00] 04/08/2023 Hard stool [R19.5] 04/08/2023 Vitamin D deficiency [E55.9] 05/18/2023 Hyperglycemia [R73.9] 05/18/2023 Encounter Status:Closed by YSABEL SINGH on 01/25/24 Normal [facility] ESTROGEN FRACTION BLon 01-23 ESTRADIOL 3.0 pg/mL Normal [facility] Comment on above: Order Comment: Speci men Type: BLOOD SPECIMENOrdering Facility: [facility] Address: [address] [place] [address] Result Comment: REFE RENCE INTERVAL: Estradiol by Contract Paralegal For a complete set of all established reference intervals, refer to ltd.Kite.ly/Tests/Pub/[id number]. This test was developed and its performance characteristics determined by [employer]. It has not been cleared or approved by the [place] Food and Drug Administration. This test was performed in a CLIA certified laboratory and is intended for clinical purposes. Performed By: #### E BENJAMÍN ####[facility] LABORATORIESCLIA [id number] [place] [address] ESTROGENS TOTAL 12.8 pg/mL Normal [facility] Comment on above: Order Comment: Speci men Type: BLOOD SPECIMENOrdering Facility: [facility] Address: [address] [place] [address] Result Comment: Refe rence interval of estrogens (pg/mL) Estrone Estradiol Total Estrogens Early follicular <150.0 30.0-100.0 30.0-250.0 Late follicular 100.0-250.0 100.0-400.0 200.0-650.0 Luteal <200.0 50.0-150.0 50.0-350.0 Post-menopausal 3.0-32.0 2.0-21.0 5.0-52.0 REFERENCE INTERVAL: Estrogens Total Calculation For a complete set of all established reference intervals, refer to Fourteen IP/Tests/Pub/[id number]. Performed By: [facility] [address] [place] [address] Hot Plate Press Operator: Kevyn Angel MD, PhD CLIA Number: [id number] Performed By: #### E STGEN ####[employer] NetworksIA [id number] [place] [address] ESTRONE 9.8 pg/mL Normal [facility] Comment on above: Order Comment: Speci men Type: BLOOD SPECIMENOrdering Facility: [facility] Address: [address] [place] [address] Result Comment: INTERPRETIVE INFORMATION: Estrone by Contract Paralegal For a complete set of all established reference intervals, refer to Fourteen IP/Tests/Pub/[id number]. This test was developed and its performance characteristics determined by [employer]. It has not been cleared or approved by the US Food and Drug Administration. This test was performed in a CLIA certified laboratory and is intended for clinical purposes. Performed By: #### E STGEN ####[employer] NetworksIA [id number] [place] [address] TESTOSTERONE, FREE AND TOTAL , BY EQUILIBRIUM ULTRAFILTRATION MASS SPECTROMETRYon 01-24-2024 Testosterone [Mass/Vol] 16.4 ng/dL Normal 7.0-40.0 [facility] Comment on above: Order Comment: Speci men Type: BLOOD SPECIMEN [facility] Address: [address] [place] [address] Performed By: #### T FTEST #### [facility] CLIA [id number] [address] [place] [address] Testosterone Free [Mass/Vol] 0.36 ng/dL Normal 0.10-0.85 [facility] Comment on above: Order Comment: Speci men Type: BLOOD SPECIMEN [facility] Address: [address] [place] [address] Performed By: #### T FTEST #### [facility] CLIA [id number] [address] [place] [address] Testosterone Free/Testosterone.to nguyen [Mass fraction] 2.19 % Normal 0.50-2.80 [facility] Comment on above: Order Comment: Speci men Type: BLOOD SPECIMEN [facility] Address: [address] [place] [address] Performed By: #### T FTEST #### [facility] CLIA [id number] [address] [place] [address] TSH SerPl-aCncon 01-24-2024 TSH Qn 2.640 m[IU]/L Normal 0.270-4.200 [facility] Comment on above: Order Comment: Speci men Type: BLOOD SPECIMENOrdering Facility: [facility] Address: [address] [place] [address] Performed By: #### 3 016-3 ####[facility] LABCLIA [id number] [place] [id number] [place] XR Chest PA and Lateralon IMPRESSION: No persistent or developing acute process Curbing Stonecutter: CARLOS Transcribe Date/Time: Jun 13 2023 4:55P Dictated by : SHIRLEY KHALIL MD This examination was interpreted and the report reviewed and electronically signed by: SHIRLEY KHALIL MD on Jun 13 2023 4:58PM [facility] DIVISION OF RADIOLOGY * * *Final Report* * * DATE OF EXAM: Jun 13 2023 1:14PM WOX [id number] - XR CHEST 2V FRONTAL/LAT / PROCEDURE REASON: Chronic cough * * * * Physician Interpretation * * * * EXAMINATION: CHEST RADIOGRAPH (2 VIEW FRONTAL & LATERAL) CLINICAL HISTORY: Chronic cough MQ: XC2_6 EXAM DATE/TIME: 06/13/2023 1:14 PM COMPARISON: 07/08/2022 RESULT: Lines, tubes, and devices: None. Lungs and pleura: No consolidation. No lung mass. No pleural effusion. No pneumothorax. No persistent or developing infiltrate Cardiomediastinal silhouette: Normal cardiomediastinal silhouette. Bones and soft tissues: Unremarkable. DIVISION OF RADIOLOGY Provider, [facility] - 06/13/2023 * * *Final Report* * * DATE OF EXAM: Jun 13 2023 1:14PM WOX 5291 - XR CHEST 2V FRONTAL/LAT / PROCEDURE REASON: Chronic cough * * * * Physician Interpretation * * * * EXAMINATION: CHEST RADIOGRAPH (2 VIEW FRONTAL & LATERAL) CLINICAL HISTORY: Chronic cough MQ: XC2_6 EXAM DATE/TIME: 06/13/2023 1:14 PM COMPARISON: 07/08/2022 RESULT: Lines, tubes, and devices: None. Lungs and pleura: No consolidation. No lung mass. No pleural effusion. No pneumothorax. No persistent or developing infiltrate Cardiomediastinal silhouette: Normal cardiomediastinal silhouette. Bones and soft tissues: Unremarkable. IMPRESSION IMPRESSION: No persistent or developing acute process Curbing Stonecutter: PSCB Transcribe Date/Time: Jun 13 2023 4:55P Dictated by : SHIRLEY KHALIL MD This examination was interpreted and the report reviewed and electronically signed by: SHIRLEY KHALIL MD on Jun 13 2023 4:58PM EST [facility] Radiology Study observation (narrative) [facility] XR Chest PA and LateralOrder ed By: [facility]cf Provider on 06-13-2023 [facility] CBC W Auto Differential pane l (Bld)on 05-09-2023 Basophils (Bld) [#/Vol] 0.05 10*3/uL <0.11 k/uL [facility] Basophils/100 WBC (Bld) 1.1 % [facility] Differential cell count method Nom (Bld) Auto [facility] Eosinophils (Bld) [#/Vol] 0.19 10*3/uL <0.46 k/uL [facility] Eosinophils/100 WBC (Bld) 4.4 % [facility] Erythrocyte distribution width (RBC) [Ratio] 13.1 % 11.5 - 15.0 % [facility] Hematocrit (Bld) [Volume fraction] 41.7 % 36.0 - 46.0 % [facility] Hemoglobin (Bld) [Mass/Vol] 14.2 g/dL 11.5 - 15.5 g/dL [facility] Immature granulocytes (Bld) [#/Vol] <0.10 k/uL [facility] Immature granulocytes/100 WBC (Bld) 0.2 % [facility] Lymphocytes (Bld) [#/Vol] 1.36 10*3/uL 1.00 - 4.00 k/uL [facility] Lymphocytes/100 WBC (Bld) 31.2 % [facility] MCH (RBC) [Entitic mass] 31.3 pg 26.0 - 34.0 pg [facility] MCHC (RBC) [Mass/Vol] 34.1 g/dL 30.5 - 36.0 g/dL [facility] MCV (RBC) [Entitic vol] 92.1 fL 80.0 - 100.0 fL [facility] Monocytes (Bld) [#/Vol] 0.51 10*3/uL <0.87 k/uL [facility] Monocytes/100 WBC (Bld) 11.7 % [facility] Neutrophils (Bld) [#/Vol] 2.24 10*3/uL 1.45 - 7.50 k/uL [facility] Neutrophils/100 WBC (Bld) 51.4 % [facility] Nucleated RBC (Bld) [#/Vol] <0.01 k/uL [facility] Nucleated RBC/100 WBC (Bld) [Ratio] 0.0 /100 WBC [facility] Platelet mean volume (Bld) [Entitic vol] 10.7 fL 9.0 - 12.7 fL [facility] Platelets (Bld) [#/Vol] 286 10*3/uL 150 - 400 k/uL [facility] RBC (Bld) [#/Vol] 4.53 10*6/uL 3.90 - 5.2 0 m/uL [facility] WBC (Bld) [#/Vol] 4.36 10*3/uL 3.70 - 11. 00 k/uL [facility] Comprehensive metabolic 2000 panelon 05-09-2023 Albumin [Mass/Vol] 4.2 g/dL 3.9 - 4.9 g/dL [facility] ALP [Catalytic activity/Vol] 64 U/L 34 - 123 U/L [facility] ALT [Catalytic activity/Vol] 19 U/L 7 - 38 U/L [facility] Anion gap [Moles/Vol] 11 mmol/L 9 - 18 mmol/L [facility] AST [Catalytic activity/Vol] 32 U/L 13 - 35 U/L [facility] Bilirubin [Mass/Vol] 0.4 mg/dL 0.2 - 1 .3 mg/dL [facility] Calcium [Mass/Vol] 9.5 mg/dL 8.5 - 10. 2 mg/dL [facility] Chloride [Moles/Vol] 103 mmol/L 97 - 10 5 mmol/L [facility] CO2 [Moles/Vol] 29 mmol/L 22 - 30 mmol/L [facility] Creatinine [Mass/Vol] 0.83 mg/dL 0.58 - 0.96 mg/dL [facility] Estimated Glomerular Filtration Rate 74 mL/min/1.73m >=60 mL/min/1.73m [facility] Glucose [Mass/Vol] 82 mg/dL 74 - 99 mg/dL [facility] Potassium [Moles/Vol] 4.8 mmol/L 3.7 - 5.1 mmol/L [facility] Protein [Mass/Vol] 7.0 g/dL 6.3 - 8.0 g/dL [facility] Sodium [Moles/Vol] 143 mmol/L 136 - 144 mmol/L [facility] Urea nitrogen [Mass/Vol] 13 mg/dL 7 - 21 mg/dL [facility] HbA1c (Bld)on 05-09-2023 Average glucose Estimated from glycated hemoglobin (Bld) [Mass/Vol] 117 mg/dL [facility] HbA1c (Bld) [Mass fraction] 5.7 % High 4.3 - 5.6 % [facility] Lipid 1996 panelon Cholesterol [Mass/Vol] 163 mg/dL <200 mg/dL [facility] Cholesterol in HDL [Mass/Vol] 63 mg/dL >39 mg/dL [facility] Cholesterol in LDL [Mass/Vol] 88 mg/dL <100 mg/dL [facility] Cholesterol in LDL/Cholesterol in HDL [Mass ratio] 1.40 {ratio} <2.54 [facility] Cholesterol in VLDL [Mass/Vol] 12 mg/dL <30 mg/dL [facility] Cholesterol non HDL [Mass/Vol] 100 mg/dL <130 mg/dL [facility] Cholesterol.total/Ch olesterol in HDL [Mass ratio] 2.59 {ratio} <5.10 [facility] Fasting Time 13 hrs [facility] Triglyceride [Mass/Vol] 60 mg/dL <150 mg/dL [facility] TSH BLDon 05-09-2023 TSH Qn 2.390 m[IU]/L 0.270 - 4.200 mIU/L [facility] VITAMIN D 25 HYDROXYon 05-08 25-hydroxyvitamin D3 [Mass/Vol] 73.1 ng/mL 31.0 - 80.0 ng/mL [facility] COLONOSCOPY DIAGNOSTICon [facility] XR Abdomen Supine and Uprigh ton 02-11-2023 IMPRESSION: NO ACUTE ABDOMINAL PATHOLOGY VISUALIZED Curbing Stonecutter: PSCB Transcribe Date/Time: Feb 11 2023 4:44P Dictated by : RADHA BARKLEY MD This examination was interpreted and the report reviewed and electronically signed by: RADHA BARKLEY MD on Feb 11 2023 4:44PM [facility] DIVISION OF RADIOLOGY * * *Final Report* * * DATE OF EXAM: Feb 10 2023 11:57AM WOX 5289 - XR ABDOMEN 1V SUPINE / PROCEDURE REASON: multiple diagnoses * * * * Physician Interpretation * * * * Indication: Constipation Comparison: None 2 x-rays of the abdomen are obtained. There is a non-obstructed bowel gas pattern. Large amount fecal material in the colon. There is no hepatomegaly or splenomegaly. No abnormal calcifications are visualized. There are no acute osseous abnormalities. DIVISION OF RADIOLOGY Provider, Wander Yates [facility] - 02/11/2023 * * *Final Report* * * DATE OF EXAM: Feb 10 2023 11:57AM WOX 5289 - XR ABDOMEN 1V SUPINE / PROCEDURE REASON: multiple diagnoses * * * * Physician Interpretation * * * * Indication: Constipation Comparison: None 2 x-rays of the abdomen are obtained. There is a non-obstructed bowel gas pattern. Large amount fecal material in the colon. There is no hepatomegaly or splenomegaly. No abnormal calcifications are visualized. There are no acute osseous abnormalities. IMPRESSION IMPRESSION: NO ACUTE ABDOMINAL PATHOLOGY VISUALIZED Curbing Stonecutter: [facility] Transcribe Date/Time: Feb 11 2023 4:44P Dictated by : RADHA BARKLEY MD This examination was interpreted and the report reviewed and electronically signed by: RADHA BARKLEY MD on Feb 11 2023 4:44PM EST [facility] XR Abdomen Supine and Uprigh tOrdered By: Ccf Provider on 02-11-2023 [facility] XR Abdomen Supine and Uprigh ton 02-10-2023 Radiology Study observation (narrative) [facility] XR CHEST 2V FRONTAL/LATon [facility] XR Chest PA and Lateralon IMPRESSION: There is some subsegmental atelectasis in the right lower lung. Curbing Stonecutter: [facility] Transcribe Date/Time: Jul 08 2022 4:08P Dictated by : TAYLOR FOSTER MD This examination was interpreted and the report reviewed and electronically signed by: TAYLOR FOSTER MD on Jul 08 2022 4:10PM [facility] DIVISION OF RADIOLOGY * * *Final Report* * * DATE OF EXAM: Jul 08 2022 3:59PM WOX 5291 - XR CHEST 2V FRONTAL/LAT / PROCEDURE REASON: Acute cough * * * * Physician Interpretation * * * * EXAMINATION: CHEST RADIOGRAPH (2 VIEW FRONTAL & LATERAL) CLINICAL HISTORY: Acute cough MQ: XC2_6 EXAM DATE/TIME: 07/08/2022 3:59 PM COMPARISON: No relevant prior studies available. RESULT: Lines, tubes, and devices: None. Lungs and pleura: No consolidation. No lung mass. No pleural effusion. No pneumothorax. Subsegmental atelectasis in the right lower lung. Cardiomediastinal silhouette: Normal cardiomediastinal silhouette. Bones and soft tissues: Degenerative changes are present within the thoracic spine. DIVISION OF RADIOLOGY [facility] * * *Final Report* * * DATE OF EXAM: Jul 08 2022 3:59PM WOX 5291 - XR CHEST 2V FRONTAL/LAT / PROCEDURE REASON: Acute cough * * * * Physician Interpretation * * * * EXAMINATION: CHEST RADIOGRAPH (2 VIEW FRONTAL & LATERAL) CLINICAL HISTORY: Acute cough MQ: XC2_6 EXAM DATE/TIME: 07/08/2022 3:59 PM COMPARISON: No relevant prior studies available. RESULT: Lines, tubes, and devices: None. Lungs and pleura: No consolidation. No lung mass. No pleural effusion. No pneumothorax. Subsegmental atelectasis in the right lower lung. Cardiomediastinal silhouette: Normal cardiomediastinal silhouette. Bones and soft tissues: Degenerative changes are present within the thoracic spine. IMPRESSION IMPRESSION: There is some subsegmental atelectasis in the right lower lung. Curbing Stonecutter: [facility] Transcribe Date/Time: Jul 08 2022 4:08P Dictated by : TAYLOR FOSTER MD This examination was interpreted and the report reviewed and electronically signed by: TAYLOR FOSTER MD on Jul 08 2022 4:10PM EST [facility] Radiology Study observation (narrative) [facility] XR Chest PA and LateralOrder ed By: Ccf Provider on 07-08-2022 [facility] DXA-AXIAL SKELETONon 023 [facility] UA DIP, URINE (POC)on 2022 BILIRUBIN UA (POCT) Negative Negative [facility] CLARITY UA (POCT) Clear [facility] COLOR UA (POCT) Yellow [facility] GLUCOSE UA (POCT) Negative Negative mg/dL [facility] HEMOGLOBIN/BLOOD UA (POCT) Negative Negative [facility] KETONE UA (POCT) Negative Negative mg/dL [facility] LEUKOCYTES UA (POCT) Negative Negative [facility] NITRITE UA (POCT) Negative Negative [facility] PH UA (POCT) 6.0 4.5 - 8.0 [facility] Protein Ql (U) Negative Negative mg/dL [facility] SPECIFIC GRAVITY UA (POCT) 1.015 1.005 - 1.030 [facility] UROBILINOGEN UA (POCT) 0.2 E.U./dL Normal E.U./dL [facility] XR Lumbar spine 3 Viewson IMPRESSION: DEGENERATIVE CHANGE AND ALIGNMENT ABNORMALITIES DESCRIBED Curbing Stonecutter: CARLOS Transcribe Date/Time: Jan 06 2022 2:07P Dictated by : SHIRLEY KHALIL MD This examination was interpreted and the report reviewed and electronically signed by: SHIRLEY KHALIL MD on Jan 06 2022 2:09PM [facility] DIVISION OF RADIOLOGY * * *Final Report* * * DATE OF EXAM: Jan 06 2022 8:04AM WOX 5228 - XR LUMBAR 3V AP/LAT/L5-S1 / PROCEDURE REASON: Acute midline low back pain with right-sided sciatica * * * * Physician Interpretation * * * * Examination: XR LUMBAR 3V AP/LAT/L5-S1 History: Acute midline low back pain with right-sided sciatica Technique: XR LUMBAR 3V AP/LAT/L5-S1 Comparison: None RESULT: 5 nonrib-bearing lumbar type vertebrae. For numbering purposes, L4-5 is at the level of the iliac crest. Mild grade 1 spondylolisthesis of L4 on L5. Mild degenerative change throughout. Degenerative change involving the posterior elements from L3 through S1. No fracture or focal bony abnormality DIVISION OF RADIOLOGY Provider, Wander Booth - 01/06/2022 * * *Final Report* * * DATE OF EXAM: Jan 06 2022 8:04AM WOX 5228 - XR LUMBAR 3V AP/LAT/L5-S1 / PROCEDURE REASON: Acute midline low back pain with right-sided sciatica * * * * Physician Interpretation * * * * Examination: XR LUMBAR 3V AP/LAT/L5-S1 History: Acute midline low back pain with right-sided sciatica Technique: XR LUMBAR 3V AP/LAT/L5-S1 Comparison: None RESULT: 5 nonrib-bearing lumbar type vertebrae. For numbering purposes, L4-5 is at the level of the iliac crest. Mild grade 1 spondylolisthesis of L4 on L5. Mild degenerative change throughout. Degenerative change involving the posterior elements from L3 through S1. No fracture or focal bony abnormality IMPRESSION IMPRESSION: DEGENERATIVE CHANGE AND ALIGNMENT ABNORMALITIES DESCRIBED Curbing Stonecutter: CARLOS Transcribe Date/Time: Jan 06 2022 2:07P Dictated by : SHIRLEY KHALIL MD This examination was interpreted and the report reviewed and electronically signed by: SHIRLEY KHALIL MD on Jan 06 2022 2:09PM EST [facility] Radiology Study observation (narrative) [facility] XR Lumbar spine 3 ViewsOrder ed By: Ccf Provider on 01-06-2022 [facility] ECG COMPLETEon 10-08-2021 Atrial Rate 71 BPM [facility] Calculated P [place] [address] [facility] Calculated R [place] [address] [facility] Calculated T [place] [address] [facility] P-R Interval 152 ms [facility] QRS Duration 88 ms [facility] QT Interval 404 ms [facility] QTC Calculation (Bazett) 439 ms [facility] Ventricular Rate 71 BPM [facility] ECHOon 10-08-2021 [facility] CBC W Auto Differential pane l (Bld)on 10-07-2021 Abs Immature Gran <0.03 <0.10 k/uL [facility] Basophils (Bld) [#/Vol] 0.04 10*3/uL <0.11 k/uL [facility] Basophils/100 WBC (Bld) 0.7 % [facility] Differential cell count method Nom (Bld) Auto [facility] Eosinophils (Bld) [#/Vol] 0.37 10*3/uL <0.46 k/uL [facility] Eosinophils/100 WBC (Bld) 6.8 % [facility] Erythrocyte distribution width (RBC) [Ratio] 13.2 % 11.5 - 15.0 % [facility] Hematocrit (Bld) [Volume fraction] 41.1 % 36.0 - 46.0 % [facility] Hemoglobin (Bld) [Mass/Vol] 13.9 g/dL 11.5 - 15.5 g/dL [facility] Immature Gran % 0.2 % [facility] Lymphocytes (Bld) [#/Vol] 1.49 10*3/uL 1.00 - 4.00 k/uL [facility] Lymphocytes/100 WBC (Bld) 27.3 % [facility] MCH (RBC) [Entitic mass] 31.4 pg 26.0 - 34.0 pg [facility] MCHC (RBC) [Mass/Vol] 33.8 g/dL 30.5 - 36.0 g/dL [facility] MCV (RBC) [Entitic vol] 92.8 fL 80.0 - 100.0 fL [facility] Monocytes (Bld) [#/Vol] 0.41 10*3/uL <0.87 k/uL [facility] Monocytes/100 WBC (Bld) 7.5 % [facility] Neutrophils (Bld) [#/Vol] 3.13 10*3/uL 1.45 - 7.50 k/uL [facility] Neutrophils/100 WBC (Bld) 57.5 % [facility] Nucleated RBC (Bld) [#/Vol] 10*3/uL <0.01 k/uL [facility] Nucleated RBC/100 WBC (Bld) [Ratio] 0.0 /100 WBC [facility] Platelet mean volume (Bld) [Entitic vol] 10.1 fL 9.0 - 12.7 fL [facility] Platelets (Bld) [#/Vol] 253 10*3/uL 150 - 400 k/uL [facility] RBC (Bld) [#/Vol] 4.43 10*6/uL 3.90 - 5.2 0 m/uL [facility] WBC (Bld) [#/Vol] 5.45 10*3/uL 3.70 - 11. 00 k/uL [facility] Comprehensive metabolic 2000 panelon 10-07-2021 Albumin [Mass/Vol] 4.4 g/dL 3.9 - 4.9 g/dL [facility] ALP [Catalytic activity/Vol] 72 U/L 34 - 123 U/L [facility] ALT [Catalytic activity/Vol] 20 U/L 7 - 38 U/L [facility] Anion gap [Moles/Vol] 9 mmol/L 9 - 18 mmol/L [facility] AST [Catalytic activity/Vol] 32 U/L 13 - 35 U/L [facility] Bilirubin [Mass/Vol] 0.3 mg/dL 0.2 - 1 .3 mg/dL [facility] Calcium [Mass/Vol] 9.0 mg/dL 8.5 - 10. 2 mg/dL [facility] Chloride [Moles/Vol] 102 mmol/L 97 - 10 5 mmol/L [facility] CO2 [Moles/Vol] 28 mmol/L 22 - 30 mmol/L [facility] Creatinine [Mass/Vol] 0.83 mg/dL 0.58 - 0.96 mg/dL [facility] Estimated Glomerular Filtration Rate 75 mL/min/1.73m >=60 mL/min/1.73m [facility] Glucose [Mass/Vol] 94 mg/dL 74 - 99 mg/dL [facility] Potassium [Moles/Vol] 3.8 mmol/L 3.7 - 5.1 mmol/L [facility] Protein [Mass/Vol] 6.6 g/dL 6.3 - 8.0 g/dL [facility] Sodium [Moles/Vol] 139 mmol/L 136 - 144 mmol/L [facility] Urea nitrogen [Mass/Vol] 12 mg/dL 7 - 21 mg/dL [facility] FERRITIN BLDon 10-07-2021 Ferritin [Mass/Vol] 98.9 ng/mL 14.7 - 2 05.1 ng/mL [facility] Iron and Iron binding capaci ty panelon 10-07-2021 Iron [Mass/Vol] 112 ug/dL 41 - 186 ug/dL [facility] Iron binding capacity [Mass/Vol] 320 ug/dL 232 - 386 ug/dL [facility] Iron/TIBC [Molar ratio] 35.0 % 15.0 - 57.0 % [facility] VITAMIN B12 BLOODon 10-08-19 Cobalamin (Vitamin B12) [Mass/Vol] 780 pg/mL 232-1,245 pg/mL [facility] XR Foot - left AP and Latera l and obliqueon 10-07-2021 IMPRESSION: No acute fracture or dislocation of the left foot Curbing Stonecutter: CARLOS Transcribe Date/Time: Oct 07 2021 2:52P Dictated by : RADHA BARKLEY MD This examination was interpreted and the report reviewed and electronically signed by: RADHA BARKLEY MD on Oct 07 2021 2:54PM EST [email or web address] _DIVISION OF RADIOLOGY * * *Final Report* * * DATE OF EXAM: Oct 06 2021 4:19PM WOX 5336 - XR FOOT 3V AP/LAT/OBL LT / PROCEDURE REASON: multiple diagnoses * * * * Physician Interpretation * * * * EXAMINATION: XR FOOT 3V AP/LAT/OBL LT CLINICAL HISTORY: Left foot pain Technique: XR FOOT 3V AP/LAT/OBL LT -- LEFT with 3 views on 3 images Comparison: None RESULT: No acute fracture or dislocation. No destructive osseous lesion. Joint spaces are maintained. [email or web address] _DIVISION OF RADIOLOGY Provider, [facility] Booth - 10/07/2021 * * *Final Report* * * DATE OF EXAM: Oct 06 2021 4:19PM WOX 5336 - XR FOOT 3V AP/LAT/OBL LT / PROCEDURE REASON: multiple diagnoses * * * * Physician Interpretation * * * * EXAMINATION: XR FOOT 3V AP/LAT/OBL LT CLINICAL HISTORY: Left foot pain Technique: XR FOOT 3V AP/LAT/OBL LT -- LEFT with 3 views on 3 images Comparison: None RESULT: No acute fracture or dislocation. No destructive osseous lesion. Joint spaces are maintained. IMPRESSION IMPRESSION: No acute fracture or dislocation of the left foot Curbing Stonecutter: CARLOS Transcribe Date/Time: Oct 07 2021 2:52P Dictated by : RADHA BARKLEY MD This examination was interpreted and the report reviewed and electronically signed by: RADHA BARKLEY MD on Oct 07 2021 2:54PM EST [facility] XR Foot - left AP and Latera l and obliqueOrdered By: Ccf Provider on 10-07-2021 [facility] XR FOOT GENERAL 3V AP/LAT/OB L LEFTon 10-06-2021 [facility] XR Foot - left AP and Latera l and obliqueon 10-06-2021 Radiology Study observation (narrative) [facility] Follow Up (Breast Surgery)on 08-10-2019 Follow Up (Breast Surgery) Diagnoses/Problems Assessed Mass of upper outer quadrant of left breast (611.72) (N63.21) History of breast cancer (V10.3) (Z85.3) Orders Mass of upper outer quadrant of left breast Mamm - Ultrasound Guided Breast Biopsy; Status:Hold For - Scheduling,Retrospecti ve Authorization; Requested for:15Aug2019; Perform:[facility] Radiology Services Imaging; Order Comments:scheduled at [facility]; Due:13Nov2019; Last Updated By:Willi Melgoza; 08/10/2019 2:01:36 PM;Ordered; For:Mass of upper outer quadrant of left breast; Ordered By:Meagan Schmidt; Radiologist to Determine Optimal Study : Y What are the patient's signs and symptoms? : left breast 3 o'clock 6cm fn Patient Discussion/Summary She is here alone today. Follow-up left breast imaging was performed. An indeterminate left breast mass was noted for which biopsy is recommended. We discussed the biopsy procedure. The radiologist in the breast center will be performing the biopsy. We discussed the risks and benefits of the biopsy procedure. Risks include but are not limited to bleeding, infection, injury to nearby structures and poor wound healing. A small titanium clip will be placed to steve the biopsy site. A soft mammogram will be performed after the biopsy. She wishes to proceed. We will call her when biopsy results are available; typically in 3 business days after the biopsy is performed. We briefly reviewed the types of pathology results the biopsy could reveal; benign, atypical, discordant, malignant. Further management will be reviewed at a follow up appointment. She knows to call sooner if she has any questions or concerns. All questions answered. Provider Impressions 1) 68-year-old non-Ashkenazi [employer], female here with abnormal left breast imaging. Personal history of right breast cancer 1997 status post right modified radical mastectomy and 5 years of tamoxifen. 2) otherwise healthy 3) family history of breast cancer. Chief Complaint abnormal left breast imaging personal h/o right breast cancer History of Present Illnessthis pt was previously seen by my partner, Dr. Ga 68 yo non Ashkeanazi worship, female with abnormal left breast imaging personal h/o right breast cancer 1997 She presents alone today History: 1) 1997 , age 46, right breast cancer attempted breast conservation, right MRM, no involved nodes. mckeon x 5 years 2) January 2018. Left screening mammogram. Breast tissue is heterogeneously dense. Left focal asymmetry, BI-RADS 0. 3) January 27, 2018. Left breast diagnostic imaging. Left architectural distortion with no ultrasound correlate, BI-RADS 3. 4) February,. Follow-up left breast imaging, stable, probably benign. 5) August 10, 2019. Left breast follow-up imaging. Left breast asymmetry persists. Ultrasound was performed. At 3:00 about 6 cm from the nipple a 1.2 x 0.7 x 1.9 cm lobulated hypoechoic mass was noted, BI-RADS 4. Left axillary ultrasound is negative. She presents today for further management and discussion. 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 Review of Systems A comprehensive ROS was taken on the patient intake form and reviewed with the patient. This form is scanned into the electronic medical record. Constitutional symptoms: Denies generalized fatigue. Denies weight change, fevers/chills, difficulty sleeping Eyes: Denies double vision, glaucoma, cataracts. Ear/nose/throat/mouth: Denies hearing changes, sore throat, sinus problems. Cardiovascular: No chest pain. Denies irregular heartbeat. Denies ankle swelling. Respiratory: No wheezing, cough, or shortness of breath. Gastrointestinal: No abdominal pain, No nausea/vomiting. No indigestion/heartburn. No change in bowel habits. No constipation or diarrhea. Genitourinary: No urinary incontinence. No urinary frequency. No painful urination. Musculoskeletal: No bone pain, no muscle pain, no joint pain. Integumentary: No rash. No masses. No changes in moles. No easy bruising. Neurological: No headaches. No tremors. No numbness/tingling. Psychiatric: No anxiety. No depression. Endocrine: No excessive thirst. Not too hot or too cold. Not tired or fatigued. Hematological/lymphati c: No swollen glands or blood clotting problems. No bruising. Active Problems Problems Arthritis (716.90) (M19.90) Breast cancer screening, high risk patient (V76.10) (Z12.39) Dense breasts (793.82) (R92.2) Depression (311) (F32.9) History of breast cancer (V10.3) (Z85.3) Denied: History of Hypothyroidism Mass of upper outer quadrant of left breast (611.72) (N63.21) Past Medical History Problems History of Adenocarcinoma of breast (174.9) (C50.919) Resolved Date: 16 Dec 2014 Added by Problem List Migration; 2012-11-01; Moved to Suppressed Feb 02 2013 9:06PM Denied: History of Hypothyroidism Surgical History Problems History of Breast Reconstruction With Implant Prosthesis History of Dilation And Curettage History of Exploratory Laparoscopy 1980 History of In Vitro Fertilization Oocyte Retrieval History of Modified Radical Mastectomy Right Breast History of Oophorectomy 1984 Family History Mother Family history of Breast Cancer (V16.3) Father Family history of Lung Cancer (V16.1) at 52 Sister Family history of Breast dysplasia Maternal Grandmother Family history of Adenocarcinoma Of The Gallbladder Maternal Grandfather Family history of Cirrhosis Paternal Grandfather Family history of Acute Myocardial Infarction (V17.3) Maternal Aunt Family history of Breast Cancer (V16.3) Social History Problems Never smoker No alcohol use No drug use Non-smoker (V49.89) (Z78.9) Allergies Medication Ampicillin CAPS Hives;; Recorded By: Padmini Flores; 12/27/2012 7:34:09 AM Penicillins Hives;; Recorded By: Padmini Flores; 12/27/2012 7:34:09 AM Current Meds Medication NameInstruction Antioxidant CAPS Aspirin 81 MG Oral Tablet ChewableCHEW AND SWALLOW 1 TABLET DAILY. Calcium CAPS Centrum Silver TABS Citracal TABS Coenzyme Q10 100 MG Oral Capsule Fish Oil CAPS Folic Acid 1 MG Oral Tablet Heart Health Pack MISC Turmeric CAPS Venlafaxine HCl - 100 MG Oral Tablet Venlafaxine HCl - 50 MG Oral Tablet VESIcare 5 MG Oral Tablet Vitals L-Dex Vitals Recorded: 10Aug2019 02:19PM Heart Rate68 [id number] Physical Exam A width stripper was offered for all portions of the physical exam. The patient declined. General appearance: appears stated age, alert and oriented x 3 Head: Normocephalic, atraumatic Eyes: conjunctivae/corneas clear. Ears: External ears are normal, hearing is grossly intact. Lungs: normal breathing Heart: regular Abdomen: Soft, nontender, nondistended. Neurologic: grossly normal Lymph nodes: No cervical, supraclavicular or axillary lymphadenopathy bilaterally Breast: A comprehensive breast exam was performed in the seated and supine positions. Right breast is surgically absent.. There are no skin changes on arm maneuvers. Bra size: c Right: Implant in place. Healed incision. No masses. Left: No obvious masses. Results/Data Imaging All breast imaging was personally reviewed by me. DIAGNOSTIC LEFT DIGITAL MAMMOGRAM WITH TOMOSYNTHESIS. TARGETED LEFT BREAST ULTRASOUND. Clinical Data: Six-month follow-up of the left breast. History of remote right mastectomy for breast cancer. Comparison: 02/07/2019, 01/14/2018, 01/13/2017. Mammographic findings: Standard 2D and tomosynthesis images were reviewed at 1 mm slice thickness. The left breast is heterogeneously dense, which may obscure small masses. There is persistent focal dense fibroglandular tissue in the posterior lateral aspect, more pronounced on the CC view. It is less prominent on the MLO view but correlates to the superior aspect. The remainder of the left breast is unchanged. The digital mammogram has been reviewed with the aid of CAD. Sonographic findings: At 3:00, 6 cm from the nipple, there is an irregular lobulated hypoechoic mass measuring 1.2 x 0.7 x 1.9 cm. There is no internal vascularity or posterior shadowing. This correlates with the indeterminate dense tissue on mammogram. Core biopsy is recommended. Scanning of the left axilla demonstrates normal lymph nodes. IMPRESSION AND RECOMMENDATION: 1. Left breast indeterminate mass as described above. Ultrasound-guided core biopsy and referral to a breast surgeon are recommended. 2. Sonographically normal left axillary lymph nodes. Biopsy recommendations were discussed with the patient at the time of her exam by the breast center patient navigator. Category 4 : Suspicious - Biopsy Should Be Considered YOUR MAMMOGRAM DEMONSTRATES THAT YOU HAVE DENSE BREAST TISSUE, WHICH COULD HIDE ABNORMALITIES. DENSE BREAST TISSUE, IN AND OF ITSELF, IS A RELATIVELY COMMON CONDITION. THEREFORE, THIS INFORMATION IS NOT PROVIDED TO CAUSE UNDUE CONCERN; RATHER, IT IS TO RAISE YOUR AWARENESS AND PROMOTE DISCUSSION WITH YOUR HEALTHCARE PROVIDER REGARDING THE PRESENCE OF DENSE BREAST TISSUE IN ADDITION TO OTHER RISK FACTORS. Electronically signed by: Ernie Mckeon MD 08/10/2019 12:47 PM CDT Technologist: ELIAS Dictated By: ERNIE MCKEON MD Signed By: ERNIE MCKEON MD Signed Out: 08/10/19 13:47:55 Pathology no pathology to review Time Time Stamp_[facility]: Time Spent With Patient: 25 minutes of which greater than 50 percent was spent counseling and or coordinating care. Signatures Electronically signed by : Meagan Schmidt, ; Aug 10 2019 2:39PM EST (Author) Normal [facility] Vital Signs Date Time Vital Sign Value Performing Clinician Facility 08-21-2024 08:35-0400 Body height 170.[address] Alfredito Engel DO Work Phone: [facility] 08-17-2024 13:46-0400 Body height 167.6 cm Radha Crockett PA-C Work Phone: [facility] 08-17-2024 13:46-0400 Body mass index (BMI) [Ratio] 23.53 kg/m2 Radha Bon PA-C Work Phone: [facility] 08-17-2024 13:46-0400 Body weight 66.13 kg Radha Bon PA-C Work Phone: [facility] 08-17-2024 13:46-0400 Diastolic blood pressure 64 mm[Hg] Radha Bon PA-C Work Phone: [facility] 08-17-2024 13:46-0400 Heart rate 90 /min Radha Bon PA-C Work Phone: [facility] 08-17-2024 13:46-0400 SaO2% (BldA) [Mass fraction] 98 % Radha Obn PA-C Work Phone: [facility] 08-17-2024 13:46-0400 Systolic blood pressure 114 mm[Hg] Radha Bon PA-C Work Phone: [facility] 07-03-2024 07:53-0400 Body mass index (BMI) [Ratio] 23.24 kg/m2 Gracy Calvillo PA-C Work Phone: [facility] 07-03-2024 07:53-0400 Body temperature 97.5 [degF] Gracy Calvillo PA-C Work Phone: [facility] 07-03-2024 07:53-0400 Body weight 65.32 kg Gracy Calvillo PA-C Work Phone: [facility] 07-03-2024 07:53-0400 Diastolic blood pressure 62 mm[Hg] Gracy Calvillo PA-C Work Phone: [facility] 07-03-2024 07:53-0400 Heart rate 83 /min Gracy Calvillo PA-C Work Phone: [facility] 07-03-2024 07:53-0400 Respiratory rate 16 /min Gracy Calvillo PA-C Work Phone: [facility] 07-03-2024 07:53-0400 SaO2% (BldA) [Mass fraction] 99 % Gracy Calvillo PA-C Work Phone: [facility] 07-03-2024 07:53-0400 Systolic blood pressure 100 mm[Hg] Gracy Calvillo PA-C Work Phone: [facility] 01-24-2024 09:24-0500 Body height 167.6 cm My Bogner PA-C Work Phone: [facility] 01-24-2024 09:24-0500 Body mass index (BMI) [Ratio] 23.4 kg/m2 My Bogner PA-C Work Phone: [facility] 01-24-2024 09:24-0500 Body weight 65.77 kg My Bogner PA-C Work Phone: [facility] 01-24-2024 09:24-0500 Diastolic blood pressure 60 mm[Hg] My Bogner PA-C Work Phone: [facility] 01-24-2024 09:24-0500 Heart rate 98 /min My Bogner PA-C Work Phone: [facility] 01-24-2024 09:24-0500 Respiratory rate 12 /min My Bogner PA-C Work Phone: [facility] 01-24-2024 09:24-0500 SaO2% (BldA) [Mass fraction] 99 % My Bogner PA-C Work Phone: [facility] 01-24-2024 09:24-0500 Systolic blood pressure 108 mm[Hg] My Bogner PA-C Work Phone: [facility] 06-13-2023 12:40-0400 Body weight 69.94 kg Juanita Arce APRN.CNP Work Phone: [facility] 06-13-2023 12:40-0400 Diastolic blood pressure 60 mm[Hg] Juanita Arce STITCHER STANDARD MACHINE.ENGINEERING LIBRARIAN Work Phone: [facility] 06-13-2023 12:40-0400 Heart rate 88 /min Juanita Arce STITCHER STANDARD MACHINE.ENGINEERING LIBRARIAN Work Phone: [facility] 06-13-2023 12:40-0400 Respiratory rate 14 /min Juanita Arce STITCHER STANDARD MACHINE.ENGINEERING LIBRARIAN Work Phone: [facility] 06-13-2023 12:40-0400 SaO2% (BldA) [Mass fraction] 96 % Juanita Arce STITCHER STANDARD MACHINE.ENGINEERING LIBRARIAN Work Phone: [facility] 06-13-2023 12:40-0400 Systolic blood pressure 118 mm[Hg] Juanita Arce STITCHER STANDARD MACHINE.ENGINEERING LIBRARIAN Work Phone: [facility] 05-23-2023 14:11-0400 Body temperature 97.81 [degF] Mitzy Burger APRN.ENGINEERING LIBRARIAN Work Phone: [facility] 05-23-2023 14:11-0400 Body weight 70.4 kg Mitzy Burgre APRN.ENGINEERING LIBRARIAN Work Phone: [facility] 05-23-2023 14:11-0400 Diastolic blood pressure 65 mm[Hg] Mitzy Burger APRN.ENGINEERING LIBRARIAN Work Phone: [facility] 05-23-2023 14:11-0400 Heart rate 82 /min Mitzy Burger APRN.ENGINEERING LIBRARIAN Work Phone: [facility] 05-23-2023 14:11-0400 Respiratory rate 18 /min Mitzy Burger APRN.ENGINEERING LIBRARIAN Work Phone: [facility] 05-23-2023 14:11-0400 SaO2% (BldA) [Mass fraction] 99 % Mitzy Burger APRN.ENGINEERING LIBRARIAN Work Phone: [facility] 05-23-2023 14:11-0400 Systolic blood pressure 113 mm[Hg] Mitzy Burger APRN.ENGINEERING LIBRARIAN Work Phone: [facility] 05-18-2023 09:49-0400 Body height 170 cm Alfredito Engel DO Work Phone: [facility] 05-18-2023 09:49-0400 Body temperature 97 [degF] Alfredito Engel DO Work Phone: [facility] 05-18-2023 09:49-0400 Body weight 68.95 kg Alfredito Engel DO Work Phone: [facility] 05-18-2023 09:49-0400 Diastolic blood pressure 70 mm[Hg] Alfredito Engel DO Work Phone: [facility] 05-18-2023 09:49-0400 Heart rate 76 /min Alfredito Engel DO Work Phone: [facility] 05-18-2023 09:49-0400 Respiratory rate 16 /min Alfredito Engel DO Work Phone: [facility] 05-18-2023 09:49-0400 Systolic blood pressure 116 mm[Hg] Alfredito Engel DO Work Phone: [facility] 05-09-2023 07:44-0500 Body height 174 cm Alfredito Engel DO Work Phone: [facility] 05-09-2023 07:44-0500 Body temperature 97 [degF] Alfredito Engel DO Work Phone: [facility] 05-09-2023 07:44-0500 Body weight 69.85 kg Alfredito Engel DO Work Phone: [facility] 05-09-2023 07:44-0500 Diastolic blood pressure 70 mm[Hg] Alfredito Engel DO Work Phone: [facility] 05-09-2023 07:44-0500 Heart rate 64 /min Alfredito Engel DO Work Phone: [facility] 05-09-2023 07:44-0500 Respiratory rate 12 /min Alfredito Engel DO Work Phone: [facility] 05-09-2023 07:44-0500 Systolic blood pressure 100 mm[Hg] Alfredito Engel DO Work Phone: [facility] 04-08-2023 09:15-0500 Diastolic blood pressure 67 mm[Hg] Corry Sorto MD Work Phone: [facility] 04-08-2023 09:15-0500 Heart rate 68 /min Corry Sorto MD Work Phone: [facility] 04-08-2023 09:15-0500 Respiratory rate 16 /min Corry Sorto MD Work Phone: [facility] 04-08-2023 09:15-0500 SaO2% (BldA) [Mass fraction] 98 % Corry Sorto MD Work Phone: [facility] 04-08-2023 09:15-0500 Systolic blood pressure 141 mm[Hg] Corry Sorto MD Work Phone: [facility] 04-08-2023 07:45-0500 Body temperature 97.59 [degF] Corry Sorto MD Work Phone: [facility] 04-08-2023 07:45-0500 Body weight 68.8 kg Corry Sorto MD Work Phone: [facility] 02-02-2023 08:56-0500 Body weight 68.04 kg Annamarie Valorie STITCHER STANDARD MACHINE.ENGINEERING LIBRARIAN Work Phone: [facility] 02-02-2023 08:56-0500 Diastolic blood pressure 62 mm[Hg] Annamarie Valorie STITCHER STANDARD MACHINE.ENGINEERING LIBRARIAN Work Phone: [facility] 02-02-2023 08:56-0500 Heart rate 86 /min Annamarie Valorie STITCHER STANDARD MACHINE.ENGINEERING LIBRARIAN Work Phone: [facility] 02-02-2023 08:56-0500 Respiratory rate 16 /min Annamarie Valorie STITCHER STANDARD MACHINE.ENGINEERING LIBRARIAN Work Phone: [facility] 02-02-2023 08:56-0500 SaO2% (BldA) [Mass fraction] 96 % Annamarie Valorie STITCHER STANDARD MACHINE.ENGINEERING LIBRARIAN Work Phone: [facility] 02-02-2023 08:56-0500 Systolic blood pressure 100 mm[Hg] Annamarie Eugene APRN.ENGINEERING LIBRARIAN Work Phone: [facility] 07-08-2022 15:37-0400 Body temperature 98.2 [degF] Krislyn Aberegg PA Work Phone: [facility] 07-08-2022 15:37-0400 Body weight 68.86 kg Krislyn Aberegg PA Work Phone: [facility] 07-08-2022 15:37-0400 Diastolic blood pressure 70 mm[Hg] Krislyn Aberegg PA Work Phone: [facility] 07-08-2022 15:37-0400 Heart rate 86 /min Krislyn Aberegg PA Work Phone: [facility] 07-08-2022 15:37-0400 Respiratory rate 16 /min Krislyn Aberegg PA Work Phone: [facility] 07-08-2022 15:37-0400 SaO2% (BldA) [Mass fraction] 97 % Krislyn Aberegg PA Work Phone: [facility] 07-08-2022 15:37-0400 Systolic blood pressure 118 mm[Hg] Krislyn Aberegg PA Work Phone: [facility] 06-21-2022 10:50-0400 Body height 170.2 cm Helen Fletcher MD Work Phone: [facility] 06-21-2022 10:50-0400 Body weight 68.49 kg Helen Fletcher MD Work Phone: [facility] 06-21-2022 10:50-0400 Diastolic blood pressure 64 mm[Hg] Helen Fletcher MD Work Phone: [facility] 06-21-2022 10:50-0400 Systolic blood pressure 110 mm[Hg] Helen Fletcher MD Work Phone: [facility] 05-07-2022 08:31-0500 Body temperature 96.3 [degF] Alfredito Engel DO Work Phone: [facility] 05-07-2022 08:31-0500 Body weight 69.85 kg Alfredito Engel DO Work Phone: [facility] 05-07-2022 08:31-0500 Diastolic blood pressure 70 mm[Hg] Alfredito Engel DO Work Phone: [facility] 05-07-2022 08:31-0500 Heart rate 72 /min Alfredito Engel DO Work Phone: [facility] 05-07-2022 08:31-0500 Respiratory rate 16 /min Alfredito Engel DO Work Phone: [facility] 05-07-2022 08:31-0500 Systolic blood pressure 124 mm[Hg] Alfredito Engel DO Work Phone: [facility] 05-04-2022 10:30-0500 Body temperature 98.29 [degF] Barb Huong STITCHER STANDARD MACHINE.ENGINEERING LIBRARIAN Work Phone: [facility] 05-04-2022 10:30-0500 Body weight 69.49 kg Barbariane Borja STITCHER STANDARD MACHINE.ENGINEERING LIBRARIAN Work Phone: [facility] 05-04-2022 10:30-0500 Diastolic blood pressure 78 mm[Hg] Barb Huong STITCHER STANDARD MACHINE.ENGINEERING LIBRARIAN Work Phone: [facility] 05-04-2022 10:30-0500 Heart rate 82 /min Barb Huong STITCHER STANDARD MACHINE.ENGINEERING LIBRARIAN Work Phone: [facility] 05-04-2022 10:30-0500 Respiratory rate 18 /min Barb Huong STITCHER STANDARD MACHINE.ENGINEERING LIBRARIAN Work Phone: [facility] 05-04-2022 10:30-0500 SaO2% (BldA) [Mass fraction] 97 % Barb Huong STITCHER STANDARD MACHINE.ENGINEERING LIBRARIAN Work Phone: [facility] 05-04-2022 10:30-0500 Systolic blood pressure 122 mm[Hg] Barb Hannak STITCHER STANDARD MACHINE.ENGINEERING LIBRARIAN Work Phone: [facility] 01-06-2022 07:19-0400 Body weight 68.04 kg Juanita Lucyawick STITCHER STANDARD MACHINE.ENGINEERING LIBRARIAN Work Phone: [facility] 01-06-2022 07:19-0400 Diastolic blood pressure 62 mm[Hg] Juanita Zurawick STITCHER STANDARD MACHINE.ENGINEERING LIBRARIAN Work Phone: [facility] 01-06-2022 07:19-0400 Heart rate 76 /min Juanita Zurawick STITCHER STANDARD MACHINE.ENGINEERING LIBRARIAN Work Phone: [facility] 01-06-2022 07:19-0400 Respiratory rate 16 /min Juanita Zurawick STITCHER STANDARD MACHINE.ENGINEERING LIBRARIAN Work Phone: [facility] 01-06-2022 07:19-0400 Systolic blood pressure 92 mm[Hg] Juanita Zurawick STITCHER STANDARD MACHINE.ENGINEERING LIBRARIAN Work Phone: [facility] 10-06-2021 15:12-0400 Body weight 69.13 kg Alfredito Engel DO Work Phone: [facility] 10-06-2021 15:12-0400 Diastolic blood pressure 76 mm[Hg] Alfredito Engel DO Work Phone: [facility] 10-06-2021 15:12-0400 Heart rate 78 /min Alfredito Engel DO Work Phone: [facility] 10-06-2021 15:12-0400 Respiratory rate 16 /min Alfredito Engel DO Work Phone: [facility] 10-06-2021 15:12-0400 Systolic blood pressure 124 mm[Hg] Alfredito Engel DO Work Phone: [facility] Encounters Encounter Date Encounter Type Care Provider Facility Start: 10-02-2024 ambulatory EDMUND Danielle y:[facility] Start: 10-01-2024 End: 10-01-2024 Telephone encounter Radha Crockett PA-C Work Phone: [facility] Start: 09-27-2024 End: 09-27-2024 ambulatory Josh Leila PT Work Phone: [facility] Comment on above: Leg length discrepan cy (Primary Dx); Corns and callosities Start: 09-25-2024 Non-patient / Non-visit Dr. Lance monzon MD -[facility] Start: 09-25-2024 End: 09-25-[address] Alfredito Engel DO Work Phone: -Cardiovascular Services Work Phone: Start: 09-25-2024 End: 09-25-2024 ambulatory Lance Torres Facility:[facility] [place] [place] Start: 09-21-2024 End: 09-21-2024 Telephone encounter Agnes Morris MA Work Phone: [facility] Start: 09-10-2024 End: 09-10-2024 ambulatory ALFREDITO ENGEL Facility:[facility] Start: 09-10-2024 Encounter for genera l adult medical examination without abnormal findings ALFREDITO ENGEL [facility] Start: 08-24-2024 End: 08-24-2024 ambulatory JUANITA ARCE Facility:[id number] Start: 08-21-2024 End: 08-21-2024 Telephone encounter Radha Crockett PA-C Work Phone: [facility] Start: 08-17-2024 End: 08-17-2024 Patient encounter procedure Radha Crockett PA-C Work Phone: [facility] Comment on above: Atrial flutter with rapid ventricular response (HCC) (Primary Dx); PVC (premature ventricular contraction); Palpitations; Abnormal patient-activated cardiac event monitor; Supraventricular tachycardia (HCC); Sinus bradycardia; Obstructive sleep apnea Start: 08-17-2024 End: 08-17-2024 ambulatory RADHA CROCKETT Facility:[id number] Start: 08-02-2024 End: 08-03-2024 Telephone encounter Alfredito Engel DO Work Phone: [facility] [place] Comment on above: Orders Start: 07-13-2024 End: 07-13-2024 MC Get Medical Advice Alfredito Duganrison DO Work Phone: [facility] [place] Comment on above: Mammogram order Refill Request Orders (Mammogram) Start: 07-04-2024 End: 07-04-2024 Follow-up encounter Gracy Calvillo PA-C Work Phone: [facility] [place] Start: 07-03-2024 End: 07-03-2024 Office outpatient visit 25 minutes Gracy Calvillo PA-C Work Phone: [facility] [place] Comment on above: Palpitations (Primar y Dx); Bradycardia Start: 07-03-2024 End: 07-03-2024 ambulatory ALFREDITO DUGANRISON Facility:[facility] Start: 07-02-2024 End: 07-02-2024 ambulatory Alfredito L Engel DO Work Phone: [facility] [place] Comment on above: Heart irregularities Start: 02-06-2024 End: 02-27-2024 Telephone encounter My Martinez PA-C Work Phone: [facility] [place] Comment on above: Results Start: 01-27-2024 End: 01-30-2024 ambulatory Alfredito L Engel DO Work Phone: [facility] [place] Comment on above: Blood work Start: 01-25-2024 End: 01-25-2024 ambulatory Alfredito L Engel DO Work Phone: [facility] [place] Comment on above: Blood work from 01/05 11/28 Start: 01-24-2024 End: 01-25-2024 Telephone encounter My BULL-C Work Phone: [facility] [place] Start: 01-24-2024 End: 01-24-2024 Office outpatient visit 15 minutes My BULL-C Work Phone: [facility] [place] Comment on above: Increased libido (Pr imary Dx) Start: 01-24-2024 End: 01-24-2024 ambulatory Alfredito L Engel DO Work Phone: [facility] [place] Comment on above: Inhaler Start: 01-23-2024 End: 01-23-2024 ambulatory Alfredito Engel DO Work Phone: [facility] [place] Comment on above: Question Start: 12-21-2023 End: 12-22-2023 ambulatory Alfredito Engel DO Work Phone: [facility] [place] Comment on above: Pneumonia immunizati on Start: 08-04-2023 Refill Juanita Arce APRN.ENGINEERING LIBRARIAN Work Phone: Hematology/Oncology Comment on above: Refill Request Start: 07-08-2023 Telephone encounter Alfredito mi DO Work Phone: [facility] [place] Comment on above: Results Start: 06-28-2023 End: 06-28-2023 Subsequent hospital visit by physician Mri Radio [facility] (I-Stat/1.5t) Work Phone: Radiology Comment on above: Abdominal distension (gaseous) [R14.0] Start: 06-15-2023 ambulatory Juanita Arce APRN.ENGINEERING LIBRARIAN Work Phone: [facility] [place] Comment on above: New prescription and question Start: 06-13-2023 End: 06-13-2023 Subsequent hospital visit by physician Xr [facility] [place] Work Phone: Radiology Comment on above: Chronic cough [R05.3 ] Start: 06-13-2023 End: 06-13-2023 Patient encounter procedure Juanita Arce APRN.ENGINEERING LIBRARIAN Work Phone: [facility] [place] Comment on above: Chronic cough (Prima ry Dx) Start: 05-27-2023 ambulatory Alfredito Bowers son DO Work Phone: [facility] [place] Comment on above: Bronchitis Start: 05-25-2023 Telephone encounter Alfredito Antony duyenrichie DO Work Phone: [facility] [place] Comment on above: Results Start: 05-23-2023 End: 05-23-2023 Patient encounter procedure Mitzy Burger APRN.ENGINEERING LIBRARIAN Work Phone: [facility] Comment on above: Laceration of skin o f finger, initial encounter (Primary Dx) Start: 05-20-2023 End: 05-20-2023 Subsequent hospital visit by physician Ct Prep [facility] Cat Scan Comment on above: Abdominal distension (gaseous) [R14.0] Start: 05-18-2023 End: 05-18-2023 Patient encounter procedure Alfredito Engel DO Work Phone: [facility] [place] Comment on above: Abdominal distension (gaseous) (Primary Dx); Encounter for screening mammogram for malignant neoplasm of breast; Generalized abdominal pain; Nausea; Dyslipidemia; Hyperglycemia; Fatigue, unspecified type; Vitamin D deficiency; Urge incontinence; Celiac disease Start: 05-12-2023 ambulatory Alfredito mathias DO Work Phone: [facility] [place] Comment on above: New prescription Start: 05-12-2023 Telephone encounter Alfredito Maribell mi DO Work Phone: [facility] [place] Comment on above: Patient Question Start: 05-09-2023 End: 05-09-2023 Patient encounter procedure Alfredito Engel DO Work Phone: [facility] [place] Comment on above: Procedure and treatm ent not carried out due to patient leaving prior to being seen by health care provider (Primary Dx); Dyslipidemia; Hyperglycemia; Fatigue, unspecified type; Vitamin D deficiency Start: 04-08-2023 End: 04-08-2023 Subsequent hospital visit by physician Corry Sorto MD Work Phone: Ambulatory Surgery Comment on above: Acute constipation [ K59.00] Start: 03-18-2023 End: 01-10-2024 Telephone encounter Cyndi Adkins PA-C Work Phone: General Surgery Comment on above: 04/08/2023 COLON [facility] Start: 02-10-2023 End: 02-10-2023 Subsequent hospital visit by physician Yi [facility] [place] Work Phone: Radiology Comment on above: Acute constipation [ K59.00] Start: 02-02-2023 End: 02-02-2023 Patient encounter procedure Annamarie Eugene APRN.CNP Work Phone: [facility] [place] Comment on above: Acute constipation ( Primary Dx); Hard stool; Screening for colon cancer; Encounter for immunization Start: 01-24-2023 ambulatory Helen Fletcher MD Work Phone: OB/Gynecology Comment on above: Genetic testing Start: 01-07-2023 Telephone encounter Alfredito mi DO Work Phone: [facility] Comment on above: Patient Question Start: 01-06-2023 ambulatory Alfredito mathias DO Work Phone: [facility] Comment on above: Newest covid vaccina tion Start: 12-18-2022 End: 12-18-2022 ambulatory Milton Martinez PA-C Work Phone: Telemedicine Comment on above: COVID-19 virus infec tion (Primary Dx) Start: 12-18-2022 End: 12-18-2022 Telemedicine consultation with patient Milton Michelle BULL-Rc Work Phone: [facility] Start: 11-22-2022 End: 11-22-2022 ambulatory Josh Dee PT Work Phone: [facility] Comment on above: Leg length discrepan cy (Primary Dx); Corns and callosities Start: 11-17-2022 ambulatory Alfredito mathias DO Work Phone: [facility] [place] Comment on above: New prescription and question Refill Request Start: 11-05-2022 ambulatory Alfredito mathias DO Work Phone: [facility] Comment on above: New prescription and question Start: 11-05-2022 Telephone encounter Alfredito mi DO Work Phone: [facility] Comment on above: Patient Question Start: 09-06-2022 Refill Juanita Arce APRN.ENGINEERING LIBRARIAN Work Phone: Hematology/Oncology Comment on above: Refill Request Start: 07-08-2022 End: 07-08-2022 Subsequent hospital visit by physician Xr [facility] [place] Work Phone: Radiology Comment on above: Acute cough [R05.1] Start: 07-08-2022 End: 07-08-2022 Patient encounter procedure Deni BULL Work Phone: [facility] Comment on above: Acute cough (Primary Dx); Sinobronchitis Start: 07-08-2022 ambulatory Alfredito mathias DO Work Phone: Family [facility] [place] Comment on above: Advice Start: 06-23-2022 Telephone encounter Alfredito mi DO Work Phone: [facility] [place] Comment on above: Results Start: 06-21-2022 End: 06-21-2022 Patient encounter procedure Helen Fletcher MD Work Phone: OB/Gynecology Comment on above: Encounter for gyneco logical examination (general) (routine) without abnormal findings (Primary Dx) Start: 06-21-2022 End: 06-21-2022 Patient encounter status Helen Fletcher MD Work Phone: OB/Gynecology Start: 06-21-2022 End: 06-21-2022 Subsequent hospital visit by physician Bone Density [facility] Work Phone: Radiology Comment on above: Osteopenia, senile [ M85.80] Start: 06-09-2022 ambulatory Alfredito mathias DO Work Phone: [facility] [place] Comment on above: Mammogram Start: 05-14-2022 Telephone encounter Alfredito mi DO Work Phone: [facility] [place] Comment on above: Results Start: 05-07-2022 End: 05-07-2022 Patient encounter procedure Alfredito Engel DO Work Phone: [facility] [place] Comment on above: Osteopenia, senile ( Primary Dx); Fatigue, unspecified type; Dyslipidemia; Dysthymia; Celiac disease; Hyperglycemia; Screening for osteoporosis; Disorder of bone and articular cartilage; Other disorders of bone development and growth, multiple sites; Other specified disorders of bone density and structure, other site Start: 05-05-2022 Telephone encounter Kevyn tom APRN.ENGINEERING LIBRARIAN Work Phone: [facility] Comment on above: Results Start: 05-04-2022 End: 05-04-2022 Patient encounter procedure Barb Borja KATHE.ENGINEERING LIBRARIAN Work Phone: [facility] Comment on above: Urinary frequency (P rimary Dx) Start: 04-29-2022 Refill Alfredito mathias DO Work Phone: [facility] [place] Comment on above: Refill Request Start: 03-31-2022 ambulatory Alfredito mathias DO Work Phone: [facility] Start: 03-29-2022 ambulatory Alfredito mathias DO Work Phone: [facility] [place] Comment on above: Possible UTI Start: 01-06-2022 Telephone encounter Alfredito Maribell mi DO Work Phone: [facility] [place] Comment on above: Insurance Authorizat ion Start: 01-06-2022 End: 01-06-2022 Subsequent hospital visit by physician Xr [facility] [place] Work Phone: Radiology Comment on above: Acute midline low ba ck pain with right-sided sciatica [M54.41] Start: 01-06-2022 End: 01-06-2022 Patient encounter procedure Juanita Dunn KATHE.ENGINEERING LIBRARIAN Work Phone: [facility] Comment on above: Acute midline low ba ck pain with right-sided sciatica (Primary Dx); Encounter for immunization Start: 01-03-2022 ambulatory Alfredito Bowers son DO Work Phone: [facility] Comment on above: Pinched nerve prob keke Start: 10-08-2021 End: 10-08-2021 ambulatory Josh Dee PT Work Phone: [facility] Comment on above: Leg length discrepan cy; Corns and callosities Start: 10-07-2021 ambulatory Alfredito mathias DO Work Phone: [facility] Comment on above: xray of foot Start: 10-07-2021 E-mail encounter fro m caregiver Alfredito Engel DO Work Phone: [facility] [place] Start: 10-06-2021 End: 10-06-2021 Subsequent hospital visit by physician Yi [facility] [place] Work Phone: Radiology Comment on above: Foot pain, left [M79 .672] Start: 10-06-2021 End: 10-06-2021 Patient encounter procedure Alfredito Engel DO Work Phone: [facility] Comment on above: Foot pain, left (Carly nita Dx); Foot injury, left, initial encounter; Fatigue, unspecified type; SOB (shortness of breath); Bilateral hip pain; Primary osteoarthritis of both hips Start: 09-22-2021 ambulatory Josh Sousa T Work Phone: [facility] Comment on above: Orthotics Start: 09-11-2021 ambulatory Ade Whalen MA [facility] [place] Comment on above: Population Health Na vigation Outreach ([place] [facility]aps ) Start: 09-04-2021 Refill Juanita jackson STITCHER STANDARD MACHINE.ENGINEERING LIBRARIAN Work Phone: Hematology/Oncology Comment on above: Refill Request Start: 07-06-2021 ambulatory Alfredito mathias DO Work Phone: [facility] [place] Start: 07-06-2021 Follow-up encounter Alfredito mi DO Work Phone: [facility] Comment on above: 6 month follow up Start: 02-13-2018 Patient encounter procedure Alfredito Engel DO Work Phone: [facility] Work Phone: Procedures Date Procedure Procedure Detail Performing Clinician Start: 09-10-2024 Lipid 1996 panel - S loyd or Plasma Agnes Morris MA Work Phone: Start: 07-03-2024 Ecg routine ecg w/le ast 12 lds i&r only [facility] Provider Start: 06-13-2023 Radiologic exam ches t 2 views Juanita Arce APRN.ENGINEERING LIBRARIAN Work Phone: Start: 05-09-2023 Lipid 1996 panel - S loyd or Plasma Alfredito Engel DO Work Phone: Start: 04-08-2023 Colonoscopy flx dx w /collj spec when pfrmd Cyndi Adkins PA-C Work Phone: Start: 04-08-2023 Colonoscopy Corry Sorto MD Work Phone: Start: 02-10-2023 Radiologic exam abdo men 1 view Annamarie Eugene STITCHER STANDARD MACHINE.ENGINEERING LIBRARIAN Work Phone: Start: 02-02-2023 RSV VACCINE, BIVALEN T (ABRYSVO) Annamarie Eugene STITCHER STANDARD MACHINE.ENGINEERING LIBRARIAN Work Phone: Start: 08-20-2022 Mammography Alfredito Gar rison DO Work Phone: Start: 07-08-2022 Radiologic exam ches t 2 views Deni BULL Work Phone: Start: 06-21-2022 Dxa bone density leilani dy 1/> sites axial skel Alfredito Duganrison DO Work Phone: Start: 05-13-2022 Lipid 1995 panel - S loyd or Plasma Alfredito Engel DO Work Phone: Start: 05-04-2022 Urnls dip stick/tabl et rgnt auto w/o microscopy Barb Borja STITCHER STANDARD MACHINE.ENGINEERING LIBRARIAN Work Phone: Start: 01-06-2022 Radex spine lumbosac ral 2/3 views Juanita Arce STITCHER STANDARD MACHINE.ENGINEERING LIBRARIAN Work Phone: Start: 01-06-2022 INFLUENZA SEASONAL QUADRIVALENT HIGH DOSE AGE 65+ Juanita Dunn STITCHER STANDARD MACHINE.ENGINEERING LIBRARIAN Work Phone: Start: 01-06-2022 [employer] COVI D-19 BIVALENT BOOSTER VACCINE, AGE 12+ YR Juanita Dunn STITCHER STANDARD MACHINE.ENGINEERING LIBRARIAN Work Phone: Start: 10-06-2021 Radex foot complete minimum 3 views Alfredito Florezon DO Work Phone: Start: 12-14-2021 Mammography Alfredito Gar rison DO Work Phone: Start: 03-29-2013 Colonoscopy Alfredito london DO Work Phone: Plan of Treatment Date Care Activity Detail Author Start: 04-08-2033 Screening for malign ant neoplasm of colon [facility] Start: 05-26-2030 Urine microalbumin profile [facility] Start: 09-10-2029 Lipid panel Lipid Screening [facility] Start: 05-08-2028 Lipid panel Lipid Screening [facility] Start: 09-11-2027 Diabetes Screening Diabetes Screenin g [facility] Start: 07-04-2027 Diabetes Screening Diabetes Screenok g [facility] Start: 05-14-2027 Lipid 1996 panel - S loyd or Plasma Lipid Screening [facility] Start: 05-14-2027 Lipid [address] Lipid Screening [facility] Start: 05-14-2027 LIPID SCREEN LIPID SCREEN [facility] Start: 05-08-2026 Diabetes Screening Diabetes Screenok g [facility] Start: 04-08-2026 LIPID SCREEN LIPID SCREEN [facility] Start: 05-13-2025 DIABETES SCREEN DIABETES SCREEN [facility] Start: 05-13-2025 Diabetes Screening Diabetes Screenok g [facility] Start: 11-05-2024 Influenza vaccination Influenza Vacc ine (#1) [facility] Start: 10-17-2024 End: 10-17-2024 Patient encounter procedure 10/17/2024 1:30 PM EDT Office Visit [facility] [address] [place] [address] [place] Crockett, PA-C [address] [place] [address] 6-8 weeks to review test results. [facility] Comment on above: 6-8 weeks to review test results. [facility] Start: 10-12-2024 End: 10-12-2024 Patient encounter procedure 10/12/2024 1:30 PM EDT Office Visit [facility] [address] [place] [address] [place] Crockett, PA-C [address] [place] [address] 6-8 weeks to review test results. [facility] Comment on above: 6-8 weeks to review test results. [facility] Start: 10-07-2024 DIABETES SCREEN DIABETES SCREEN [facility] Start: 10-03-2024 End: 10-03-2024 Patient encounter procedure 10/03/2024 12:00 PM EDT Office Visit [facility] [place] [address] [place] [address] Alfredito Engel DO [address] [place] [address] wellness [facility] [place] Comment on above: wellness Start: 09-27-2024 End: 09-27-2024 ambulatory 09/27/2024 10:00 AM EDT OT[facility] [address] [place] [address] Josh Dee, PT [address] [place] [address] 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 Work Phone: Comment on above: Expected: 09/10/2024 , Expires: 12/10/2024 Start: 09-10-2024 End: 09-10-2024 ambulatory [facility] Comment on above: lab Start: 09-04-2024 End: 09-04-2024 ambulatory [facility] Start: 08-22-2024 Screening for malign ant neoplasm of breast Mammogram Screening [facility] Start: 08-15-2024 End: 08-15-2024 Patient encounter procedure 08/15/2024 10:30 AM EDT Office Visit [facility] [address] [place] [address] [place] [id number] Reyes Montes MD [address] [place] [address] , [address] [place] [id number] Atrial flutter with rapid ventricular response (HCC) [I48.92] [facility] Comment on above: Atrial flutter with rapid ventricular response (HCC) [I48.92] Start: 07-03-2024 End: 10-02-2024 Basic metabolic 2000 panel - Serum or Plasma [facility] Comment on above: Expected: 07/03/2024 , Expires: 10/02/2024 Start: 07-03-2024 End: 10-02-2024 Magnesium [Mass/volume] in Serum or Plasma [facility] Comment on above: Expected: 07/03/2024 , Expires: 10/02/2024 Start: 07-03-2024 End: 10-02-2024 Thyrotropin [Units/volume] in Serum or Plasma [facility] Comment on above: Expected: 07/03/2024 , Expires: 10/02/2024 Start: 07-03-2024 End: 07-03-2024 Patient encounter procedure 07/03/2024 8:00 AM EDT Office Visit [facility] [address] [place], [place] [id number] Gracy Calvillo PA-C [address] [place], [place] [id number] palpatations x 1 month [facility] [place] Comment on above: palpatations x 1 mon Start: 06-20-2024 Covid-19 Vaccine () Covid-19 Vaccine () [facility] Start: 04-08-2024 DIABETES SCREEN DIABETES SCREEN [facility] Start: 03-07-2024 Advance Directive Discussion Advance Directive Discussion [facility] Start: 02-03-2024 Hepatitis C Screening Hepatitis C [facility] Comment on above: Postponed from 12/06 (Declined at this time) Start: 02-03-2024 Hepatitis C screening Hepatitis C [facility] Comment on above: Postponed from 12/06 (Declined at this time) Start: 01-24-2024 End: 04-24-2024 ESTROGEN FRACTION BL [facility] Work Phone: Comment on above: Expected: 01/24/2024 , Expires: 04/24/2024 Start: 01-24-2024 End: 04-24-2024 TESTOSTERONE, FREE AND TOTAL, BY EQUILIBRIUM ULTRAFILTRATION MASS SPECTROMETRY [facility] Comment on above: Expected: 01/24/2024 , Expires: 04/24/2024 Start: 01-24-2024 End: 04-24-2024 Thyrotropin [Units/volume] in Serum or Plasma [facility] Comment on above: Expected: 01/24/2024 , Expires: 04/24/2024 Start: 01-24-2024 End: 01-24-2024 Patient encounter procedure 01/24/2024 9:20 AM EST Office Visit [facility] [place] [address] [place], [place] [phone] My Martinez PA-C [address] [place] [address] possible hormonal imbalance Family [facility] Comment on above: possible hormonal im balance Start: 11-06-2023 Covid-19 Vaccine () Covid-19 Vaccine () [facility] Start: 11-06-2023 Covid-19 Vaccine () Covid-19 Vaccine () [facility] Start: 11-06-2023 Influenza vaccination Influenza Vacc ine (#1) [facility] Start: 08-21-2023 Mammography [facility] Start: 08-21-2023 Screening for malign ant neoplasm of breast Mammogram Screening [facility] Start: 08-11-2023 Covid-19 Vaccine () Covid-19 Vaccine () [facility] Start: 07-25-2023 End: 07-25-2023 Patient encounter procedure 07/25/2023 10:30 AM EDT Office Visit [employer] [facility] [address] [place] [address] [facility] [address] [place] [address] General cancer susceptibility; ovarian cancer. [facility] Comment on above: General cancer susce ptibility; ovarian cancer. Start: 03-29-2023 Colonoscopy COLONOSCOPY [facility] Start: 03-29-2023 COLORECTAL CANCER SCREENING COLORECTAL CANCER SCREENING [facility] Start: 03-07-2023 Advance Directive Discussion Advance Directive Discussion [facility] Start: 11-05-2022 Covid-19 Vaccine () Covid-19 Vaccine () [facility] Start: 11-05-2022 Influenza vaccination C [facility] Start: 05-07-2022 End: 07-07-2022 25-hydroxyvitamin D3 [Mass/volume] in Serum or Plasma VITAMIN D 25 HYDROXY Lab Routine Osteopenia, senile Expected: 05/07/2022, Expires: 07/07/[address] [facility] Work Phone: Comment on above: Expected: 05/07/2022 , Expires: 07/07/2022 Start: 05-07-2022 End: 07-07-2022 C reactive protein [Mass/volume] in Serum or Plasma C-REACTIVE PROTEIN (CRP) Lab Routine Osteopenia, senile Expected: 05/07/2022, Expires: 07/07/[address] [facility] Work Phone: Comment on above: Expected: 05/07/2022 , Expires: 07/07/2022 Start: 05-07-2022 End: 07-07-2022 CBC W Auto Differential panel - Blood CBC + DIFF Lab Routine Osteopenia, senile Celiac disease Expected: 05/07/2022, Expires: 07/07/[address] [facility] Work Phone: Comment on above: Expected: 05/07/2022 , Expires: 07/07/2022 Start: 05-07-2022 End: 07-07-2022 Cobalamin (Vitamin B12) [Mass/volume] in Serum or Plasma VITAMIN B12 BLOOD Lab Routine Osteopenia, senile Fatigue, unspecified type Dyslipidemia Dysthymia Celiac disease Expected: 05/07/2022, Expires: 07/07/[address] [facility] Work Phone: Comment on above: Expected: 05/07/2022 , Expires: 07/07/2022 Start: 05-07-2022 End: 07-07-2022 Comprehensive metabolic 2000 panel - Serum or Plasma COMP METABOLIC PANEL Lab Routine Osteopenia, senile Celiac disease Expected: 05/07/2022, Expires: 07/07/[address] [facility] Work Phone: Comment on above: Expected: 05/07/2022 , Expires: 07/07/2022 Start: 05-07-2022 End: 07-07-2022 Hemoglobin A1c in Blood HGB A1C Lab Routine Hyperglycemia Expected: 05/07/2022, Expires: 07/07/[address] [facility] Work Phone: Comment on above: Expected: 05/07/2022 , Expires: 07/07/2022 Start: 05-07-2022 End: 07-07-2022 Lipid 1996 panel - Serum or Plasma LIPID PANEL BASIC Lab Routine Dyslipidemia Expected: 05/07/2022, Expires: 07/07/[address] [facility] Work Phone: Comment on above: Expected: 05/07/2022 , Expires: 07/07/2022 Start: 05-07-2022 End: 07-07-2022 Magnesium [Mass/volume] in Serum or Plasma MAGNESIUM BLD Lab Routine Osteopenia, senile Expected: 05/07/2022, Expires: 07/07/[address] [facility] Work Phone: Comment on above: Expected: 05/07/2022 , Expires: 07/07/2022 Start: 05-07-2022 End: 07-07-2022 Thyrotropin [Units/volume] in Serum or Plasma TSH BLD Lab Routine Osteopenia, senile Fatigue, unspecified type Dyslipidemia Celiac disease Expected: 05/07/2022, Expires: 07/07/[address] [facility] Work Phone: Comment on above: Expected: 05/07/2022 , Expires: 07/07/2022 Start: 05-07-2022 End: 07-07-2022 Thyroxine (T4) free [Mass/volume] in Serum or Plasma T4 FREE/FREE THYROX Lab Routine Osteopenia, senile Fatigue, unspecified type Dyslipidemia Celiac disease Expected: 05/07/2022, Expires: 07/07/[address] [facility] Work Phone: Comment on above: Expected: 05/07/2022 , Expires: 07/07/2022 Start: 05-06-2022 COVID-19 VACCINE (6 - Moderna series) COVID-19 VACCINE (6 - Moderna series) [facility] Start: 03-07-2022 ADVANCE DIRECTIVE DISCUSSION ADVANCE DIRECTIVE DISCUSSION [facility] Start: 02-17-2022 Mammography MAMMOGRAM [facility] Start: 11-26-2021 COVID-19 VACCINE (5 - Booster for Moderna series) COVID-19 VACCINE (5 - Booster for Moderna series) [facility] Start: 11-05-2021 Influenza vaccination C [facility] Start: 05-22-2021 COVID-19 VACCINE (4 - Booster for Moderna series) COVID-19 VACCINE (4 - Booster for Moderna series) [facility] Start: 03-07-2021 ADVANCE DIRECTIVE DISCUSSION ADVANCE DIRECTIVE DISCUSSION [facility] Start: 01-05-2014 Medicare Annual Well ness Visit Medicare Annual Wellness Visit [facility] Start: 2008 RSV Vaccine (1 - 1-d ose 60+ series) RSV Vaccine (1 - 1-dose 60+ series) [facility] Start: 1993 COLOGUARD (FIT-DNA) COLOGUARD (FIT-D NA) [facility] Start: [address] COLONOGRAPHY [facility] Start: 1993 FECAL OCCULT BLOOD FECAL OCCULT BLOO D [facility] Start: 1993 Screening for malign ant neoplasm of colon [facility] Start: 1993 SIGMOIDOSCOPY SIGMOIDOSCOPY Ihsan villafuerte [facility] Start: 1966 Anxiety Screening Anxiety Screening [facility] Start: 1966 HEPATITIS C SCREENING HEPATITIS C [facility] Start: 1966 Hepatitis C screening Hepatitis C [facility] Bacteria identified in Urine by Culture URINE CULTURE Microbiology Routine Urinary frequency Ordered: 05/04/[address] [facility] Work Phone: Comment on above: Ordered: 05/04/2022 Calprotectin [Mass/m ass] in Stool CALPROTECTIN,FECAL Lab Routine Acute constipation Hard stool Ordered: 02/02/[address] [facility] Work Phone: Comment on above: Ordered: 02/02/2023 End: 06-16-2024 CT Abdomen and Pelvis W contrast IV CT ABD/PEL W IVCON Radiology Routine Abdominal distension (gaseous) Generalized abdominal pain Nausea 1 Occurrences starting 05/18/2023 until 06/16/[address] [facility] Work Phone: Comment on above: 1 Occurrences starti ng 05/18/2023 until 06/16/2024 CT Abdomen and Pelvi s W contrast IV CT ABD/PEL W IVCON Radiology Routine Abdominal distension (gaseous) Generalized abdominal pain Nausea 05/20/2023 3:32 PM EDT [facility] Work Phone: End: 08-12-2025 DBT Breast - bilateral screening LUNA SCREENING W JAXSON Radiology Routine Encounter for screening mammogram for malignant neoplasm of breast 1 Occurrences starting 07/13/2024 until 08/12/[address] [facility] Work Phone: Comment on above: 1 Occurrences starti ng 07/13/2024 until 08/12/2025 End: 08-05-2022 Diagnostic mammography computer-aided detcj uni LUNA DIAGNOSTIC LT Radiology Routine Abnormal mammogram 1 Occurrences starting 07/06/2021 until 08/05/[address] [facility] Work Phone: Comment on above: 1 Occurrences starti ng 07/06/2021 until 08/05/2022 End: 06-06-2023 DXA-AXIAL SKELETON DXA-AXIAL SKELETON Radiology Routine Osteopenia, senile Screening for osteoporosis Disorder of bone and articular cartilage Other disorders of bone development and growth, multiple sites Other specified disorders of bone density and structure, other site 1 Occurrences starting 05/07/2022 until 06/06/[address] [facility] Work Phone: Comment on above: 1 Occurrences starti ng 05/07/2022 until 06/06/2023 ECG B/O W INTERP (ME D OFFICE) ECG B/O W INTERP (MED OFFICE) ECG Routine Atrial flutter with rapid ventricular response (HCC) Palpitations Ordered: 08/17/[address] [facility] Work Phone: Comment on above: Ordered: 08/17/2024 ECG COMPLETE [facility] Work Phone: Comment on above: Ordered: 07/03/2024 End: 08-17-2025 Echocardiography ECHO Cardiology Routine Atrial flutter with rapid ventricular response (HCC) Palpitations 1 Occurrences starting 08/17/2024 until 08/17/2025 [facility] Comment on above: 1 Occurrences starti ng 08/17/2024 until 08/17/2025 ENTERIC BACTERIAL PA [place] BY PCR ENTERIC BACTERIAL PANEL BY PCR Lab Routine Acute constipation Hard stool Ordered: 02/02/[address] [facility] Work Phone: Comment on above: Ordered: 02/02/2023 End: 04-30-2023 LUNA SCREENING LUNA SCREENING Radiology Routine Encounter for screening mammogram for breast cancer 1 Occurrences starting 03/31/2022 until 04/30/[address] [facility] Work Phone: Comment on above: 1 Occurrences starti ng 03/31/2022 until 04/30/2023 End: 06-16-2024 MG Breast Screening LUNA SCREENING Radiology Routine Encounter for screening mammogram for malignant neoplasm of breast 1 Occurrences starting 05/18/2023 until 06/16/[address] [facility] Work Phone: Comment on above: 1 Occurrences starti ng 05/18/2023 until 06/16/2024 End: 06-24-2024 MR Liver WO and W contrast IV MRI LIVER WO/W IVCON Radiology Routine Abdominal distension (gaseous) Generalized abdominal pain Liver lesion 1 Occurrences starting 05/26/2023 until 06/24/[address] [facility] Work Phone: Comment on above: 1 Occurrences starti ng 05/26/2023 until 06/24/2024 MR Liver WO and W co ntrast IV MRI LIVER WO/W IVCON Radiology Routine Abdominal distension (gaseous) Generalized abdominal pain Liver lesion 06/28/2023 2:28 PM EDT [facility] Work Phone: End: 09-16-2025 NM Heart Perfusion W multiple states of exercise NM CARDIAC PERF STRESS/EXERCISE Radiology Routine Atrial flutter with rapid ventricular response (HCC) Palpitations Abnormal patient-activated cardiac event monitor PVC (premature ventricular contraction) 1 Occurrences starting 08/17/2024 until 09/16/2025 [facility] Comment on above: 1 Occurrences starti ng 08/17/2024 until 09/16/2025 OCCULT BLD EXAM-DIAG OCCULT BLD EXAM-DIAG Microbiology Routine Acute constipation Hard stool Ordered: 02/02/[address] [facility] Work Phone: Comment on above: Ordered: 02/02/2023 OUTSIDE VENDOR CARDI AC OUTPATIENT EXTENDED RHYTHM RECORDING (WITHOUT TELEMETRY) OUTSIDE VENDOR CARDIAC OUTPATIENT EXTENDED RHYTHM RECORDING (WITHOUT TELEMETRY) Holter Routine Palpitations Ordered: 07/03/2024 [facility] Comment on above: Ordered: 07/03/2024 End: 02-05-2023 Radex spine lumbosacral 2/3 views XR LUMBAR GENERAL 3V AP/LAT/L5-S1 Radiology Routine Acute midline low back pain with right-sided sciatica 1 Occurrences starting 01/06/2022 until 02/05/[address] [facility] Work Phone: Comment on above: 1 Occurrences starti ng 01/06/2022 until 02/05/2023 Radex spine lumbosac ral 2/3 views XR LUMBAR GENERAL 3V AP/LAT/L5-S1 Radiology Routine Acute midline low back pain with right-sided sciatica 01/06/2022 8:15 AM EDT [facility] [facility] Work Phone: End: 08-05-2022 Us breast uni real time with image limited US BREAST LTD LT Radiology Routine Abnormal mammogram 1 Occurrences starting 07/06/2021 until 08/05/[address] [facility] Work Phone: Comment on above: 1 Occurrences starti ng 07/06/2021 until 08/05/2022 End: 03-03-2024 XR ABDOMEN 1V SUPINE XR ABDOMEN 1V SUPINE Radiology Routine Acute constipation Hard stool 1 Occurrences starting 02/02/2023 until 03/03/[address] [facility] Work Phone: Comment on above: 1 Occurrences starti ng 02/02/2023 until 03/03/[address] [facility] Immunizations Immunization Date Immunization Notes Care Provider [facility] 12-21-2023 influenza, high dose seasonal, preservative-free Gracy Calvillo PA-C Work Phone: [facility] 12-21-2023 influenza virus vacc ine, unspecified formulation Agnes Morris MA Work Phone: [facility] 05-18-2023 pneumococcal conjuga te (PCV20) vaccine, 20 valent (PREVNAR 20) Alfredito Engel DO Work Phone: [facility] Work Phone: 05-18-2023 pneumococcal Conjuga te, unspecified formulation Alfredito Engel DO Work Phone: [facility] Work Phone: 02-02-2023 respiratory syncytia l virus (RSV) vaccine, bivalent (ABRYSVO) Annamarie Eugene APRN.CNP Work Phone: [facility] 11-16-2022 influenza (HD-IIV4) vaccine, age 65+ yr, high dose, quadrivalent, PF (FLUZONE HIGH-DOSE) Radha Crockett PA-C Work Phone: [facility] 11-16-2022 influenza virus vacc ine, unspecified formulation Xr Radha Work Phone: [facility] 01-06-2022 COVID-19 booster vaccine, age 12+ yr, bivalent (PFIZER-[employer]) Juanita Dunn STITCHER STANDARD MACHINE.ENGINEERING LIBRARIAN Work Phone: [facility] 01-06-2022 influenza, high-dose , quadrivalent vaccine (FLUZONE HIGH DOSE QUADRIVALENT) Juanita Dunn STITCHER STANDARD MACHINE.ENGINEERING LIBRARIAN Work Phone: [facility] 01-06-2022 influenza virus vacc ine, unspecified formulation Alfredito Engel DO Work Phone: [facility] 05-26-2020 tetanus and diphther ia toxoids, adsorbed, preservative free, for adult use (5 Lf of tetanus toxoid and 2 Lf of diphtheria toxoid) Alfredito Engel DO Work Phone: [facility] Work Phone: 05-14-2020 COVID-19 vaccine, fu ll dose (MODERNA) Alfrediot Engel DO Work Phone: [facility] Work Phone: 04-17-2020 COVID-19 vaccine, fu ll dose (MODERNA) Alfredito Engel DO Work Phone: [facility] Work Phone: 12-29-2019 influenza, high-dose , quadrivalent vaccine (FLUZONE HIGH DOSE QUADRIVALENT) Alfredito Engel DO Work Phone: [facility] 07-05-2019 zoster vaccine recombinant Alfredito Engel DO Work Phone: [facility] 05-05-2019 zoster vaccine recombinant Alfredito Engel DO Work Phone: [facility] 01-15-2019 influenza, high dose seasonal, preservative-free Alfredito Engel DO Work Phone: [facility] Work Phone: 01-15-2019 pneumococcal polysaccharide vaccine, 23 valent Alfredito Engel DO Work Phone: [facility] Work Phone: 02-13-2018 influenza, high dose seasonal, preservative-free Alfredito Engel DO Work Phone: [facility] Work Phone: 02-14-2017 influenza, high dose seasonal, preservative-free Alfredito Engel DO Work Phone: [facility] Work Phone: 12-30-2015 influenza, seasonal, injectable Alfredito Engel DO Work Phone: [facility] Work Phone: 01-21-2014 pneumococcal conjuga te vaccine, 13 valent Alfredito Engel DO Work Phone: [facility] Work Phone: 03-31-2012 typhoid capsular polysaccharide vaccine Ade Whalen MA [facility] 03-31-2012 yellow fever vaccine Ade Whalen MA [facility] 05-18-2010 tetanus toxoid, redu jing diphtheria toxoid, and acellular pertussis vaccine, adsorbed Alfredito Engel DO Work Phone: [facility] Work Phone: 12-19-2009 zoster vaccine, live Alfredito Engel DO Work Phone: [facility] Work Phone: 01-23-2009 zoster vaccine, live Alfredito Engel DO Work Phone: [facility] Work Phone: 12-26-2008 zoster vaccine, live Alfredito Engel DO Work Phone: [facility] Work Phone: 12-25-2008 pneumococcal polysaccharide vaccine, 23 valent Alfredito Engel DO Work Phone: [facility] Work Phone: 11-20-2004 hepatitis A and hepatitis B vaccine Ade Whalen MA [facility] 07-27-2004 hepatitis A and hepatitis B vaccine Ade Whalen MA [facility] 05-20-2004 hepatitis A and hepatitis B vaccine Ade Whalen MA [facility] 05-20-2004 typhoid vaccine, carol e, oral Ade Whalen MA [facility] 05-20-2002 TD(adult) unspecifie d formulation Ade Whalen MA [facility] 12-19-2000 pneumococcal polysaccharide vaccine, 23 valent Alfredito Engel DO Work Phone: [facility] Work Phone: Payers Date Payer Category Payer Self-pay 2022 [facility] ANTHEM ME DICARE SUPPLEMENT [id number] 2022 Medicare [id number] 2019 Unknown ANTHCHARISMA KUMAR S AND BLUE SHIELD ANTHEM MEDIBLUE O [id number] 2019-Present [id number] [place], [place] [id number] [address] [id number] 2019 Unknown [id number] 2014 Medicare [id number] 2013 Medicare [id number] 1948 Unknown [id number] Medicare [id number] Self-pay [id number] Unknown [id number] Unknown [id number] Unknown [id number] Social History Date Type Detail Facility Start: 02-14-2017 End: 08-17-2024 Tobacco smoking status NHIS Never smoked tobacco [facility] Start: 04-08-2021 End: 07-03-2024 Alcohol intake Current non-drinker of alcohol (finding) [facility] Start: 10-02-2019 End: 05-04-2022 History SDOH Alcohol Frequency 2 [facility] Start: 04-24-2019 End: 05-04-2022 History SDOH Alcohol Std Drinks 1 [facility] Start: 04-24-2019 End: 05-04-2022 History SDOH Social Connections Phone 3 [facility] Start: 04-24-2019 End: 05-04-2022 History SDOH Physical Activity DPW 6 [facility] Start: 11-20-2019 End: 09-29-2021 History SDOH Physical Activity MPS 4 [facility] Start: 11-26-2019 End: 09-29-2021 History SDOH Financial 5 [facility] Start: 04-24-2019 Education 18 [facility] Start: 1950 Sex Assigned At Female [facility] Start: 09-26-2021 End: 01-06-2022 Exposure to SARS-CoV-2 (event) Not sure [facility] Start: 02-14-2017 End: 08-17-2024 Tobacco use and exposure Smokeless tobacco non-user [facility] Work Phone: Start: 05-04-2022 End: 11-22-2022 History of Social function [facility] Start: 05-04-2022 End: 11-22-2022 Social connection and isolation panel [facility] Do you belong to any clubs or organizations such as buddhist groups, unions, fraternal or athletic groups, or school groups? Yes [facility] Are you now , , , , never or living with a partner? [facility] How often to you hav e a drink containing alcohol? Monthly or less [facility] How many standard dr inks containing alcohol do you have on a typical day? 1 or 2 [facility] How often do you hav e 6 or more drinks on 1 occasion? Never [facility] How hard is it for y ou to pay for the very basics like food, housing, medical care, and heating Not hard at all [facility] Do you feel stress - tense, restless, nervous, or anxious, or unable to sleep at night because your mind is troubled all the time - these days [OSQ] Only a little [facility] The food that (I/we) bought just didn't last, and (I/we) didn't have money to get more. Never true [facility] In the past 12 month s, was there a time when you were not able to pay the mortgage or rent on time? No [facility] Start: 12-27-2019 Gender identity Identifies as female gender (finding) [facility] Start: 12-27-2019 Sexual orientation Heterosexual (finding) [facility] History of tobacco use Passive smoker [facility] Start: 08-17-2024 Alcoholic beverage intake [facility] (finding[facility] Goals Date Patient Goal Desired Activity /State Personal health goal Functional Status Date Assessment Result Facility 07-03-2024 Total score [AUDIT-C] 1 07/04/19 25 6:32 AM EDT [facility] 07-03-2024 Within the last year , have you been humiliated or emotionally abused in other ways by your partner or ex-partner? No 07/03/2024 6:32 AM EDT [facility] 07-03-2024 Within the last year , have you been afraid of your partner or ex-partner? No 07/03/2024 6:32 AM EDT [facility] 07-03-2024 Within the last year , have you been raped or forced to have any kind of sexual activity by your partner or ex-partner? No 07/03/2024 6:32 AM EDT [facility] 07-03-2024 Within the last year , have you been kicked, hit, slapped, or otherwise physically hurt by your partner or ex-partner? No 07/03/2024 6:32 AM EDT User, Mychart No [facility] 07-03-2024 How often to you hav e a drink containing alcohol? Monthly or less 07/03/2024 6:32 AM EDT User, Mychart Monthly or less [facility] 07-03-[address] inks containing alcohol do you have on a typical day? 1 or 2 07/03/2024 6:32 AM EDT User, Mychart 1 or 2 [facility] 07-03-2024 How often do you hav e 6 or more drinks on 1 occasion? Never 07/03/2024 6:32 AM EDT User, Mychart Never [facility] Clinical Notes 07-06-2021 to 10-01-2024 Telephone Encounter - Cassie Merrill - 10/01/2024 3:11 PM EDTTelephone Encounter - Cassie Merrill - 10/01/2024 3:11 PM EDTGJosh sexton PT - 09/27/2024 10:09 AM EDTPatient Instructions Note Date & Type Note Facility 10-01-2024 Telephone encounter Note I called and left a message that her appt 10/12/24 with Radha Crockett has been cancelled and rescheduled for 10/17/24 at 1:30. I did ask for her to return the call if she was not able to come in. Cassie Merrill [facility] 10-01-2024 Miscellaneous Notes I called and left a message that her appt 10/12/24 with Radha Crockett has been cancelled and rescheduled for 10/17/24 at 1:30. I did ask for her to return the call if she was not able to come in. Cassie Merrill documented in this encounter [facility] 09-27-2024 Note HNO ID: [id number] Author: JOSH DEE PT Service: ? Author Type: Physical Therapist Type: Progress Notes Filed: 09/27/2024 10:18 Note Text: [facility] DME ISSUE NOTE Patient identified by name and date: Yes Subjective: Corry Jerome is a 73 year old female seen today for fitting and chicken picker of refurbished pair of custom foot orthotics. Equipment Owned: custom foot orthotics DME Delivery: Pt was educated on the option of having orthotics refurbished as needed in the future as long as shell is performing it's intended function well. Pt was educated on approximate cost of refurbishing orthotics and an approximate time frame when this might be necessary. The fit of orthotics was assessed with pt standing, with and without shoes. The comfort of orthotics was assessed with pt standing and walking with orthotics in shoes. Pt denied any rubbing or pinching and felt that fit of custom orthotics was correct. Contact information for this therapist was provided to patient. Custom biomechanical foot orthotics with serial number: #[id number] were issued to patient and proof of receipt form signed by pt and therapist. All specifications for custom foot orthotics can be found in orthotic evaluation visit note. Planned Interventions: Follow up as needed for brace fitting/issues. Billing:[facility]: Equipment: [id number] refurbished pair of custom foot orthotics No charge for time. Total time: 10 minutes Josh Dee PT [facility] 09-27-2024 History of Present illness Narrative [facility] DME ISSUE NOTE Patient identified by name and date: Yes Subjective: Corry Jerome is a 73 year old female seen today for fitting and chicken picker of refurbished pair of custom foot orthotics. Equipment Owned: custom foot orthotics DME Delivery: Pt was educated on the option of having orthotics refurbished as needed in the future as long as shell is performing it's intended function well. Pt was educated on approximate cost of refurbishing orthotics and an approximate time frame when this might be necessary. The fit of orthotics was assessed with pt standing, with and without shoes. The comfort of orthotics was assessed with pt standing and walking with orthotics in shoes. Pt denied any rubbing or pinching and felt that fit of custom orthotics was correct. Contact information for this therapist was provided to patient. Custom biomechanical foot orthotics with serial number: #[id number] were issued to patient and proof of receipt form signed by pt and therapist. All specifications for custom foot orthotics can be found in orthotic evaluation visit note. Planned Interventions: Follow up as needed for brace fitting/issues. Billing:[facility]: Equipment: [id number] refurbished pair of custom foot orthotics No charge for time. Total time: 10 minutes Josh Dee PT documented in this encounter [facility] 09-21-2024 Telephone encounter Note LMOM asking patient is she had the stress and echo done elsewhere since she was not scheduled in the epic system. Ayalogict message sent to patient as well. Agnes Morris MA September 21, 2024 4:36 PM [facility] 09-21-2024 Miscellaneous Notes LMOM asking patient is she had the stress and echo done elsewhere since she was not scheduled in the epic system. MyChart message sent to patient as well. Agnes Morris MA September 21, 2024 4:36 PM documented in this encounter [facility] 08-21-2024 Telephone encounter Note I called to notify the patient that her stress test and echo are scheduled 09/25/24 @ 7:00 at [facility]. Cassie Merrill [facility] 08-21-2024 Miscellaneous Notes I called to notify the patient that her stress test and echo are scheduled 09/25/24 @ 7:00 at [facility]. Cassie Merrill documented in this encounter [facility] 08-17-2024 Instructions Radha Crockett PA-C - 08/17/2024 3:12 PM EDT We discussed your heart health and recent symptoms: - Your event monitor showed mostly normal sinus rhythm with an average heart rate of 77 beats per minute. The lowest recorded heart rate was 48, and the highest was 156. - You had one brief episode of supraventricular tachycardia (lasting only a few seconds) and a short episode of atrial flutter (lasting 2 minutes and 45 seconds). Atrial flutter increases the risk of blood clots and stroke, but your episodes were brief and occurred less than 1% of the time. - Based on your risk factors (age and gender), you have a moderate stroke risk score. However, because your episodes were short, I do not recommend starting a blood thinner at this time given risks outweigh benefits at this time. We will monitor for any changes and reconsider oral anticoagulation therapy following results of cardiac testing. -Notify office of increased frequency of palpitations. We discussed next steps to evaluate your heart health: - I recommend an echocardiogram (ultrasound of your heart) to check for structural issues, such as valve disease or heart failure, that could contribute to your symptoms. - I also recommend a treadmill stress test to assess your heart s blood supply and rule out blockages. You indicated you are comfortable walking on a treadmill for this test. - Both tests will be scheduled at [facility]. If you do not hear back from our office within 2 weeks of completion of cardiac testing, please contact the office for results. We discussed monitoring options: - If your symptoms persist or worsen, we can consider implanting a loop recorder. This device monitors your heart rhythm continuously for 2-3 years and helps detect any longer episodes of atrial flutter or atrial fibrillation. I provided you with a booklet about this option for your review. -No indication for pacemaker at this time. We discussed lifestyle recommendations to support your heart health: - Continue using your CPAP nightly to manage your sleep apnea. - Stay hydrated, eat regular meals, and maintain your current level of physical activity, including walking and gardening. - Limit caffeine intake to one cup of tea or coffee per day and avoid decongestants or [id number] cold medications that may irritate your heart. - Avoid excessive stress and ensure you are getting adequate sleep. We reviewed your recent lab results: - Your electrolytes, kidney function, and thyroid function were normal. Magnesium was excellent at 2.2. Potassium was slightly elevated at 5.1 but still within the upper limit of normal. Glucose was slightly low at 71, but this is not concerning. We discussed your current medications: - Continue your current medications and supplements, including magnesium citrate, which you are tolerating well. The form of magnesium you are using is appropriate for your needs. Follow-up: - Please schedule a follow-up appointment with me in 6-8 weeks to review the results of your echocardiogram and stress test and discuss any further steps if needed. If your symptoms worsen or you have any concerns before then, please contact our office. documented in this encounter [facility] 08-17-2024 History of Present illness Narrative Images from the original note were not included. Heart, Vascular and Thoracic Girdler Trevon Lord Department of Cardiovascular Medicine [facility] SECTION OF ELECTROPHYSIOLOGY OUTPATIENT VISIT DATE 08/17/2024 The patient consented to the use of FastDue software for draft documentation of the visit consistent with [facility] s Notice of Privacy Practices. PRIMARY CARE PHYSICIAN: Alfredito Engel [address] [place] [address] CHIEF COMPLAINT: Referral for palpitations/Aflutter RVR on event monitor HISTORY OF PRESENT ILLNESS: Ms. 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 She was referred by her PCP with reported episodes of palpitations over a 2 week period. She described her palpitations as a fluttering. She has a family history of cardiac disease in her father with an TX at age 48 and passing away before age 55. She also has an older sister with AF managed with medication and ablation. At her acute PCP visit on 07/03/2024, she c/o palpitations and heart rates in the mid-40s for at least 10 minutes per her FitBit smart watch. She denied any dyspnea or decreased exercise tolerance. Typically her heart rates are in the 70s. A 2 week event monitor was ordered and she was referred to EP. Her EKG revealed NSR with HR 80bpm. Her 14 day Zio event monitor in early July revealed: -Min heart rate 48bpm; Max HR 156bpm; avg HR of 77bpm -predominantly underlying rhythm was SR -1 run of Supraventricular Tachycardia lasting 6 beats with a max rate of 152 bpm (avg 124 bpm). -Atrial Flutter occurred (<1% burden) with heart rates ranging from 83-156 bpm (avg of 127 bpm), the longest AF episode lasting 2 mins 45 secs with an avg rate of 128 bpm. -Atrial Flutter was detected within +/- 45 seconds of symptomatic patient reported event(s). -Isolated PACs were occasional (2.9%, 80575) and PAC couplets were rare (<1.0%, 469), and PAC triplets were rare (<1.0%, 73). -Isolated PVCs were rare (<1.0%), and no VE couplets or VE triplets were present. She presents today accompanied by her for evaluation of new onset paroxysmal atrial flutter. She reports experiencing palpitations, described as a consistent flutter lasting about 5-6 seconds, which occurred once and has not recurred. She notes that her palpitations have been pretty quiet recently, though she may have felt one yesterday or earlier today. She denies any specific triggers for these episodes, stating they seem pretty random. She denies chest pain, dyspnea, or significant fatigue. She does experience occasional lightheadedness with positional changes, but denies syncope. She reports no swelling in her feet or ankles. Today's EKG reveals NSR with a heart rate of 88 bpm. A previous TTE performed in 2021 showed normal LVEF of 67% and no significant valvular disease. She has a history of MAUREEN, diagnosed approximately 8-9 years ago, and uses a CPAP machine nightly, which has significantly improved her energy levels and reduced daytime grogginess. She denies any issues with her CPAP machine and reports no snoring or apneic episodes since starting treatment. She also has a history of asthma, which she attributes to a COVID-19 infection in 2022. She denies any significant cough or dyspnea at rest. She has a history of dyslipidemia, with a lipid panel from 05/2023 showing total cholesterol of 163 mg/dL, triglycerides of 60 mg/dL, HDL of 63 mg/dL, and LDL of 88 mg/dL. She is not currently on any lipid-lowering medications. Recent labs from 07/03/2024 showed a glucose level of 71 mg/dL, sodium of 140 mmol/L, potassium of 5.1 mmol/L, chloride of 104 mmol/L, calcium of 9.2 mg/dL, magnesium of 2.2 mg/dL, and TSH of 1.7 mIU/L. She reports a history of arthritis, with significant pain in one knee and one hip, but states that turmeric supplements have effectively managed her pain. She denies any significant bleeding issues, but notes that she can get a bloody nose if she consumes too much wheat, due to a wheat intolerance. She also reports a history of leaky gut and takes chromium picolinate for this condition. 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 She reports fair to good energy levels, but notes that she has expended a lot of emotional energy in her life, which she believes contributes to her occasional fatigue. She reports sleeping well, getting 7-8 hours of sleep per night. She is physically active, engaging in gardening and walking regularly. She reports walking 15,000 steps on Tuesday, according to her Fitbit. She denies any significant limitations in her physical activity. She has a family history of CAD, with her father having multiple MIs starting at age 48 and passing away at age 54. He was a smoker. She is currently taking Bactroban ointment as needed, Pulmicort inhaler BID, Vesicare once daily, vitamin C supplement, Singulair 10 mg at bedtime, cetirizine 10 mg once daily, magnesium 163 mg once daily, Miralax daily, Effexor 50 mg, two tablets in the morning and one in the evening, fish oil 2 g daily, chromium picolinate, vitamin E, turmeric 3,900 mg daily, biotin, B-complex, multivitamin, and a nasal steroid spray. She denies any issues with her current medications. PAST MEDICAL HISTORY Diagnosis Date Allergic rhinitis Antibiotic reaction allergy- Amoxicillin, Ampicillin Arthritis Atrial fibrillation/flutter (HCC) Breast cancer (HCC) Celiac disease (HCC) Diverticular disease of colon Ductal carcinoma in situ (DCIS) of right breast 03/07/1997 Dyslipidemia Dysthymia History of cardiac monitoring 08/02/2024 Patient had a min HR of 48 bpm, max HR of 156 bpm, and avg HR of 77 bpm. Predominant underlying rhythm was Sinus Rhythm. 1 run of Supraventricular Tachycardia occurred lasting 6 beats with a max rate of 152 bpm. Atrial Flutter occurred. Atrial Flutter was detected within +/- 45 seconds of symptomatic patient event History of echocardiogram 10/08/2021 EF 67%. LV is small. Internal hemorrhoids Lobular carcinoma of breast, stage 1 (HCC) 03/07/1997 right sided Osteopenia stable in past Palpitations Seborrheic keratosis SOB (shortness of breath) Urge incontinence PAST SURGICAL HISTORY Procedure Laterality Date BIOPSY BREAST Left 2019 normal results COLONOSCOPY 03/29/2013 Non-bleeding internal hemorrhoids. - Diverticulosis in the distal descending colon. COLONOSCOPY 04/08/2023 - Non-bleeding internal hemorrhoids. - Diverticulosis in the sigmoid colon. - No specimens collected. COLONOSCOPY 03/06/2003 1. Small non-bleeding internal hemorrhoids were present 2. Redundancy of the descending colon 3. Colonoscopy, otherwise normal. 4. The bleeding is clearly hemorrhoidal in nature. D&C, DIAG AND/OR THERAPEUTIC 03/07/2014 due to pelvic pain- as on Tamoxifen INSERTION BREAST IMPLANT SAME DAY OF MASTECTOMY Right 03/07/1997 LUMPECTOMY/RADIOTHERAPY DIAG MAMM/A10 Right 03/07/1997 MASTECTOMY, SIMPLE, COMPLETE Right 03/07/1997 REMOVAL OF OVARY(S) Left 1983 REMV CATARACT EXTRACAP,INSERT LENS Bilateral 2008 FAMILY HISTORY Problem Relation Age of Onset Heart Mother CHF, 86 Breast Cancer Mother 72 Heart Father CAD, [place] Cancer Father Lung 53 Diabetes Sister Lymphoma Sister b CELL Diabetes Brother other (Liver Cirhosis) Maternal Grandfather Alcoholic Stroke Paternal Grandmother Alcohol/Drug Paternal Grandfather Heart Paternal Grandfather Heart Paternal Aunt Social History Tobacco Use Smoking status: Never Passive exposure: Past Smokeless tobacco: Never Vaping Use Vaping status: Never Used Substance Use Topics Alcohol use: Not Currently Drug use: Never ALLERGIES Allergen Reactions Ampicillin Hives [place] Fruits Intolerance Dust Mites Intolerance Penicillins Hives Wheat Bran Intolerance congestion Milk Containing Pro* Other: See Comments vertigo MEDICATIONS: triamcinolone acetonide (NASACORT) 55 mcg nasal inhaler Use 2 sprays in the nose daily at bedtime. CPAP daily at bedtime. venlafaxine (EFFEXOR) 50 mg tablet TAKE 2 (TWO) TABLETS BY MOUTH IN THE MORNING, AND 1 (ONE) TABLET IN THE EVENING as directed] solifenacin (VESICARE) 5 mg tablet Take 1 tablet by mouth once daily. PULMICORT FLEXHALER 180 mcg/actuation aepb INHALE 1 puff twice daily with good oral care multivit-minerals/folic acid (CENTRUM ADULT 50 PLUS ORAL) Take by mouth. magnesium oxide 240 mg magnesium pwpk Take 163 mg by mouth once daily. omega-3 fatty acids 1,000 mg cap Take 2 g by mouth once daily. B-complex with vitamin C (VITAMIN B COMPLEX-C ORAL) Take 50 mg by mouth once daily. Chromium Picolinate 200 mcg tab Take 200 mcg by mouth once daily. Ascorbic Acid (VITAMIN C) 1,000 mg tablet Take 1,000 mg by mouth once daily. Vitamin E, dl, acetate, (VITAMIN E) 200 unit capsule Take 200 Units by mouth once daily. biotin 5 mg tab Take 5 mg by mouth once daily. ygbnqjp-oewk-magwj-oreg-capryl 100 mg-150 mg- 50 mg-150 mg cap Take 3,900 mg by mouth once daily. polyethylene glycol 3350 (MIRALAX) 17 gram/dose powder Take 17 g by mouth once daily. Dissolve dose in 4 - 8 ounces of liquid and take as directed. montelukast (SINGULAIR) 10 mg tablet Take 10 mg by mouth daily at bedtime. mupirocin (BACTROBAN) 2 % ointment Apply 1 application to affected area twice daily as needed. cetirizine 10 mg tablet Take 10 mg by mouth once daily. VITALS: BP 114/64 (BP Site: Left Arm, BP Position: Sitting, BP Cuff Size: Regular Adult) Pulse 90 Ht 167.6 cm (5' 6) Wt 66.1 kg (145 lb 12.8 oz) SpO2 98% BMI 23.53 kg/m Past Vitals Last 3 Encounter BP Readings: Date: BP: 07/03/2024 100/62 01/24/2024 108/60 06/13/2023 118/60 Last 3 Encounter Pulse Readings: Date: Pulse: 07/03/2024 83 01/24/2024 98 06/13/2023 88 Last 3 Encounter Wt Readings: Date: Wt: 07/03/2024 65.3 kg (144 lb) 01/24/2024 65.8 kg (145 lb) 06/13/2023 69.9 kg (154 lb 3.2 oz) REVIEW OF SYSTEMS Review of Systems as noted in the HPI PHYSICAL EXAMINATION Physical Exam General: Well appearing older adult female in NAD; accompanied by her at today's visit. Neuro/psych: Alert. Oriented x 3. Pleasant. Cooperative. Fair historian. HEENT: NCAT. PERRL. EOMI bilaterally. Normal speech. Hearing grossly intact bilaterally. Lymph/Neck: Supple; no carotid bruits noted. CV: RRR. Normal S1/S2. No obvious murmur. Resp: CTAB; nonlabored at rest; no wheezes, rales, or rhonchi. On room air. Abdomen: soft; NT/ND with active bowel sounds. Extremities: warm and dry with no significant LE pitting edema; palpable radial and DP pulses bilaterally. Normal unassisted gait. Garo. CARDIOVASCULAR MEDICINE TESTING EKG 08/17/2024: NSR with rate of 88bpm CO interval 148ms QRS duration 88ms Qtc 474ms 14 day Zio Monitor 07/09/2024-07/23/2024 [facility] Impression: Patient had a min HR of 48 bpm, max HR of 156 bpm, and avg HR of 77 bpm. Predominant underlying rhythm was Sinus Rhythm. 1 run of Supraventricular Tachycardia occurred lasting 6 beats with a max rate of 152 bpm (avg 124 bpm). Atrial Flutter occurred (<1% burden), ranging from 83-156 bpm (avg of 127 bpm), the longest lasting 2 mins 45 secs with an avg rate of 128 bpm. Atrial Flutter was detected within +/- 45 seconds of symptomatic patient event(s). Isolated SVEs were occasional (2.9%, 51404), SVE Couplets were rare (<1.0%, 469), and SVE Triplets were rare (<1.0%, 73). Isolated VEs were rare (<1.0%), and no VE Couplets or VE Triplets were present. EKG 07/03/2024: [facility] DOS: 07/03/2024 Impression: Vent rate: 80 bpm CO int: 144 ms QRS: 82 ms QT/QTc: 372/429 ms Normal sinus rhythm Normal ECG CXR 06/13/2023: [facility] Impression: No persistent or developing acute process Transthoracic Echocardiogram 10/08/2021: [facility] Impression: - Exam indication: Shortness of Breath - The left ventricle is small. Left ventricular systolic function is normal. EF = 67 5% (2D biplane) Normal left ventricular diastolic function. - The right ventricle is normal in size. Right ventricular systolic function is normal. - There are no significant valvular abnormalities. - The patient has not had a prior CC echocardiographic exam for comparison. Labs: WBC (k/uL) Date Value 05/09/2023 4.36 RBC (m/uL) Date Value 05/09/2023 4.53 Hemoglobin (g/dL) Date Value 05/09/2023 14.2 Hematocrit (%) Date Value 05/09/2023 41.7 Platelet Count (k/uL) Date Value 05/09/2023 286 CO2 (mmol/L) Date Value 07/03/2024 32 (H) Calcium, Total (mg/dL) Date Value 07/03/2024 9.9 AST (U/L) Date Value 05/09/2023 32 ALT (U/L) Date Value 05/09/2023 19 Potassium (mmol/L) Date Value 07/03/2024 5.1 04/08/2021 4.3 Sodium (mmol/L) Date Value 07/03/2024 140 04/08/2021 138 Magnesium (mg/dL) Date Value 07/03/2024 2.2 Creatinine (mg/dL) Date Value 07/03/2024 0.77 04/08/2021 0.87 BUN (mg/dL) Date Value 07/03/2024 15 04/08/2021 11 Glucose (mg/dL) Date Value 07/03/2024 71 04/08/2021 93 TSH Date Value 07/03/2024 1.700 mIU/L 04/02/2020 3.230 uU/mL Triglyceride 60 05/09/2023 HDL Cholesterol 63 05/09/2023 LDL Cholesterol, Calculated 88 05/09/2023 Cholesterol, Total 163 05/09/2023 Free T4 Date Value Ref Range Status 05/13/2022 1.2 0.9 - 1.7 ng/dL Final TSH Date Value Ref Range Status 07/03/2024 1.700 0.270 - 4.200 mIU/L Final Hemoglobin A1C (%) Date Value 05/09/2023 5.7 05/13/2022 5.6 Magnesium Date Value Ref Range Status 07/03/2024 2.2 1.7 - 2.3 mg/dL Final No results found for: HSTROP, PBNP 1. Atrial flutter with rapid ventricular response (HCC) 2. Supraventricular tachycardia (HCC) -She has no known previous history of cardiac arrhythmias prior to results of recent event monitor. -Event monitor revealed atrial flutter occurring less than 1% of the time with heart rates ranging from 83 to 156 bpm, and an average of 128 bpm. Longest episode lasted 2 minutes and 45 seconds. One episode of paroxysmal SVT noted, lasting 6 beats at 152 bpm. -Discussed anatomy/physiology, nature, risks, treatment options, and goals of care related to PAFlutter. -Potential risk factors for AF/Flutter reviewed. -Her [id number] score is 3, indicating a higher risk for thromboembolic events. -Ordered an echocardiogram to assess cardiac structure and function with COVID-19 infection occurring after previous echo in 10/2021 which revealed no significant valvular disease and normal EF of 67%. -Ordered a treadmill stress test to evaluate for ischemic heart disease; patient feels she can safely walk on a treadmill that will get faster and steeper with prolonged activity. -Discussed indications as well as risks vs benefits of anticoagulation therapy; deferred initiation pending further evaluation. -Continue nighttime CPAP therapy given role of untreated MAUREEN in the management of cardiac ectopy/arrhythmias. -Provided educational materials on arrhythmias and loop recorders for patient review. -Scheduled follow-up in 6-8 weeks to review test results and reassess treatment plan. -Should she elect to proceed with oral anticoagulation therapy in the interim, she can notify the office. -Will re-discuss treatment options following stress/echo results. -Consider use of an SlamDatawatch or Travarkle for cardiac arrhythmia monitoring. -Reviewed recent labs with normal K, Mg, and TSH. 3. PVC (premature ventricular contraction) -Per event monitor results PVCs occurred less than 1% of the time and are essentially benign in nature. -Continue current conservative management; no specific treatment initiated at this time. -Can consider medication management, but medications also have side effects. -Recommend initial cardiac workup before considering medication options, particularly with evidence of bradycardia, limiting use of AV flash blocking agents. 4. Palpitations -She admits to palpitations that are infrequent and not significantly bothersome. -Discussed that PAFlutter, SVT, and PVCs can all be associated palpitations and it may be difficult to discern the source of future palpitations. -Monitor frequency and triggers; advised patient to keep a log of episodes. -Consider LOOP recorder placement for intermediate monitoring and correlation with symptomatic episodes. -Conservative treatment for palpitations discussed including adequate hydration, added electrolytes, avoidance/minimize caffeine/stimulants, regular meals, and routine sleep/exercise habits. -Continue Mg supplement. 5. Abnormal patient-activated cardiac event monitor -An event monitor was ordered following acute complaints of palpitations and reported low heart rates on a FitBit watch. -Event monitor recorded episodes of atrial flutter, SVT, and PVCs. Sinus bradycardia with a lowest recorded heart rate of 48 bpm and a highest of 156 bpm; average heart rate was 77 bpm. -Reviewed event monitor results with patient. -Discussed potential for longer episodes of atrial flutter that may occur in the future without monitoring in place. -Consideration for loop recorder implantation for long-term monitoring of palpitations and correlation given h/o atrial flutter, SVT, and PVCs all of which can be associated with sensation of palpitations. -Patient education on LOOP recorder provided for review. -Recommend stress test and echo for further cardiac evaluation. 6. Sinus bradycardia -She admits to moderate sinus bradycardia into the mid-40s per FitBit monitoring; appears to have been asymptomatic. -Her event monitor revealed a minimal heart rate of 48 bpm. No symptoms of dizziness or syncope reported. -Continue monitoring; no immediate intervention required. -No acute indication for pacemaker placement at this time given asymptomatic nature of bradycardia. -Discussed role of a LOOP recorder for intermediate monitoring of heart rates, arrhythmias, and correlation with symptom episodes. 7. Obstructive sleep apnea -She has a long-standing history of MAUREEN treated with CPAP therapy. -She admits to nighttime CPAP compliance with significant improvement in energy levels and daytime alertness with regular use. -Continue CPAP therapy. -Discussed potential for cardiac related abnormalities secondary to untreated MAUREEN. -Monitor for any changes in symptoms that may indicate the need for re-titration of CPAP settings. Radha Crockett PA-C I spent a total of >55 minutes today which included preparing to see the patient/chart review, [id number] patient care, obtaining/reviewing appropriate history, obtaining medically appropriate exam, counseling and educating patient/family/caregiver, ordering/interpreting tests/procedures, managing medications, completing clinical documentation, and care coordination. Some elements of the note have been copied from previous notes/visits. The elements have been updated and all reflect current decision making from today, 08/17/2024. documented in this encounter [facility] 08-17-2024 Note HNO ID: [id number] Author: RADHA CROCKETT PA-C Service: ? Author Type: Physician Assessment Director Type: Progress Notes Filed: 08/19/2024 08:21 Note Text: [facility], V[facility] Department of Cardiovascular Medicine [facility] SECTION OF ELECTROPHYSIOLOGY OUTPATIENT VISIT DATE 08/17/2024 The patient consented to the use of ambient iovox software for draft documentation of the visit consistent with [facility]?s Notice of Privacy Practices. PRIMARY CARE PHYSICIAN: Alfredito Engel [address] [place] [address] CHIEF COMPLAINT: Referral for palpitations/Aflutter RVR on event monitor HISTORY OF PRESENT ILLNESS: Ms. 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 She was referred by her PCP with reported episodes of palpitations over a 2 week period. She described her palpitations as a fluttering. She has a family history of cardiac disease in her father with an TX at age 48 and passing away before age 55. She also has an older sister with AF managed with medication andablation. At her acute PCP visit on 07/03/2024, she c/o palpitations and heart rates in the mid-40s for at least 10 minutes per her FitBit smart watch. She denied any dyspnea or decreased exercise tolerance. Typically her heart rates are in the 70s. A 2 week event monitor was ordered and she was referred to EP. Her EKG revealed NSR with HR 80bpm. Her 14 day Fluxomeo event monitor in early July revealed: -Min heart rate 48bpm; Max HR 156bpm; avg HR of 77bpm -predominantly underlying rhythm was SR -1 run of Supraventricular Tachycardia lasting 6 beats with a max rate of 152 bpm (avg 124 bpm). -Atrial Flutter occurred (<1% burden) with heart rates ranging from 83-156 bpm (avg of 127 bpm), the longest AF episode lasting 2 mins 45 secs with an avg rate of 128 bpm. -Atrial Flutter was detected within +/- 45 seconds of symptomatic patient reported event(s). -Isolated PACs were occasional (2.9%, [id number]) and PAC couplets were rare (<1.0%, 469), and PAC triplets were rare (<1.0%, 73). -Isolated PVCs were rare (<1.0%), and no VE couplets or VE triplets were present. She presents today accompanied by her for evaluation of new onset paroxysmal atrial flutter. She reports experiencing palpitations, described as a consistent flutter lasting about 5-6 seconds, which occurred once and has not recurred. She notes that her palpitations have been pretty quiet recently, though she may have felt one yesterday or earlier today. She denies any specific triggers for these episodes, stating they seem pretty random. She denies chest pain, dyspnea, or significant fatigue. She does experience occasional lightheadedness with positional changes, but denies syncope. She reports no swelling in her feet or ankles. Today's EKG reveals NSR with a heart rate of 88 bpm. A previous TTE performed in 2021 showed normal LVEF of 67% and no significant valvular disease. She has a history of MAUREEN, diagnosed approximately 8-9 years ago, and uses a CPAP machine nightly, which has significantly improved her energy levels and reduced daytime grogginess. She denies any issues with her CPAP machine and reports no snoring or apneic episodes since starting treatment. She also has a history of asthma, which she attributes to a COVID-19 infection in 2022. She denies any significant cough or dyspnea at rest. She has a history of dyslipidemia, with a lipid panel from 05/2023 showing total cholesterol of 163 mg/dL, triglycerides of 60 mg/dL, HDL of 63 mg/dL, and LDL of 88 mg/dL. She is not currently on any lipid-lowering medications. Recent labs from 07/03/2024 showed a glucose level of 71 mg/dL, sodium of 140 mmol/L, potassium of 5.1 mmol/L, chloride of 104 mmol/L, calcium of 9.2 mg/dL, magnesium of 2.2 mg/dL, and TSH of 1.7 mIU/L. She reports a history of arthritis, with significant pain in one knee and one hip, but states that turmeric supplements have effectively managed her pain. She denies any significant bleeding issues, but notes that she can get a bloody nose if she consumes too much wheat, due to a wheat intolerance. She also reports a history of leaky gut and takes chromium picolinate for this condition. 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 She reports fair to good energy levels, but notes that she has expended a lot of emotional energy in her life, which she believes contributes to her (more content not included)... [facility] 08-03-2024 Telephone encounter Note Order placed. Thank you, Juanita Arce APRN.ENGINEERING LIBRARIAN [facility] 08-03-2024 Miscellaneous Notes Order placed. Thank you, Juanita Arce APRN.ENGINEERING LIBRARIAN See message below, pended order with future date of 09/10/24. Kaity Schwarz MA Patient is scheduled to get her labs done on 09/10/24. She would also like to get her vitamin D drawn that day, her order for this expires on 09/04/24. Can this order be resubmitted? Please review. Debbie Keating August 02, 2024 1:20 PM documented in this encounter [facility] 08-02-2024 Telephone encounter Note See message below, pended order with future date of 09/10/24. Kaity Schwarz MA [facility] 08-02-2024 Telephone encounter Note Patient is scheduled to get her labs done on 09/10/24. She would also like to get her vitamin D drawn that day, her order for this expires on 09/04/24. Can this order be resubmitted? Please review. Debbie Keating August 02, 2024 1:20 PM [facility] 07-13-2024 Telephone encounter Note Orders placed. Please fax. Thank you, Juanita Arce APRN.ENGINEERING LIBRARIAN [facility] 07-13-2024 Miscellaneous Notes Orders placed. Please fax. Thank you, Juanita Arce APRN.ENGINEERING LIBRARIAN Pt sent in [employer] message requesting Mammogram order to be faxed to [facility] 08/2024. Pt does jaxson mamm L due to hx of R mastectomy, per previous order. Please view scanning to confirm, pended mamm jaxson. Once ordered fax to [facility]; Breast Center at F#: [phone] and notify pt. Kaity Schwarz MA Pt message: I need an order for my yearly mammogram, sent to [facility]. All the information needed should be in my records. Thank you for your assistance with this. documented in this encounter [facility] 07-13-2024 Telephone encounter Note Pt sent in [employer] message requesting Mammogram order to be faxed to [facility] 08/2024. Pt does jaxson mamm L due to hx of R mastectomy, per previous order. Please view scanning to confirm, pended mamm jaxson. Once ordered fax to [facility]; Breast Center at F#: [phone] and notify pt. Kaity Schwarz MA Pt message: I need an order for my yearly mammogram, sent to [facility]. All the information needed should be in my records. Thank you for your assistance with this. [facility] 07-13-2024 Telephone encounter Note Placed message in TE and routed to PCP. Pt notified via [employer]. Kaity Schwarz MA [facility] 07-13-2024 Miscellaneous Notes Placed message in TE and routed to PCP. Pt notified via [employer]. Kaity Schwarz MA documented in this encounter [facility] 07-13-2024 Telephone encounter Note Prescription Refill Information The patient has been identified by name and date of : Yes Caregiver verified no other encounters exist for this prescription request: Yes Caregiver confirmed with patient/requestor that no other refills are due, in the near future, with this provider at this time: Yes The last office visit in the department: 07/03/24 Does the patient have a future office visit with this provider/department: Yes Requested Prescriptions Pending Prescriptions Disp Refills venlafaxine (EFFEXOR) 50 mg tablet 90 tablet 11 Sig: TAKE 2 (TWO) TABLETS BY MOUTH IN THE MORNING, AND 1 (ONE) TABLET IN THE EVENING as directed] Sonam Justice LPN July 13, 2024 9:41 AM [facility] 07-13-2024 Miscellaneous Notes Prescription Refill Information The patient has been identified by name and date of : Yes Caregiver verified no other encounters exist for this prescription request: Yes Caregiver confirmed with patient/requestor that no other refills are due, in the near future, with this provider at this time: Yes The last office visit in the department: 07/03/24 Does the patient have a future office visit with this provider/department: Yes Requested Prescriptions Pending Prescriptions Disp Refills venlafaxine (EFFEXOR) 50 mg tablet 90 tablet 11 Sig: TAKE 2 (TWO) TABLETS BY MOUTH IN THE MORNING, AND 1 (ONE) TABLET IN THE EVENING as directed] Sonam Justice LPN July 13, 2024 9:41 AM documented in this encounter [facility] 07-04-2024 Telephone encounter Note Patient notified of results and provider's instructions. Patient verbalizes understanding. Corrina Olivera RN [facility] 07-04-2024 Miscellaneous Notes Patient notified of results and provider's instructions. Patient verbalizes understanding. Corrina Olivera RN Left message for pt to contact office. Kenny Mcconnell LPN Let patient know that her labs are normal. Glucose was just slightly low but not significant. Recommend well balanced meals. We will await further testing results. Gracy Calvillo PA-C documented in this encounter [facility] 07-04-2024 Telephone encounter Note Left message for pt to contact office. Kenny Mcconnell LPN [facility] 07-04-2024 Telephone encounter Note Let patient know that her labs are normal. Glucose was just slightly low but not significant. Recommend well balanced meals. We will await further testing results. Gracy Calvillo PA-C [facility] Work Phone: 07-03-2024 Note HNO ID: [id number] Author: GRACY CALVLILO PA-C Service: ? Author Type: Physician Assessment Director Type: Progress Notes Filed: 07/03/2024 08:24 Note Text: Chief Complaint Patient presents with: Palpitations: Patient states she felt her heart flutter x 1 a couple of weeks ago HPI Corry Jerome is a 73 year old female who presents here today for Above Complaints.. Palpitations: - Reports episode of palpitations in the past two weeks, described as a flutter. - First episode occurred two days before a trip to the [place]; - FitBit recorded a heart rate of 44 bpm for 10 minutes on a separate time. while sitting on a bus ride. - No previous history of cardiac issues. - No associated symptoms of decreased exercise tolerance or dyspnea. - Resting heart rate typically in the low 70s; increased to 78 bpm during the trip. - Family history of cardiac disease: father had an TX at age 48 and before his 54th birthday; older sister has AFib, managed with medication and ablation. - No history of thyroid disorders; last thyroid function test in January was normal, with another test scheduled for September. Long COVID: - Diagnosed with long COVID after a previous overseas trip. - Currently using Pulmicort inhaler once daily, though prescribed BID. - Reports previous digestive upset believed to be related to COVID, now resolved. Past medical history, appointments, medications, allergies reviewed. 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 2009 bilateral COLONOSCOPY FLX DX W/COLLJ SPEC WHEN PFRMD 03/29/2013 Colonoscopy DILATION AND CURETTAGE DXAND/THER NONOBSTETRIC 03/07/2014 due to pelvic pain- as on Tamoxifen PAST SURGICAL HISTORY OF 03/07/1997 mastectomy right breast REMOVAL OF OVARY(S) Left 1983 [facility] COSMETIC SURGERY Family History FAMILY HISTORY Problem Relation Age of Onset Heart Mother CHF, 86 Breast Cancer Mother 72 Heart Father CAD, [place] Cancer Father Lung 53 Diabetes Sister Lymphoma Sister b CELL Diabetes Brother other (Liver Cirhosis) Maternal Grandfather Alcoholic Stroke Paternal Grandmother Alcohol/Drug Paternal Grandfather Heart Paternal Grandfather Heart Paternal Aunt Patient Allergies ALLERGIES Allergen Reactions Ampicillin Hives [place] Fruits Intolerance Dust Mites Intolerance Penicillins Hives Wheat Bran Intolerance congestion Current Medications Current Outpatient Medications on File Prior to Visit Medication Sig solifenacin (VESICARE) 5 mg tablet Take 1 tablet by mouth once daily. PULMICORT FLEXHALER 180 mcg/actuation aepb INHALE 1 puff twice daily with good oral care venlafaxine (EFFEXOR) 50 mg tablet TAKE 2 (TWO) TABLETS BY MOUTH IN THE MORNING, AND 1 (ONE) TABLET IN THE EVENING as directed] multivit-minerals/folic acid (CENTRUM ADULT 50 PLUS ORAL) Take by mouth. magnesium oxide 240 mg magnesium pwpk Take 163 mg by mouth once daily. omega-3 fatty acids 1,000 mg cap Take 2 g by mouth two times a day. B-complex with vitamin C (VITAMIN B COMPLEX-C ORAL) Take 50 mg by mouth once daily. Chromium Picolinate 200 mcg tab Take 200 mcg by mouth once daily. Ascorbic Acid (VITAMIN C) 1,000 mg tablet Take 1,000 mg by mouth once daily. Vitamin E, dl, acetate, (VITAMIN E) 200 unit capsule Take 200 Units by mouth once daily. biotin 5 mg tab Take 5 mg by mouth once daily. fxwajxv-kiyr-jammu-oreg-capryl 100 mg-150 mg- 50 mg-150 mg cap Take 3,900 mg by mouth once daily. Docusate Sodium 100 mg tab Take 100 mg by mouth once daily. polyethylene glycol 3350 (MIRALAX) 17 gram/dose powder Take 17 g by mouth once daily. Dissolve dose in 4 - 8 ounces of liquid and take as directed. cyclobenzaprine (FLEXERIL) 10 mg tablet Take 1 tablet by mouth three times daily as needed for muscle spasm. montelukast (SINGULAIR) 10 mg tablet Take 10 mg by mouth daily at bedtime. mupirocin (BACTROBAN) 2 % ointment Apply 1 application to affected area twice daily as needed. cetirizine 10 mg tablet Take 10 mg by mouth once daily. No current facility-administered medications on file prior to visit. Social History Social History Tobacco Use Smoking status: Never Smokeless tobacco: Never Vaping Use Vaping status: Never Used Substance Use Topics Alcohol use: No Drug use: Never Review of Symptoms REVIEW OF SYSTEMS SEE HPI EXAM: BP 100/62 (BP Site: Left Arm, BP (more content not included)... [facility] 07-03-2024 History of Present illness Narrative Chief Complaint Patient presents with: Palpitations: Patient states she felt her heart flutter x 1 a couple of weeks ago HPI Corry Jerome is a 73 year old female who presents here today for Above Complaints.. Palpitations: - Reports episode of palpitations in the past two weeks, described as a flutter. - First episode occurred two days before a trip to the ; - FitBit recorded a heart rate of 44 bpm for 10 minutes on a separate time. while sitting on a bus ride. - No previous history of cardiac issues. - No associated symptoms of decreased exercise tolerance or dyspnea. - Resting heart rate typically in the low 70s; increased to 78 bpm during the trip. - Family history of cardiac disease: father had an TX at age 48 and before his 54th birthday; older sister has AFib, managed with medication and ablation. - No history of thyroid disorders; last thyroid function test in January was normal, with another test scheduled for September. Long COVID: - Diagnosed with long COVID after a previous overseas trip. - Currently using Pulmicort inhaler once daily, though prescribed BID. - Reports previous digestive upset believed to be related to COVID, now resolved. Past medical history, appointments, medications, allergies reviewed. 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 2009 bilateral COLONOSCOPY FLX DX W/COLLJ SPEC WHEN PFRMD 03/29/2013 Colonoscopy DILATION & CURETTAGE DX&/THER NONOBSTETRIC 03/07/2014 due to pelvic pain- as on Tamoxifen PAST SURGICAL HISTORY OF 03/07/1997 mastectomy right breast REMOVAL OF OVARY(S) Left 1983 [facility] COSMETIC SURGERY Family History FAMILY HISTORY Problem Relation Age of Onset Heart Mother CHF, 86 Breast Cancer Mother 72 Heart Father CAD, [place] Cancer Father Lung 53 Diabetes Sister Lymphoma Sister b CELL Diabetes Brother other (Liver Cirhosis) Maternal Grandfather Alcoholic Stroke Paternal Grandmother Alcohol/Drug Paternal Grandfather Heart Paternal Grandfather Heart Paternal Aunt Patient Allergies ALLERGIES Allergen Reactions Ampicillin Hives [place] Fruits Intolerance Dust Mites Intolerance Penicillins Hives Wheat Bran Intolerance congestion Current Medications Current Outpatient Medications on File Prior to Visit Medication Sig solifenacin (VESICARE) 5 mg tablet Take 1 tablet by mouth once daily. PULMICORT FLEXHALER 180 mcg/actuation aepb INHALE 1 puff twice daily with good oral care venlafaxine (EFFEXOR) 50 mg tablet TAKE 2 (TWO) TABLETS BY MOUTH IN THE MORNING, AND 1 (ONE) TABLET IN THE EVENING as directed] multivit-minerals/folic acid (CENTRUM ADULT 50 PLUS ORAL) Take by mouth. magnesium oxide 240 mg magnesium pwpk Take 163 mg by mouth once daily. omega-3 fatty acids 1,000 mg cap Take 2 g by mouth two times a day. B-complex with vitamin C (VITAMIN B COMPLEX-C ORAL) Take 50 mg by mouth once daily. Chromium Picolinate 200 mcg tab Take 200 mcg by mouth once daily. Ascorbic Acid (VITAMIN C) 1,000 mg tablet Take 1,000 mg by mouth once daily. Vitamin E, dl, acetate, (VITAMIN E) 200 unit capsule Take 200 Units by mouth once daily. biotin 5 mg tab Take 5 mg by mouth once daily. hrybxbt-ozyc-jwnsu-oreg-capryl 100 mg-150 mg- 50 mg-150 mg cap Take 3,900 mg by mouth once daily. Docusate Sodium 100 mg tab Take 100 mg by mouth once daily. polyethylene glycol 3350 (MIRALAX) 17 gram/dose powder Take 17 g by mouth once daily. Dissolve dose in 4 - 8 ounces of liquid and take as directed. cyclobenzaprine (FLEXERIL) 10 mg tablet Take 1 tablet by mouth three times daily as needed for muscle spasm. montelukast (SINGULAIR) 10 mg tablet Take 10 mg by mouth daily at bedtime. mupirocin (BACTROBAN) 2 % ointment Apply 1 application to affected area twice daily as needed. cetirizine 10 mg tablet Take 10 mg by mouth once daily. No current facility-administered medications on file prior to visit. Social History Social History Tobacco Use Smoking status: Never Smokeless tobacco: Never Vaping Use Vaping status: Never Used Substance Use Topics Alcohol use: No Drug use: Never Review of Symptoms REVIEW OF SYSTEMS SEE HPI EXAM: BP 100/62 (BP Site: Left Arm, BP Position: Sitting, BP Cuff Size: Regular Adult) Pulse 83 Temp 36.4 C (97.5 F) Resp 16 Wt 65.3 kg (144 lb) SpO2 99% BMI 23.24 kg/m General Appearance: Well appearing, alert, in no acute distress, well-hydrated, well nourished.. Neck: Supple, no adenopathy; thyroid symmetric, normal size, no bruits. Lungs: Lungs clear to auscultation. No wheezing, rhonchi, rales.. Heart: RRR without murmur, gallop, or rubs. No ectopy. Health Maintenance List Anxiety Screening Never done Hepatitis C Screening Never done Advance Directive Discussion Never done Covid-19 Vaccine(2023- season) due on 06/20/2024 Diabetes Screening due on 05/08/2026 Lipid Screening due on 05/08/2028 DTaP,Tdap,Td Vaccine(3 - Td or Tdap) due on 05/26/2030 Colorectal Cancer Screening due on 04/08/2033 Bone Density Screening Completed Influenza Vaccine Completed RSV Vaccine Completed Shingrix Vaccine Completed Pneumococcal Vaccine: 50+ Completed Mammogram Screening Discontinued Data reviewed ECG: NSR Latest Ref Rng 01/24/2024 TSH 0.270 - 4.200 mIU/L 2.640 Assessment and Plan 1. Palpitations (R00.2) 2. Bradycardia (R00.1) - Recent episodes of palpitations and bradycardia; one instance of palpitations described as a flutter and a separate episode of bradycardia with a pulse of 44 bpm recorded on a FitBit. - No history of similar cardiac issues; family history significant for heart disease and atrial fibrillation. - Physical examination reveals normal cardiac and pulmonary auscultation. - EKG performed today is completely normal. - Ordered laboratory tests including thyroid function, magnesium, and BMP - Ordered a Zio Holter monitor to be worn for 2 weeks to capture any abnormal cardiac rhythms. - Patient advised to report any new or worsening symptoms immediately. Gracy Calvillo PA-C Recording using ambient iovox software for draft documentation of the visit was discussed with the patient/authorized maintenance representative; all questions welcomed and answered. Patient/authorized maintenance representative agreed to proceed documented in this encounter [facility] 07-03-2024 Note HNO ID: [id number] Author: EVANGELINA PUENTE MD Service: ? Author Type: Physician Type: Procedures Filed: 08/03/2024 14:17 Note Text: Patient Name: Corry Jerome : 1950 Ordering Provider: Gracy Calvillo Indication: R00.2 Palpitations Type of Monitor: Extended Monitoring-Zio Patch Enrollment Dates: 07/09/2024-07/23/2024 IRHYTHM FINDINGS: Patient had a min HR of 48 bpm, max HR of 156 bpm, and avg HR of 77 bpm. Predominant underlying rhythm was Sinus Rhythm. 1 run of Supraventricular Tachycardia occurred lasting 6 beats with a max rate of 152 bpm (avg 124 bpm). Atrial Flutter occurred (<1% burden), ranging from 83-156 bpm (avg of 127 bpm), the longest lasting 2 mins 45 secs with an avg rate of 128 bpm. Atrial Flutter was detected within +/- 45 seconds of symptomatic patient event(s). Isolated SVEs were occasional (2.9%, 40105), SVE Couplets were rare (<1.0%, 469), and SVE Triplets were rare (<1.0%, 73). Isolated VEs were rare (<1.0%), and no VE Couplets or VE Triplets were present. [facility] 07-02-2024 Telephone encounter Note noted [facility] Work Phone: 07-02-2024 Miscellaneous Notes noted Called patient and scheduled office visit 40 min for palpations. Denies palpitations today and feels good. Patient denies chest pain/sob/syncope. Samantha Herrera MA documented in this encounter [facility] 07-02-2024 Telephone encounter Note Called patient and scheduled office visit 40 min for palpations. Denies palpitations today and feels good. Patient denies chest pain/sob/syncope. Samantha Herrera MA [facility] 02-27-2024 Telephone encounter Note Pt returned call and given provider's message below with verbalized understanding. [facility] 02-27-2024 Miscellaneous Notes Pt returned call and given provider's message below with verbalized understanding. Message left for pt to call back for results. Elma Lopez MA Left message for patient to call office back and speak with triage nurse. Karla Westbrook LPN Please let patient know that all of her blood work came back normal. If symptoms are persisting, worsening, or developing new symptoms to follow up. I would consider a consult with SHIP DESIGN TEACHER if she would like to follow up further. My Martinez PA-C 02/06/2024 documented in this encounter [facility] 02-27-2024 Telephone encounter Note Message left for pt to call back for results. Elma Lopez MA [facility] 02-07-2024 Telephone encounter Note Left message for patient to call office back and speak with triage nurse. Karla Westbrook LPN [facility] 02-06-2024 Telephone encounter Note Please let patient know that all of her blood work came back normal. If symptoms are persisting, worsening, or developing new symptoms to follow up. I would consider a consult with SHIP DESIGN TEACHER if she would like to follow up further. My Martinez PA-C 02/06/2024 [facility] 01-25-2024 Telephone encounter Note Patient returns call and message reviewed. Patient already had labs completed yesterday. Ysabel Singh RN [facility] 01-25-2024 Miscellaneous Notes Patient returns call and message reviewed. Patient already had labs completed yesterday. Ysabel Singh RN left message for patient to call back and speak with triage nurse. Karla Westbrook LPN Please let patient know that I have ordered labs- please have drawn before 10 am at her convenience. My Martinez PA-C 01/24/2024 documented in this encounter [facility] 01-25-2024 Telephone encounter Note left message for patient to call back and speak with triage nurse. Karla Westbrook LPN [facility] 01-24-2024 Telephone encounter Note Please let patient know that I have ordered labs- please have drawn before 10 am at her convenience. My Martinez PA-C 01/24/2024 [facility] 01-24-2024 Note HNO ID: [id number] Author: YM MARTINEZ PA-C Service: ? Author Type: Physician Assessment Director Type: Progress Notes Filed: 01/24/2024 17:44 Note Text: 01/24/2024 Patient presents with: Same Day Appointment: hormonal issues SUBJECTIVE: This is a 73 year old that is here today for Complaint(s) of increased libido the last 2 weeks. Patient states that she all of a sudden started noticing a heightened libido. No new supplements, life events, relationships, medications. Denies abdominal pain, other changes in skin/hair/nails, vaginal discharge. Patient with uterus and right ovary. Left ovary removed. PMH breast CA was on tamoxifen. Monogamous with . 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 multivit-minerals/folic acid (CENTRUM ADULT 50 PLUS ORAL) Take by mouth. magnesium oxide 240 mg magnesium pwpk Take 163 mg by mouth once daily. omega-3 fatty acids 1,000 mg cap Take 2 g by mouth two times a day. B-complex with vitamin C (VITAMIN B COMPLEX-C ORAL) Take 50 mg by mouth once daily. Chromium Picolinate 200 mcg tab Take 200 mcg by mouth once daily. Ascorbic Acid (VITAMIN C) 1,000 mg tablet Take 1,000 mg by mouth once daily. Vitamin E, dl, acetate, (VITAMIN E) 200 unit capsule Take 200 Units by mouth once daily. biotin 5 mg tab Take 5 mg by mouth once daily. euanvka-mvpr-tihfr-oreg-capryl 100 mg-150 mg- 50 mg-150 mg cap Take 3,900 mg by mouth once daily. Docusate Sodium 100 mg tab Take 100 mg by mouth once daily. polyethylene glycol 3350 (MIRALAX) 17 gram/dose powder Take 17 g by mouth once daily. Dissolve dose in 4 - 8 ounces of liquid and take as directed. cyclobenzaprine (FLEXERIL) 10 mg tablet Take 1 tablet by mouth three times daily as needed for muscle spasm. montelukast (SINGULAIR) 10 mg tablet Take 10 mg by mouth daily at bedtime. mupirocin (BACTROBAN) 2 % ointment Apply 1 application to affected area twice daily as needed. cetirizine 10 mg tablet Take 10 mg by mouth once daily. No current facility-administered medications for this visit. SOCIAL HISTORY Social History Tobacco Use Smoking status: Never Smokeless tobacco: Never Vaping Use Vaping status: Never Used Substance Use Topics Alcohol use: No Drug use: Never REVIEW OF SYSTEMS See HPI OBJECTIVE: BP 108/60 (BP Site: Left Arm, BP Position: Sitting, BP Cuff Size: Large Adult) Pulse 98 Resp 12 Ht 167.6 cm (5' 6) Wt 65.8 kg (145 lb) SpO2 99% BMI 23.40 kg/m? APPEARANCE Well appearing, alert, in no acute distress, well-hydrated, well nourished. NECK Supple, no adenopathy; thyroid symmetric, normal size, no bruits HEART RRR with normal S1 and S2, no murmurs, no gallops, no JVD appreciated LUNG clear to auscultation ABDOMEN bowel sounds normoactive, no bruits, soft, non-tender, non-distended, without organomegaly or palpable masses, no tenderness to palpation ASSESSMENT/PLAN: 1. Increased libido - ICD9: 780.99, ICD10: R68.89 Check labs Monitor symptoms Consider consult to SHIP DESIGN TEACHER - ESTROGEN FRACTION BL - TESTOSTERONE, FREE AND TOTAL, BY EQUILIBRIUM ULTRAFILTRATION MASS SPECTROMETRY - THYROID STIMULATING HORMONE The patient indicates understanding of these issues and agrees with the plan. Reviewed red flags and when to seek care sooner. My Martinez PA-C [facility] 01-24-2024 History of Present illness Narrative 01/24/2024 Patient presents with: Same Day Appointment: hormonal issues SUBJECTIVE: This is a 73 year old that is here today for Complaint(s) of increased libido the last 2 weeks. Patient states that she all of a sudden started noticing a heightened libido. No new supplements, life events, relationships, medications. Denies abdominal pain, other changes in skin/hair/nails, vaginal discharge. Patient with uterus and right ovary. Left ovary removed. PMH breast CA was on tamoxifen. Monogamous with . 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 multivit-minerals/folic acid (CENTRUM ADULT 50 PLUS ORAL) Take by mouth. magnesium oxide 240 mg magnesium pwpk Take 163 mg by mouth once daily. omega-3 fatty acids 1,000 mg cap Take 2 g by mouth two times a day. B-complex with vitamin C (VITAMIN B COMPLEX-C ORAL) Take 50 mg by mouth once daily. Chromium Picolinate 200 mcg tab Take 200 mcg by mouth once daily. Ascorbic Acid (VITAMIN C) 1,000 mg tablet Take 1,000 mg by mouth once daily. Vitamin E, dl, acetate, (VITAMIN E) 200 unit capsule Take 200 Units by mouth once daily. biotin 5 mg tab Take 5 mg by mouth once daily. lsycxfh-fupc-gnlql-oreg-capryl 100 mg-150 mg- 50 mg-150 mg cap Take 3,900 mg by mouth once daily. Docusate Sodium 100 mg tab Take 100 mg by mouth once daily. polyethylene glycol 3350 (MIRALAX) 17 gram/dose powder Take 17 g by mouth once daily. Dissolve dose in 4 - 8 ounces of liquid and take as directed. cyclobenzaprine (FLEXERIL) 10 mg tablet Take 1 tablet by mouth three times daily as needed for muscle spasm. montelukast (SINGULAIR) 10 mg tablet Take 10 mg by mouth daily at bedtime. mupirocin (BACTROBAN) 2 % ointment Apply 1 application to affected area twice daily as needed. cetirizine 10 mg tablet Take 10 mg by mouth once daily. No current facility-administered medications for this visit. SOCIAL HISTORY Social History Tobacco Use Smoking status: Never Smokeless tobacco: Never Vaping Use Vaping status: Never Used Substance Use Topics Alcohol use: No Drug use: Never REVIEW OF SYSTEMS See HPI OBJECTIVE: BP 108/60 (BP Site: Left Arm, BP Position: Sitting, BP Cuff Size: Large Adult) Pulse 98 Resp 12 Ht 167.6 cm (5' 6) Wt 65.8 kg (145 lb) SpO2 99% BMI 23.40 kg/m APPEARANCE Well appearing, alert, in no acute distress, well-hydrated, well nourished. NECK Supple, no adenopathy; thyroid symmetric, normal size, no bruits HEART RRR with normal S1 and S2, no murmurs, no gallops, no JVD appreciated LUNG clear to auscultation ABDOMEN bowel sounds normoactive, no bruits, soft, non-tender, non-distended, without organomegaly or palpable masses, no tenderness to palpation ASSESSMENT/PLAN: 1. Increased libido - ICD9: 780.99, ICD10: R68.89 Check labs Monitor symptoms Consider consult to SHIP DESIGN TEACHER - ESTROGEN FRACTION BL - TESTOSTERONE, FREE AND TOTAL, BY EQUILIBRIUM ULTRAFILTRATION MASS SPECTROMETRY - THYROID STIMULATING HORMONE The patient indicates understanding of these issues and agrees with the plan. Reviewed red flags and when to seek care sooner. My Martinez PA-C documented in this encounter [facility] 12-22-2023 Telephone encounter Note No she doesn't need another pneumonia vaccine. Annamarie Eugene APRN.CINDY [facility] 12-22-2023 Miscellaneous Notes No she doesn't need another pneumonia vaccine. Annamarie Eugene APRN.CINDY Please review Jenny Gilbert MA documented in this encounter [facility] 12-22-2023 Telephone encounter Note Please review Jenny Gilbert MA [facility] 08-05-2023 Telephone encounter Note JÚNIOR-06/13/23 Labs-05/09/23 NOV-none Vilma De Santiago LPN [facility] 08-05-2023 Miscellaneous Notes JÚNIOR-06/13/23 Labs-05/09/23 NOV-none Vilma De Santiago LPN documented in this encounter [facility] 07-11-2023 Telephone encounter Note Pt returned the call and notified. [facility] 07-11-2023 Miscellaneous Notes Pt returned the call and notified. Phoned patient left message to return call and ask to speak to a nurse. Please inform patient that MRI liver is normal Alfredito Engel DO documented in this encounter [facility] 07-09-2023 Telephone encounter Note Phoned patient left message to return call and ask to speak to a nurse. [facility] 07-08-2023 Telephone encounter Note Please inform patient that MRI liver is normal Alfredito Engel DO [facility] 06-28-2023 History of Present illness Narrative Radiology Service Progress Note DATE OF SERVICE: June 28, 2023 TIME: 2:01 PM PATIENT IDENTITY VERIFICATION COMPLETED USING TWO (2) STANDARD IDENTIFIERS: Name and Date of confirmed by patient verbally. FALL SCREENING: Has the patient had 2 falls in the last year or 1 fall with injury or currently using an Ambulatory Assistive Device (Walker, Cane, Wheelchair, Crutches, etc.)? No PATIENT GENDER DATA: Female. status: : No status: NO. PATIENT RELEVANT IMPLANT DATA REVIEWED: Yes PATIENT PRESENTS WITH AN IMPLANTABLE OR ATTACHED SIGNAL WORKER HELPER: No ALLERGIES: Reviewed and unchanged CONTRAST ALLERGY: NO. EXAM: MRI - CONTRAST TYPE: GROUP II PERIPHERAL IV DATA: Ambulatory: A peripheral IV was started in the Left upper extremity with a Angio cath: 22 gauge. RADIOLOGY DEPARTMENT: MR; Exam(s) Completed: Body: Liver (routine) SIGNATURE: RT Sarita(R) PATIENT NAME: Corry Jerome DATE: June 28, 2023 TIME: 2:01 PM documented in this encounter [facility] 06-15-2023 Miscellaneous Notes Please see pt message Jenny Gilbert MA documented in this encounter [facility] 06-13-2023 History of Present illness Narrative Radiology Service Progress Note PATIENT NAME: Corry Jerome DATE OF SERVICE: June 13, 2023 TIME: 1:04 PM PATIENT IDENTITY VERIFICATION COMPLETED USING TWO (2) IDENTIFIERS: Name and Date of confirmed by patient verbally. FALL SCREENING: Has the patient had 2 falls in the last year or 1 fall with injury or currently using an Ambulatory Assistive Device (Walker, Cane, Wheelchair, Crutches, etc.)? No PATIENT GENDER DATA: Female. status: : No status: NO. PATIENT RELEVANT IMPLANT DATA REVIEWED: Not Applicable PATIENT PRESENTS WITH AN IMPLANTABLE OR ATTACHED SIGNAL WORKER HELPER: No RADIOLOGY DEPARTMENT: General X-ray: Exam(s) Completed: Chest X-Ray PERIPHERAL IV DATA: Not applicable SIGNED BY: RT Kari(R) June 13, 2023 1:04 PM documented in this encounter [facility] 06-13-2023 History of Present illness Narrative Chief Complaint Patient presents with: cough: And congestion started in Apr. HPI Corry Jerome is a 72 year old female who presents here today for Above Complaints. Corry is an established patient of Dr. Engel, and myself. Concerns today... Please refer to recent [employer] messages thread starting from 05/26. Pt reports ongoing/recurring and lingering cough since April. Was first dx with bronchitis and given zpak which did seem to improve symptoms mostly but pt just feels like something is still not right. Cough never completed resolved and is now productive occasionally. Pt also reports feeling a chest congestion and heaviness. Pt reports mild SOB with heavy exertion such as walking up big hill, which is not her baseline. Was seen in Dr. Li's office for CPAP follow-up and was given new inhaler and scheduled for PFTs in July. Pt reports overall feeling fine but just concerned this lingering cough is something more or an unresolved infection. No other concerns or complaints. Past medical history, appointments, medications, allergies reviewed. 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 2009 bilateral COLONOSCOPY FLX DX W/COLLJ SPEC WHEN PFRMD 03/29/2013 Colonoscopy DILATION & CURETTAGE DX&/THER NONOBSTETRIC 03/07/2014 due to pelvic pain- as on Tamoxifen PAST SURGICAL HISTORY OF 03/07/1997 mastectomy right breast REMOVAL OF OVARY(S) Left 1984 [facility] COSMETIC SURGERY Family History FAMILY HISTORY Problem Relation Age of Onset Heart Mother CHF, 86 Breast Cancer Mother 72 Heart Father CAD, [place] Cancer Father Lung 53 Diabetes Sister Lymphoma Sister b CELL Diabetes Brother other (Liver Cirhosis) Maternal Grandfather Alcoholic Stroke Paternal Grandmother Alcohol/Drug Paternal Grandfather Heart Paternal Grandfather Heart Paternal Aunt Patient Allergies ALLERGIES Allergen Reactions Ampicillin Hives [place] Fruits Intolerance Dust Mites Intolerance Penicillins Hives Wheat Bran Intolerance congestion Current Medications Current Outpatient Medications on File Prior to Visit Medication Sig solifenacin (VESICARE) 5 mg tablet Take 1 tablet by mouth once daily. multivit-minerals/folic acid (CENTRUM ADULT 50 PLUS ORAL) Take by mouth. magnesium oxide 240 mg magnesium pwpk Take 163 mg by mouth once daily. omega-3 fatty acids 1,000 mg cap Take 2 g by mouth two times a day. B-complex with vitamin C (VITAMIN B COMPLEX-C ORAL) Take 50 mg by mouth once daily. Chromium Picolinate 200 mcg tab Take 200 mcg by mouth once daily. Ascorbic Acid (VITAMIN C) 1,000 mg tablet Take 1,000 mg by mouth once daily. Vitamin E, dl, acetate, (VITAMIN E) 200 unit capsule Take 200 Units by mouth once daily. biotin 5 mg tab Take 5 mg by mouth once daily. tvhrvrh-fahp-fyvre-oreg-capryl 100 mg-150 mg- 50 mg-150 mg cap Take 3,900 mg by mouth once daily. Docusate Sodium 100 mg tab Take 100 mg by mouth once daily. polyethylene glycol 3350 (MIRALAX) 17 gram/dose powder Take 17 g by mouth once daily. Dissolve dose in 4 - 8 ounces of liquid and take as directed. cyclobenzaprine (FLEXERIL) 10 mg tablet Take 1 tablet by mouth three times daily as needed for muscle spasm. venlafaxine (EFFEXOR) 50 mg tablet TAKE 2 (TWO) TABLETS BY MOUTH IN THE MORNING, AND 1 (ONE) TABLET IN THE EVENING as directed] montelukast (SINGULAIR) 10 mg tablet Take 10 mg by mouth daily at bedtime. mupirocin (BACTROBAN) 2 % ointment Apply 1 application to affected area twice daily as needed. cetirizine 10 mg tablet Take 10 mg by mouth once daily. No current facility-administered medications on file prior to visit. Social History Social History Tobacco Use Smoking status: Never Smokeless tobacco: Never Vaping Use Vaping Use: Never used Substance Use Topics Alcohol use: No Drug use: Never REVIEW OF SYSTEMS: as above Reviewed relevant PMHx, PSHx, Social Hx, current medications and allergies. Review of Symptoms REVIEW OF SYSTEMS See HPI. EXAM: BP 118/60 (BP Site: Left Arm, BP Position: Sitting, BP Cuff Size: Regular Adult) Pulse 88 Resp 14 Wt 69.9 kg (154 lb 3.2 oz) SpO2 96% BMI 24.20 kg/m General Appearance: Well appearing, alert, in no acute distress, well-hydrated, well nourished.. Skin: Skin color, texture, turgor normal, no suspicious rashes or lesions. Head: Normocephalic, no masses, lesions, tenderness or abnormalities. Lungs: Lungs clear to auscultation. No wheezing, rhonchi, rales.. Heart: RRR without murmur, gallop, or rubs. No ectopy. Health Maintenance List Advance Directive Discussion Never done Mammogram Screening due on 08/21/2023 Hepatitis C Screening due on 02/03/2024 Diabetes Screening due on 05/08/2026 Lipid Screening due on 05/08/2028 DTaP,Tdap,Td Vaccine(3 - Td or Tdap) due on 05/26/2030 Colorectal Cancer Screening due on 04/08/2033 Bone Density Screening Completed Influenza Vaccine Completed RSV Vaccine Completed Shingrix Vaccine Completed Covid-19 Vaccine Completed Pneumococcal Vaccine: 65+ Completed ASSESSMENT/PLAN: 1. Chronic cough - ICD9: 786.2, ICD10: R05.3 Continue with PFTs and new inhaler as recommended by Dr. Li's office. Need to call their office about insurance issues with inhaler prescribed. Chest x-ray in office today to look for pneumonia. Trial doxycycline BID x 10 days. - XR CHEST 2V FRONTAL/LAT - DOXYCYCLINE HYCLATE 100 MG TABLET RTO as needed. Prescription instructions reviewed with patient as applicable. Potential red flag symptoms discussed with the patient. Reviewed appropriate action plan to take if red flag symptoms occur. Patient agreeable to treatment plan. Juanita Dunn APRN.ENGINEERING LIBRARIAN [address] [place] [address] documented in this encounter [facility] 06-10-2023 Miscellaneous Notes Noted, thank you. Annamarie Eugene APRN.CNP Sent pt message recommending to schedule appt or express care Jenny Gilbert MA documented in this encounter [facility] 05-26-2023 Miscellaneous Notes LVM to schedule MRI MRI liver placed. Please schedule. Thank you, Juanita Arce APRN.ENGINEERING LIBRARIAN Phoned patient and went over results, notes from Dr Engel with understanding. Patient is interested in doing the MRI Liver. Pending order needs completed. Please notify patient to schedule appt. Please inform patient that her CT abd/pelvis is overall normal except for a ?liver lesion present that is not able to be determined. Can consider getting MRI liver if she is interested for better detail Alfredito Engel DO documented in this encounter [facility] 05-23-2023 History of Present illness Narrative Images from the original note were not included. Subjective Came in with complaints of left index finger laceration. Patient says she did about 24 hours ago. Patient just wanted to have it double checked. Patient is up-to-date on tetanus. The history is provided by the patient. No patient transport orderly was used. Laceration Review of Systems Constitutional: Negative. Skin: Negative. Objective Physical Exam Constitutional: Appearance: Normal appearance. Pulmonary: Effort: Pulmonary effort is normal. Musculoskeletal: Hands: Comments: Patient does have a zigzag laceration in the area marked above. Well-approximated and not bleeding. Unable to separate wound at this time. No signs of infection. Neurological: Mental Status: She is alert. 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 2009 bilateral COLONOSCOPY FLX DX W/COLLJ SPEC WHEN PFRMD 03/29/2013 Colonoscopy DILATION & CURETTAGE DX&/THER NONOBSTETRIC 03/07/2014 due to pelvic pain- as on Tamoxifen PAST SURGICAL HISTORY OF 03/07/1997 mastectomy right breast REMOVAL OF OVARY(S) Left 1983 [facility] COSMETIC SURGERY ALLERGIES Ampicillin, [place] Fruits, Dust Mites, Penicillins, and Wheat Bran MEDICATIONS solifenacin (VESICARE) 5 mg tablet Take 1 tablet by mouth once daily. multivit-minerals/folic acid (CENTRUM ADULT 50 PLUS ORAL) Take by mouth. magnesium oxide 240 mg magnesium pwpk Take 163 mg by mouth once daily. omega-3 fatty acids 1,000 mg cap Take 2 g by mouth two times a day. B-complex with vitamin C (VITAMIN B COMPLEX-C ORAL) Take 50 mg by mouth once daily. Chromium Picolinate 200 mcg tab Take 200 mcg by mouth once daily. Ascorbic Acid (VITAMIN C) 1,000 mg tablet Take 1,000 mg by mouth once daily. Vitamin E, dl, acetate, (VITAMIN E) 200 unit capsule Take 200 Units by mouth once daily. biotin 5 mg tab Take 5 mg by mouth once daily. dhiqkfd-nbag-afmnr-oreg-capryl 100 mg-150 mg- 50 mg-150 mg cap Take 3,900 mg by mouth once daily. Docusate Sodium 100 mg tab Take 100 mg by mouth once daily. polyethylene glycol 3350 (MIRALAX) 17 gram/dose powder Take 17 g by mouth once daily. Dissolve dose in 4 - 8 ounces of liquid and take as directed. cyclobenzaprine (FLEXERIL) 10 mg tablet Take 1 tablet by mouth three times daily as needed for muscle spasm. venlafaxine (EFFEXOR) 50 mg tablet TAKE 2 (TWO) TABLETS BY MOUTH IN THE MORNING, AND 1 (ONE) TABLET IN THE EVENING as directed] montelukast (SINGULAIR) 10 mg tablet Take 10 mg by mouth daily at bedtime. mupirocin (BACTROBAN) 2 % ointment Apply 1 application to affected area twice daily as needed. cetirizine 10 mg tablet Take 10 mg by mouth once daily. FAMILY HISTORY Problem Relation Age of Onset Heart Mother CHF, 86 Breast Cancer Mother 72 Heart Father CAD, [place] Cancer Father Lung 53 Diabetes Sister Lymphoma Sister b CELL Diabetes Brother other (Liver Cirhosis) Maternal Grandfather Alcoholic Stroke Paternal Grandmother Alcohol/Drug Paternal Grandfather Heart Paternal Grandfather Heart Paternal Aunt Social History Tobacco Use Smoking status: Never Smokeless tobacco: Never Vaping Use Vaping Use: Never used Substance Use Topics Alcohol use: No Drug use: Never ASSESSMENT/PLAN: 1. Laceration of skin of finger, initial encounter - ICD9: 883.0, ICD10: S61.219A Patient was educated about proper care of laceration. Patient will follow-up if any red flag symptoms occur. Red flag symptoms were discussed with patient. Patient understands and agrees with care plan. Mitzy Burger APRN.CINDY documented in this encounter [facility] 05-20-2023 History of Present illness Narrative Radiology Service Progress Note DATE OF SERVICE: May 20, 2023 TIME: 3:35 PM PATIENT IDENTITY VERIFICATION COMPLETED USING TWO (2) STANDARD IDENTIFIERS: Name and Date of confirmed by patient verbally. FALL SCREENING: Has the patient had 2 falls in the last year or 1 fall with injury or currently using an Ambulatory Assistive Device (Walker, Cane, Wheelchair, Crutches, etc.)? No PATIENT GENDER DATA: Male PATIENT RELEVANT IMPLANT DATA REVIEWED: Yes PATIENT PRESENTS WITH AN IMPLANTABLE OR ATTACHED SIGNAL WORKER HELPER: No ALLERGIES: Reviewed and unchanged CONTRAST ALLERGY: NO. EXAM: CT -CONTRAST INDUCED NEPHROPATHY RISK FACTORS: Patient age > 60 years CREATININE: Creatinine Date Value Ref Range Status 05/09/2023 0.83 0.58 - 0.96 mg/dL Final 05/13/2022 0.90 0.58 - 0.96 mg/dL Final 10/07/2021 0.83 0.58 - 0.96 mg/dL Final Estimated Glomerular Filtration Rate Date Value Ref Range Status 05/09/2023 74 >=60 mL/min/1.73m Final Comment: Estimated Glomerular Filtration Rate (eGFR) is calculated using the 2020 CKD-EPI creatinine equation. This equation utilizes serum creatinine, sex, and age as parameters. The creatinine assay has traceable calibration to isotope dilution-mass spectrometry. Refer to KDIGO guidelines for clinical interpretation. In patients with unstable renal function, e.g. those with acute kidney injury, the eGFR may not accurately reflect actual GFR. eGFR- Date Value Ref Range Status 04/08/2021 >60 Final P.O.C.T. RESULTS: POC done: Yes, See Lab Tab May 20, 2023 TREATMENT: N/A PERIPHERAL IV DATA: Ambulatory: A peripheral IV was started in the Left antecubital site with a Angio cath: 22 gauge. RADIOLOGY DEPARTMENT: CT; Exam(s) Completed: Abdomen/Pelvis SIGNATURE: RT Cindy(R) PATIENT NAME: Corry Jerome DATE: May 20, 2023 TIME: 3:35 PM documented in this encounter [facility] 05-19-2023 Miscellaneous Notes Was seen in the office yesterday 05/[address] Engel. Annamarie Eugene APRN.ENGINEERING LIBRARIAN Images from the original note were not included. Please see pt message- Bryce Jerome Lars [facility] My Chart Rx Pool (supporting Alfredito Engel DO) 1 hour ago (11:09 AM) LB I need a new breast form and contacted [facility] in [place]. They need your office to FAX a prescription to them for this service. My appointment is in one week, May 18 and they need to get insurance details prior to my appointment. Thank you for your timely assistance. documented in this encounter [facility] 05-18-2023 Instructions Alfredito Engel DO - 05/18/2023 10:34 AM EDT PB8 probiotic supplement- refrigerated documented in this encounter [facility] 05-18-2023 History of Present illness Narrative CC: Corry Jerome is a 72 year old female who presents to the office for follow up HPI: Arthritis, multiple joints, overall stable, no new instability or falls. Chronic neck pain, tries to keep up with her stretches and walking for exercise. Mood, chronic fatigue, feels it is stable and improving. No SI or HI. Just recently got back from a trip to [place] with her and went to [facility] in the fall with her sister to see areas where she had relatives from originally before immigration to the Urinary incontinence, stable, taking Vesicare Abdominal fullness and bloating and discomfort, has been presnt x months. Was also having intermittent constipation and diarrhea. Had colonoscopy recently without any findings. She is concerned since has been taking probiotic and eating healthy diet and pain continues to be persistent Cough and chest congestion for 2 weeks since traveling to [place] with her , no fevers or chills or hemoptysis. 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 2009 bilateral COLONOSCOPY FLX DX W/COLLJ SPEC WHEN PFRMD 03/29/2013 Colonoscopy DILATION & CURETTAGE DX&/THER NONOBSTETRIC 03/07/2014 due to pelvic pain- as on Tamoxifen PAST SURGICAL HISTORY OF 03/07/1997 mastectomy right breast REMOVAL OF OVARY(S) Left 1984 [facility] COSMETIC SURGERY Social History: Social History Tobacco Use Smoking status: Never Smokeless tobacco: Never Vaping Use Vaping Use: Never used Substance Use Topics Alcohol use: No Drug use: Never FAMILY HISTORY Problem Relation Age of Onset Heart Mother CHF, 86 Breast Cancer Mother 72 Heart Father CAD, [place] Cancer Father Lung 53 Diabetes Sister Lymphoma Sister b CELL Diabetes Brother other (Liver Cirhosis) Maternal Grandfather Alcoholic Stroke Paternal Grandmother Alcohol/Drug Paternal Grandfather Heart Paternal Grandfather Heart Paternal Aunt Current Outpatient prescriptions: solifenacin (VESICARE) 5 mg tablet Take 1 tablet by mouth once daily. multivit-minerals/folic acid (CENTRUM ADULT 50 PLUS ORAL) Take by mouth. magnesium oxide 240 mg magnesium pwpk Take 163 mg by mouth once daily. omega-3 fatty acids 1,000 mg cap Take 2 g by mouth two times a day. B-complex with vitamin C (VITAMIN B COMPLEX-C ORAL) Take 50 mg by mouth once daily. Chromium Picolinate 200 mcg tab Take 200 mcg by mouth once daily. Ascorbic Acid (VITAMIN C) 1,000 mg tablet Take 1,000 mg by mouth once daily. Vitamin E, dl, acetate, (VITAMIN E) 200 unit capsule Take 200 Units by mouth once daily. biotin 5 mg tab Take 5 mg by mouth once daily. bmnumjo-vnaf-gvjkm-oreg-capryl 100 mg-150 mg- 50 mg-150 mg cap Take 3,900 mg by mouth once daily. Docusate Sodium 100 mg tab Take 100 mg by mouth once daily. polyethylene glycol 3350 (MIRALAX) 17 gram/dose powder Take 17 g by mouth once daily. Dissolve dose in 4 - 8 ounces of liquid and take as directed. cyclobenzaprine (FLEXERIL) 10 mg tablet Take 1 tablet by mouth three times daily as needed for muscle spasm. venlafaxine (EFFEXOR) 50 mg tablet TAKE 2 (TWO) TABLETS BY MOUTH IN THE MORNING, AND 1 (ONE) TABLET IN THE EVENING as directed] montelukast (SINGULAIR) 10 mg tablet Take 10 mg by mouth daily at bedtime. mupirocin (BACTROBAN) 2 % ointment Apply 1 application to affected area twice daily as needed. cetirizine 10 mg tablet Take 10 mg by mouth once daily. iv contrast (will be provided with radiology test) CT Chest ABD/PEL-Inject, intravenously, once for 1 dose.No IV access, insert saline lock prior to the beginning of sedation, infusion, injection of imaging exam. Discontinue saline lock post exam. If Pt. has a central line or IVAD, may access for administration according to line specific nursing protocol. Once exam is complete flush line and de-access according to line specific nursing protocol in the CT contrast administration guidelines link. enteric contrast (will be provided with radiology test) For CT CHESTABD/PEL W IVCON Routine order Administer, As Directed One Time Only, via Oral, Rectal, both Oral and Rectal, Enteric Tube, Stoma or Indwelling Catheter, Enteric Contrast as designated per enteric contrast guidelines Allergies: ALLERGIES Allergen Reactions Ampicillin Hives [place] Fruits Intolerance Dust Mites Intolerance Penicillins Hives Wheat Bran Intolerance congestion ROS: See HPI PE: 05/18/23 0949 BP: 116/70 Pulse: 76 Resp: 16 Temp: 36.1 C (97 F) TempSrc: Temporal Weight: 68.9 kg (152 lb) Height: 170 cm (5' 6.93) Gen: A&O, NAD, non-toxic appearing, Pleasant, cooperative HEENT: NT/AC, PERRLA, EOMs intact b/l, nares clear and patent b/l, pharynx without erythema, exudate or lesions. Uvula midline. MMM, EACs without erythema or debris. TMs pearly ricardo with intact landmarks b/l. Neck: supple, No cervical LAD, no thyromegaly, no carotid bruits CV: RRR, normal S1 and S2, no murmurs, no gallops, no rubs, Pulses 2+ and symmetric in UE and LE b/l Lungs: normal respiratory effort, CTA b/l, no wheezing or rhonchi or rales Abd: soft, epigastric and RUQ fullness/discomfort, bloated and mildly distended appearing., mild lower abdominal discomfort, +BS, no hepatosplenomegaly MS: arthritis multiple joints, gait is stable Neuro: CN II-XII intact b/l, strength 5/5 b/l UE and LE, DTRs 2/4 UE and LE, sensation intact. Skin: warm, dry, intact, No rashes or lesions on exposed skin. No edema, normal pulses ASSESSMENT/PLAN: 1. Abdominal distension (gaseous) - ICD9: 787.3, ICD10: R14.0 (primary diagnosis) Need for additional testing with CT abd/pelvis and follow up with Gastro specialist if not improving. Concerns for risk of pancreatic or pelvic mass or other solid organ mass. - CT ABD/PEL W IVCON 2. Encounter for screening mammogram for malignant neoplasm of breast - ICD9: V76.12, ICD10: Z12.31 - LUNA SCREENING 3. Generalized abdominal pain - ICD9: 789.07, ICD10: R10.84 Need for additional testing with CT abd/pelvis and follow up with Gastro specialist if not improving. Concerns for risk of pancreatic or pelvic mass or other solid organ mass. - CT ABD/PEL W IVCON 4. Nausea - ICD9: 787.02, ICD10: R11.0 Need for additional testing with CT abd/pelvis and follow up with Gastro specialist if not improving. Concerns for risk of pancreatic or pelvic mass or other solid organ mass. - CT ABD/PEL W IVCON 5. Dyslipidemia - ICD9: 272.4, ICD10: E78.5 - Controlled - Counseled on healthy diet and regular exercise - Discussed need for and benefit of weight loss. BMI 23.86 kg/(m^2) 6. Hyperglycemia - ICD9: 790.29, ICD10: R73.9 stable 7. Fatigue, unspecified type - ICD9: 780.79, ICD10: R53.83 stable 8. Vitamin D deficiency - ICD9: 268.9, ICD10: E55.9 Continue supplement, stable 9. Urge incontinence - ICD9: 788.31, ICD10: N39.41 Stable, continue same medication 10. Celiac disease - ICD9: 579.0, ICD10: K90.0 Diet managed Alfredito Engel DO To ER if develops chest pain, shortness of breath, or severe worsening of symptoms. Discussed risks, benefits, alternatives, and potential side effects of medications. Patient expressed understanding and agreed with the plan. Alfredito Engel DO [address] [place] [id number] documented in this encounter [facility] 05-13-2023 History of Present illness Narrative Patient not seen in office Alfredito Engel DO documented in this encounter [facility] 05-12-2023 Miscellaneous Notes Turned into LUANA Gilbert documented in this encounter [facility] 04-08-2023 Nurse Note Patient arrived in phase II via cart in left lateral position, eyes closed but open to verbal stimuli, answers questions with yes or no, skin warm and dry, respirations regular and unlabored, abdomen soft and non distended. Denies pain or nausea.Resting comfortably on left side. documented in this encounter [facility] 04-08-2023 History and physical note UPDATED PROCEDURAL SEDATION HISTORY AND PHYSICAL EXAMINATION SERVICE DATE: 04/08/2023 SERVICE TIME: 8:03 PHYSICAL EXAM MUST BE COMPLETED ON ADMISSION PROCEDURE: colonoscopy, possible biopsies Procedure Indications: constipation The History and Physical (completed in the past 30 days) has been reviewed and the patient has been examined. The contents accurately reflect the patient's condition with the following additions or revisions since the H&P was completed. ASA Class: ASA Class:: Patient with mild systemic disease Examination indicates no changes. AIRWAY: Airway Visualization of Uvula: Yes Mouth opening greater than 2 fingerbreadths: Yes Neck Full Range of Motion: Yes LUNGS: Lungs clear to auscultation CARDIAC: Regular rhythm,Regular rate Provisional Diagnosis/Treatment Plan: colonoscopy, possible biopsies SEDATION GOAL: Moderate This H&P can be found in the Electronic Medical Record . SIGNATURE: Corry Sorto MD PATIENT NAME: Corry Jerome DATE: April 08, 2023 TIME: 8:03 AM Source Note - Corry Sorto MD - 04/08/2023 8:15 AM EST HISTORY AND PHYSICAL Corry Jerome 1950 REFERRING PHYSICIAN: Annamarie Eugene APRN* CHIEF COMPLAINT: Consult (Colonoscopy, constipation) HPI: The patient is a 72 year old female referred for endoscopy. Corry notes recent issues with increasing constipation over the last 2-3 months. Notes change in consistency of stool to dry pellets. Patient denies any weight changes, blood in stools, black tarry stools or abdominal pain. Denies family history of colon issues. Has tried increasing fiber in diet and taking miralax with some improvement. The patient notes no upper GI complaints. Corry has undergone prior endoscopy. Last colonoscopy 03/29/[address] Rodriguez by Dr. Vides under conscious sedation, no concerning findings at that time. Patient denies chest pain, shortness of breath or recent hospitalizations. Denies problems with sedation in the past. 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 2009 bilateral COLONOSCOPY FLX DX W/COLLJ SPEC WHEN PFRMD 03/29/2013 Colonoscopy DILATION & CURETTAGE DX&/THER NONOBSTETRIC 03/07/2014 due to pelvic pain- as on Tamoxifen PAST SURGICAL HISTORY OF 03/07/1997 mastectomy right breast REMOVAL OF OVARY(S) Left 1983 CURRENT MEDICATIONS Current Outpatient Medications Medication Sig polyethylene glycol 3350 (MIRALAX) 17 gram/dose powder Take 17 g by mouth once daily. Dissolve dose in 4 - 8 ounces of liquid and take as directed. cyclobenzaprine (FLEXERIL) 10 mg tablet Take 1 tablet by mouth three times daily as needed for muscle spasm. venlafaxine (EFFEXOR) 50 mg tablet TAKE 2 (TWO) TABLETS BY MOUTH IN THE MORNING, AND 1 (ONE) TABLET IN THE EVENING as directed] solifenacin (VESICARE) 5 mg tablet Take 1 tablet by mouth once daily. montelukast (SINGULAIR) 10 mg tablet Take 10 mg by mouth daily at bedtime. cetirizine 10 mg tablet Take 10 mg by mouth once daily. mupirocin (BACTROBAN) 2 % ointment Apply 1 application to affected area twice daily as needed. (Patient not taking: Reported on 07/08/2022) No current facility-administered medications for this visit. ALLERGIES: Ampicillin, [place] Fruits, Dairy [Homeopathic Products], Dust Mites, Penicillins, and Wheat Bran PERSONAL HISTORY: SOCIAL HISTORY Social History Tobacco Use Smoking status: Never Smokeless tobacco: Never Vaping Use Vaping Use: Never used Substance Use Topics Alcohol use: No Drug use: Never FAMILY HISTORY: FAMILY HISTORY FAMILY HISTORY Problem Relation Age of Onset Heart Mother CHF, 86 Breast Cancer Mother 72 Heart Father CAD, [place] Cancer Father Lung 53 Diabetes Sister Diabetes Brother other (Liver Cirhosis) Maternal Grandfather Alcoholic Alcohol/Drug Paternal Grandfather Heart Paternal Grandfather Stroke Paternal Grandmother Heart Paternal Aunt REVIEW OF SYMPTOMS: The review of systems data was entered by the nurse and reviewed by wv Nursing Notes: Britany Morrison RN 03/18/2023 8:43 AM Signed REVIEW OF SYSTEMS: General: The patient NOTES fatigue, denies weight loss, denies weight gain, denies feeling hot, and denies feelings of cold. Eyes: The patient denies glaucoma, NOTES eye injury/surgery, does not wear glasses or contacts. Ear/Nose/Throat: The patient NOTES allergies, denies hayfever, denies ear infections, and denies bloody noses. Cardiovascular: The patient denies chest pain, denies heart disease, denies high blood pressure,denies cardiac stent, denies prior heart attack, denies irregular heart beat, denies high cholesterol, denies poor circulation, denies heart failure, other cardiac issues, denies claudication, denies cold feet, denies peripheral arterial stent. Respiratory: The patient denies tuberculosis, denies pneumonia, denies frequent cough, denies pulmonary embolism, denies shortness of breath, and denies coughing up blood. Gastrointestinal: The patient denies difficulty swallowing, denies acid reflux, denies ulcers, denies vomiting, denies jaundice/hepatitis, denies gallbladder problems, denies black or tarry stools, NOTES hemorrhoids, NOTES bleeding from rectum, NOTES diverticulitis, NOTES constipation, denies diarrhea, denies loss of stool control, and denies hernias. Kidney/Bladder: The patient denies kidney stones, denies urine infections, and denies bloody urine. Skin: The patient denies a history of skin cancer, denies bleeding/changing moles, and denies a history of skin rash. Neurologic: The patient denies a history of epilepsy/convulsions, denies headaches, denies head/spinal injuries, and denies stroke/TIA. Psychiatric: The patient denies psychiatric medications, NOTES depression, and denies voices, denies substance abuse. Endocrine: The patient denies thyroid disorders, denies diabetes, and denies hormonal problems. Hematologic: The patient denies a history of bruising, denies bleeding, and denies anemia, denies blood clots. Infections: The patient NOTES a history of measles and mumps, denies rheumatic fever, and denies sexually transmitted diseases. Musculoskeletal: The patient denies back pain/injury, NOTES back problems, NOTES sciatica, NOTES knee/foot trouble, NOTES arthritis, or denies gout. When was patient's last Mammogram screening? 2022 Last Colonoscopy: 03/29/2013 Britany Morrison RN I have confirmed and edited as necessary, the PFSH and ROS obtained by others. Cyndi Adkins PA-C PHYSICAL EXAMINATION: General: The patient is 72 year old female, well nourished, well hydrated in no acute distress. The patient is oriented to time, place, and person. VITALS: Blood pressure 110/68, pulse 97, temperature 36.4 C (97.5 F), height 170.2 cm (5' 7), weight 68.8 kg (151 lb 9.6 oz), SpO2 97%. There is no height or weight on file to calculate BMI. HEENT: Normal cephalic, ataumatic, pupils are equally round, sclera are anicteric, mucous membranes are moist, oropharynx is clear. Neck has no masses, asymmetry or lymphadenopathy. Respiratory: Clear to auscultation and percussion. Normal respiratory excursion and pattern. Cardiac: Examination is regular rate and rhythm. Normal S1/S2 Abdominal exam: Soft, nontender, with no palpable masses. No hepatosplenomegaly. No palpable hernias. Extremities: no clubbing, cyanosis or edema. No adenopathy. LABORATORY VALUES: As Noted RADIOLOGIC STUDIES: As Noted Assessment IMPRESSION: change in bowel habits, constipation PLAN: I have reviewed my findings with the surgeon. Will plan for lower endoscopy. We discussed the risks and benefits of the planned endoscopy. I have informed the patient that complications can occur including failure to complete the endoscopy and perforation. The patient had the opportunity to ask questions concerning the planned endoscopy. My staff has also explained the procedure to the patient in understandable terms and has given the patient printed material concerning the procedure. The patient freely consents to surgery. I plan to use Golytely bowel preparation in addition to 2 full days of clear liquid diet I have explained to the patient the difference between IV conscious sedation and MAC anesthesia - and I have offered either, according to the patient's wishes. I have explained that with IV conscious sedation there is no anesthesia provider available and therefore there is a limitation of the amount of IV medications that can be given and that the patient may wake up in the middle of the procedure and/or experience pain/discomfort during the procedure. Further discussion was done and the patient was given the opportunity to ask questions and all questions were answered. The patient chooses IV conscious sedation Diagnoses: (K59.00) Acute constipation (R19.5) Hard stool (Z12.11) Screening for colon cancer Consultation requested by Annamarie Eugene CNP for an opinion regarding colonoscopy. My final recommendations will be communicated back to the requesting physician by way of shared Medical record or letter to requesting physician via US mail. Cyndi Adkins PA-C HISTORY AND PHYSICAL Corry Jerome 1950 REFERRING PHYSICIAN: Annamarie Eugene APRN* CHIEF COMPLAINT: Consult (Colonoscopy, constipation) HPI: The patient is a 72 year old female referred for endoscopy. Corry notes recent issues with increasing constipation over the last 2-3 months. Notes change in consistency of stool to dry pellets. Patient denies any weight changes, blood in stools, black tarry stools or abdominal pain. Denies family history of colon issues. Has tried increasing fiber in diet and taking miralax with some improvement. The patient notes no upper GI complaints. Corry has undergone prior endoscopy. Last colonoscopy 03/29/[address] Rodriguez by Dr. Vides under conscious sedation, no concerning findings at that time. Patient denies chest pain, shortness of breath or recent hospitalizations. Denies problems with sedation in the past. 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 2009 bilateral COLONOSCOPY FLX DX W/COLLJ SPEC WHEN PFRMD 03/29/2013 Colonoscopy DILATION & CURETTAGE DX&/THER NONOBSTETRIC 03/07/2014 due to pelvic pain- as on Tamoxifen PAST SURGICAL HISTORY OF 03/07/1997 mastectomy right breast REMOVAL OF OVARY(S) Left 1983 CURRENT MEDICATIONS Current Outpatient Medications Medication Sig polyethylene glycol 3350 (MIRALAX) 17 gram/dose powder Take 17 g by mouth once daily. Dissolve dose in 4 - 8 ounces of liquid and take as directed. cyclobenzaprine (FLEXERIL) 10 mg tablet Take 1 tablet by mouth three times daily as needed for muscle spasm. venlafaxine (EFFEXOR) 50 mg tablet TAKE 2 (TWO) TABLETS BY MOUTH IN THE MORNING, AND 1 (ONE) TABLET IN THE EVENING as directed] solifenacin (VESICARE) 5 mg tablet Take 1 tablet by mouth once daily. montelukast (SINGULAIR) 10 mg tablet Take 10 mg by mouth daily at bedtime. cetirizine 10 mg tablet Take 10 mg by mouth once daily. mupirocin (BACTROBAN) 2 % ointment Apply 1 application to affected area twice daily as needed. (Patient not taking: Reported on 07/08/2022) No current facility-administered medications for this visit. ALLERGIES: Ampicillin, [place] Fruits, Dairy [Homeopathic Products], Dust Mites, Penicillins, and Wheat Bran PERSONAL HISTORY: SOCIAL HISTORY Social History Tobacco Use Smoking status: Never Smokeless tobacco: Never Vaping Use Vaping Use: Never used Substance Use Topics Alcohol use: No Drug use: Never FAMILY HISTORY: FAMILY HISTORY FAMILY HISTORY Problem Relation Age of Onset Heart Mother CHF, 86 Breast Cancer Mother 72 Heart Father CAD, [place] Cancer Father Lung 53 Diabetes Sister Diabetes Brother other (Liver Cirhosis) Maternal Grandfather Alcoholic Alcohol/Drug Paternal Grandfather Heart Paternal Grandfather Stroke Paternal Grandmother Heart Paternal Aunt REVIEW OF SYMPTOMS: The review of systems data was entered by the nurse and reviewed by me Nursing Notes: Stitzlein, Britany, RN 03/18/2023 8:43 AM Signed REVIEW OF SYSTEMS: General: The patient NOTES fatigue, denies weight loss, denies weight gain, denies feeling hot, and denies feelings of cold. Eyes: The patient denies glaucoma, NOTES eye injury/surgery, does not wear glasses or contacts. Ear/Nose/Throat: The patient NOTES allergies, denies hayfever, denies ear infections, and denies bloody noses. Cardiovascular: The patient denies chest pain, denies heart disease, denies high blood pressure,denies cardiac stent, denies prior heart attack, denies irregular heart beat, denies high cholesterol, denies poor circulation, denies heart failure, other cardiac issues, denies claudication, denies cold feet, denies peripheral arterial stent. Respiratory: The patient denies tuberculosis, denies pneumonia, denies frequent cough, denies pulmonary embolism, denies shortness of breath, and denies coughing up blood. Gastrointestinal: The patient denies difficulty swallowing, denies acid reflux, denies ulcers, denies vomiting, denies jaundice/hepatitis, denies gallbladder problems, denies black or tarry stools, NOTES hemorrhoids, NOTES bleeding from rectum, NOTES diverticulitis, NOTES constipation, denies diarrhea, denies loss of stool control, and denies hernias. Kidney/Bladder: The patient denies kidney stones, denies urine infections, and denies bloody urine. Skin: The patient denies a history of skin cancer, denies bleeding/changing moles, and denies a history of skin rash. Neurologic: The patient denies a history of epilepsy/convulsions, denies headaches, denies head/spinal injuries, and denies stroke/TIA. Psychiatric: The patient denies psychiatric medications, NOTES depression, and denies voices, denies substance abuse. Endocrine: The patient denies thyroid disorders, denies diabetes, and denies hormonal problems. Hematologic: The patient denies a history of bruising, denies bleeding, and denies anemia, denies blood clots. Infections: The patient NOTES a history of measles and mumps, denies rheumatic fever, and denies sexually transmitted diseases. Musculoskeletal: The patient denies back pain/injury, NOTES back problems, NOTES sciatica, NOTES knee/foot trouble, NOTES arthritis, or denies gout. When was patient's last Mammogram screening? 2022 Last Colonoscopy: 03/29/2013 Britany Morrison RN I have confirmed and edited as necessary, the PFSH and ROS obtained by others. Cyndi Adkins PA-C PHYSICAL EXAMINATION: General: The patient is 72 year old female, well nourished, well hydrated in no acute distress. The patient is oriented to time, place, and person. VITALS: Blood pressure 110/68, pulse 97, temperature 36.4 C (97.5 F), height 170.2 cm (5' 7), weight 68.8 kg (151 lb 9.6 oz), SpO2 97%. There is no height or weight on file to calculate BMI. HEENT: Normal cephalic, ataumatic, pupils are equally round, sclera are anicteric, mucous membranes are moist, oropharynx is clear. Neck has no masses, asymmetry or lymphadenopathy. Respiratory: Clear to auscultation and percussion. Normal respiratory excursion and pattern. Cardiac: Examination is regular rate and rhythm. Normal S1/S2 Abdominal exam: Soft, nontender, with no palpable masses. No hepatosplenomegaly. No palpable hernias. Extremities: no clubbing, cyanosis or edema. No adenopathy. LABORATORY VALUES: As Noted RADIOLOGIC STUDIES: As Noted Assessment IMPRESSION: change in bowel habits, constipation PLAN: I have reviewed my findings with the surgeon. Will plan for lower endoscopy. We discussed the risks and benefits of the planned endoscopy. I have informed the patient that complications can occur including failure to complete the endoscopy and perforation. The patient had the opportunity to ask questions concerning the planned endoscopy. My staff has also explained the procedure to the patient in understandable terms and has given the patient printed material concerning the procedure. The patient freely consents to surgery. I plan to use Golytely bowel preparation in addition to 2 full days of clear liquid diet I have explained to the patient the difference between IV conscious sedation and MAC anesthesia - and I have offered either, according to the patient's wishes. I have explained that with IV conscious sedation there is no anesthesia provider available and therefore there is a limitation of the amount of IV medications that can be given and that the patient may wake up in the middle of the procedure and/or experience pain/discomfort during the procedure. Further discussion was done and the patient was given the opportunity to ask questions and all questions were answered. The patient chooses IV conscious sedation Diagnoses: (K59.00) Acute constipation (R19.5) Hard stool (Z12.11) Screening for colon cancer Consultation requested by Annamarie Eugene CNP for an opinion regarding colonoscopy. My final recommendations will be communicated back to the requesting physician by way of shared Medical record or letter to requesting physician via US mail. Cyndi Adkins PA-C documented in this encounter [facility] 04-08-2023 History of Present illness Narrative I discussed findings with . No obvious anatomical findings other than redundant colon, causing constipation. I have rec'd 25-30 grams of fiber per day and drinking 8-10 glasses of free water and avoiding caffeine. Patient's states that she already does all of the above. I have offered referring patient to GI medicine for consideration of Linzess, patient's defers. Patient may follow up with her PCP and/or Cyndi Adkins PA-C documented in this encounter [facility] 03-18-2023 Telephone encounter Note 04/08/2023 COLON ASC Patient denied sooner dates Patient to be on 2 day clear liquid diet leading up to procedure Cyndi please place order [facility] 03-18-2023 Miscellaneous Notes 04/08/2023 COLON ASC Patient denied sooner dates Patient to be on 2 day clear liquid diet leading up to procedure Cyndi please place order documented in this encounter [facility] 02-10-2023 History of Present illness Narrative Radiology Service Progress Note PATIENT NAME: Corry LUNDN: [id number] DATE OF SERVICE: February 10, 2023 TIME: 11:46 AM PATIENT IDENTITY VERIFICATION COMPLETED USING TWO (2) IDENTIFIERS: Name and Date of confirmed by patient verbally. FALL SCREENING: Has the patient had 2 falls in the last year or 1 fall with injury or currently using an Ambulatory Assistive Device (Walker, Cane, Wheelchair, Crutches, etc.)? No PATIENT GENDER DATA: Female. status: : No status: NO. PATIENT RELEVANT IMPLANT DATA REVIEWED: Yes RADIOLOGY DEPARTMENT: General X-ray: Exam(s) Completed: Abdomen X-Ray: Abdomen PERIPHERAL IV DATA: Not applicable SIGNED BY: RT Ronald(R) February 10, 2023 11:46 AM documented in this encounter [facility] 02-02-2023 Instructions Annamarie Eugene APRN.CINDY - 02/02/2023 9:54 AM EST I'll get the order in to have your colonoscopy done sooner. Start taking the Miralax daily. Have your stool testing completed. Have your xray completed. documented in this encounter [facility] 02-02-2023 History of Present illness Narrative sChief Complaint Patient presents with: Constipation HPI Corry Jerome is a 72 year old female who presents here today for Above Complaints. Today: Out of nowhere has had some very hard rock stool for the past 3 weeks. No changes in diet. Did have mild case of COVID in December. Is painful when passing stool. Has a little bit of stool multiple times in a day. Blood at first but not anymore because is no longer straining. Denies any abdominal pain. Started a probiotic last night. Takes a daily stool softener x20 + years. No urinary sx. Drinking plenty of water. Denies extreme or different stress than usual. Does chronically have somewhat of an irritable bowel, but leans toward the loose side of things. Has some food intolerances-avoids gluten, no dairy, grapefruit & grapefruit juice, additive in sour cream causes discomfort/pain. Does have hx rectal bleeding and colonoscopy due to internal hemorrhoids. Is due for her 10 year repeat colonoscopy in the beginning of next year. Past medical history, appointments, medications, allergies reviewed. Previous Medical History PAST MEDICAL HISTORY Diagnosis Date Allergic rhinitis Antibiotic reaction allergy- Amoxicillin, Ampicillin Ductal carcinoma in situ (DCIS) of right breast 1997 Lobular carcinoma of breast, stage 1 (HCC) 1997 right sided Osteopenia stable in past PMH - PAST MEDICAL HISTORY OF hot flashes on Tamoxifen secondary to breast cancer Urge incontinence Previous Surgical History PAST SURGICAL HISTORY Procedure Laterality Date CATARACT EXTRACTION HX ? 2009 bilateral COLONOSCOPY FLX DX W/COLLJ SPEC WHEN PFRMD 03/29/13 Colonoscopy DILATION & CURETTAGE DX&/THER NONOBSTETRIC 2014 due to pelvic pain- as on Tamoxifen PAST SURGICAL HISTORY OF 1997 mastectomy right breast Family History FAMILY HISTORY Problem Relation Age of Onset Heart Mother CHF, 86 Breast Cancer Mother 72 Heart Father CAD, [place] Cancer Father Lung 53 Diabetes Sister Diabetes Brother other (Liver Cirhosis) Maternal Grandfather Alcoholic Alcohol/Drug Paternal Grandfather Heart Paternal Grandfather Stroke Paternal Grandmother Heart Paternal Aunt Patient Allergies ALLERGIES Allergen Reactions Ampicillin Hives [place] Fruits Intolerance Dairy [Homeopathic * Intolerance Dust Mites Intolerance Molds [Other] Hives Penicillins Hives Wheat Bran Intolerance congestion Current Medications Current Outpatient Medications on File Prior to Visit Medication Sig cyclobenzaprine (FLEXERIL) 10 mg tablet Take 1 tablet by mouth three times daily as needed for muscle spasm. venlafaxine (EFFEXOR) 50 mg tablet TAKE 2 (TWO) TABLETS BY MOUTH IN THE MORNING, AND 1 (ONE) TABLET IN THE EVENING as directed] solifenacin (VESICARE) 5 mg tablet Take 1 tablet by mouth once daily. montelukast (SINGULAIR) 10 mg tablet Take 10 mg by mouth daily at bedtime. cetirizine 10 mg tablet Take 10 mg by mouth once daily. mupirocin (BACTROBAN) 2 % ointment Apply 1 application to affected area twice daily as needed. (Patient not taking: Reported on 07/08/2022) No current facility-administered medications on file prior to visit. Social History Social History Tobacco Use Smoking status: Never Smokeless tobacco: Never Vaping Use Vaping Use: Never used Substance Use Topics Alcohol use: No Drug use: Never Review of Symptoms REVIEW OF SYSTEMS See HPI, otherwise negative EXAM: BP 100/62 (BP Site: Left Arm, BP Position: Sitting, BP Cuff Size: Regular Adult) Pulse 86 Resp 16 Wt 68 kg (150 lb) SpO2 96% BMI 23.49 kg/m General Appearance: Well appearing, alert, in no acute distress, well-hydrated, well nourished.. Lungs: Lungs clear to auscultation. No wheezing, rhonchi, rales.. Heart: RRR without murmur, gallop, or rubs. No ectopy. Abdomen: Normal abdominal exam, Abdomen soft, non-tender. Bowel sounds normal. No masses, organomegaly. Psychiatric: pleasant, cooperative. Health Maintenance List Hepatitis C Screening Never done RSV Vaccine(1 - 1-dose 60+ series) Never done Advance Directive Discussion Never done Covid-19 Vaccine(2022- season) due on 11/05/2022 Colorectal Cancer Screening due on 03/29/2023 Mammogram Screening due on 08/21/2023 Diabetes Screening due on 05/13/2025 Lipid Screening due on 05/14/2027 DTaP,Tdap,Td Vaccine(3 - Td or Tdap) due on 05/26/2030 Bone Density Screening Completed Influenza Vaccine Completed Shingrix Vaccine Completed Pneumococcal Vaccine: 65+ Completed Data reviewed Previous records, office notes ASSESSMENT/PLAN: 1. Acute constipation - ICD9: 564.00, ICD10: K59.00 (primary diagnosis) Continue daily stool softener. Add daily Miralax. Stool testing. KUB ordered. Consult to general surgery for consideration to have regularly scheduled 10 year screening colonoscopy moved up-per patient concern due to stool changes. - XR ABDOMEN 1V SUPINE - OCCULT BLD EXAM-DIAG - ENTERIC BACTERIAL PANEL BY PCR - CALPROTECTIN,FECAL - POLYETHYLENE GLYCOL 3350 17 GRAM/DOSE ORAL POWDER - CONSULT TO GENERAL SURGERY 2. Hard stool - ICD9: 787.7, ICD10: R19.5 Continue daily stool softener. Add daily Miralax. Stool testing. KUB ordered. Consult to general surgery for consideration to have regularly scheduled 10 year screening colonoscopy moved up-per patient concern due to stool changes. - XR ABDOMEN 1V SUPINE - OCCULT BLD EXAM-DIAG - ENTERIC BACTERIAL PANEL BY PCR - CALPROTECTIN,FECAL - POLYETHYLENE GLYCOL 3350 17 GRAM/DOSE ORAL POWDER - CONSULT TO GENERAL SURGERY 3. Screening for colon cancer - ICD9: V76.51, ICD10: Z12.11 Continue daily stool softener. Add daily Miralax. Stool testing. KUB ordered. Consult to general surgery for consideration to have regularly scheduled 10 year screening colonoscopy moved up-per patient concern due to stool changes. - XR ABDOMEN 1V SUPINE - OCCULT BLD EXAM-DIAG - ENTERIC BACTERIAL PANEL BY PCR - CALPROTECTIN,FECAL - POLYETHYLENE GLYCOL 3350 17 GRAM/DOSE ORAL POWDER - CONSULT TO GENERAL SURGERY 4. Encounter for immunization - ICD9: V03.89, ICD10: Z23 - RSV PRINTED PHARMACY INSTRUCTIONS - RSV VACCINE, BIVALENT (ABRYSVO) - RSV PRINTED PHARMACY INSTRUCTIONS Annamarie Eugene APRN.ENGINEERING LIBRARIAN documented in this encounter [facility] 01-25-2023 Miscellaneous Notes documented in this encounter [facility] 01-13-2023 Miscellaneous Notes Pt notified of provider's message. Pt verbalizes understanding. Kenny Mcconnell LPN Tried to call patient to advise on provider recommendations. Left message for patient to call back and speak with triage nurse. I recommend waiting 3 months after infection to get vaccine. Thank you, Juanita Arce APRN.ENGINEERING LIBRARIAN Patient recovering from a recent, mild, Covid infection. She is inquiring when she may receive the covid vaccine? Advise. Lida Valdez documented in this encounter [facility] 01-10-2023 Miscellaneous Notes See TE 01/07 Jenny Gilbert documented in this encounter [facility] 12-18-2022 History of Present illness Narrative Telemedicine Follow-up for COVID-19 Infection MyChart Zoom Video Visit was used for evaluation of this patient. I have communicated my name and active licensure. The patient's identity and physical location were verified at the time of this visit. Either the patient or their legal maintenance representative has been informed of the risks and benefits of -- and alternatives to -- treatment through a remote evaluation and consents to proceed with the evaluation remotely. SUBJECTIVE Corry Jerome is a 72 year old female who was diagnosed with COVID-19 on 12/18/2022 with symptoms starting on 12/18/2022 Since diagnosis, symptoms are stable. Persistent symptoms include: Fever (?100.4F): No or Chills: Yes Cough: No Shortness of breath: No or Difficulty breathing: No Fatigue: Yes Muscle aches: No Headache: No Loss of smell or taste: No Sore throat: No Nasal congestion: Yes or Rhinorrhea: No Nausea: No or Vomiting: No Diarrhea: No OTC meds/remedies that patient has tried: none . She reports that she has never smoked. She has never used smokeless tobacco. OBJECTIVE VIDEO EXAM (if available) HEENT: sinuses tender to self-palpation and no cervical adenopathy by self-palpation PULMONARY: breathing comfortably on room air , no coughing noted, and no wheezing noted ASSESSMENT/PLAN (U07.1) COVID-19 virus infection (primary encounter diagnosis) Discussed two main options with patient with known COVID-19 Supportive and symptomatic care with increased fluids, rest, and OTC measures to control symptoms. Oral Antiviral therapies for COVID-19 plus Supportive and symptomatic care with increased fluids, rest, and OTC measures to control symptoms. Pt elects option 1 Pt declines other options at this time and is aware of windows of use for other options. - Symptoms stable or improving, continue self monitoring - Instructed to continue home isolation - Cleared to discontinue home isolation This patient encounter involved the screening or treatment of novel coronavirus infection (COVID-19). Nirmatrelvir/Ritonavir (Paxlovid) Considerations Paxlovid is FDA-approved for treatment of mild to moderate COVID-19 in adults who are at high risk for progression to severe COVID-19. Consider use of Paxlovid in the following examples of high risk patients (list is not all inclusive): Age over 65 years Cardiovascular and cerebrovascular disease Chronic disease state (kidney, liver, lung) Diabetes (type 1 or type 2) Immunocompromised state (cancer, solid organ or blood stem cell transplant, HIV) Obesity Paxlovid warnings include serious drug interactions (co-administration with drugs highly dependent on CYP3A for clearance), hypersensitivity reactions, hepatotoxicity, and risk of HIV-1 resistance development. Milton Martinez PA-C December 18, 2022 11:34 AM documented in this encounter [facility] 12-18-2022 Instructions Milton Martinez PA-C - 12/18/2022 11:32 AM EDT Images from the original note were not included. Resources for Managing Anxiety During COVID Crisis https://www.virusanxiety.com https://www.cdc.gov/coronavirus/2 019-ncov/prepare/managing-stress- anxiety.html https://coronavirus.[place].gov/wps/ portal/gov/covid-19/home/resource s/nmqpueyxc-qrn-stwgmt-coping-wit u-hgg-nebym-19-pandemic www.[employer]us/blog/akin terryfx-ttqxq-hhzuhwiwwrrr//how- xfhgas-nqjvywxaopb-ywyfumq https://www.[employer]/u s/blog/cll-dgdot-yebeltu//1 5-mthl-pveppkzfc-calm-positivity- now https://www.[employer]/u s/blog/experimentations//7- bkzougqvtcz-zwkevemxcdu-salurjvyk g-adversity Beginning Home Isolation Isolation is used to separate people infected with SARS-CoV-2, the virus that causes COVID-19, from people who are not infected. People who are in isolation should stay home until it s safe for them to be around others. In the home, anyone sick or infected should separate themselves from others by staying in a specific sick room or area and using a separate bathroom (if available). Isolation or Quarantine: What's the difference? Quarantine keeps someone who might have been exposed to the virus away from others. Isolation keeps someone who is infected with the virus away from others, even in their home. Who needs to isolate People who have COVID-19 People who have symptoms of COVID-19 and are able to recover at home People who have no symptoms (are asymptomatic) but have tested positive for infection with SARS-CoV-2 Steps to take Stay home except to get medical care Monitor your symptoms. Stay in a separate room from other household members, if possible Use a separate bathroom, if possible Avoid contact with other members of the household and pets Don t share personal household items, like cups, towels, and utensils Wear a mask when around other people, if you are able to When to seek emergency medical attention Look for emergency warning signs* for COVID-19. If someone is showing any of these signs, seek emergency medical care immediately: Trouble breathing Persistent pain or pressure in the chest New confusion Inability to wake or stay awake Bluish lips or face *This list is not all possible symptoms. Please call your medical provider for any other symptoms that are severe or concerning to you. Call 911 or call ahead to your local emergency facility: Notify the dye range operator that you are seeking care for someone who has or may have COVID-19. Ending Home Isolation - When you can be around others after you had or likely had COVID-19 When you can be around others after you had or likely had COVID-19 If You Test Positive for COVID-19 (Isolation) Everyone, regardless of vaccination status: Stay home for 5 days. Note: Day 0 is your first day of symptoms or the date of collection of a positive viral test if no symptoms. Day 1 is the first full day after symptoms developed or test specimen was collected. If you have no symptoms or your symptoms are resolving after 5 days, you can leave your house. Continue to wear a mask around others for 5 additional days. If you have a fever, continue to stay home until your fever resolves, even if it is longer than 5 days. If You Were Exposed to Someone with COVID-19 (Quarantine) If you: 1. Have been boosted OR 2. Completed the primary series of Pfizer or Moderna vaccine within the last 6 months OR 3. Completed the primary series of J&J vaccine within the last 2 months THEN: 1. Wear a mask around others for 10 days. 2. Test on day 5, if possible. If you develop symptoms get a test and stay home. If You Were Exposed to Someone with COVID-19 (Quarantine) If you: 1. Completed the primary series of Pfizer or Moderna vaccine over 6 months ago and are not boosted OR 2. Completed the primary series of J&J over 2 months ago and are not boosted OR 3. Are unvaccinated THEN: 1. Stay home for 5 days. After that continue to wear a mask around others for 5 additional days. 2. If you can't quarantine you must wear a mask for 10 days. 3. Test on day 5 if possible. If you develop symptoms get a test and stay home. I had COVID-19 or I tested positive for COVID-19 and I have a weakened immune system If you have a weakened immune system (immunocompromised) due to a health condition or medication, you might need to stay home and isolate longer than 10 days. Talk to your healthcare provider for more information. Your doctor may work with an infectious disease expert at your local health department to determine when you can be around others. How to Manage Common Symptoms Associated with COVID for Adults Fever- Fever is a temperature over 100.4 F and can occur when the body is fighting an infection. To help treat a fever: Drink plenty of fluids and stay well hydrated. Eat small amounts of easy to digest food. Rest. Your body needs rest to recover, but getting up and moving around the house frequently is a good idea. You should try to continue doing your normal daily activities (bathing, toileting, grooming, cooking), though you will probably feel tired, and need to rest often. Avoid any heavy activity or exercise, as this will increase your body temperature. Dress in light clothing and stay covered in a light sheet. Keep the room temperature cool. Take a slightly warm (not cold or cool) bath, or apply damp washcloths to the forehead and wrists. Cough- Cough is a common symptom associated with COVID and can be bothersome. To help treat a cough: Stay well hydrated. Try warm water or tea with lemon and/or honey to help soothe the cough. Use a humidifier to add moisture to the air. Try a product with menthol, like a cough drop or a rub for your chest such as Vicks, which can help reduce cough. Try cough drops. Avoid smoking and other strong odors or perfumes. Try breathing exercises to keep your lungs open and clear. Take a big deep breath through your nose and hold for 5 seconds before slowly releasing. Repeat frequently, while you are awake. Congestion- Runny nose or nasal congestion can occur with COVID. Treatment can help relieve symptoms: Try OTC nasal saline spray, or nasal saline rinse to relieve mucus congestion. Nasal strips can help keep nasal passages open, to increase airflow. Elevating your head with an extra pillow in bed can help reduce congestion. Using a humidifier can increase moisture in the air, and make breathing easier. Sore Throat- Another common symptom with COVID, can be managed at home by: Stay well hydrated. Gargle with salt water - mix teaspoon salt with 1 cup of warm water and gargle. This helps to loosen mucus in the back of the throat and may reduce discomfort. Try ice chips, popsicles or lozenges to soothe the throat. Nausea/Vomiting/Diarrhea- These are common symptoms, and staying hydrated is most important. If you are nauseous or vomiting, start with small sips of water every 10-15 minutes and increase as tolerated. You can try sucking an ice cube too. If tolerating, you can try pedialyte or Gatorade, or flat sprite or thomas-faiza. Start slowly and increase as you are able to. Instead of meals, try smaller, more frequent snacks. Try eating bland foods like crackers, toast, rice, and applesauce. Avoid spicy, greasy or fried foods and dairy containing foods. Even if you aren't feeling hungry due to lack of smell or taste, it is important to try to take in some food when you are able. After drinking and eating, rest in an upright position for up to two hours as needed to help decrease nauseous feelings. Try closing your eyes, avoid moving and watching TV. Avoid strong odors that can make you feel more nauseated. When to seek emergency medical attention Look for emergency warning signs for COVID-19. If having any of these symptoms, seek emergency medical care immediately: Trouble breathing Persistent pain or pressure in the chest New confusion Inability to wake or stay awake Bluish lips or face *This list is not all possible symptoms. Please call your medical provider for any other symptoms that are severe or concerning to you. FACT SHEET FOR PATIENTS, PARENTS, AND CAREGIVERS EMERGENCY USE AUTHORIZATION (EUA) OF PAXLOVID FOR CORONAVIRUS DISEASE 2019 (COVID-19) You are being given this Fact Sheet because your healthcare provider believes it is necessary to provide you with PAXLOVID for the treatment of inpi-ap-ourqxayo coronavirus disease (COVID-19) caused by the SARS-CoV-2 virus. This Fact Sheet contains information to help you understand the risks and benefits of taking the PAXLOVID you may receive. This Fact Sheet also contains information about how to take PAXLOVID and how to report side effects or problems with the appearance or packaging of PAXLOVID. The U.S. Food and Drug Administration (FDA) has issued an Emergency Use Authorization (EUA) to make PAXLOVID available for the treatment of hkwh-ua-megbjrdt COVID-19 in adults and children 12 years of age and older weighing at least 88 pounds (40 kg) who are at high risk for progression to severe COVID-19, including hospitalization or (for more details about an EUA please see What is an Emergency Use Authorization? at the end of this document). Read this Fact Sheet for information about PAXLOVID. Talk to your healthcare provider about your options or if you have any questions. It is your choice to take PAXLOVID. What is COVID-19? COVID-19 is caused by a virus called a coronavirus. You can get COVID-19 through close contact with another person who has the virus. COVID-19 illnesses have ranged from very oiub-ul-eejnxt, including illness resulting in . While information so far suggests that most COVID-19 illness is mild, serious illness can happen and may cause some of your other medical conditions to become worse. Older people and people of all ages with severe, long lasting (chronic) medical conditions like heart disease, lung disease, and diabetes, for example seem to be at higher risk of being hospitalized for COVID-19. What is PAXLOVID? PAXLOVID is a medicine that is available under EUA for the treatment of puvs-zq-llbkpfno COVID-19 in adults and children 12 years of age and older weighing at least 88 pounds (40 kg) who are at high risk for progression to severe COVID-19, including hospitalization or . Although PAXLOVID is FDA-approved for the treatment of COVID-19 in certain adults (see section What other treatment choices are there?), PAXLOVID use in children remains investigational because it is still being studied. There is limited information about the safety and effectiveness of using PAXLOVID to treat children with zvpz-lr-eappfpiv COVID-19. What is the most important information I should know about PAXLOVID? PAXLOVID can interact with other medicines causing severe or life-threatening side effects or . It is important to know the medicines that should not be taken with PAXLOVID. Do not take PAXLOVID if: you are taking any of the following medicines: o alfuzosin o amiodarone o apalutamide o carbamazepine o colchicine o dihydroergotamine o dronedarone o eletriptan o eplerenone o ergotamine o finerenone o flecainide o flibanserin o ivabradine o lomitapide o lovastatin o lumacaftor/ivacaftor o lurasidone o methylergonovine o midazolam (oral) o naloxegol o phenobarbital o phenytoin o pimozide o primidone o propafenone o quinidine o ranolazine o rifampin o rifapentine o [place] Wort (hypericum perforatum) o sildenafil (Revatio ) for pulmonary arterial hypertension o silodosin o simvastatin o tolvaptan o triazolam o ubrogepant o voclosporin These are not the only medicines that may cause serious or life-threatening side effects if taken with PAXLOVID. PAXLOVID may increase or decrease the levels of multiple other medicines. It is very important to tell your healthcare provider about all of the medicines you are taking because additional laboratory tests or changes in the dose of your other medicines may be necessary during treatment with PAXLOVID. Your healthcare provider may also tell you about specific symptoms to watch out for that may indicate that you need to stop or decrease the dose of some of your other medicines. you are allergic to nirmatrelvir, ritonavir, or any of the ingredients in PAXLOVID. See the end of this leaflet for a complete list of ingredients in PAXLOVID. See What are the important possible side effects of PAXLOVID? for signs and symptoms of allergic reactions. What should I tell my healthcare provider before I take PAXLOVID? Tell your healthcare provider if you: have kidney problems. You may need a different dose of PAXLOVID. have liver problems, including hepatitis. have Human Immunodeficiency Virus 1 (HIV-1) infection. PAXLOVID may lead to some HIV-1 medicines not working as well in the future. are or plan to become . It is not known if PAXLOVID can harm your unborn baby. Tell your healthcare provider right away if you are or if you become . are or plan to breastfeed. It is not known if PAXLOVID can pass into your breast milk. Talk to your healthcare provider about the best way to feed your baby during treatment with PAXLOVID. Some medicines may interact with PAXLOVID and may cause serious side effects. Tell your healthcare provider about all the medicines you take, including prescription and nntn-jhr-myfjtcs medicines, vitamins, and herbal supplements. Your healthcare provider can tell you if it is safe to take PAXLOVID with other medicines. You can ask your healthcare provider or pharmacist for a list of medicines that interact with PAXLOVID. Do not start taking a new medicine without telling your healthcare provider. Tell your healthcare provider if you are taking combined control (hormonal contraceptive). PAXLOVID may affect how your hormonal contraceptives work. Females who are able to become should use another effective alternative form of contraception or an additional barrier method of contraception during treatment with PAXLOVID. Talk to your healthcare provider if you have any questions about contraceptive methods that might be right for you. How do I take PAXLOVID? Take PAXLOVID exactly as your healthcare provider tells you to take it. PAXLOVID consists of 2 medicines: nirmatrelvir tablets and ritonavir tablets. The 2 medicines are taken together 2 times each day for 5 days. Nirmatrelvir is an oval, pink tablet. Ritonavir is a white or off-white tablet. PAXLOVID is available in 2 Dose Packs (see Figures A and B below). Your healthcare provider will prescribe the PAXLOVID Dose Pack that is right for you. If you have kidney disease, your healthcare provider may prescribe a lower dose (see Figure B). Talk to your healthcare provider to make sure you receive the correct Dose Pack. Do not remove your PAXLOVID tablets from the blister card before you are ready to take your dose. Take your first dose of PAXLOVID in the morning or evening, depending on when you chicken picker your prescription, or as your healthcare provider tells you to. Swallow the tablets whole. Do not chew, break, or crush the tablets. Take PAXLOVID with or without food. Do not stop taking PAXLOVID without talking to your healthcare provider, even if you feel better. If you miss a dose of PAXLOVID within 8 hours of the time it is usually taken, take it as soon as you remember. If you miss a dose by more than 8 hours, skip the missed dose and take the next dose at your regular time. Do not take 2 doses of PAXLOVID at the same time. If you take too much PAXLOVID, call your healthcare provider or go to the nearest hospital emergency room right away. If you are taking a ritonavir- or cobicistat-containing medicine to treat hepatitis C or HIV-1 infection, you should continue to take your medicine as prescribed by your healthcare provider. Talk to your healthcare provider if you do not feel better or if you feel worse after 5 days. What are the important possible side effects of PAXLOVID? PAXLOVID may cause serious side effects, including: Allergic reactions, including severe allergic reactions (anaphylaxis) have happened during treatment with PAXLOVID. Stop taking PAXLOVID and get medical help right away if you get any of the following symptoms of an allergic reaction: o skin rash, hives, blisters or peeling skin o painful sores or ulcers in the mouth, nose, throat or genital area o swelling of the mouth, lips, tongue or face o trouble swallowing or breathing o throat tightness o hoarseness Liver Problems. Tell your healthcare provider right away if you get any of the following signs and symptoms of liver problems during treatment with PAXLOVID: o loss of appetite o yellowing of your skin and the white of eyes o dark-colored urine o pale colored stools o itchy skin o stomach-area (abdominal) pain The most common side effects of PAXLOVID include: altered sense of taste and diarrhea. Other possible side effects include: headache vomiting abdominal pain nausea high blood pressure feeling generally unwell These are not all the possible side effects of PAXLOVID. For more information, ask your healthcare provider or pharmacist. What other treatment choices are there? PAXLOVID is FDA-approved for the treatment of bncp-vr-steaipjy COVID-19 in certain adults; however, there are not sufficient quantities of the approved presentations (i.e., dose packs) of PAXLOVID at this time. This EUA continues to authorize the emergency use of PAXLOVID for the approved patient population to ensure continued access in order to meet the public health need. VEKLURY (remdesivir) is FDA-approved for the treatment of pkyy-ld-tbkrhevp COVID-19 in certain adults and children. Talk with your healthcare provider to see if VEKLURY is appropriate for you. For information on the emergency use of other medicines that are authorized by FDA to treat people with COVID-19, please go to https://www.fda.gov/emergency-pre qnczbtgrs-trf-dbjcjwoc/mcm-legal- lktfeufjka-mbg-jhmycr-framework/e hmrixaaw-amx-kxhrjkijhuhfn. Your healthcare provider may talk with you about clinical trials for which you may be eligible. It is your choice to be treated or not to be treated with PAXLOVID. Should you decide not to receive it or for your child not to receive it, it will not change your standard medical care. What if I am or ? There is limited experience treating women or mothers with PAXLOVID. For a mother and unborn baby, the benefit of taking PAXLOVID may be greater than the risk from the treatment. If you are , discuss your options and specific situation with your healthcare provider. If you are , discuss your options and specific situation with your healthcare provider. How do I report side effects or problems with the appearance or packaging of PAXLOVID? Contact your healthcare provider if you have any side effects that bother you or do not go away. Report side effects or problems with the appearance or packaging of PAXLOVID (see Figures A and B above for examples of PAXLOVID Dose Packs) to FDA MedWatch at www.fda.gov/medwatch or call 4-457-SZH-3181 or you can report side effects to [employer]. at the contact information provided below. How should I store PAXLOVID? Store PAXLOVID tablets at room temperature, between 68?F to 77?F (20?C to 25?C). Keep PAXLOVID and all medicines out of the reach of children. What if I have questions about the expiration date for my PAXLOVID? The FDA has extended the expiration date (shelf-life) for some lots of PAXLOVID. To find the extended expiration date, enter the lot number found on the side of carton or bottom of blister pack at this website: https://www.paxlovidlotexIngeniatrics.[employer] / or talk with your healthcare provider. Information on the authorized shelf-life extensions for PAXLOVID may also be found at https://www.fda.gov/emergency-pre uileqpzqe-zje-mxygbiai/mcm-legal- rowkhtfsjq-vkl-mzuikj-framework/e ilobtzbmh-ygaicj-gtoxsketz. How can I learn more about COVID-19? Ask your healthcare provider. Visit https://www.cdc.gov/COVID19. Contact your local or state public health department. What is an Emergency Use Authorization (EUA)? The [place] FDA has made PAXLOVID available under an emergency access mechanism called an Emergency Use Authorization (EUA). The EUA is supported by a [place] of Health and Human Services (HHS) declaration that circumstances exist to justify the emergency use of drugs and biological products during the COVID-19 pandemic. In issuing an EUA, the FDA has determined, among other things, that based on the total amount of scientific evidence available including data from adequate and well-controlled clinical trials, if available, it is reasonable to believe that the product may be effective for diagnosing, treating, or preventing COVID-19, or a serious or life-threatening disease or condition caused by COVID-19; that the known and potential benefits of the product, when used to diagnose, treat, or prevent such disease or condition, outweigh the known and potential risks of such product; and that there are no adequate, approved, and available alternatives. All of these criteria must be met to allow for the product to be available under an EUA. The EUA for PAXLOVID is in effect for the duration of the COVID-19 declaration justifying emergency use of this product, unless the relevant EUA declaration is terminated or the EUA revoked (after which the products may no longer be used under the EUA). What are the ingredients in PAXLOVID? Active ingredient: nirmatrelvir and ritonavir Nirmatrelvir inactive ingredients: colloidal silicon dioxide, croscarmellose sodium, lactose monohydrate, microcrystalline cellulose, and sodium stearyl fumarate. Film-coating contains: hydroxy propyl methylcellulose, iron oxide red, polyethylene glycol, and titanium dioxide. Ritonavir inactive ingredients: anhydrous dibasic calcium phosphate, colloidal silicon dioxide, copovidone, sodium stearyl fumarate, and sorbitan monolaurate. The film coating may contain: colloidal anhydrous silica, colloidal silicon dioxide, hydroxypropyl cellulose, hypromellose, polyethylene glycol, polysorbate 80, talc, and titanium dioxide. Additional Information For general questions, visit the website or call the telephone number provided below. Website: www.[employer] Telephone number: (5-289-S79-PACK) Distributed by [employer] [place] [address] [id number] Revised: 07/2022 documented in this encounter [facility] 11-22-2022 History of Present illness Narrative [facility] DME ISSUE NOTE Patient identified by name and date: Yes Subjective: Corry Jerome is a 71 year old female seen today for fitting and chicken picker of refurbished pair of custom foot orthotics. Equipment Owned: custom foot orthotics DME Delivery: The fit of orthotics was assessed with pt standing, with and without shoes. The comfort of orthotics was assessed with pt standing and walking with orthotics in shoes. Pt denied any rubbing or pinching and felt that fit of custom orthotics was correct. Contact information for this therapist was provided to patient. Custom biomechanical foot orthotics with serial number: [id number] were issued to patient and proof of receipt form signed by pt and therapist. All specifications for custom foot orthotics can be found in orthotic evaluation visit note. Planned Interventions: Follow up as needed for brace fitting/issues. Billing:[facility]: Equipment: [id number] No charge for time. Total time: 10 minutes Josh Dee PT documented in this encounter [facility] 11-17-2022 Miscellaneous Notes See telephone note documented in this encounter [facility] 11-17-2022 Miscellaneous Notes Images from the original note were not included. Corry Jerome [facility] My Chart Rx Pool I leave in 2 weeks for a trip to [place]. Could you call a prescription to [facility] for a muscle relaxant in case my sciatica flares due to all the sitting? The last time it was Flexeril, but I'm happy with whatever is appropriate. Thank you for your assistance! Corry Jerome documented in this encounter [facility] 11-05-2022 Miscellaneous Notes Patient aware will be sent to [facility]. The following approved medication requests have been transmitted electronically. Requested Prescriptions Signed Prescriptions Disp Refills azithromycin (ZITHROMAX Z-ANU) 250 mg tablet 6 tablet 0 Sig: Take 2 tablets day one, then, 1 tablet daily until gone. Authorizing Provider: JUANITA ARCE MA The following approved medication requests have been transmitted electronically. Requested Prescriptions Signed Prescriptions Disp Refills azithromycin (ZITHROMAX Z-ANU) 250 mg tablet 6 tablet 0 Sig: Take 2 tablets day one, then, 1 tablet daily until gone. Authorizing Provider: JUANITA ARCE APRN.ENGINEERING LIBRARIAN Patient notified & verbalizes understanding. Patient states Z-Anu was prescribed last October & worked. Pended medication. Pharmacy verified. Hiwot Grimaldo MA Ok for flu vaccine prior to travel Would wait on the covid 19 booster unless able to get the new vaccine coming out. Not the current one What antibiotic is she requesting? Alfredito Engel DO [facility] message turned into TE. I will be traveling to [place] at the end of November. May I have a prescription for antibiotics in case of a sinus infection? I tend to get one on international flights. Also, would you advise getting a flu shot and/or COVID booster prior to my departure? Thank you. Hiwot Grimaldo MA documented in this encounter [facility] 11-05-2022 Miscellaneous Notes MC message turned into TE. Hiwot Grimaldo MA documented in this encounter [facility] 09-08-2022 Miscellaneous Notes Júnior--05/07/22 Nov--05/09/23 Last refill--09/04/21 90 with 11 refills Last labs--05/13/22 documented in this encounter [facility] 07-08-2022 Miscellaneous Notes Agree with below. Annamarie Eugene APRN.CINDY Please see pt message. Advised Express care. Jenny Gilbert documented in this encounter [facility] 07-08-2022 History of Present illness Narrative This note was created using [employer]. Subjective Corry Jerome is a 71 year old female. HPI 71-year-old female presents for cough, congestion x8 days. Patient states she started getting a cough and nasal congestion about 8 days ago. She states that she has a lot of postnasal drainage and is coughing up phlegm. States that today she took her temperature and was 100 F. She did take Tylenol. No chest pain or shortness of breath. No history of COPD or asthma. She states she has a lot of sinus pressure, pain, congestion as well for the past week. She states several family members were recently sick with URI symptoms. She has done home COVID tests, which were negative. PAST MEDICAL HISTORY Diagnosis Date Allergic rhinitis Antibiotic reaction allergy- Amoxicillin, Ampicillin Ductal carcinoma in situ (DCIS) of right breast 1997 Lobular carcinoma of breast, stage 1 (HCC) 1997 right sided Osteopenia stable in past PMH - PAST MEDICAL HISTORY OF hot flashes on Tamoxifen secondary to breast cancer Urge incontinence PAST SURGICAL HISTORY Procedure Laterality Date CATARACT EXTRACTION HX ? 2009 bilateral COLONOSCOPY FLX DX W/COLLJ SPEC WHEN PFRMD 03/29/13 Colonoscopy DILATION & CURETTAGE DX&/THER NONOBSTETRIC 2014 due to pelvic pain- as on Tamoxifen PAST SURGICAL HISTORY OF 1997 mastectomy right breast ALLERGIES Ampicillin, [place] Fruits, Dairy [Homeopathic Products], Dust Mites, Molds [Other], Penicillins, and Wheat Bran MEDICATIONS solifenacin (VESICARE) 5 mg tablet^Take 1 tablet by mouth once daily.^Disp: 90 tablet^Rfl: 3 cyclobenzaprine (FLEXERIL) 10 mg tablet^Take 1 tablet by mouth three times daily as needed for muscle spasm.^Disp: 20 tablet^Rfl: 0 venlafaxine (EFFEXOR) 50 mg tablet^TAKE 2 (TWO) TABLETS BY MOUTH IN THE MORNING, AND 1 (ONE) TABLET IN THE EVENING as directed]^Disp: 90 tablet^Rfl: 11 montelukast (SINGULAIR) 10 mg tablet^Take 10 mg by mouth daily at bedtime.^Disp: ^Rfl: cetirizine 10 mg tablet^Take 10 mg by mouth once daily.^Disp: ^Rfl: mupirocin (BACTROBAN) 2 % ointment^Apply 1 application to affected area twice daily as needed.^Disp: 15 g^Rfl: 1 (Patient not taking: Reported on 07/08/2022) FAMILY HISTORY Problem Relation Age of Onset Heart Mother CHF, 86 Breast Cancer Mother 72 Heart Father CAD, [place] Cancer Father Lung 53 Diabetes Sister Diabetes Brother other (Liver Cirhosis) Maternal Grandfather Alcoholic Alcohol/Drug Paternal Grandfather Heart Paternal Grandfather Stroke Paternal Grandmother Heart Paternal Aunt Social History Tobacco Use Smoking status: Never Smokeless tobacco: Never Vaping Use Vaping Use: Never used Substance Use Topics Alcohol use: No Drug use: Never Review of Systems Constitutional: Positive for chills, fatigue and fever. HENT: Positive for congestion, postnasal drip, sinus pressure and sinus pain. Negative for ear pain and sore throat. Respiratory: Positive for cough. Negative for shortness of breath. Cardiovascular: Negative for chest pain. Gastrointestinal: Negative for diarrhea and vomiting. Objective BP 118/70 Pulse 86 Temp 36.8 C (98.2 F) (Tympanic) Resp 16 Wt 68.9 kg (151 lb 12.8 oz) SpO2 97% BMI 23.78 kg/m Physical Exam Vitals and nursing note reviewed. Constitutional: General: She is not in acute distress. Appearance: Normal appearance. She is not toxic-appearing. HENT: Right Ear: Tympanic membrane and ear canal normal. Left Ear: Tympanic membrane and ear canal normal. Nose: Congestion present. Right Sinus: Maxillary sinus tenderness present. Left Sinus: Maxillary sinus tenderness present. Mouth/Throat: Mouth: Mucous membranes are moist. Pharynx: No oropharyngeal exudate or posterior oropharyngeal erythema. Eyes: Conjunctiva/sclera: Conjunctivae normal. Cardiovascular: Rate and Rhythm: Normal rate and regular rhythm. Pulmonary: Effort: Pulmonary effort is normal. Breath sounds: Normal breath sounds. Neurological: Mental Status: She is alert. Assessment and Plan ASSESSMENT/PLAN: 1. Acute cough - ICD9: 786.2, ICD10: R05.1 (primary diagnosis) - XR CHEST 2V FRONTAL/LAT -Chest x-ray reveals subsegmental atelectasis right lower lung 2. Sinobronchitis - ICD9: 473.9, 490, ICD10: J32.9, J40 -Symptoms x8 days - Will begin treatment with Doxycycline - Supportive care with plenty of fluids, rest, and analgesia prn. -Declines COVID/flu swab. Did home COVID test that was negative. Diagnosis and treatment plan were discussed and questions were answered to the patient's satisfaction. Pt acknowledged understanding of concepts and follow up plan. Specific signs and symptoms that would indicate the need for higher level of care were discussed in detail warranting prompt ER evaluation. ML Lay documented in this encounter [facility] 06-25-2022 Miscellaneous Notes Patient returned call and given provider's message below with verbalized understanding. Patient states he will do some research on the medications and let pcp know. Phoned patient and left message to return call and ask for triage nurse for results. Please inform patient that her bone density shows 10-year Fracture Risk (FRAX): Major osteoporotic fracture risk 23% Hip fracture risk is 8.3% IMPRESSION: Osteopenia in the bilateral femoral necks. Is she interested in starting a bisphosphnate such as fosamax or prolia? Needs to as well continue her calcium and vitamin D3 supplements and weight bearing activity. Alfredito Engel DO documented in this encounter [facility] 06-21-2022 History of Present illness Narrative Rand Sewer offered: Patient declinesEnoc Wheatley is a 71 year old who presents for an annual gynecologic exam without complaints. 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 Going to [employer] [facility] in fall. Postmenopausal: Yes since age 48 Was started on tamoxifen. HRT use: No. Last Pap: normal HPV: negative History of abnormal pap: No Last mammogram: 2021 normal History of abnormal mammogram: Yes Sexually active: No History of STDS: None History of fibroids: No History of ovarian cyst: Yes History of endometriosis: No Hot flashes: yes Night sweats: No Vaginal dryness: No Mood swings: No Exercise: routine OB History T0 L0 SAB0 IAB0 Ectopic0 Multiple0 Live Births0 Tie Puller History LMP: Postmenopausal Age at Menarche: Age at First : Age at Menopause: Tie Puller History Comments: Sexual Activity: Not Asked; No partner data on record Contraception: No contraception data on record PAST MEDICAL HISTORY Diagnosis Date Allergic rhinitis Antibiotic reaction allergy- Amoxicillin, Ampicillin Ductal carcinoma in situ (DCIS) of right breast 1997 Lobular carcinoma of breast, stage 1 (HCC) 1997 right sided Osteopenia stable in past PMH - PAST MEDICAL HISTORY OF hot flashes on Tamoxifen secondary to breast cancer Urge incontinence PAST SURGICAL HISTORY Procedure Laterality Date CATARACT EXTRACTION HX ? 2009 bilateral COLONOSCOPY FLX DX W/COLLJ SPEC WHEN PFRMD 03/29/13 Colonoscopy DILATION & CURETTAGE DX&/THER NONOBSTETRIC 2014 due to pelvic pain- as on Tamoxifen PAST SURGICAL HISTORY OF 1997 mastectomy right breast FAMILY HISTORY Problem Relation Age of Onset Heart Mother CHF, 86 Breast Cancer Mother 72 Heart Father CAD, [place] Cancer Father Lung 53 Diabetes Sister Diabetes Brother other (Liver Cirhosis) Maternal Grandfather Alcoholic Alcohol/Drug Paternal Grandfather Heart Paternal Grandfather Stroke Paternal Grandmother Heart Paternal Aunt SOCIAL HISTORY Social History Tobacco Use Smoking status: Never Smokeless tobacco: Never Vaping Use Vaping Use: Never used Substance Use Topics Alcohol use: No Drug use: Never REVIEW OF SYSTEMS Abdomen: No abdominal pain, nausea, vomiting, diarrhea, or constipation. No bloating, early satiety, indigestion, or increased flatulence. Bladder: On medication for urinary urgency. No dysuria, gross hematuria, urinary frequency, or incontinence Breast: No breast lumps, nipple d/c, overlying skin changes, redness or skin retraction Allergies and current medication updated:Yes EXAM: BP 110/64 Ht 5' 7 (1.70m) Wt 151 lb (68.5kg) BMI 23.64 kg/(m^2). GENERAL: pleasant, female in no apparent distress HEENT: Normocephalic, atraumatic, mucus membranes moist, and no lesions NECK: Supple, full range of motion, no adenopathy, and thyroid normal DERMATOLOGY: Normal, without lesions, non-icteric, and non-hirsute BREAST: soft, non-tender, no dominant mass, normal nipple-areolar complex, no lymphadenopathy, no nipple discharge, and right breast reconstruction- healed well ABDOMEN: soft, non-tender, and no masses PELVIC: external genitalia normal, normal Bartholin's glands, urethra, [place]'s glands, no vulvar lesions, no cervical lesions, good vaginal support, physiologic discharge present, normal appearing perineal body and perianal region BIMANUAL: uterus normal size, shape and consistency, no adnexal masses, and non-tender RECTOVAGINAL: deferred. NEURO: alert and oriented x3,exam grossly non-focal EXTREMITIES: normal ASSESSMENT/PLAN: 1) Health maintenance: Pap/HPV screening no longer needed Mammogram up to date Nutrition, exercise and routine health maintenance exams reviewed. Calcium/Vitamin D supplementation information provided. Colon cancer screening: up to date with screening BMD: up to date 2) Follow up one year or sooner as needed Helen Petty MD documented in this encounter [facility] 06-21-2022 History of Present illness Narrative Radiology Service Progress Note PATIENT NAME: Corry Jerome DATE OF SERVICE: June 21, 2022 TIME: 10:26 AM PATIENT IDENTITY VERIFICATION COMPLETED USING TWO (2) IDENTIFIERS: Name and Date of confirmed by patient verbally. FALL SCREENING: Has the patient had 2 falls in the last year or 1 fall with injury or currently using an Ambulatory Assistive Device (Walker, Cane, Wheelchair, Crutches, etc.)? No PATIENT GENDER DATA: Female. status: : No status: NO. PATIENT RELEVANT IMPLANT DATA REVIEWED: Not Applicable RADIOLOGY DEPARTMENT: Bone Density PERIPHERAL IV DATA: Not applicable SIGNED BY: RT Letty(R) June 21, 2022 10:26 AM documented in this encounter [facility] 06-09-2022 Miscellaneous Notes Luna order faxed to [facility] [place] documented in this encounter [facility] 05-17-2022 Miscellaneous Notes Spoke with pt and information listed below given. Pt verbalizes understanding. Shama Landeros LPN Phone call placed brief message to contact a nurse to review results. Rossy Landeros LPN Please inform patient that her labs are overall normal except for vitamin D is slightly high. Needs to cut back to every other day dosing of supplement Alfredito Engel DO documented in this encounter [facility] 05-07-2022 History of Present illness Narrative CC: Corry Jerome is a 71 year old female who presents to the office for follow up. HPI: Seen in office last on 10/06/2021 as below Fatigue x 5-6 months. Unsure if this is related to her age or emotionally. She doesn't like it. Napping more then she use too and is not accomplishing things that she needs to get done. This is how she felt prior to when using her CPAP. Was seen by Chiropractor, April Ramirez who did a work up on if she was missing vitamins which she was. Once she started, she did improve. Has not f/u with her since that time. Is taking her supplements for vitamin d. Does have occasional shortness of breath with exertion, no CP or palpitations. Arthritis pain located in L hip intermittently over the past 10 years, worse in the past 5-6 months. When she rolls over at night, she does wake up due to pain. Twisting can cause intense pain. Occurs intermittently, not always. Not able to slide from a bench seat. Has had an xray that confirms mild/moderate joint OA changes. Has chronic neck pain, that most recent XR on 04/16/21 showed osteopenia and degenerative changes and was recommended to do PT. Foot - L foot pain x 2-3 weeks. While walking her dog she stepped wrong and started experiencing L midfoot pain at the top of the foot, described as a dull ache. Pain a /10. Has taken Ibuprofen with relief but pain returns. No routine use of ice or heating pad Currently Arthritis, multiple joints, overall stable, no new instability or falls. Chronic neck pain, tries to keep up with her stretches and walking for exercise. Mood, chronic fatigue, feels it is stable and improving. No SI or HI. Just recently got back from a trip to [place] with her Urinary incontinence, stable, taking Vesicare PAST MEDICAL HISTORY Diagnosis Date Allergic rhinitis Antibiotic reaction allergy- Amoxicillin, Ampicillin Ductal carcinoma in situ (DCIS) of right breast 1997 Lobular carcinoma of breast, stage 1 (HCC) 1997 right sided Osteopenia stable in past PMH - PAST MEDICAL HISTORY OF hot flashes on Tamoxifen secondary to breast cancer Urge incontinence PAST SURGICAL HISTORY Procedure Laterality Date CATARACT EXTRACTION HX ? 2009 bilateral COLONOSCOPY FLX DX W/COLLJ SPEC WHEN PFRMD 03/29/13 Colonoscopy DILATION & CURETTAGE DX&/THER NONOBSTETRIC 2014 due to pelvic pain- as on Tamoxifen PAST SURGICAL HISTORY OF 1997 mastectomy right breast Social History: Social History Tobacco Use Smoking status: Never Smokeless tobacco: Never Vaping Use Vaping Use: Never used Substance Use Topics Alcohol use: No FAMILY HISTORY Problem Relation Age of Onset Heart Mother CHF, 86 Breast Cancer Mother 72 Heart Father CAD, [place] Cancer Father Lung 53 Diabetes Sister Diabetes Brother other (Liver Cirhosis) Maternal Grandfather Alcoholic Alcohol/Drug Paternal Grandfather Heart Paternal Grandfather Stroke Paternal Grandmother Heart Paternal Aunt Current Outpatient prescriptions: solifenacin (VESICARE) 5 mg tablet^Take 1 tablet by mouth once daily.^Disp: 90 tablet^Rfl: 3 cyclobenzaprine (FLEXERIL) 10 mg tablet^Take 1 tablet by mouth three times daily as needed for muscle spasm.^Disp: 20 tablet^Rfl: 0 venlafaxine (EFFEXOR) 50 mg tablet^TAKE 2 (TWO) TABLETS BY MOUTH IN THE MORNING, AND 1 (ONE) TABLET IN THE EVENING as directed]^Disp: 90 tablet^Rfl: 11 montelukast (SINGULAIR) 10 mg tablet^Take 10 mg by mouth daily at bedtime.^Disp: ^Rfl: mupirocin (BACTROBAN) 2 % ointment^Apply 1 application to affected area twice daily as needed.^Disp: 15 g^Rfl: 1 cetirizine 10 mg tablet^Take 10 mg by mouth once daily.^Disp: ^Rfl: Allergies: ALLERGIES Allergen Reactions Ampicillin Hives [place] Fruits Intolerance Dairy [Homeopathic * Intolerance Dust Mites Intolerance Molds [Other] Hives Penicillins Hives Wheat Bran Intolerance congestion ROS: See HPI PE: 05/07/22 0831 BP: 124/70 Pulse: 72 Resp: 16 Temp: (!) 35.7 C (96.3 F) TempSrc: Left Tympanic Weight: 69.9 kg (154 lb) Gen: A&O, NAD, non-toxic appearing, Pleasant, cooperative HEENT: NT/AC, PERRLA, EOMs intact b/l, nares clear and patent b/l, pharynx without erythema, exudate or lesions, MMM. Uvula midline. EACs without erythema or debris. TMs pearly ricardo with intact landmarks b/l. Neck: supple, No cervical LAD, no thyromegaly, no carotid bruits CV: RRR, normal S1 and S2, no murmurs, no gallops, no rubs, Pulses 2+ and symmetric in UE and LE b/l Lungs: normal respiratory effort, CTA b/l, no wheezing or rhonchi or rales Abd: soft, NT, ND, +BS, no hepatosplenomegaly MS: FROM all 4 extremities, arthritis changes multiple joints Neuro: CN II-XII intact b/l, strength 5/5 b/l UE and LE, DTRs 2/4 UE and LE, sensation intact. Skin: warm, dry, intact, No rashes or lesions on exposed skin. No edema, normal pulses ASSESSMENT/PLAN: 1. Osteopenia, senile - ICD9: 733.90, ICD10: M85.80 (primary diagnosis) - set up for BMD AP Spine and Hip Unilateral - Reviewed the need for Calcium and Vitamin D supplements and weight bearing exercise as tolerated - COMP METABOLIC PANEL - DXA-AXIAL SKELETON - TSH BLD - T4 FREE/FREE THYROX - MAGNESIUM BLD - VITAMIN B12 BLOOD - VITAMIN D 25 HYDROXY - CBC + DIFF - C-REACTIVE PROTEIN (CRP) 2. Fatigue, unspecified type - ICD9: 780.79, ICD10: R53.83 - recheck labs as ordered. - TSH BLD - T4 FREE/FREE THYROX - VITAMIN B12 BLOOD 3. Dyslipidemia - ICD9: 272.4, ICD10: E78.5 - suboptimal control - Encouraged following a low fat, low cholesterol diet. - Discussed the benefits of regular aerobic exercise and weight loss. - LIPID PANEL BASIC - TSH BLD - T4 FREE/FREE THYROX - VITAMIN B12 BLOOD 4. Dysthymia - ICD9: 300.4, ICD10: F34.1 - stable, continue Effexor. No SI or HI - VITAMIN B12 BLOOD 5. Celiac disease - ICD9: 579.0, ICD10: K90.0 - recheck labs. - COMP METABOLIC PANEL - TSH BLD - T4 FREE/FREE THYROX - VITAMIN B12 BLOOD - CBC + DIFF 6. Hyperglycemia - ICD9: 790.29, ICD10: R73.9 - recheck labs as ordered. - HGB A1C 7. Screening for osteoporosis - ICD9: V82.81, ICD10: Z13.820 - DXA-AXIAL SKELETON 8. Disorder of bone and articular cartilage - ICD9: 733.90, ICD10: M89.9, M94.9 - set up for BMD AP Spine and Hip Unilateral - Reviewed the need for Calcium and Vitamin D supplements and weight bearing exercise as tolerated - DXA-AXIAL SKELETON 9. Other disorders of bone development and growth, multiple sites - ICD9: 733.99, ICD10: M89.29 - DXA-AXIAL SKELETON 10. Other specified disorders of bone density and structure, other site - ICD9: 733.99, ICD10: M85.88 - DXA-AXIAL SKELETON Alfredito Engel DO To ER if develops chest pain, shortness of breath, or severe worsening of symptoms. Discussed risks, benefits, alternatives, and potential side effects of medications. Patient expressed understanding and agreed with the plan. Alfredito Engel DO [address] [place] [address] documented in this encounter [facility] 05-07-2022 Miscellaneous Notes VM left instructing patient to return call to receive results, will also mail letter to listed address today. Khloe Estes MA Unable to reach patient. Left VM to return call to office. Please read below and advise. Hiwot Grimaldo MA Please notify that the urine culture showed no infection. F/u with pcp if s/s persisting. documented in this encounter [facility] 05-04-2022 History of Present illness Narrative Subjective The history is provided by the patient. No patient transport orderly was used. HPI Corry Jerome is a 71 year old female who presents today for CC of frequency x 1 month Positive for Increase in frequency of urination, Negative for Dysuria, Urgency, Sense of incomplete void, Fevers, Vomiting, Diarrhea, Abdominal pain , Back/Flank pain, Blood in urine, and Vaginal itch or discharge Chance of : No Last intercourse: n/a Any self-treatment attempted: No Number of previous UTI's in last 6 months:0 Number of previous UTI's in last 12 months: 0 Aggravating Factors: none Alleviating Factors include none H/o urge incontinence BP 122/78 Pulse 82 Temp 36.8 C (98.3 F) (Tympanic) Resp 18 Wt 69.5 kg (153 lb 3.2 oz) SpO2 97% BMI 23.99 kg/m Social History Tobacco Use Smoking status: Never Smokeless tobacco: Never Vaping Use Vaping Use: Never used Substance Use Topics Alcohol use: No PAST MEDICAL HISTORY Diagnosis Date Allergic rhinitis Antibiotic reaction allergy- Amoxicillin, Ampicillin Ductal carcinoma in situ (DCIS) of right breast 1997 Lobular carcinoma of breast, stage 1 (HCC) 1997 right sided Osteopenia stable in past PMH - PAST MEDICAL HISTORY OF hot flashes on Tamoxifen secondary to breast cancer Urge incontinence I have confirmed and edited as necessary, the [facility] Review of Systems Constitutional: Negative for chills and fever. Gastrointestinal: Negative for abdominal pain. Genitourinary: Negative for dysuria, flank pain, frequency, hematuria and urgency. Objective Physical Exam Vitals and nursing note reviewed. Constitutional: Appearance: Normal appearance. Abdominal: General: Bowel sounds are normal. There is no abdominal bruit. Palpations: Abdomen is not rigid. There is no mass or pulsatile mass. Tenderness: There is no abdominal tenderness. There is no guarding or rebound. Negative signs include Vides's sign and McBurney's sign. Neurological: Mental Status: She is alert and oriented to person, place, and time. Psychiatric: Mood and Affect: Affect normal. Component Latest Ref Rng & Units 05/04/2022 GLUCOSE UA (POCT) Negative mg/dL Negative BILIRUBIN UA (POCT) Negative Negative KETONE UA (POCT) Negative mg/dL Negative SPECIFIC GRAVITY UA (POCT) 1.005 - 1.030 1.015 HEMOGLOBIN/BLOOD UA (POCT) Negative Negative PH UA (POCT) 4.5 - 8.0 6.0 PROTEIN UA (POCT) Negative mg/dL Negative UROBILINOGEN UA (POCT) Normal E.U./dL 0.2 NITRITE UA (POCT) Negative Negative LEUKOCYTES UA (POCT) Negative Negative COLOR UA (POCT) Yellow CLARITY UA (POCT) Clear ASSESSMENT/PLAN: 1. Urinary frequency - ICD9: 788.41, ICD10: R35.0 Acute - urine dip negative - Send urine for culture - Follow up with PCP prn - UA DIP, URINE (POC) - URINE CULTURE Diagnosis and treatment plan were discussed and questions were answered to the patient's satisfaction. Pt acknowledged understanding of concepts and follow up plan. Specific signs and symptoms that would indicate the need for higher level of care were discussed in detail warranting prompt ER evaluation. Barb Borja APRN.CINDY documented in this encounter [facility] 04-30-2022 Miscellaneous Notes Patient phones requesting refills as follows: Requested Prescriptions Pending Prescriptions Disp Refills solifenacin (VESICARE) 5 mg tablet 90 tablet 3 Sig: Take 1 tablet by mouth once daily. JÚNIOR-01/06/22 Labs-10/07/21 NOV-05/07/22 med filled 04/08/21 Please review and advise. Vilma De Santiago LPN documented in this encounter [facility] 03-31-2022 Miscellaneous Notes Agree with urgent care. Juanita Arce APRN.CINDY Please see pt message. Advised pt to go to [facility]. Jenny Gilbert MA documented in this encounter [facility] 01-06-2022 Miscellaneous Notes Electronic PA completed for cyclobenzaprine. Authorization number: [id number] Authorized from October 07, 2021 to January 06, 2023 Information received electronically from payer documented in this encounter [facility] 01-06-2022 History of Present illness Narrative Radiology Service Progress Note PATIENT NAME: Corry Jerome DATE OF SERVICE: January 06, 2022 TIME: 8:02 AM PATIENT IDENTITY VERIFICATION COMPLETED USING TWO (2) IDENTIFIERS: Name and Date of confirmed by patient verbally. FALL SCREENING: Has the patient had 2 falls in the last year or 1 fall with injury or currently using an Ambulatory Assistive Device (Walker, Cane, Wheelchair, Crutches, etc.)? No PATIENT GENDER DATA: Female. status: : No status: NO. PATIENT RELEVANT IMPLANT DATA REVIEWED: Not Applicable RADIOLOGY DEPARTMENT: General X-ray: Exam(s) Completed: Spine X-Ray(s): Lumbar AP / LAT / L5-S1 PERIPHERAL IV DATA: Not applicable SIGNED BY: RT Kari(R) January 06, 2022 8:02 AM documented in this encounter [facility] 01-06-2022 Instructions Juanita Dunn APRN.CINDY - 01/06/2022 7:33 AM EDT Images from the original note were not included. documented in this encounter [facility] 01-06-2022 History of Present illness Narrative Chief Complaint Patient presents with: Back Pain: X 6 days HPI Corry Jerome is a 71 year old female who presents here today for Above Complaints. Corry is an established patient of Dr. Toro DO. Corry is a new patient to me today. Concerns today... Back pain -- Woke up in middle of night night, rolled over and felt back pain instantly. R sided back pain that radiates to R buttock x 6 days now. Hx of sciatica nerve pain and feels similar. Has not radiated down back of leg. Motrin and ice with some relief. Pain is bearable and intermittently slightly improved but some days are worse than others. Denies any urinary or bowel incontinence, difficulty walking, or weakness. No other concerns or complaints. Past medical history, appointments, medications, allergies reviewed. Previous Medical History PAST MEDICAL HISTORY Diagnosis Date Allergic rhinitis Antibiotic reaction allergy- Amoxicillin, Ampicillin Ductal carcinoma in situ (DCIS) of right breast 1997 Lobular carcinoma of breast, stage 1 (HCC) 1997 right sided Osteopenia stable in past PMH - PAST MEDICAL HISTORY OF hot flashes on Tamoxifen secondary to breast cancer Urge incontinence Previous Surgical History PAST SURGICAL HISTORY Procedure Laterality Date CATARACT EXTRACTION HX ? 2009 bilateral COLONOSCOPY FLX DX W/COLLJ SPEC WHEN PFRMD 03/29/13 Colonoscopy DILATION & CURETTAGE DX&/THER NONOBSTETRIC 2014 due to pelvic pain- as on Tamoxifen PAST SURGICAL HISTORY OF 1997 mastectomy right breast Family History FAMILY HISTORY Problem Relation Age of Onset Heart Mother CHF, 86 Breast Cancer Mother 72 Heart Father CAD, [place] Cancer Father Lung 53 Diabetes Sister Diabetes Brother other (Liver Cirhosis) Maternal Grandfather Alcoholic Alcohol/Drug Paternal Grandfather Heart Paternal Grandfather Stroke Paternal Grandmother Heart Paternal Aunt Patient Allergies ALLERGIES Allergen Reactions Ampicillin Hives Urbandale Fruits Intolerance Dairy [Homeopathic * Intolerance Dust Mites Intolerance Molds [Other] Hives Penicillins Hives Wheat Bran Intolerance congestion Current Medications Current Outpatient Medications on File Prior to Visit Medication Sig venlafaxine (EFFEXOR) 50 mg tablet TAKE 2 (TWO) TABLETS BY MOUTH IN THE MORNING, AND 1 (ONE) TABLET IN THE EVENING as directed] solifenacin (VESICARE) 5 mg tablet Take 1 tablet by mouth once daily. montelukast (SINGULAIR) 10 mg tablet Take 10 mg by mouth daily at bedtime. mupirocin (BACTROBAN) 2 % ointment Apply 1 application to affected area twice daily as needed. cetirizine 10 mg tablet Take 10 mg by mouth once daily. aspirin 81 mg chewable tablet Take 81 mg by mouth once daily. Three x weekly Current Facility-Administered Medications on File Prior to Visit Medication perflutren lipid microspheres 1.3 mL in NaCl (PF) 0.9% 10 mL injection (DEFINITY) sodium chloride 0.9 % (flush) 10 mL (BD POSIFLUSH) Social History Social History Tobacco Use Smoking status: Never Smokeless tobacco: Never Vaping Use Vaping Use: Never used Substance Use Topics Alcohol use: No REVIEW OF SYSTEMS: as above Reviewed relevant PMHx, PSHx, Social Hx, current medications and allergies. Review of Symptoms REVIEW OF SYSTEMS See HPI. All other systems are negative. EXAM: BP 92/62 (BP Site: Left Arm, BP Position: Sitting, BP Cuff Size: Regular Adult) Pulse 76 Resp 16 Wt 68 kg (150 lb) BMI 23.49 kg/m General Appearance: Well appearing, alert, in no acute distress, well-hydrated, well nourished.. Skin: Skin color, texture, turgor normal, no suspicious rashes or lesions. Head: Normocephalic, no masses, lesions, tenderness or abnormalities. Lungs: Lungs clear to auscultation. No wheezing, rhonchi, rales.. Heart: RRR without murmur, gallop, or rubs. No ectopy. Extremities: No deformities, edema, skin discoloration, clubbing or cyanosis. Good capillary refill. . Musculoskeletal: No joint swelling, deformity, or tenderness. Peripheral Pulses: Normal. Neurologic: Gait normal. Reflexes normal and symmetric. Sensation grossly intact.. Health Maintenance List HEPATITIS C SCREENING Never done ADVANCE DIRECTIVE DISCUSSION Never done INFLUENZA(1) due on 11/05/2021 COVID-19 VACCINE(5 - Booster for Moderna series) due on 11/26/2021 MAMMOGRAM due on 02/17/2022 COLORECTAL CANCER SCREENING due on 03/29/2023 DIABETES SCREEN due on 10/07/2024 LIPID SCREEN due on 04/08/2026 DTAP,TDAP,TD(3 - Td or Tdap) due on 05/26/2030 BONE DENSITY Completed SHINGRIX VACCINE Completed PNEUMOCOCCAL: 65+ Completed ASSESSMENT/PLAN: 1. Acute midline low back pain with right-sided sciatica - ICD9: 724.2, 724.3, ICD10: M54.41 (primary diagnosis) Sciatica - Bedrest for 2-3 days - Ice for localized tenderness - Warm moist heat for 20 min three times a day - NSAIDS- see orders - Muscle relaxant- see orders - Xrays- see orders - Follow up in 1 week or sooner if symptoms persist or worsen - XR LUMBAR GENERAL 3V AP/LAT/L5-S1 - NAPROXEN 500 MG TABLET - CYCLOBENZAPRINE 10 MG TABLET 2. Encounter for immunization - ICD9: V03.89, ICD10: Z23 - INFLUENZA SEASONAL QUADRIVALENT HIGH DOSE AGE 65+ - [employer] COVID-19 BIVALENT BOOSTER VACCINE, AGE 12+ YR RTO if symptoms worsen or do not improve. RTO in 3-4 months for routine wellness exam. Prescription instructions reviewed with patient as applicable. Potential red flag symptoms discussed with the patient. Reviewed appropriate action plan to take if red flag symptoms occur. Patient agreeable to treatment plan. Juanita Dunn APRN.ENGINEERING LIBRARIAN [address] [place] [address] documented in this encounter [facility] 01-04-2022 Miscellaneous Notes TE started. Nginx message closed. Kaity Schwarz Ma documented in this encounter [facility] 10-22-2021 Miscellaneous Notes Please see pt reply Jenny Esqueda Ma documented in this encounter [facility] 10-08-2021 History of Present illness Narrative [facility] DME ISSUE NOTE Patient identified by name and date: Yes Subjective: Corry Jerome is a 70 year old female seen today for fitting and chicken picker of duplicate pair of custom foot orthotics. Pt reports that her original pair is working very well and that the orthotics have fully resolved her chief complaint. She has requested a second pair and this pair was provided to patient today. Equipment Owned: custom foot orthotics DME Delivery: Pt was educated on care of custom foot orthotics. Pt was educated on the option of having orthotics refurbished as needed in the future as long as shell is performing it's intended function well. Pt was educated on approximate cost of refurbishing orthotics and an approximate time frame when this might be necessary. Pt was urged to follow the wear schedule and to call with any questions or concerns. Pt was educated on how to remove insoles from shoes and then place orthotics in shoes. The fit of orthotics was assessed with pt standing, with and without shoes. The comfort of orthotics was assessed with pt standing and walking with orthotics in shoes. Pt denied any rubbing or pinching and felt that fit of custom orthotics was correct. Contact information for this therapist was provided to patient. Custom biomechanical foot orthotics with serial number: #[id number] were issued to patient. All specifications for custom foot orthotics can be found in orthotic evaluation visit note. Planned Interventions: Follow up as needed for brace fitting/issues. Billing:[facility]: Equipment: [id number] pair of custom foot orthotics No charge for time. Total time: 10 minutes Josh Dee PT documented in this encounter [facility] 10-06-2021 Instructions Alfredito Engel DO - 10/06/2021 3:25 PM EDT Icing foot 10-15 min with ice massage in the evening Voltaren 1% cream 2-3 times a day on area of pain documented in this encounter [facility] 10-06-2021 History of Present illness Narrative Chief Complaint Patient presents with: Arthritis Fatigue HPI Corry Jerome is a 70 year old female who presents here today with c/o of fatigue and arthritis. [facility] to discuss symptoms of fatigue and arthritis pain. Also notes L foot pain today. Fatigue x 5-6 months. Unsure if this is related to her age or emotionally. She doesn't like it. Napping more then she use too and is not accomplishing things that she needs to get done. This is how she felt prior to when using her CPAP. Was seen by Chiropractor, April Ramirez who did a work up on if she was missing vitamins which she was. Once she started, she did improve. Has not f/u with her since that time. Is taking her supplements for vitamin d. Does have occasional shortness of breath with exertion, no CP or palpitations. Arthritis pain located in L hip intermittently over the past 10 years, worse in the past 5-6 months. When she rolls over at night, she does wake up due to pain. Twisting can cause intense pain. Occurs intermittently, not always. Not able to slide from a bench seat. Has had an xray that confirms mild/moderate joint OA changes. Has chronic neck pain, that most recent XR on 04/16/21 showed osteopenia and degenerative changes and was recommended to do PT. Foot - L foot pain x 2-3 weeks. While walking her dog she stepped wrong and started experiencing L midfoot pain at the top of the foot, described as a dull ache. Pain a 06/14. Has taken Ibuprofen with relief but pain returns. No routine use of ice or heating pad Past medical history, appointments, medications, allergies reviewed. Previous Medical History PAST MEDICAL HISTORY Diagnosis Date Allergic rhinitis Antibiotic reaction allergy- Amoxicillin, Ampicillin Ductal carcinoma in situ (DCIS) of right breast 1997 Lobular carcinoma of breast, stage 1 (HCC) 1997 right sided Osteopenia stable in past PMH - PAST MEDICAL HISTORY OF hot flashes on Tamoxifen secondary to breast cancer Urge incontinence Previous Surgical History PAST SURGICAL HISTORY Procedure Laterality Date CATARACT EXTRACTION HX ? 2009 bilateral COLONOSCOPY FLX DX W/COLLJ SPEC WHEN PFRMD 03/29/13 Colonoscopy DILATION & CURETTAGE DX&/THER NONOBSTETRIC 2014 due to pelvic pain- as on Tamoxifen PAST SURGICAL HISTORY OF 1997 mastectomy right breast Family History FAMILY HISTORY Problem Relation Age of Onset Heart Mother CHF, 86 Breast Cancer Mother 72 Heart Father CAD, [place] Cancer Father Lung 53 Diabetes Sister Diabetes Brother other (Liver Cirhosis) Maternal Grandfather Alcoholic Alcohol/Drug Paternal Grandfather Heart Paternal Grandfather Stroke Paternal Grandmother Heart Paternal Aunt Patient Allergies ALLERGIES Allergen Reactions Ampicillin Hives Urbandale Fruits Intolerance Dairy [Homeopathic * Intolerance Dust Mites Intolerance Molds [Other] Hives Penicillins Hives Wheat Bran Intolerance congestion Current Medications Current Outpatient Medications on File Prior to Visit Medication Sig venlafaxine (EFFEXOR) 50 mg tablet TAKE 2 (TWO) TABLETS BY MOUTH IN THE MORNING, AND 1 (ONE) TABLET IN THE EVENING as directed] solifenacin (VESICARE) 5 mg tablet Take 1 tablet by mouth once daily. montelukast (SINGULAIR) 10 mg tablet Take 10 mg by mouth daily at bedtime. mupirocin (BACTROBAN) 2 % ointment Apply 1 application to affected area twice daily as needed. cetirizine 10 mg tablet Take 10 mg by mouth once daily. aspirin 81 mg chewable tablet Take 81 mg by mouth once daily. Three x weekly No current facility-administered medications on file prior to visit. Social History Social History Tobacco Use Smoking status: Never Smoker Smokeless tobacco: Never Used Vaping Use Vaping Use: Never used Substance Use Topics Alcohol use: No Drug use: Not on file Review of Symptoms REVIEW OF SYSTEMS see HPI EXAM: BP 124/76 (BP Site: Left Arm, BP Position: Sitting, BP Cuff Size: Regular Adult) Pulse 78 Resp 16 Wt 69.1 kg (152 lb 6.4 oz) BMI 23.87 kg/m General Appearance: Well appearing, alert, in no acute distress, well-hydrated, well nourished.. Skin: Skin color, texture, turgor normal, no suspicious rashes or lesions. Head: Normocephalic, no masses, lesions, tenderness or abnormalities. Eyes: Anicteric sclera. Pupils are equally round and reactive to light. Extraocular movements are intact. . Ears: External ears normal, canals clear. Oropharynx: Lips, mucosa, and tongue normal, teeth and gums normal, oropharynx normal. Neck: Supple, no adenopathy; thyroid symmetric, normal size, no bruits. Back:no pain to palpation of vertebrae, good flexion and extension, good range of motion, no muscle tenderness, reflexes are 2+ and symmetric, motor and sensory appear to be normal, negative SLR test, no evidence of scoliosis Lungs: Lungs clear to auscultation. No wheezing, rhonchi, rales.. Heart: RRR without murmur, gallop, or rubs. No ectopy. Abdomen: Normal abdominal exam, Abdomen soft, non-tender. Bowel sounds normal. No masses, organomegaly. Extremities: No deformities, edema, skin discoloration, clubbing or cyanosis. Good capillary refill. Pain with internal and external rotation hips Musculoskeletal: left foot with TTP mid dorsal foot over tarsal bone area without obvious deformity Peripheral Pulses: Normal. Neurologic: Gait normal. Reflexes normal and symmetric. Sensation grossly intact.. Lymph Nodes: No cervical lymphadenopathy, No supraclavicular lymphadenopathy, No axillary lymphadenopathy. and No inguinal lymphadenopathy.. Health Maintenance List HEPATITIS C SCREENING Never done ADVANCE DIRECTIVE DISCUSSION Never done COVID-19 VACCINE(4 - Booster for Moderna series) due on 05/22/2021 INFLUENZA(1) due on 11/05/2021 MAMMOGRAM due on 02/17/2022 COLORECTAL CANCER SCREENING due on 03/29/2023 DIABETES SCREEN due on 04/08/2024 LIPID SCREEN due on 04/08/2026 DTAP,TDAP,TD(3 - Td or Tdap) due on 05/26/2030 BONE DENSITY Completed SHINGRIX VACCINE Completed PNEUMOCOCCAL: 65+ Completed ASSESSMENT/PLAN: 1. Foot pain, left - ICD9: 729.5, ICD10: M79.672 (primary diagnosis) Xray as ordered, recommend icing and voltaren 1% topically twice a day and f/u with Store Manager if not improving in the next 2-3 weeks. - XR FOOT GENERAL 3V AP/LAT/OBL LEFT 2. Foot injury, left, initial encounter - ICD9: 959.7, ICD10: S99.922A - see above - XR FOOT GENERAL 3V AP/LAT/OBL LEFT 3. Fatigue, unspecified type - ICD9: 780.79, ICD10: R53.83 - labs as ordered, Unsure cause of symptoms. Does get a little shortness of breath with exertion as well. - VITAMIN B12 BLOOD - IRON + TIBC - FERRITIN BLD - CBC + DIFF - COMP METABOLIC PANEL - ECG COMPLETE - ECHO - PERFLUTREN LIPID MICROSPHERES 1.1 MG/ML INJECTION IN NS 10 ML - SODIUM CHLORIDE 0.9 % (FLUSH) INJECTION SYRINGE 4. SOB (shortness of breath) - ICD9: 786.05, ICD10: R06.02 - see above, need for further testing - VITAMIN B12 BLOOD - IRON + TIBC - FERRITIN BLD - CBC + DIFF - COMP METABOLIC PANEL - ECG COMPLETE - ECHO - PERFLUTREN LIPID MICROSPHERES 1.1 MG/ML INJECTION IN NS 10 ML - SODIUM CHLORIDE 0.9 % (FLUSH) INJECTION SYRINGE 5. Bilateral hip pain - ICD9: 719.45, ICD10: M25.551, M25.552 - secondary to OA, she isn;t interested in injection or follow up with Orthopedics at this time, continue exercises and stretches 6. Primary osteoarthritis of both hips - ICD9: 715.15, ICD10: M16.0 See above DO Jana Parkerally signed by Alfredito Engel DO at 10/09/2021 7:09 AM EDTdocumented in this encounter [facility] 09-11-2021 History of Present illness Narrative [facility] NAVIGATION OUTREACH Action/FYI P/C to patient to address open care gaps, no answer. Left message for patient to return call. My Chart message sent. Pt identified by name and : NO Outreach Outcome/Action Unable to reach patient: Left message MyChart message sent Did you use a PCP flex slot to schedule this appointment? N/A Reason for Outreach Care Gap or Scheduling/Wellness visits Payer: Payor: [employer] / Plan: [employer] HMO / Product Type: HMO / Care Gap Reviewed:: Breast Cancer screening Reminder: Reminder note to check Health Maintenance for items below Health Maintenance items due: HEPATITIS C SCREENING Never done ADVANCE DIRECTIVE DISCUSSION Never done COVID-19 VACCINE(4 - Booster for Moderna series) due on 05/22/2021 Message Sent to Practice: No Navigation Signature: Ade Whalen MA September 11, 2021 2:46 PM documented in this encounter [facility] 09-04-2021 Miscellaneous Notes Patient phones requesting refills as follows: Pending Prescriptions Disp Refills VENLAFAXINE 50 MG TABLET 90 tablet 11 Sig: TAKE 2 (TWO) TABLETS BY MOUTH IN THE MORNING, AND 1 (ONE) TABLET IN THE EVENING as directed] GRAY: Yes JÚNIOR-04/08/21 Labs-04/08/21 NOV-10/06/21 med filled 02/19/21 Please review and advise. Vilma De Santiago LPN documented in this encounter [facility] 07-06-2021 Miscellaneous Notes Orders faxed as requested Jenny Esqueda Ma Please fax these orders to [facility]. Juanita Dunn APRN.CINDY documented in this encounter [facility] Evaluation note Diagnosis Abnormal mammogram- Primary Abnormal mammogram, unspecified [facility] Diagnosis Leg length discrepancy Unequal leg length (acquired) Corns and callosities [facility] Diagnosis Foot pain, left- Primary Pain in limb Foot injury, left, initial encounter Fatigue, unspecified type SOB (shortness of breath) Shortness of breath Bilateral hip pain Pain in joint, pelvic region and thigh Primary osteoarthritis of both hips Primary localized osteoarthrosis, pelvic region and thigh [facility] Diagnosis Acute midline low back pain with right-sided sciatica- Primary Encounter for immunization Need for other specified prophylactic vaccination against single bacterial disease [facility] Diagnosis Encounter for screening mammogram for breast cancer [facility] Diagnosis Urge incontinence [facility] Diagnosis Urinary frequency- Primary [facility] Diagnosis Osteopenia, senile- Primary Disorder of bone and cartilage, unspecified Fatigue, unspecified type Dyslipidemia Other and unspecified hyperlipidemia Dysthymia Dysthymic disorder Celiac disease Hyperglycemia Other abnormal glucose Screening for osteoporosis Special screening for osteoporosis Disorder of bone and articular cartilage Disorder of bone and cartilage, unspecified Other disorders of bone development and growth, multiple sites Other specified disorders of bone density and structure, other site [facility] Diagnosis Encounter for gynecological examination (general) (routine) without abnormal findings- Primary [facility] Diagnosis Acute cough- Primary Sinobronchitis Unspecified sinusitis (chronic) [facility] Diagnosis Acute midline low back pain with right-sided sciatica [facility] Diagnosis Leg length discrepancy- Primary Unequal leg length (acquired) Corns and callosities [facility] Diagnosis COVID-19 virus infection- Primary [facility] Diagnosis Osteopenia, senile Disorder of bone and cartilage, unspecified Screening for osteoporosis Special screening for osteoporosis Disorder of bone and articular cartilage Disorder of bone and cartilage, unspecified Other disorders of bone development and growth, multiple sites Other specified disorders of bone density and structure, other site [facility] Diagnosis Personal history of breast cancer- Primary Personal history of malignant neoplasm of breast [facility] Diagnosis Acute constipation- Primary Unspecified constipation Hard stool Abnormal feces Screening for colon cancer Special screening for malignant neoplasms, colon Encounter for immunization Need for other specified prophylactic vaccination against single bacterial disease [facility] Diagnosis Screening for colon cancer- Primary Special screening for malignant neoplasms, colon Acute constipation Unspecified constipation Hard stool Abnormal feces [facility] Diagnosis Procedure and treatment not carried out due to patient leaving prior to being seen by health care provider- Primary Dyslipidemia Other and unspecified hyperlipidemia Hyperglycemia Other abnormal glucose Fatigue, unspecified type Vitamin D deficiency Unspecified vitamin D deficiency [facility]* Diagnosis Abdominal distension (gaseous)- Primary Flatulence, eructation, and gas pain Encounter for screening mammogram for malignant neoplasm of breast Other screening mammogram Generalized abdominal pain Abdominal pain, generalized Nausea Nausea alone Dyslipidemia Other and unspecified hyperlipidemia Hyperglycemia Other abnormal glucose Fatigue, unspecified type Vitamin D deficiency Unspecified vitamin D deficiency Urge incontinence Celiac disease [facility]* Diagnosis Abdominal distension (gaseous) Flatulence, eructation, and gas pain Generalized abdominal pain Abdominal pain, generalized Nausea Nausea alone [facility]* Diagnosis Laceration of skin of finger, initial encounter- Primary [facility] Diagnosis Chronic cough- Primary Cough [facility]* Diagnosis Abdominal distension (gaseous)- Primary Flatulence, eructation, and gas pain Generalized abdominal pain Abdominal pain, generalized Liver lesion Other specified disorders of liver [facility] Diagnosis Abdominal distension (gaseous) Flatulence, eructation, and gas pain Generalized abdominal pain Abdominal pain, generalized Liver lesion Other specified disorders of liver [facility] Diagnosis Chronic cough Cough [facility] Diagnosis Acute constipation Unspecified constipation Hard stool Abnormal feces [facility] Diagnosis Acute cough [facility]* Diagnosis Acute midline low back pain with right-sided sciatica documented [facility]* Diagnosis Foot pain, left Pain in limb Foot injury, left, initial encounter documented [facility]* Diagnosis Increased libido- Primary documented [facility]* Diagnosis Palpitations- Primary Bradycardia Other specified cardiac dysrhythmias documented [facility]* Diagnosis Encounter for screening mammogram for malignant neoplasm of breast- Primary Other screening mammogram [facility]* Diagnosis Vitamin D deficiency- Primary Unspecified vitamin D deficiency [facility]* Diagnosis Atrial flutter with rapid ventricular response (HCC)- Primary Atrial flutter PVC (premature ventricular contraction) Other premature beats Palpitations Abnormal patient-activated cardiac event monitor Supraventricular tachycardia (HCC) Other specified cardiac dysrhythmias Sinus bradycardia Other specified cardiac dysrhythmias Obstructive sleep apnea Obstructive sleep apnea (adult) (pediatric) documented in this encounter [facility] note* Diagnosis Leg length discrepancy- Primary Unequal leg length (acquired) Corns and callosities documented in this encounter [facility] noteNo assessment information availableWBerger Hospital Work Phone: Reason for referral (narrative)* Diagnostic Procedure Only (Routine) - Pending Review Specialty Diagnoses / Procedures Referred By Kameron gerardo Referred To Contact [facility] Diagnoses Abnormal mammogram Procedures US BREAST LTD LT US BREAST UNI REAL TIME WITH IMAGE LIMITED Juanita Dunn APRN.CNP [address] [place] [address] [facility] [address] [place] [address] Referral ID Status Reason Start Date Expiration Date Visits Requested Visits Authorized [id number] Pending Review Auto-Generat ed Referral 07/06/2021 08/05/2022 1 1 * Diagnostic Procedure Only (Routine) - Pending Review Specialty Diagnoses / Procedures [facility] To Contact [facility] Diagnoses Abnormal mammogram Procedures LUNA DIAGNOSTIC LT DIAGNOSTIC MAMMOGRAPHY COMPUTER-AIDED DETCJ Juanita Zamora APRN.CNP [address] [place] [address] [facility] [address] [place] [address] Referral ID Status Reason Start Date Expiration Date Visits Requested Visits Authorized [id number] Pending Review Auto-Generat ed Referral 07/06/2021 08/05/2022 1 1 [facility] for referral (narrative)* Outpatient Procedure (Routine) - Closed Specialty Diagnoses / Procedures [facility]erred To Contact [facility] Diagnoses Fatigue, unspecified type SOB (shortness of breath) Procedures ECHO ECHO TTHRC R-T 2D W/WOM-MODE COMPL SPEC&COLR D Alfredito Engel DO [address] [place] [address] [facility] [address] [place] [address] Referral ID Status Reason Start Date Expiration Date V isits Requested Visits Authorized [id number] Closed Auto-Generate d Referral 10/06/2021 10/06/2022 1 1 * Outpatient Procedure (Routine) - Closed Specialty Diagnoses / Procedures [facility]erred To Contact [facility] Diagnoses Fatigue, unspecified type SOB (shortness of breath) Procedures ECG COMPLETE ECG ROUTINE ECG W/LEAST 12 LDS W/I&R Alfredito Engel DO [address] [place] [address] [address] Referral ID Status Reason Start Date Expiration Date V isits Requested Visits Authorized [id number] Closed Auto-Generate d Referral 10/06/2021 10/06/2022 1 1 * Diagnostic Procedure Only (Routine) - Closed Specialty Diagnoses / Procedures Referred By Contac t Referred To Contact [facility] Diagnoses Foot pain, left Foot injury, left, initial encounter Procedures XR FOOT GENERAL 3V AP/LAT/OBL LEFT RADEX FOOT COMPLETE MINIMUM 3 VIEWS Alfredito Engel, DO [address] [place] [address] [facility] Referral ID Status Reason Start Date Expiration Date V isits Requested Visits Authorized [id number] Closed Auto-Generate d Referral 10/06/2021 11/05/2022 1 1 [facility] for referral (narrative)* Diagnostic Procedure Only (Routine) - Pending Review Specialty Diagnoses / Procedures Referred By Kameron t Referred To Contact [facility] Diagnoses Encounter for screening mammogram for breast cancer Procedures LUNA SCREENING SCREENING MAMMOGRAPHY BI 2-VIEW BREAST INC CAD Alfredito Engel, DO [address] [place] [address] [facility] [address] [place] [address] Referral ID Status Reason Start Date Expiration Date Visits Requested Visits Authorized [id number] Pending Review Auto-Generat ed Referral 03/31/2022 04/30/2023 1 1 [facility] for referral (narrative)* Outpatient Procedure (Routine) - Closed Specialty Diagnoses / Procedures Referred By Contac t Referred To Contact [facility] Diagnoses Acute constipation Hard stool Procedures COLONOSCOPY DIAGNOSTIC COLONOSCOPY FLX DX W/COLLJ SPEC WHEN PFRMD Cyndi Adkins PA-C [address] [place] [address] [facility] [address] [place] [address] Referral ID Status Reason Start Date Expiration Date V isits Requested Visits Authorized [id number] Closed Auto-Generate d Referral 03/18/2023 03/18/2024 1 1 [facility] for referral (narrative)* Diagnostic Procedure Only (Routine) - Closed Specialty Diagnoses / Procedures Referred By Contac t Referred To Contact X[facility] IMAG[facility] Diagnoses Acute constipation Hard stool Procedures XR ABDOMEN 1V SUPINE RADIOLOGIC EXAM ABDOMEN 1 VIEW Annamarie Eugene APRN.ENGINEERING LIBRARIAN [address] [place] [address] [place] [address] Referral ID Status Reason Start Date Expiration Date V isits Requested Visits Authorized [id number] Closed Auto-Generate d Referral 02/02/2023 03/03/2024 1 1 [facility] for referral (narrative)* Diagnostic Procedure Only (Routine) - Closed Specialty Diagnoses / Procedures Referred By Contac t Referred To Contact [facility] Diagnoses Acute midline low back pain with right-sided sciatica Procedures XR LUMBAR GENERAL 3V AP/LAT/L5-S1 RADEX SPINE LUMBOSACRAL 2/3 VIEWS Juanita Arce APRN.ENGINEERING LIBRARIAN [address] [place] [address] [place] [address] Referral ID Status Reason Start Date Expiration Date V isits Requested Visits Authorized [id number] Closed Auto-Generate d Referral 01/06/2022 02/05/2023 1 1 [facility] for referral (narrative)* Diagnostic Procedure Only (Routine) - Closed Specialty Diagnoses / Procedures Referred By Contac t Referred To Contact [facility] Diagnoses Foot pain, left Foot injury, left, initial encounter Procedures XR FOOT GENERAL 3V AP/LAT/OBL LEFT RADEX FOOT COMPLETE MINIMUM 3 VIEWS Alfredito Engel, [address] [place] [address] [place] [address] Referral ID Status Reason Start Date Expiration Date V isits Requested Visits Authorized [id number] Closed Auto-Generate d Referral 10/06/2021 11/05/2022 1 1 [facility] for referral (narrative)No reason for referral information availableWBerger Hospital Work Phone: Reason for visit Narrative* Outpatient Procedure (Routine) - Closed Specialty Diagnoses / Procedures Referred By Contac t Referred To Contact [facility] Diagnoses Acute constipation Hard stool Procedures COLONOSCOPY DIAGNOSTIC COLONOSCOPY FLX DX W/COLLJ SPEC WHEN PFRMD Cyndi Adkins PA-C [address] [place] [id number] [facility] [address] [place] [address] Referral ID Status Reason Start Date Expiration Date V isits Requested Visits Authorized [id number] Closed Auto-Generate d Referral 03/18/2023 03/18/2024 1 1 [facility] for visit Narrative* Diagnostic Procedure Only (Routine) - Closed Specialty Diagnoses / Procedures Referred By Contac t Referred To Contact [facility] IM[facility] Diagnoses Acute constipation Hard stool Procedures XR ABDOMEN 1V SUPINE RADIOLOGIC EXAM ABDOMEN 1 VIEW Annamarie Eugene, STITCHER STANDARD MACHINE.ENGINEERING LIBRARIAN [address] [place] [address] [place] [address] Referral ID Status Reason Start Date Expiration Date V isits Requested Visits Authorized [id number] Closed Auto-Generate d Referral 02/02/2023 03/03/2024 1 1 [facility] for visit Narrative* Diagnostic Procedure Only (Routine) - Closed Specialty Diagnoses / Procedures Referred By Contac t Referred To Contact X[facility] IMAG[facility] Diagnoses Acute midline low back pain with right-sided sciatica Procedures XR LUMBAR GENERAL 3V AP/LAT/L5-S1 RADEX SPINE LUMBOSACRAL 2/3 VIEWS Juanita Arce, STITCHER STANDARD MACHINE.ENGINEERING LIBRARIAN [address] [place] [address] [place] [address] Referral ID Status Reason Start Date Expiration Date V isits Requested Visits Authorized [id number] Closed Auto-Generate d Referral 01/06/2022 02/05/2023 1 1 [facility] for visit Narrative* Diagnostic Procedure Only (Routine) - Closed Specialty Diagnoses / Procedures Referred By Contac t Referred To Contact [facility] Diagnoses Foot pain, left Foot injury, left, initial encounter Procedures XR FOOT GENERAL 3V AP/LAT/OBL LEFT RADEX FOOT COMPLETE MINIMUM 3 VIEWS Alfrediot Engel, DO [address] [place] [address] [place] [address] Referral ID Status Reason Start Date Expiration Date V isits Requested Visits Authorized [id number] Closed Auto-Generate d Referral 10/06/2021 11/05/2022 1 1 [facility] Summary Purpose Family History No Family History Records FoundNo Family History Records FoundNo Family History Records FoundNo Family History Records FoundNo Family History Records Found Advance Directives Advance Directive Response Recorded Date/ Time Advance Directives Yes April 09, 2014 2:18pm Reason for Referral Specialty Diagnoses / Procedures Referred By Dungac t Referred To Contact Diagnoses Acute midline low back pain with right-sided sciatica Juanita Dunn APRN.ENGINEERING LIBRARIAN [address] [place] [phone] Referral ID Status Reason Start Date Expiration Date V isits Requested Visits Authorized [id number] Authorized 10/07/2021 01/06/2023 1 1 Specialty Diagnoses / Procedures Referred By Dungac t Referred To Contact [facility] Diagnoses Acute midline low back pain with right-sided sciatica Procedures XR LUMBAR GENERAL 3V AP/LAT/L5-S1 RADEX SPINE LUMBOSACRAL 2/3 VIEWS Juanita Dunn APRN.ENGINEERING LIBRARIAN [address] [place] [phone] [facility] Referral ID Status Reason Start Date Expiration Date V isits Requested Visits Authorized [id number] Closed Auto-Generate d Referral 01/06/2022 02/05/2023 1 1 Specialty Diagnoses / Procedures Referred By Dungac t Referred To Contact Diagnoses Personal history of breast cancer Procedures CONSULT TO MEDICAL GENETICS - CANCER MEDICAL GENETICS COUNSELING EACH 30 MINUTES Helen Hodges MD [address] [place] [address] [employer] [facility] [place] [address] Referral ID Status Reason Start Date Expiration Date Visits Requested Visits Authorized [id number] Pending Review PCP Requested Referral Auto-Generate d Referral 3 01/25/2024 1 1 Specialty Diagnoses / Procedures Referred By Contac t Referred To Contact General Surgery Diagnoses Acute constipation Hard stool Screening for colon cancer Procedures CONSULT TO GENERAL SURGERY OFFICE/OUTPATIENT NEW HIGH MDM 60-74 MINUTES Annamarie Eugene APRN.ENGINEERING LIBRARIAN [address] [place] [address] Referral ID Status Reason Start Date Expiration Date Visits Requested Visits Authorized [id number] Authorized PCP Requested Referral 3 02/02/2024 1 1 Specialty Diagnoses / Procedures Referred By Contac t Referred To Contact X[facility] IMAG[facility] Diagnoses Acute constipation Hard stool Procedures XR ABDOMEN 1V SUPINE RADIOLOGIC EXAM ABDOMEN 1 VIEW Annamarie Eugene, STITCHER STANDARD MACHINE.ENGINEERING LIBRARIAN [address] [place] [address] [place] [address] Referral ID Status Reason Start Date Expiration Date Visits Requested Visits Authorized [id number] Pending Review Auto-Generat ed Referral 3 03/03/2024 1 1 Specialty Diagnoses / Procedures Referred By Contac t Referred To Contact CT IMAGING Diagnoses Abdominal distension (gaseous) Generalized abdominal pain Nausea Procedures CT ABD/PEL W IVCON CT ABD & PELVIS W/CONTRAST Alfredito Engel, DO [address] [place] [address] [place] [address] Referral ID Status Reason Start Date Expiration Date Visits Requested Visits Authorized [id number] Authorized Auto-Generat ed Referral 05/18/2023 06/16/2024 1 1 Specialty Diagnoses / Procedures Referred By Contac t Referred To Contact [facility] Diagnoses Encounter for screening mammogram for malignant neoplasm of breast Procedures LUNA SCREENING SCREENING MAMMOGRAPHY BI 2-VIEW BREAST INC CAD Alfredito Engel, DO [address] [place] [address] [facility] [address] [place] [address] Referral ID Status Reason Start Date Expiration Date Visits Requested Visits Authorized [id number] Pending Review Auto-Generat ed Referral 05/18/2023 06/16/2024 1 1 Specialty Diagnoses / Procedures Referred By Contac t Referred To Contact MR IMAGING Diagnoses Abdominal distension (gaseous) Generalized abdominal pain Liver lesion Procedures MRI LIVER WO/W IVCON MRI ABDOMEN W/O & W/CONTRAST MATERIAL Alfredito Engel, DO [address] [facility] [place] [address] [place] [address] Referral ID Status Reason Start Date Expiration Date Visits Requested Visits Authorized [id number] Authorized Auto-Generat ed Referral 05/26/2023 06/24/2024 1 1 Chief Complaint and Reason for Visit Chief Complaint Admit Date Abnormal electrocardiogram September 25 10:55am Additional Source Comments INFORMATION SOURCE (unrecogn ized section and content) DATE CREATED AUTHOR 08/10/2019 [employer] DATE CREATED AUTHOR AUTHOR'S ORGANIZ ATION 09/04/2024 [facility] DATE CREATED AUTHOR AUTHOR'S ORGANIZ ATION 09/27/2024 [facility] nt DATE CREATED AUTHOR AUTHOR'S ORGANIZ ATION 09/28/2024 [facility] DATE CREATED AUTHOR AUTHOR'S ORGANIZ ATION 10/01/2024 [facility] Source Comments (unrecognize d section and content) In the event this informatio n is protected by the Federal Confidentiality of Alcohol and Drug Abuse Patient Records regulations: The Federal rules restrict any use of the information to criminally investigate or prosecute any alcohol or drug abuse patient.[facility] the event this information is protected by the Federal Confidentiality of Alcohol and Drug Abuse Patient Records regulations: The Federal rules restrict any use of the information to criminally investigate or prosecute any alcohol or drug abuse patient.[facility] the event this information is protected by the Federal Confidentiality of Alcohol and Drug Abuse Patient Records regulations: The Federal rules restrict any use of the information to criminally investigate or prosecute any alcohol or drug abuse patient.[facility] the event this information is protected by the Federal Confidentiality of Alcohol and Drug Abuse Patient Records regulations: The Federal rules restrict any use of the information to criminally investigate or prosecute any alcohol or drug abuse patient.[facility] the event this information is protected by the Federal Confidentiality of Alcohol and Drug Abuse Patient Records regulations: The Federal rules restrict any use of the information to criminally investigate or prosecute any alcohol or drug abuse patient.[facility]In the event this information is protected by the Federal Confidentiality of Alcohol and Drug Abuse Patient Records regulations: The Federal rules restrict any use of the information to criminally investigate or prosecute any alcohol or drug abuse patient.[facility] ColumbusIn the event this information is protected by the Federal Confidentiality of Alcohol and Drug Abuse Patient Records regulations: The Federal rules restrict any use of the information to criminally investigate or prosecute any alcohol or drug abuse patient.[facility] ColumbusIn the event this information is protected by the Federal Confidentiality of Alcohol and Drug Abuse Patient Records regulations: The Federal rules restrict any use of the information to criminally investigate or prosecute any alcohol or drug abuse patient.[facility] ColumbusIn the event this information is protected by the Federal Confidentiality of Alcohol and Drug Abuse Patient Records regulations: The Federal rules restrict any use of the information to criminally investigate or prosecute any alcohol or drug abuse patient.[facility] ColumbusIn the event this information is protected by the Federal Confidentiality of Alcohol and Drug Abuse Patient Records regulations: The Federal rules restrict any use of the information to criminally investigate or prosecute any alcohol or drug abuse patient.[facility] the event this information is protected by the Federal Confidentiality of Alcohol and Drug Abuse Patient Records regulations: The Federal rules restrict any use of the information to criminally investigate or prosecute any alcohol or drug abuse patient.[facility] ColumbusIn the event this information is protected by the Federal Confidentiality of Alcohol and Drug Abuse Patient Records regulations: The Federal rules restrict any use of the information to criminally investigate or prosecute any alcohol or drug abuse patient.[facility] ColumbusIn the event this information is protected by the Federal Confidentiality of Alcohol and Drug Abuse Patient Records regulations: The Federal rules restrict any use of the information to criminally investigate or prosecute any alcohol or drug abuse patient.[facility] ColumbusIn the event this information is protected by the Federal Confidentiality of Alcohol and Drug Abuse Patient Records regulations: The Federal rules restrict any use of the information to criminally investigate or prosecute any alcohol or drug abuse patient.[facility] ColumbusIn the event this information is protected by the Federal Confidentiality of Alcohol and Drug Abuse Patient Records regulations: The Federal rules restrict any use of the information to criminally investigate or prosecute any alcohol or drug abuse patient.[facility] ColumbusIn the event this information is protected by the Federal Confidentiality of Alcohol and Drug Abuse Patient Records regulations: The Federal rules restrict any use of the information to criminally investigate or prosecute any alcohol or drug abuse patient.[facility] ColumbusIn the event this information is protected by the Federal Confidentiality of Alcohol and Drug Abuse Patient Records regulations: The Federal rules restrict any use of the information to criminally investigate or prosecute any alcohol or drug abuse patient.[facility] ColumbusIn the event this information is protected by the Federal Confidentiality of Alcohol and Drug Abuse Patient Records regulations: The Federal rules restrict any use of the information to criminally investigate or prosecute any alcohol or drug abuse patient.[facility] ColumbusIn the event this information is protected by the Federal Confidentiality of Alcohol and Drug Abuse Patient Records regulations: The Federal rules restrict any use of the information to criminally investigate or prosecute any alcohol or drug abuse patient.[facility] ColumbusIn the event this information is protected by the Federal Confidentiality of Alcohol and Drug Abuse Patient Records regulations: The Federal rules restrict any use of the information to criminally investigate or prosecute any alcohol or drug abuse patient.[facility] ColumbusIn the event this information is protected by the Federal Confidentiality of Alcohol and Drug Abuse Patient Records regulations: The Federal rules restrict any use of the information to criminally investigate or prosecute any alcohol or drug abuse patient.[facility] ColumbusIn the event this information is protected by the Federal Confidentiality of Alcohol and Drug Abuse Patient Records regulations: The Federal rules restrict any use of the information to criminally investigate or prosecute any alcohol or drug abuse patient.[facility] ColumbusIn the event this information is protected by the Federal Confidentiality of Alcohol and Drug Abuse Patient Records regulations: The Federal rules restrict any use of the information to criminally investigate or prosecute any alcohol or drug abuse patient.[facility] ColumbusIn the event this information is protected by the Federal Confidentiality of Alcohol and Drug Abuse Patient Records regulations: The Federal rules restrict any use of the information to criminally investigate or prosecute any alcohol or drug abuse patient.[facility] ColumbusIn the event this information is protected by the Federal Confidentiality of Alcohol and Drug Abuse Patient Records regulations: The Federal rules restrict any use of the information to criminally investigate or prosecute any alcohol or drug abuse patient.[facility] ColumbusIn the event this information is protected by the Federal Confidentiality of Alcohol and Drug Abuse Patient Records regulations: The Federal rules restrict any use of the information to criminally investigate or prosecute any alcohol or drug abuse patient.[facility] ColumbusIn the event this information is protected by the Federal Confidentiality of Alcohol and Drug Abuse Patient Records regulations: The Federal rules restrict any use of the information to criminally investigate or prosecute any alcohol or drug abuse patient.[facility] ColumbusIn the event this information is protected by the Federal Confidentiality of Alcohol and Drug Abuse Patient Records regulations: The Federal rules restrict any use of the information to criminally investigate or prosecute any alcohol or drug abuse patient.[facility] ColumbusIn the event this information is protected by the Federal Confidentiality of Alcohol and Drug Abuse Patient Records regulations: The Federal rules restrict any use of the information to criminally investigate or prosecute any alcohol or drug abuse patient.[facility] ColumbusIn the event this information is protected by the Federal Confidentiality of Alcohol and Drug Abuse Patient Records regulations: The Federal rules restrict any use of the information to criminally investigate or prosecute any alcohol or drug abuse patient.[facility] ColumbusIn the event this information is protected by the Federal Confidentiality of Alcohol and Drug Abuse Patient Records regulations: The Federal rules restrict any use of the information to criminally investigate or prosecute any alcohol or drug abuse patient.[facility] ColumbusIn the event this information is protected by the Federal Confidentiality of Alcohol and Drug Abuse Patient Records regulations: The Federal rules restrict any use of the information to criminally investigate or prosecute any alcohol or drug abuse patient.[facility] ColumbusIn the event this information is protected by the Federal Confidentiality of Alcohol and Drug Abuse Patient Records regulations: The Federal rules restrict any use of the information to criminally investigate or prosecute any alcohol or drug abuse patient.[facility] ColumbusIn the event this information is protected by the Federal Confidentiality of Alcohol and Drug Abuse Patient Records regulations: The Federal rules restrict any use of the information to criminally investigate or prosecute any alcohol or drug abuse patient.[facility] ColumbusIn the event this information is protected by the Federal Confidentiality of Alcohol and Drug Abuse Patient Records regulations: The Federal rules restrict any use of the information to criminally investigate or prosecute any alcohol or drug abuse patient.[facility] ColumbusIn the event this information is protected by the Federal Confidentiality of Alcohol and Drug Abuse Patient Records regulations: The Federal rules restrict any use of the information to criminally investigate or prosecute any alcohol or drug abuse patient.[facility] ColumbusIn the event this information is protected by the Federal Confidentiality of Alcohol and Drug Abuse Patient Records regulations: The Federal rules restrict any use of the information to criminally investigate or prosecute any alcohol or drug abuse patient.[facility] ColumbusIn the event this information is protected by the Federal Confidentiality of Alcohol and Drug Abuse Patient Records regulations: The Federal rules restrict any use of the information to criminally investigate or prosecute any alcohol or drug abuse patient.[facility] ColumbusIn the event this information is protected by the Federal Confidentiality of Alcohol and Drug Abuse Patient Records regulations: The Federal rules restrict any use of the information to criminally investigate or prosecute any alcohol or drug abuse patient.[facility] ColumbusIn the event this information is protected by the Federal Confidentiality of Alcohol and Drug Abuse Patient Records regulations: The Federal rules restrict any use of the information to criminally investigate or prosecute any alcohol or drug abuse patient.[facility] ColumbusIn the event this information is protected by the Federal Confidentiality of Alcohol and Drug Abuse Patient Records regulations: The Federal rules restrict any use of the information to criminally investigate or prosecute any alcohol or drug abuse patient.[facility] ColumbusIn the event this information is protected by the Federal Confidentiality of Alcohol and Drug Abuse Patient Records regulations: The Federal rules restrict any use of the information to criminally investigate or prosecute any alcohol or drug abuse patient.[facility] ColumbusIn the event this information is protected by the Federal Confidentiality of Alcohol and Drug Abuse Patient Records regulations: The Federal rules restrict any use of the information to criminally investigate or prosecute any alcohol or drug abuse patient.[facility] ColumbusIn the event this information is protected by the Federal Confidentiality of Alcohol and Drug Abuse Patient Records regulations: The Federal rules restrict any use of the information to criminally investigate or prosecute any alcohol or drug abuse patient.[facility] ColumbusIn the event this information is protected by the Federal Confidentiality of Alcohol and Drug Abuse Patient Records regulations: The Federal rules restrict any use of the information to criminally investigate or prosecute any alcohol or drug abuse patient.[facility] ColumbusIn the event this information is protected by the Federal Confidentiality of Alcohol and Drug Abuse Patient Records regulations: The Federal rules restrict any use of the information to criminally investigate or prosecute any alcohol or drug abuse patient.[facility] ColumbusIn the event this information is protected by the Federal Confidentiality of Alcohol and Drug Abuse Patient Records regulations: The Federal rules restrict any use of the information to criminally investigate or prosecute any alcohol or drug abuse patient.[facility] ColumbusIn the event this information is protected by the Federal Confidentiality of Alcohol and Drug Abuse Patient Records regulations: The Federal rules restrict any use of the information to criminally investigate or prosecute any alcohol or drug abuse patient.[facility] ColumbusIn the event this information is protected by the Federal Confidentiality of Alcohol and Drug Abuse Patient Records regulations: The Federal rules restrict any use of the information to criminally investigate or prosecute any alcohol or drug abuse patient.[facility] ColumbusIn the event this information is protected by the Federal Confidentiality of Alcohol and Drug Abuse Patient Records regulations: The Federal rules restrict any use of the information to criminally investigate or prosecute any alcohol or drug abuse patient.[facility] ColumbusIn the event this information is protected by the Federal Confidentiality of Alcohol and Drug Abuse Patient Records regulations: The Federal rules restrict any use of the information to criminally investigate or prosecute any alcohol or drug abuse patient.[facility] ColumbusIn the event this information is protected by the Federal Confidentiality of Alcohol and Drug Abuse Patient Records regulations: The Federal rules restrict any use of the information to criminally investigate or prosecute any alcohol or drug abuse patient.[facility] ColumbusIn the event this information is protected by the Federal Confidentiality of Alcohol and Drug Abuse Patient Records regulations: The Federal rules restrict any use of the information to criminally investigate or prosecute any alcohol or drug abuse patient.[facility] ColumbusIn the event this information is protected by the Federal Confidentiality of Alcohol and Drug Abuse Patient Records regulations: The Federal rules restrict any use of the information to criminally investigate or prosecute any alcohol or drug abuse patient.[facility] ColumbusIn the event this information is protected by the Federal Confidentiality of Alcohol and Drug Abuse Patient Records regulations: The Federal rules restrict any use of the information to criminally investigate or prosecute any alcohol or drug abuse patient.[facility] ColumbusIn the event this information is protected by the Federal Confidentiality of Alcohol and Drug Abuse Patient Records regulations: The Federal rules restrict any use of the information to criminally investigate or prosecute any alcohol or drug abuse patient.[facility] ColumbusIn the event this information is protected by the Federal Confidentiality of Alcohol and Drug Abuse Patient Records regulations: The Federal rules restrict any use of the information to criminally investigate or prosecute any alcohol or drug abuse patient.[facility] ColumbusIn the event this information is protected by the Federal Confidentiality of Alcohol and Drug Abuse Patient Records regulations: The Federal rules restrict any use of the information to criminally investigate or prosecute any alcohol or drug abuse patient.[facility] ColumbusIn the event this information is protected by the Federal Confidentiality of Alcohol and Drug Abuse Patient Records regulations: The Federal rules restrict any use of the information to criminally investigate or prosecute any alcohol or drug abuse patient.[facility] ColumbusIn the event this information is protected by the Federal Confidentiality of Alcohol and Drug Abuse Patient Records regulations: The Federal rules restrict any use of the information to criminally investigate or prosecute any alcohol or drug abuse patient.[facility] the event this information is protected by the Federal Confidentiality of Alcohol and Drug Abuse Patient Records regulations: The Federal rules restrict any use of the information to criminally investigate or prosecute any alcohol or drug abuse patient.[facility]In the event this information is protected by the Federal Confidentiality of Alcohol and Drug Abuse Patient Records regulations: The Federal rules restrict any use of the information to criminally investigate or prosecute any alcohol or drug abuse patient.[facility] ColumbusIn the event this information is protected by the Federal Confidentiality of Alcohol and Drug Abuse Patient Records regulations: The Federal rules restrict any use of the information to criminally investigate or prosecute any alcohol or drug abuse patient.[facility] ColumbusIn the event this information is protected by the Federal Confidentiality of Alcohol and Drug Abuse Patient Records regulations: The Federal rules restrict any use of the information to criminally investigate or prosecute any alcohol or drug abuse patient.[facility] ColumbusIn the event this information is protected by the Federal Confidentiality of Alcohol and Drug Abuse Patient Records regulations: The Federal rules restrict any use of the information to criminally investigate or prosecute any alcohol or drug abuse patient.[facility] ColumbusIn the event this information is protected by the Federal Confidentiality of Alcohol and Drug Abuse Patient Records regulations: The Federal rules restrict any use of the information to criminally investigate or prosecute any alcohol or drug abuse patient.[facility] ColumbusIn the event this information is protected by the Federal Confidentiality of Alcohol and Drug Abuse Patient Records regulations: The Federal rules restrict any use of the information to criminally investigate or prosecute any alcohol or drug abuse patient.[facility] ColumbusIn the event this information is protected by the Federal Confidentiality of Alcohol and Drug Abuse Patient Records regulations: The Federal rules restrict any use of the information to criminally investigate or prosecute any alcohol or drug abuse patient.[facility] ColumbusIn the event this information is protected by the Federal Confidentiality of Alcohol and Drug Abuse Patient Records regulations: The Federal rules restrict any use of the information to criminally investigate or prosecute any alcohol or drug abuse patient.[facility] ColumbusIn the event this information is protected by the Federal Confidentiality of Alcohol and Drug Abuse Patient Records regulations: The Federal rules restrict any use of the information to criminally investigate or prosecute any alcohol or drug abuse patient.[facility] ColumbusIn the event this information is protected by the Federal Confidentiality of Alcohol and Drug Abuse Patient Records regulations: The Federal rules restrict any use of the information to criminally investigate or prosecute any alcohol or drug abuse patient.[facility] ColumbusIn the event this information is protected by the Federal Confidentiality of Alcohol and Drug Abuse Patient Records regulations: The Federal rules restrict any use of the information to criminally investigate or prosecute any alcohol or drug abuse patient.[facility] ColumbusIn the event this information is protected by the Federal Confidentiality of Alcohol and Drug Abuse Patient Records regulations: The Federal rules restrict any use of the information to criminally investigate or prosecute any alcohol or drug abuse patient.[facility] ColumbusIn the event this information is protected by the Federal Confidentiality of Alcohol and Drug Abuse Patient Records regulations: The Federal rules restrict any use of the information to criminally investigate or prosecute any alcohol or drug abuse patient.[facility] ColumbusIn the event this information is protected by the Federal Confidentiality of Alcohol and Drug Abuse Patient Records regulations: The Federal rules restrict any use of the information to criminally investigate or prosecute any alcohol or drug abuse patient.[facility] Care Teams (unrecognized sec tion and content) Reacher Relationship Specialty Start Date End Date Alfredito Engel, DO [address] [facility] [place] [address] PCP - General Family Practice 08/12/15 Reacher Relationship Specialty Start Date End Date Alfredito Engel, DO [address] [place] [address] PCP - General Family Practice 08/12/15 Reacher Relationship Specialty Start Date End Date Alfredito Engel, DO [address] [place] [address] PCP - General Family Practice 08/12/15 Reacher Relationship Specialty Start Date End Date Alfredito Engel, DO [address] [place] [address] PCP - General Family Practice 08/12/15 Reacher Relationship Specialty Start Date End Date Alfredito Engel, DO [address] [place] [address] PCP - General Family Practice 08/12/15 Reacher Relationship Specialty Start Date End Date Alfredito Engel, DO [address] [facility] [place] [address] PCP - General Family Practice 08/12/15 Reacher Relationship Specialty Start Date End Date Alfredito Engel, DO [address] [facility] [place] [address] PCP - General Family Practice 08/12/15 Reacher Relationship Specialty Start Date End Date Alfredito Engel, DO [address] [facility] [place] [address] PCP - General Family Medicine 08/12/15 Reacher Relationship Specialty Start Date End Date Alfredito Engel, DO [address] [place] [address] PCP - General Family Medicine 08/12/15 Reacher Relationship Specialty Start Date End Date Alfredito Engel, DO [address] [place] [address] PCP - General Family Medicine 08/12/15 Reacher Relationship Specialty Start Date End Date Alfredito Engel, DO [address] [place] [address] PCP - General Family Medicine 08/12/15 Reacher Relationship Specialty Start Date End Date Alfredito Engel, DO [address] [place] [address] PCP - General Family Medicine 08/12/15 Reacher Relationship Specialty Start Date End Date Alfredito Engel, DO [address] [place] [address] PCP - General Family Medicine 08/12/15 Reacher Relationship Specialty Start Date End Date Alfredito Engel, DO [address] [place] [address] PCP - General Family Medicine 08/12/15 Reacher Relationship Specialty Start Date End Date Alfredito Engel, DO [address] [place] [address] PCP - General Family Medicine 08/12/15 Reacher Relationship Specialty Start Date End Date Alfredito Engel, DO [address] [place] [address] PCP - General Family Medicine 08/12/15 Reacher Relationship Specialty Start Date End Date Alfredito Engel, DO [address] [place] [address] PCP - General Family Medicine 08/12/15 Reacher Relationship Specialty Start Date End Date Alfredito Engel DO [address] [place] [address] PCP - General Family Medicine 08/12/15 Reacher Relationship Specialty Start Date End Date Alfredito Engel DO [address] [place] [address] PCP - General Family Medicine 08/12/15 Reacher Relationship Specialty Start Date End Date Alfredito Engel DO [address] [place] [address] PCP - General Family Medicine 08/12/15 Reacher Relationship Specialty Start Date End Date Alfredito Engel DO [address] [place] [address] PCP - General Family Medicine 08/12/15 Reacher Relationship Specialty Start Date End Date Alfredito Engel DO [address] [place] [address] PCP - General Family Medicine 08/12/15 Reacher Relationship Specialty Start Date End Date Alfredito Engel DO [address] [place] [address] PCP - General Family Medicine 08/12/15 Reacher Relationship Specialty Start Date End Date Alfredito Engel DO [address] [place] [address] PCP - General Family Medicine 08/12/15 Reacher Relationship Specialty Start Date End Date Alfredito Engel DO [address] [place] [address] PCP - General Family Medicine 08/12/15 Reacher Relationship Specialty Start Date End Date Alfredito Engel DO [address] [place] [address] PCP - General Family Medicine 08/12/15 Reacher Relationship Specialty Start Date End Date Alfredito Engel DO [address] [place] [address] PCP - General Family Medicine 08/12/15 Reacher Relationship Specialty Start Date End Date Alfredito Engel DO [address] [place] [address] PCP - General Family Medicine 08/12/15 Reacher Relationship Specialty Start Date End Date Alfredito Engel DO [address] [place] [address] PCP - General Family Medicine 08/12/15 Reacher Relationship Specialty Start Date End Date Alfredito Engel DO [address] [place] [address] PCP - General Family Medicine 08/12/15 Reacher Relationship Specialty Start Date End Date Alfredito Engel DO [address] [place] [address] PCP - General Family Medicine 08/12/15 Reacher Relationship Specialty Start Date End Date Alfredito Engel DO [address] [place] [address] PCP - General Family Medicine 08/12/15 Reacher Relationship Specialty Start Date End Date Alfredito Engel DO [address] [place] [address] PCP - General Family Medicine 08/12/15 Reacher Relationship Specialty Start Date End Date Alfredito Engel DO [address] [facility] [place] [address] PCP - General Family Medicine 08/12/15 Reacher Relationship Specialty Start Date End Date Alfredito Engel DO [address] [facility] [place] [address] PCP - General Family Medicine 08/12/15 Reacher Relationship Specialty Start Date End Date Alfredito Engel DO [address] [facility] [place] [address] PCP - General Family Medicine 08/12/15 Reacher Relationship Specialty Start Date End Date Alfredito Engel DO [address] [facility] [place] [address] PCP - General Family Medicine 08/12/15 Reacher Relationship Specialty Start Date End Date Alfredito Engel DO [address] [facility] [place] [address] PCP - General Family Medicine 08/12/15 Reacher Relationship Specialty Start Date End Date Alfredito Engel DO [address] [facility] [place] [address] PCP - General Family Medicine 08/12/15 Reacher Relationship Specialty Start Date End Date Alfredito Engel DO [address] [facility] [place] [address] PCP - General Family Medicine 08/12/15 Reacher Relationship Specialty Start Date End Date Alfredito Engel DO [address] [facility] [place] [address] PCP - General Family Medicine 08/12/15 Reacher Relationship Specialty Start Date End Date Alfredito Engel DO [address] [facility] [place] [address] PCP - General Family Medicine 08/12/15 Reacher Relationship Specialty Start Date End Date Alfredito Engel DO [address] [facility] [place] [address] PCP - General Family Medicine 08/12/15 Reacher Relationship Specialty Start Date End Date Alfredito Engel DO [address] [facility] [place] [address] PCP - General Family Medicine 08/12/15 Reacher Relationship Specialty Start Date End Date Alfredito Engel DO [address] [facility] [place] [address] PCP - General Family Medicine 08/12/15 Juanita Arce, STITCHER STANDARD MACHINE.ENGINEERING LIBRARIAN [address] [facility] [place] [address] [employer] Press Laborer Family Medicine 02/12/24 Annamarie Eugene, STITCHER STANDARD MACHINE.ENGINEERING LIBRARIAN [address] [facility] [place] [address] [employer] Density Press Laborer Family Medicine 02/12/24 Reacher Relationship Specialty Start Date End Date Alfredito Engel DO [address] [facility] [place] [address] PCP - General Family Medicine 08/12/15 Annamarie Eugene, STITCHER STANDARD MACHINE.ENGINEERING LIBRARIAN [address] [facility] [place] [address] High Density Press Laborer Family [facility] 02/12/24 Reacher Relationship Specialty Start Date End Date Alfredito Engel DO [address] [facility] [place] [address] PCP - General Family Medicine 08/12/15 [facility] STITCHER STANDARD MACHINE.ENGINEERING LIBRARIAN [address] [facility] [place] [address] High Density Press Laborer [facility] 02/12/24 Reacher Relationship Specialty Start Date End Date Alfredito Engel DO [address] [facility] [place] [address] PCP - General Family Medicine 08/12/15 [facility], STITCHER STANDARD MACHINE.ENGINEERING LIBRARIAN [address] [facility] [place] [address] High Density Press Laborer [facility] 02/12/24 Reacher Relationship Specialty Start Date End Date Alfredito Engel DO [address] [facility] [place] [address] PCP - General Family Medicine 08/12/15 [facility], STITCHER STANDARD MACHINE.ENGINEERING LIBRARIAN [address] [facility] [place] [address] High Density Press Laborer [facility] 02/12/24 Reacher Relationship Specialty Start Date End Date Alfredito Engel DO [address] [facility] [place] [address] PCP - General Family Medicine 08/12/15 ValorieAnnamarie, STITCHER STANDARD MACHINE.ENGINEERING LIBRARIAN [address] [place] [address] High Density Press Laborer Family Medicine 02/12/24 Reacher Relationship Specialty Start Date End Date Alfredito Engel DO [address] [place] [address] PCP - General Family Medicine 08/12/15 [facility], STITCHER STANDARD MACHINE.ENGINEERING LIBRARIAN [address] [place] [address] High Density Press Laborer Family Medicine 02/12/24 Reacher Relationship Specialty Start Date End Date Alfredito Engel DO [address] [place] [address] PCP - General Family Medicine 08/12/15 [facility], STITCHER STANDARD MACHINE.ENGINEERING LIBRARIAN [address] [place] [address] High Density Press Laborer Family Medicine 02/12/24 Reacher Relationship Specialty Start Date End Date Alfredito Engel DO [address] [place] [address] PCP - General Family Medicine 08/12/15 [facility], STITCHER STANDARD MACHINE.ENGINEERING LIBRARIAN [address] [place] [address] High Density Press Laborer Family Medicine 02/12/24 Ema William, STITCHER STANDARD MACHINE.ENGINEERING LIBRARIAN [address] [place] [address] High Density Press Laborer Family Medicine 08/20/24 Reacher Relationship Specialty Start Date End Date Alfredito Engel DO [address] [place] [address] PCP - General Family Medicine 08/12/15 ValorieAnnamarie, STITCHER STANDARD MACHINE.ENGINEERING LIBRARIAN [address] [facility], [place] [address] [facility] 02/12/24 Ema William, STITCHER STANDARD MACHINE.ENGINEERING LIBRARIAN [address] [place], [place] [address] [facility] 08/20/24 Team Status: Active Member Role/Relationship Status Dates Dr. Alfredito Engel DO Primary Care Provider Active Team Status: Inactive Member Role/Relationship Status Dates Dr. Alfredito Engel DO Primary Care Provider Active Start: September 25, 2024 End: September 25, 2024 BON PAREKH Attending Provider Active Start: Ct ly 2024 End: September 25, 2024 BON PAREKH Referring Provider Active Start: Ju ly 2024 End: September 25, 2024 Team Status: Active Member Role/Relationship Status Dates Dr. Alfredito Engel DO Primary Care Provider Active Start: September 25, 2024 Dr. Lance Torres MD Attending Provider Active Start: September 25, 2024 Reacher Relationship Specialty Start Date End Date Alfredito Engel DO [address] [place], [place] [id number] PCP - General Family Medicine 08/12/15 ValorieAnnamarie, STITCHER STANDARD MACHINE.ENGINEERING LIBRARIAN [address] [place], [place] [id number] [facility] 02/12/24 Ema William, STITCHER STANDARD MACHINE.ENGINEERING LIBRARIAN [address] [place], [place] [id number] [facility] 08/20/24 Reason for Visit (unrecogniz ed section and content) Reason Comments PT Discharge Specialty Diagnoses / Procedures Referred By Contac t Referred To Contact Physical Therapy / PHYSICAL THERAPY Diagnoses chicken picker orthotics Procedures EST RS PT ORTHOTIC David Jameson [address] [place] [address] Josh Dee, PT [address] [place] [address] Referral ID Status Reason Start Date Expiration Date V isits Requested Visits Authorized [id number] Authorized 11/22/2022 03/06/2023 99 99 Reason Comments Refill Request Reason Onset Date Comments Population Health Navigation Outreach 09/11/2021 [place] Care Gaps Reason Comments Arthritis Fatigue Reason Comments Back Pain X 6 days Reason Comments Insurance Authorization Reason Onset Date Comments Refill Request 04/29/2022 Reason Comments Urinary Frequency Frequency x 1 month Reason Comments Results Reason Comments F/U 3 Month Reason Comments Yearly Exam Reason Comments Chest Congestion Pt reported cough x1 wk. Reason Onset Date Comments Refill Request 09/06/2022 Reason Comments Patient Question Reason Comments Covid19 Concern Reason Comments Constipation Reason Comments Yearly Exam Specialty Diagnoses / Procedures Referred By Contac t Referred To Contact CT IMAGING Diagnoses Abdominal distension (gaseous) Generalized abdominal pain Nausea Procedures CT ABD/PEL W IVCON CT ABD & PELVIS W/CONTRAST EngelAlfredito london L, DO [address] [place] [address] [place] [address] Referral ID Status Reason Start Date Expiration Date V isits Requested Visits Authorized [id number] Closed Auto-Generate d Referral 05/18/2023 06/16/2024 [address] Specialty Diagnoses / Procedures Referred By Contac t Referred To Contact CT IMAGING Diagnoses Abdominal distension (gaseous) Generalized abdominal pain Nausea Procedures CT ABD/PEL W IVCON CT ABD & PELVIS W/CONTRAST EngelAlfredito london L, DO [address] [place] [address] [place] [address] Reason Comments Laceration L index finger x1 da y, cut with knife Reason Comments cough And congestion start ed in Apr. Reason Comments Results Specialty Diagnoses / Procedures Referred By Contac t Referred To Contact MR IMAGING Diagnoses Abdominal distension (gaseous) Generalized abdominal pain Liver lesion Procedures MRI LIVER WO/W IVCON MRI ABDOMEN W/O & W/CONTRAST MATERIAL Alfredito Engel DO [address] [place] [address] [place] [address] Referral ID Status Reason Start Date Expiration Date V isits Requested Visits Authorized [id number] Closed Auto-Generate d Referral 05/26/2023 06/24/2024 1 1 Reason Onset Date Comments Refill Request 08/04/2023 Reason Comments 04/08/2023 [facility] Reason Comments Same Day Appointment hormonal issues Reason Comments Palpitations Patient states she f elt her heart flutter x 1 a couple of weeks ago Reason Onset Date Comments Refill Request 07/13/2024 Reason Comments Orders Mammogram Reason Comments Orders Reason Comments Consult Referred for Afib/fl utter management Specialty Diagnoses / Procedures Referred By Contac t Referred To Contact Diagnoses Atrial flutter with rapid ventricular response (HCC) Palpitations Procedures CONSULT TO ELECTROPHYSIOLOGY OFFICE/OUTPATIENT [facility] 60 MINUTES Gracy Calvillo PA-C [address] [place] [address] Phone: tel: fax: Referral ID Status Reason Start Date Expiration Date V isits Requested Visits Authorized [id number] Closed PCP Requested Referral 08/02/2024 08/02/2025 1 1 Reason Comments PT Discharge Physical Therapy Specialty Diagnoses / Procedures Referred By Contac t Referred To Contact Physical Therapy / PHYSICAL THERAPY 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 EST RS PT ORTHOTIC Self Golias, Josh, PT [address] [place] [address] Phone: tel: fax: Referral ID Status Reason Start Date Expiration Date V isits Requested Visits Authorized [id number] Authorized 03/07/2024 03/06/2025 99 99 Inactive Administered Medications - up to 3 most recent administrations Administered Medications (un recognized section and content) Medication Order MAR Action Action Date Dose Rate Site diphenhydrAMINE 12.5-50 mg injection (BENADRYL) 12.5-50 mg, INTRAVENOUS, DIRECTED, Starting on Tue04/08/23 at 0830, Until Tue04/08/23 at 1229, DOSING DIRECTED BY PHYSICIAN FOR PROCEDURAL SEDATION ONLY, Intraprocedure Given 04/08/2023 8:13 AM EST 50 mg fentaNYL 50 mcg/mL 25-100 mcg injection (SUBLIMAZE) 25-100 mcg, INTRAVENOUS, DIRECTED, Starting on Tue04/08/23 at 0830, Until Tue04/08/23 at 1229, DOSING DIRECTED BY PHYSICIAN FOR PROCEDURAL SEDATION ONLY, Intraprocedure Given 04/08/2023 8:25 AM EST 50 mcg Given 04/08/2023 8:11 AM EST 50 mcg lactated ringers iv infusion 30 mL/hr, INTRAVENOUS, CONTINUOUS, Starting on Tue04/08/23 at 0800, Until Tue04/08/23 at 0933, Preprocedure New Bag/Syringe/Bottle 04/08/2023 7:48 AM EST 30 mL/hr 30 mL/hr Hand, Left midazolam (PF) 1-5 mg injection (VERSED) 1-5 mg, INTRAVENOUS, DIRECTED, Starting on Tue04/08/23 at 0830, Until Tue04/08/23 at 1229, DOSING DIRECTED BY PHYSICIAN FOR PROCEDURAL SEDATION ONLY, Intraprocedure Given 04/08/2023 8:19 AM EST 1 mg Given 04/08/2023 8:16 AM EST 1 mg Given 04/08/2023 8:11 AM EST 3 mg Goals (unrecognized section and content) Goals may be documented in a n alternate section FOR RECORDS PERTAINING TO PATIENTS WHO ARE OR HAVE BEEN ENROLLED IN A CHEMICAL DEPENDENCY/SUBSTANCEABUSE PROGRAM, SOME INFORMATION MAY BE OMITTED. This clinical summary was aggregated from multiple sources. Caution should be exercised in using it in the provision of clinical care. This summary normalizes information from multiple sources, and as a consequence, information in this document may materially change the coding, format and clinical context of patient data. In addition, data may be omitted in some cases. CLINICAL DECISIONS SHOULD BE BASED ON THE PRIMARY CLINICAL RECORDS. [facility]. provides no warranty or guarantee of the accuracy or completeness of information in this document.
--- NOTE | 2024-10-04 07:26 | STRESSREP_ITS ---
Stress Test Report Exercise myocardial perfusion stress test. 73-year-old lady with a history of atrial fibrillation Stress protocol: Resting EKG demonstrates sinus rhythm with a rate of 70 bpm resting blood pressure is 122/70 mmHg. The patient exercised according to the regular Wally protocol for a total duration of 7 minutes attaining a maximum heart rate of 151 bpm which was 104% of maximum predicted heart rate; the maximum workload was 10.1 metabolic equivalents. At rest there were no ST or T wave changes noted to suggest ischemia and at peak exercise upsloping ST changes only were noted which did not meet the criteria for ischemia. No clinical angina was noted the test was terminated due to the target heart rate being achieved/fatigue. The peak blood pressure was 154/70 mmHg. Rate-pressure product was 22,000. Myocardial perfusion protocol. 11.6 mCi of technetium 99m sestamibi was injected at rest. The patient exercised according to regular Wally protocol for total duration of 7 minutes and at peak exercise 33.2 mCi of technetium 99m sestamibi was injected stress images were obtained stress and rest images were reconstructed in comparing the short axis vertical long and horizontal long axis. Gated images were also obtained. Perfusion SPECT analysis: Review of the stress images demonstrate normal uptake of tracer noted in all a reas of the myocardium. The resting images similarly demonstrate normal uptake of tracer noted in all areas of the myocardium. No areas of reversibility are noted to suggest ischemia no previous infarct was noted. Gated SPECT analysis: The gated ejection fraction is 88%. Conclusion: Normal exercise myocardial perfusion stress test at a high workload Preserved ejection fraction.
== END | disposition home or self-care (01) ==
LOC: CVS 07:06
PROVIDERS: PCP Student in an Organized Health Care Education/Training Program
DX: I48.92 Unspecified atrial flutter (principal); R00.2 Palpitations; R94.31 Abnormal electrocardiogram [ECG] [EKG]; I49.3 Ventricular premature depolarization
CPT/HCPCS: 78452; 93017; A9500; A4216